=== PATIENT | female | born 1950 | race Caucasian/White ===

== ENCOUNTER → 2017-12-28 13:48 | Outpatient (REF) | payer MEDICARE, SELFPAY | LOC: LAB 13:48 | PROVIDERS: Visit Provider Family Medicine | DX: L97.921 Non-pressure chronic ulcer of unspecified part of left lower leg limited to breakdown of skin (principal); L97.911 Non-pressure chronic ulcer of unspecified part of right lower leg limited to breakdown of skin | CPT/HCPCS: 87070; 87077; 87186; 87205 ==

== ENCOUNTER 2018-04-19 13:00 | Outpatient (RCR) | payer MEDICARE, SELFPAY | END 2018-04-19 13:35 | disposition home or self-care (01) | LOC: PT 13:00 | PROVIDERS: Family Provider Family Medicine; Visit Provider Family Medicine | DX: L97.921 Non-pressure chronic ulcer of unspecified part of left lower leg limited to breakdown of skin (principal); L97.911 Non-pressure chronic ulcer of unspecified part of right lower leg limited to breakdown of skin | CPT/HCPCS: 29580; 97161; 97164; 97597 ==

== ENCOUNTER 2018-09-25 13:30 | Outpatient (RCR) | payer MEDICARE, SELFPAY | END 2018-09-25 13:35 | disposition home or self-care (01) | LOC: PT 13:30 | PROVIDERS: Referring Provider Family Medicine; Visit Provider Family Medicine | DX: L97.921 Non-pressure chronic ulcer of unspecified part of left lower leg limited to breakdown of skin (principal) | CPT/HCPCS: 29580; 97162; 97597 ==

== ENCOUNTER 2019-07-06 13:00 | Outpatient (RCR) | payer MEDICARE, MEDICAID, SELFPAY | END 2019-07-06 13:05 | disposition home or self-care (01) | LOC: PT 13:00 | PROVIDERS: Visit Provider Family Medicine | DX: L97.229 Non-pressure chronic ulcer of left calf with unspecified severity (principal); L97.219 Non-pressure chronic ulcer of right calf with unspecified severity | CPT/HCPCS: 29580; 97140; 97162; 97164; 97597; 97598; 97760 ==

== ENCOUNTER 2024-10-26 20:38 | Inpatient (IN) | payer MEDICARE, SELFPAY ==
[2024-10-26 20:44] VITALS: O2SAT 93
--- NOTE | 2024-10-26 20:48 | PC.NURSE ---
Patient arrived to floor @2044
[2024-10-26 21:06] VITALS: BP 120/77; PULSE 72; RESP 16; TEMP 36.7; O2SAT 96; BMI 35.2
--- NOTE | 2024-10-26 22:23 | EXP.HP ---
History of Present Illness *Admission Date: 10/26/24 *Reason for visit:: Weakness *History of present illness: This is a 74-year-old female that presents to [facility] in transition of care from [facility] for generalized weakness and abnormal ECG. The patient reports that she lives in [place] with her daughter and son and is typically wheelchair dependent secondary to a previous stroke with left-sided deficit. She normally uses adult diaper hygiene managed by her family members. She reports that she is able to transfer from the bed to the wheelchair but often needs assistance with diaper changes. She describes feeling weak over a couple days of the family brought her to the emergency room for evaluation. In the emergency room the ED provider identified an abnormal ECG and contacted the cardiology service at [facility] for transition of care. Her outside troponins were negative x 2 and her ECGs identified no acute ST-T changes. She received IV fluids in the ED with improvement noted. Currently she reports no fever, no chills, no nausea, no vomiting, no diarrhea, no abdominal pain, no flank pain, no dysuria, no gross hematuria, no retrosternal chest pain, no dyspnea, no palpitations, no diaphoresis, no pain with inspiration, no cough or syncopal episodes. After the patient had arrived at our facility I received a call from the outside ED physician reporting that the patient's urinalysis came back abnormal and concerning for urinary tract infection. Nursing staff have identified that she remains afebrile with blood pressure 120/77, heart rate 72 normal respiratory rate and saturating appropriately on room air. [facility] Medical History (Updated 10/26/24 @ 23:01 by Otto Laguerre MD) Stroke (HFpEF) heart failure with preserved ejection fraction Body mass index (BMI) 35 or more Chronic venous stasis Normal esophagogastroduodenoscopy (EGD) Sleep apnea Hypertension Hypercholesterolemia GERD (gastroesophageal reflux disease) Gout Lymphedema Diabetes mellitus Coronary arteriosclerosis Chronic renal failure Cellulitis Surgical History (Updated 10/26/24 @ 22:57 by Otto Laguerre MD) Hx of esophagogastroduodenoscopy Hx of colonoscopy History of cystoscopy Hx of appendectomy H/O tubal ligation Social History (Updated 10/26/24 @ 21:24 by Eileen Caputo RN) Smoking Status: Never smoker alcohol intake: never current occupational status: disabled Travel in the last 8 weeks?: None Have you lived/traveled outside US in past 30 days?: No Contact w/someone who lives/traveled outside US past 30 days?: No Exposure to someone with infectious disease in past 14 days?: No Do you have a fever (greater than 100.4 F or 38 C)?: No Have you tested positive for COVID-19?: No Exposed to someone with COVID-19 in past 14 days?: No Do you have a sore throat?: No Do you have a cough?: No Do you have any weakness?: No Are you experiencing any nausea/vomitting?: No Do you have any diarrhea?: No Are you experiencing any unusual bleeding?: No Do you have any muscle aches/pain?: No Do you have any abdominal pain?: No Are you experiencing loss of taste or smell?: No Other Medical History Have you received the Flu Vaccine for this season: No Have you received the Pneumonia Vaccine: No Review of Systems Review of Systems Review of systems:: pertinent systems reviewed and negative unless documented below Meds Home Medications and Allergies Home Medications ?Medication ?Instructions ?Recorded ?Confirmed ?Type allopurinol 100 mg tablet 100 mg PO DAILY 10/26/24 10/26/24 History atorvastatin 80 mg tablet 80 mg PO HS 10/26/24 10/26/24 History carvedilol 6.25 mg tablet 6.25 mg PO BID 10/26/24 10/26/24 History esomeprazole magnesium 20 mg 20 mg PO DAILY 10/26/24 10/26/24 History capsule,delayed release furosemide 20 mg tablet 20 mg PO DAILY 10/26/24 10/26/24 History insulin glargine 100 unit/mL (3 22 unit SQ 10/26/24 10/26/24 History mL) subcutaneous pen (Lantus Solostar U-100 Insulin) metformin 500 mg tablet,extended 500 mg PO DAILY 10/26/24 10/26/24 History release 24 hr potassium chloride 10 mEq 10 meq PO BID 10/26/24 10/26/24 History tablet,extended release New Prescriptions to Start Prescriptions: Allergies Allergy/AdvReac Type Severity Reaction Status Date / Time ciprofloxacin AdvReac Unknown Verified 10/26/24 21:00 allergy reaction Sulfa (Sulfonamide AdvReac Vomiting Verified 10/26/24 21:00 Antibiotics) sulfamethoxazole (From AdvReac Unknown Verified 10/26/24 21:00 Bactrim) allergy reaction trimethoprim (From Bactrim) AdvReac Unknown Verified 10/26/24 21:00 allergy reaction vancomycin AdvReac Rash Verified 10/26/24 21:00 Exam Data for Last 24 hours Vital signs and Labs for Last 24 Hours: Temp Pulse Resp BP Pulse Ox O2 Del Method 98.0 F 72 16 120/77 96 Room Air 10/26/24 21:06 10/26/24 21:06 10/26/24 21:06 10/26/24 21:06 10/26/24 21:06 10/26/24 21:06 I & O for Last 24 hours: Intake & Output 10/23/24 10/24/24 10/25/24 10/26/24 23:59 23:59 23:59 23:59 Output Total 100 / 100 Balance -100 / -100 Weight 93 kg *Routine HEENT Exam Head: Present normocephalic Eye: Present EOMI and PERRL ENT: Present mucous membranes moist *Routine Neck Exam Neck: Present supple and trachea midline; Absent JVD *Routine Respiratory Exam Respiratory: Present rales, rhonchi, normal respiratory effort and symmetric chest movement; Absent respiratory distress *Routine Cardiovascular Exam Cardiovascular: Present RRR, Normal S1 and Normal S2; Absent murmur or JVD *Routine Abdominal Exam Abdominal: Present soft and normoactive bowel sounds; Absent tenderness or distended *Routine Rectal Exam Rectal:: deferred *Routine Genitalia Exam Genitalia:: deferred *Routine Extremities Exam Extremities: Present edema and full ROM; Absent cyanosis *Routine Skin Exam Skin: Present intact and wounds; Absent rash *Routine Neurological Exam Neurological: Present alert, oriented X3, motor deficit (Left-sided weakness), moving all extremities, vision grossly intact, hearing grossly intact and normal speech; Absent sensory deficit Routine Psychiatric Exam Psychiatric: Present normal affect, normal thought process and cooperative Assessment and Plan *Assessment and plan (1) Urinary tract infection: Status: Acute Category: Medical Code(s): N39.0 - Urinary tract infection, site not specified (2) (HFpEF) heart failure with preserved ejection fraction: Status: Acute Category: Medical Code(s): I50.30 - Unspecified diastolic (congestive) heart failure (3) Diabetes mellitus: Status: Acute Category: Medical Code(s): E11.9 - Type 2 diabetes mellitus without complications (4) Chronic venous stasis: Status: Acute Category: Medical Code(s): I87.8 - Other specified disorders of veins Plan This is a 74-year-old female that presents with generalized weakness with ECG concerns in the ED and transferred to our facility for cardiology consultation. Her urinalysis was abnormal. 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 Problems addressed as follows: Urinary tract infection ED urinalysis abnormal Urine culture pending Trending labs and inflammatory markers IV antibiotic therapy Chronic HFpEF (stage C/NYHA II) Abnormal ECG Telemetry monitoring Cardiology consultation Troponin trend Echocardiogram pending Antiplatelet therapy Statin therapy Loop diuretic therapy (currently holding with low blood pressure) Beta-briana therapy (currently holding with low blood pressure) Avoiding SGLT2 inhibitor therapy with UTI Avoiding ARB therapy with low blood pressure Assessing blood pressures for MAR start Diabetes Routine blood sugar monitoring Hemoglobin A1c Pending Basal insulin therapy Sliding scale insulin therapy Consistent carbohydrate diet Chronic venous stasis Chronic lower extremity wounds Topical wound care Antibiotic therapy Outpatient follow-up concerning Unna boot therapy LANDON/OHS/BMI 35 Pulse oximetry monitoring Oxygen therapy to maintain appropriate oxygen saturations Assessing for home NIPPV therapy Nutrition education Calorie appropriate diet The length of stay for this patient will be 2 midnights or greater due to above diagnoses.
[2024-10-26 22:35] VITALS: PULSE 70
[2024-10-26 23:30] LABS: INR 1.07 (0.9-1.1); Prothrombin Time 11.8 seconds (10.1-12.5)
[2024-10-26 23:43] LABS: Bilirubin,Urine Negative (Negative); Color,Urine YELLOW (Yellow); Glucose,Urine (UA) Negative (Negative); Ketones,Urine TRACE (Negative); Leukocyte Esterase,Urine 2+ (Negative); Microscopic, Urine URINE MICROSCOPIC (MICROSCOPIC); PH,Urine 6.0 (5.0-8.5); Protein,Urine 2+ (Negative); Specific Gravity, Urine 1.020 (1.005-1.030); Urobilinogen,Urine 2.0 EU/dl (0.2)
[2024-10-26 23:52] LABS: Bacteria,Urine 1+ /lpf; Squamous Epithelial Cell,Urine Occasional #/hpf (0-5)
[2024-10-26 23:58] VITALS: PULSE 85
[2024-10-27] VITALS (8 sets, daily range): BP systolic 101–122; BP diastolic 52–66; PULSE 69–81; RESP 16–18; TEMP 36.4–37.6; O2SAT 96–99; BMI 34.9
[2024-10-27 00:03] LABS: POC Glucose,Bedside 96 (70-110)
[2024-10-27] MEDS: 0.9 % SODIUM CHLORIDE 1000ML 1,000 ML 125 ML IV ×2 (00:55→09:07)
[2024-10-27 03:49] LABS: Troponin I 0.02 ng/ml (0.00-0.034)
[2024-10-27 06:12] LABS: POC Glucose,Bedside 166 (70-110)
[2024-10-27] MEDS: humaLOG 100 UNITS/ML 10ML VIAL (SSI) SUBCUT ×4 (06:12→20:29)
[2024-10-27 07:49] LABS: Hematocrit 33.0 % (37.0-47.0); Hemoglobin 10.7 g/dL (12.2-16.2); Immature Granulocytes % 0.2 %; Mean Corpuscular HGB Conc 32.4 g/dL (31.8-35.4); Mean Corpuscular Hemoglobin 28.5 pg (27.0-31.2); Mean Corpuscular Volume 87.8 fl (81-99); Nucleated Red Blood Cells % 0 %; Platelet Count 114 K/mm3 (142-424); Red Blood Count 3.76 M/mm3 (4.20-5.40); Red Cell Distribution Width-SD 49.4 fL; White Blood Count 4.6 K/mm3 (4.8-10.8)
[2024-10-27 07:56] LABS: Albumin Level 3.1 g/dl (3.5-5.0); Chloride 109 mmol/L (98-107); Potassium 3.5 mmoL/L (3.5-5.1); Sodium 136 mmol/L (136-145)
[2024-10-27 07:59] LABS: Alanine Aminotransferase 27 U/L (12-78); Albumin/Globulin Ratio 1.0 (1.1-1.8); Alkaline Phosphatase 106 U/L (38-126); Anion Gap 11.5 mEq/L (5-15); Aspartate Amino Transferase 64 U/L (14-36); Bilirubin,Total 1.0 mg/dl (0.2-1.3); Blood Urea Nitrogen 17 mg/dl (7-17); Calcium 8.6 mg/dl (8.4-10.2); Carbon Dioxide 19 mmol/L (22.0-30.0); Creatinine Clearance Estimated 56 mL/min (50-200); Creatinine,Serum 1.30 mg/dl (0.52-1.04); Estimated Glomerular Filt Rate 40 ml/min (>60); GFR (African American) 48 ML/MIN (>60); Globulin 3.1 g/dL (1.3-3.2); Glucose 138 mg/dl (74-100); Total Protein,Serum 6.2 g/dl (6.3-8.2)
[2024-10-27 08:00] LABS: Magnesium 1.2 mg/dl (1.6-2.3)
[2024-10-27 08:09] LABS: Troponin I 0.02 ng/ml (0.00-0.034)
[2024-10-27 09:05] LABS: Hemoglobin A1C 5.7 % (4.0-6.0)
[2024-10-27] MEDS: ACETAMINOPHEN 500MG TAB 1000 MG PO (09:06)
[2024-10-27] MEDS: ASPIRIN EC 81MG TABLET 81 MG PO (09:07)
[2024-10-27] MEDS: HEPARIN SODIUM 5,000 UNIT/ML VIAL 5000 UNIT SUBCUT ×3 (09:07→20:28)
[2024-10-27] MEDS: DOCUSATE SODIUM 100 MG CAPSULE PO (09:07)
--- NOTE | 2024-10-27 09:18 | HMH.PHAINT1 ---
Pharmacy Intervention Comments: MEDICATION RECONCILIATION COMPLETE USING EXTERNAL PHARMACY FILL HISTORY.
[2024-10-27 11:02] LABS: POC Glucose,Bedside 191 (70-110)
--- NOTE | 2024-10-27 11:48 | ECG_ITS ---
APPROVED REPORT Exam: Resting ECG HR:72 bpm ECG Measurements Heart Rate 72 AXES NE 189 P 94 QRSd 99 QRS -9 QT 478 T 208 QTc 503 Conclusion SINUS RHYTHM LOW QRS VOLTAGE IN EXTREMITY LEADS [QRS DEFLECTION < 0.5 mV IN LIMB LEADS] ST DEVIATION AND MARKED T-WAVE ABNORMALITY, CONSIDER ANTEROLATERAL ISCHEMIA [-0.5+ mV T-WAVE IN I/aVL/V3-V6] ST DEVIATION AND MODERATE T-WAVE ABNORMALITY, CONSIDER INFERIOR ISCHEMIA [-0.1+ mV T-WAVE IN II/aVF] ABNORMAL ECG UNCONFIRMED REPORT Electronically signed by : Darryl Howe MD 10/28/2024 12:46:08
[2024-10-27] MEDS: METOPROLOL SUCCINATE XL 25MG TABLET 25 MG PO (14:29)
--- NOTE | 2024-10-27 15:34 | HMH.PTEV ---
Physical Therapy Evaluation Rehab PT IP Evaluation Start: 10/26/24 23:38 Freq: ONCE Status: Complete Protocol: Document 10/27/24 15:31 JEN (Rec: 10/27/24 15:33 JEN [id number]) Subjective/History History History 74-year-old female that [facility] care from [facility] for generalized weakness and abnormal ECG. The patient reports that she lives in [place] with her daughter and son and is typically wheelchair dependent secondary to a previous stroke with left- sided deficit. She normally uses adult diaper hygiene managed by her family members. She reports that she is able to transfer from the bed to the wheelchair but often needs assistance with diaper changes. She describes feeling weak over a couple days of the family brought her to the emergency room for evaluation. In the emergency room the ED provider identified an abnormal ECG and contacted the cardiology service at [facility] for transition of care. Her outside troponins were negative x 2 and her ECGs identified no acute ST-T changes. She received IV fluids in the ED with improvement noted. Currently she reports no fever, no chills, no nausea, no vomiting, no diarrhea, no abdominal pain, no flank pain, no dysuria, no gross hematuria, no retrosternal chest pain , no dyspnea, no palpitations, no diaphoresis, no pain with inspiration, no cough or syncopal episodes. After the patient had arrived at our facility I received a call from the outside ED physician reporting that the patient's urinalysis came back abnormal and concerning for urinary tract infection. Nursing staff have identified that she remains afebrile with blood pressure 120/77, heart rate 72 normal respiratory rate and saturating appropriately on room air. Subjective Subjective Pt reports she lives with her daughter who provides all care for her ADLs. She uses a lift to transfer to w/c for all mobility at baseline. [facility] How much help from another person do you currently need... Turning from your None back to your side while in a flat bed without using bedrails? Moving from lying on None back to sitting on the side of a flat bed without using bedrails? Moving to and from a Total bed to a chair ( including a wheelchair)? Standing up from a Total chair using your arms? (e.g., wheelchair, bedside chair) Walking in hospital Total room? Climbing 3-5 steps Total with a railing? Mobility Score 12 Mobility Level [facility] Mobility 4 Move to chair/commode Mobility Calculator Rehab PT IP Eval Objective Appearance Patient Behavior Appropriate Patient Orientation Person,Place,Time Difficulty following none instructions Speech Pattern Clear Ambulation Patient Able to No Ambulate Transfers Bed Transfer Ability Independent Chair Transfer Total/Dependent (100%) Ability Sit to Stand Bed Total/Dependent (100%) Transfer Ability Sit to Stand Chair Total/Dependent (100%) Transfer Ability Rehab PT IP prob,goals,plan Problems Date of Evaluation: 10/27/24 Discharge Plan PT Discharge Plan Pt is currently at baseline for all mobility and is appropriate to return home with use of lift for all transfers OOB. No current inpatient acute therapy needs at this time. Eval Complexity Eval Charge Codes 19681 - High Complexity PHYSICIAN CERTIFICATION: I certify the specified therapy services for Daja Steele are required, authorized, and reviewed every 30 days.
--- NOTE | 2024-10-27 15:42 | PC.NURSE ---
PT IS RESTING IN BED. ALERT AND ORIENTED X4. EATING AND DRINKING FAIR. PT HAS HAD SEVERAL LOOSE STOOLS THIS SHIFT. DIARRHEA PANEL COLLECTED AND SENT TO LAB. [facility]WICK REMOVED DUE TO PT BEING INCONTINENT OF BOWEL AND EXCORIATION NOTED TO ENEDINA AREA AND BUTTOCKS. SCATTERED ABRASIONS NOTED TO BLE. PT TOLERATED WORKING WITH PHYSICAL THERAPY THIS SHIFT. WILL CONTINUE TO MONITOR.
[2024-10-27 15:45] LABS: Adenovirus F 40/41, stool Not Detected (NotDetected); Clostridium Difficile A/B, PCR Not Detected (NotDetected); Cyclospora Cayetanesis Not Detected (NotDetected); Plesimonas Shigalloides, PCR Not Detected (NotDetected); Salmonella, PCR Not Detected (NotDetected); Shiga-like toxin E coli Not Detected (NotDetected); Shigella Enterovasive E coli Not Detected (NotDetected); Vibrio, PCR Not Detected (NotDetected); Yersinia Entercolitica, PCR Not Detected (NotDetected)
--- NOTE | 2024-10-27 15:55 | EXP.PN ---
Subjective *Date: 11/02/24 *Time: 12:17 Interval history: Intermittent chest pain, started Protonix. [facility] on Tuesday per Dr. Adair. Exam Data for Last 24 hours Vital signs and Labs for Last 24 Hours: Temp Pulse Resp BP Pulse Ox O2 Del Method O2 Flow Rate 98.0 F 77 18 122/66 96 Room Air 93 10/27/24 12:16 10/27/24 12:16 10/27/24 12:16 10/27/24 12:16 10/27/24 12:16 10/27/24 14:52 10/27/24 01:00 Laboratory Results - last 24 hr 10/26/24 22:30: Urine Color Yellow, Urine Appearance Clear, Urine pH 6.0, Ur Specific Lyman 1.020, Urine Protein 2+ A, Urine Glucose (UA) Negative, Urine Ketones Trace, Urine Blood 2+ A, Urine Nitrate Positive A, Urine Bilirubin Negative, Urine Urobilinogen 2.0, Ur Leukocyte Esterase 2+ A, Urine RBC 10-20, Urine WBC 5-10, Ur Squamous Epith Cells Occasional, Urine Bacteria 1+ 10/26/24 22:51: PT 11.8, INR 1.07 10/26/24 23:49: POC Glucose 96 10/27/24 03:10: Troponin I 0.02 10/27/24 06:05: POC Glucose 166 H 10/27/24 07:06: WBC 4.6 L, RBC 3.76 L, Hgb 10.7 L, Hct 33.0 L, MCV 87.8, MCH 28.5, MCHC 32.4, RDW 15.4, Plt Count 114 L, MPV 9.4, Neut % (Auto) 67.1, Lymph % (Auto) 19.7, Harnett % (Auto) 11.6 H, Eos % (Auto) 0.7, Baso % (Auto) 0.7, Neut # (Auto) 3.1, Lymph # (Auto) 0.9, Harnett # (Auto) 0.5, Eos # (Auto) 0.0, Baso # (Auto) 0.0, Sodium 136, Potassium 3.5, Chloride 109 H, Carbon Dioxide 19 L, Anion Gap 11.5, BUN 17, Creatinine 1.30 H, Estimated Creat Clear 56, Estimated GFR 40 L, Est GFR ( Amer) 48 L, Glucose 138 H, Hemoglobin A1c 5.7, Calcium 8.6, Magnesium 1.2 L, Total Bilirubin 1.0, AST 64 H, ALT 27, Alkaline Phosphatase 106, Troponin I 0.02, Total Protein 6.2 L, Albumin 3.1 L, Globulin 3.1, Albumin/Globulin Ratio 1.0 L 10/27/24 10:53: POC Glucose 191 H Temp Pulse Resp BP Pulse Ox O2 Del Method O2 Flow Rate 98.3 F 74 18 134/72 96 Room Air 93 10/29/24 08:00 10/29/24 08:00 10/29/24 08:00 10/29/24 08:00 10/29/24 08:00 10/29/24 11:00 10/27/24 01:00 Laboratory Results - last 24 hr 10/26/24 22:30: Urine Color Yellow, Urine Appearance Clear, Urine pH 6.0, Ur Specific Lyman 1.020, Urine Protein 2+ A, Urine Glucose (UA) Negative, Urine Ketones Trace, Urine Blood 2+ A, Urine Nitrate Positive A, Urine Bilirubin Negative, Urine Urobilinogen 2.0, Ur Leukocyte Esterase 2+ A, Urine RBC 10-20, Urine WBC 5-10, Ur Squamous Epith Cells Occasional, Urine Bacteria 1+ 10/28/24 16:26: POC Glucose 196 H 10/28/24 20:03: POC Glucose 200 H 10/29/24 05:47: POC Glucose 137 H 10/29/24 08:43: Sodium 134 L, Potassium 3.8, Chloride 108 H, Carbon Dioxide 19 L, Anion Gap 10.8, BUN 17, Creatinine 1.10 H, Estimated Creat Clear 65, Estimated GFR 49 L, Est GFR ( Amer) 59, Glucose 220 H D, Calcium 8.7 10/29/24 09:20: WBC 3.3 L, RBC 3.65 L, Hgb 10.3 L, Hct 31.7 L, MCV 86.8, MCH 28.2, MCHC 32.5, RDW 15.5, Plt Count 134 L, MPV 9.9, Neut % (Auto) 48.3, Lymph % (Auto) 35.8, Harnett % (Auto) 10.8 H, Eos % (Auto) 3.9, Baso % (Auto) 0.9, Neut # (Auto) 1.6 L, Lymph # (Auto) 1.2, Harnett # (Auto) 0.4, Eos # (Auto) 0.1, Baso # (Auto) 0.0 I & O for Last 24 hours: Intake & Output 10/24/24 10/25/24 10/26/24 10/27/24 23:59 23:59 23:59 23:59 Intake Total 570 / 570 Output Total 100 / 100 100 / 100 Balance -100 / 150 470 / 470 Weight 93 kg 93 kg Intake & Output 10/26/24 10/27/24 10/28/24 10/29/24 23:59 23:59 23:59 23:59 Intake Total 2164 / 2314 570 / 620 610 / 610 Output Total 100 / 100 100 / 100 1250 / 1650 1150 / 1150 Balance -100 / 150 2064 / 2214 -680 / -1030 -540 / -540 Weight 205 lb 0.478 oz 205 lb 0.478 oz 204 lb 4.8 oz 203 lb Microbiology Reports for the Last 24 Hours: Microbiology 10/26/24 22:30 Urine,Catheterized Urine Culture - Preliminary Gram Negative Rods Constitutional Constitutional: no acute distress and obese *Routine HEENT Exam Head: Present normocephalic and atraumatic ENT: Present mucous membranes moist *Routine Neck Exam Neck: Present supple, full ROM and normal carotid upstroke; Absent JVD, carotid bruit or lymphadenopathy *Routine Respiratory Exam Respiratory: Present CTA bilaterally, normal respiratory effort, able to speak in complete sentences and symmetric chest movement *Routine Cardiovascular Exam Cardiovascular: Present RRR, Normal S1 and Normal S2; Absent murmur or gallop *Routine Abdominal Exam Abdominal: Present soft and normoactive bowel sounds; Absent tenderness, distended or organomegaly *Routine Extremities Exam Extremities: Present edema, full ROM, pulses intact and normal capillary refill; Absent cyanosis or clubbing *Routine Skin Exam Skin: Present intact and warm; Absent erythema *Routine Neurological Exam Neurological: Present alert, oriented X3 and CN II-XII intact; Absent sensory deficit or motor deficit Routine Psychiatric Exam Psychiatric: Present normal affect Assessment and Plan *Assessment and plan (1) Urinary tract infection: Status: Acute Category: Medical Code(s): N39.0 - Urinary tract infection, site not specified (2) (HFpEF) heart failure with preserved ejection fraction: Status: Acute Qualifiers: Heart failure chronicity: chronic Qualified Code(s): I50.32 - Chronic diastolic (congestive) heart failure Category: Medical Code(s): I50.30 - Unspecified diastolic (congestive) heart failure (3) Diabetes mellitus: Status: Acute Qualifiers: Diabetes mellitus type: type 2 Diabetes mellitus intermediate manager insulin use: with intermediate manager use Diabetes mellitus complication status: with circulatory complication Category: Medical Code(s): E11.9 - Type 2 diabetes mellitus without complications (4) Chronic venous stasis: Status: Acute Category: Medical Code(s): I87.8 - Other specified disorders of veins Plan This is a 74-year-old female that presents with generalized weakness with ECG concerns in the ED and transferred to our facility for cardiology consultation. Her urinalysis was abnormal. 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 Problems addressed as follows: Urinary tract infection ED urinalysis abnormal Urine culture pending - No signs of sepsis, WBC 3.5. - Continue IV ceftriaxone 1g daily. Chronic HFpEF (stage C/NYHA II) Abnormal ECG Telemetry monitoring Cardiology consultation Troponin trend Echocardiogram pending Antiplatelet therapy Statin therapy Loop diuretic therapy (currently holding with low blood pressure) Beta-briana therapy (currently holding with low blood pressure) Avoiding SGLT2 inhibitor therapy with UTI Avoiding ARB therapy with low blood pressure Assessing blood pressures for MAR start - Patient is having intermittent chest pains, no ST elevations. Troponins normal. Discussed with Dr. Adair, recommeds [facility] on Tuesday. Patient is agreeable. Diabetes Routine blood sugar monitoring Hemoglobin A1c Pending Basal insulin therapy Sliding scale insulin therapy Consistent carbohydrate diet Chronic venous stasis Chronic lower extremity wounds Topical wound care Antibiotic therapy Outpatient follow-up concerning Unna boot therapy LANDON/OHS/BMI 35 Pulse oximetry monitoring Oxygen therapy to maintain appropriate oxygen saturations Assessing for home NIPPV therapy Nutrition education Calorie appropriate diet The length of stay for this patient will be 2 midnights or greater due to above diagnoses.
[2024-10-27 17:00] LABS: POC Glucose,Bedside 230 (70-110)
[2024-10-27] MEDS: ATORVASTATIN 40MG TABLET 80 MG PO (20:28)
[2024-10-27] MEDS: PANTOPRAZOLE 40MG TABLET 40 MG PO (20:29)
[2024-10-27] MEDS: INSULIN GLARGINE 100 UNITS/ML 3ML FLEXPEN 10 UNIT SUBCUT (20:29)
[2024-10-27 20:41] LABS: POC Glucose,Bedside 173 (70-110)
--- OUTSIDE RECORDS SUMMARY | 2024-10-27 23:12 | XMS_ITS | Encounter Summary ---
Author Organization [employer] ([place], [place], [place], [place]) Address [address] [place] [address] Care Team Providers Care Vrt Mechanic Name Role Phone Unavailable Primary Care Provider Unavailabl e Encounter Details Date Type Department Care Team (Late st Contact Info) Description 06/09/2021 Transcribed Document [facility] Family Medicine [address] [place] [id number] ProviderMohamud MD [address] [place] [id number] Social History Tobacco Use Types Packs/Day Years Used Date Smoking Tobacco: Never Assessed Comments Unknown Sex and Gender Information Value Date Recorded Sex Assigned at Female 09/08/2021 5:34 PM CDT Legal Sex Female 5:34 PM CDT Gender Identity Female 09/08/2021 5:34 PM CDT Sexual Orientation Not on file documented as of this encounter Miscellaneous Notes * Cerner Conversion Note - Historical ProviderMD - 06/09/2021 2:00 PM CDT On Going Discharge Planning Entered On: 06/09/2021 14:01 EDT Performed On: 06/09/2021 14:00 EDT by Jack White, [employer] WORK[employer] NON-EXEMPT Care Management Progress Note Discharge Arrangements : Patient Post-Acute Information Patient Name: DAJA RODAS Gender: Female : 50 Age: 70 Years No Post-Acute Placement(s) Listed No Post-Acute Service(s) Listed No [place] Referral(s) Listed Discharge Options Discussed with Patient : Discharge transportation, DME, Home Health Barriers to Discharge Identified : Clinical Condition of Patient Barriers to Discharge Unresolved : Clinical Condition of Patient Patient Discharge Goal : Home health care Patient Offered Choice/Affiliations Explained : Yes List/Info Provided Pt/Fam/Support Person : Home health [facility] Quality Web Info Shared w Pt/Fam : Yes Jack White [employer] WORKER NON-EXEMPT - 06/09/2021 14:00 EDT Narrative Progress Note Narrative Progress Note : Day 3 of 3 ELOS. Moderate readmission risk Pt still declining rehab Pt wants to resume family care & services [facility] has already been sent resumptive orders Ambulance transport on will call with hold date of 06/12/2021 @ 1200 CM will continue to follow Jack White SOCIAL WORKER NON-EXEMPT - 06/09/2021 14:17 EDT Historical Progress Note : Day 2 with no ELOS Moderate readmission risk Pt active with [facility] Pt & family refusing rehab as baseline is hospital bed bound with lift for transfers Family provides care at home CM contacted [facility] & confirmed they can take back at [place] Pt is expected to need ambulance transport at [place] DC unknown at this time CM will continue to follow Jack White [employer] WORKER NON-EXEMPT - 06/08/21 14:55:51 Jack White [employer] WORKER NON-EXEMPT - 06/09/2021 14:00 EDT documented in this encounter Plan of Treatment Not on file documented as of this encounter Visit Diagnoses Not on filedocumented in this encounter
--- OUTSIDE RECORDS SUMMARY | 2024-10-27 23:12 | XMS_ITS | Encounter Summary ---
Author Organization [employer] ([place], [place], [place], [place]) Address [address] [place] [address] Care Team Providers Care Metal Bonding Press Operator Name Role Phone Unavailable Primary Care Provider Unavailabl e Encounter Details Date Type Department Care Team (Late st Contact Info) Description 06/07/2021 Transcribed Document [facility] [place] Family Medicine [address] [place] [address] ProviderMohamud MD [address] [place] [address] [id number] Social History Tobacco Use Types Packs/Day Years Used Date Smoking Tobacco: Never Assessed Comments Unknown Sex and Gender Information Value Date Recorded Sex Assigned at Female 09/08/2021 5:34 PM CDT Legal Sex Female 5:34 PM CDT Gender Identity Female 09/08/2021 5:34 PM CDT Sexual Orientation Not on file documented as of this encounter Miscellaneous Notes * Cerner Conversion Note - Historical ProviderMD - 06/07/2021 12:30 AM CDT WOCN Inpatient Documentation Entered On: 06/08/2021 6:15 EDT Performed On: 06/08/2021 6:14 EDT by Elvi Álvarez, [place]-Enterostomal WOCN Admission Date : Admit Date 06/06/2021 19:[address] : Diagnosis (4) Abdominal pain Unspecified abdominal pain Urinary tract infection, site not specified Hypotension, unspecified Admitting Diagnosis ST : Reason for Admission pain abdomen,uti, hypotension, dehydration WOCN Assessment Summary : Documented stage 2 PI to coccyx and left leg POA with documented silicone border dressing in place, which is appropriate per guidelines. PIPP recommendations in place, patient with AVIS surface. Please notify wound care department of any alteration in skin integrity or change in wound bed presentation. Elvi Álvarez Rn-Enterostomal - 06/08/2021 6:14 EDT Electronically signed by Lizzeth, [facility] Conversion Almond Blancher Hand Cerner at 07/02/2022 10:47 AM CDT documented in this encounter Plan of Treatment Not on file documented as of this encounter Visit Diagnoses Not on filedocumented in this encounter
--- OUTSIDE RECORDS SUMMARY | 2024-10-27 23:12 | XMS_ITS | Encounter Summary ---
Author Organization [employer] ([place], [place], [place], [place]) Address [address] [place] [address] Care Team Providers Care Director Of Outside Sales Name Role Phone Unavailable Primary Care Provider Unavailabl e Encounter Details Date Type Department Care Team (Late st Contact Info) Description 06/10/2021 Transcribed Document [facility] [place] [address] ProviderMohamud MD [address] [place], [place] [phone] Social History Tobacco Use Types Packs/Day Years Used Date Smoking Tobacco: Never Assessed Comments Unknown Sex and Gender Information Value Date Recorded Sex Assigned at Female 09/08/2021 5:34 PM CDT Legal Sex Female 5:34 PM CDT Gender Identity Female 09/08/2021 5:34 PM CDT Sexual Orientation Not on file documented as of this encounter Miscellaneous Notes * Cerner Conversion Note - Historical ProviderMD - 06/10/2021 5:00 PM CDT Chart Check - Review Order Profile Entered On: 06/10/2021 16:16 EDT Performed On: 06/10/2021 17:00 EDT by Jennifer Murray LPN Chart Check All Active Orders Reviewed : Yes Jennifer Murray LPN - 06/10/2021 16:16 EDT documented in this encounter Plan of Treatment Not on file documented as of this encounter Visit Diagnoses Not on filedocumented in this encounter
--- OUTSIDE RECORDS SUMMARY | 2024-10-27 23:12 | XMS_ITS | Encounter Summary ---
Author Organization [employer] ([place], [place], [place], [place]) Address [address] [place] [address] Care Team Providers Care Baker Test Name Role Phone Unavailable Primary Care Provider Unavailabl e Encounter Details Date Type Department Care Team (Late st Contact Info) Description 06/09/2021 Transcribed Document [facility] [place] Family Medicine [address] [place] [address] ProviderMohamud MD [address] [place] [address] [id number] Social History Tobacco Use Types Packs/Day Years Used Date Smoking Tobacco: Never Assessed Comments Unknown Sex and Gender Information Value Date Recorded Sex Assigned at Female 09/08/2021 5:34 PM CDT Legal Sex Female 5:34 PM CDT Gender Identity Female 09/08/2021 5:34 PM CDT Sexual Orientation Not on file documented as of this encounter Miscellaneous Notes * Cerner Conversion Note - Mohamud ProviderMD - 06/09/2021 1:20 PM CDT Consult Phone Call Documentation Entered On: 06/09/2021 13:21 EDT Performed On: 06/09/2021 13:20 EDT by Rachell Simon Patient Daily Sales Audit Clerk Nirali Phone Call for Consults Consult Phone Call/Page Attempt : Other: spoke with brynn Consult Reason : antibiotic management Physician Requesting Consult : SANJEEV DANIELLE MD-INT Physician Requested for Consult : OMAR CHACON MD-INF Provider Service Notified Name : Infectious Disease Date and Time Call Returned : 06/09/2021 13:21 EDT Rachell Simon Patient Daily Sales Audit Clerk Nirali - 06/09/2021 13:20 EDT documented in this encounter Plan of Treatment Not on file documented as of this encounter Visit Diagnoses Not on filedocumented in this encounter
--- OUTSIDE RECORDS SUMMARY | 2024-10-27 23:12 | XMS_ITS | Encounter Summary ---
[facility] Organization [facility] Address [address] [place] [id number] Care Team Providers Care Lands Resource Manager Name Role Phone Ashlie Miramontes CROSSING GUARD Primary Care Provider [phone] Reason for Visit * Reason Comments Med Refill Encounter Details Date Type Department Care Team (Late st Contact Info) Description 09/04/[address] [facility]IMARY [facility]ARE [address] [place] [phone] Ashlie Miramontes CROSSING GUARD [address] [place], [place] [address] Chronic gout of multiple sites, unspecified cause; Edema, unspecified type Social History Tobacco Use Types Packs/Day Years Used Date Smoking Tobacco: Never Smokeless Tobacco: Never Alcohol Use Standard Drinks/Week Comments Never 0 (1 standard drink = 0.6 oz pur e alcohol) PHQ-2 Answer Date Recorded Retired PHQ-9: Brief Depression Severity Measure Score 0 08/18/2022 Abuse Screen Answer Date Recorded Unsafe at Home or Work/School Not on file Feels Threatened by Someone? Not on file 09/2022 Does Anyone Keep You from Co ntacting Others or Doint Things Outside the Home? Not on file 12/18/2022 Physical Sign of Abuse Present Not on file 1 Housing Stability Answer Date Recorded Current Living Arrangements Not on file 09/2022 Potentially Unsafe Housing Conditions Not on carlos e 12/18/2022 Family and Community Support Answer John e Recorded Help with Day-to-Day Activities Not on file 12/18/2022 Lonely or Isolated Not on file 12/18/2022 Employment Answer Date Recorded Do you want help finding or keeping work or a abby b? Not on file 12/18/2022 Disabilities Answer Date Recorded Concentrating, Remembering, or Making Decisions Difficulty Not on file 12/18/2022 Doing Errands Independently Difficulty Not on fi le 12/18/2022 Education Answer Date Recorded Help with school or training? Not on file Preferred Language Not on file 12/18/2022 PHQ-2 Answer Date Recorded Retired PHQ-9: Brief Depression Severity Measure Score 0 09/16/2023 Comments Unknown Sex and Gender Information Value Date Recorded Sex Assigned at Not on file Legal Sex Female 12:54 PM EDT Gender Identity Not on file Sexual Orientation Not on file documented as of this encounter Plan of Treatment Upcoming Encounters Date Type Department Care Team (Late st Contact Info) Description 11/14/2024 11:30 AM EDT Office Visit [facility] [address] [place] [phone] Ashlie Miramontes APRN [address] [place] [address] documented as of this encounter Visit Diagnoses Diagnosis Chronic gout of multiple sites, unspecified cause Edema, unspecified type documented in this encounter Care Teams Lands Resource Manager Relationship Specialty Start Date End Date Ashlie Miramontes APRN [address] [place] [address] PCP - General Family Medicine 02/10/22 documented as of this encounter
--- OUTSIDE RECORDS SUMMARY | 2024-10-27 23:12 | XMS_ITS | Encounter Summary ---
[facility] Address [address] [place] [phone] Care Team Providers Care Managing Consultant Clinical Professor Name Role Phone Ashlie Miramontes STERILISATION TECHNICIAN Primary Care Provider [phone] Reason for Visit * Reason Onset Date Comments Advice Only 10/22/2024 Encounter Details Date Type Department Care Team (Late st Contact Info) Description 10/22/2024 Telephone [facility] PRIMARY [facility] [address] [place] [phone] Ashlie Miramontes, STERILISATION TECHNICIAN [address] [place] [address] Advice Only Social History Tobacco Use Types Packs/Day Years [...] as of this encounter Miscellaneous Notes * Telephone Encounter - Lashon Powers MA - 10/22/2024 11:12 AM EDT Patient wants to know what we were going to call in instead of Ozempic * Telephone Encounter - Igor Rock RegSched Rep - 10/22/2024 11:01 AM EDT Caller: Daja Steele Relationship: Self Best call back number: [phone] What is the best time to reach you: ANY Who are you requesting to speak with (clinical staff, provider, specific staff member): CLINICAL Do you know the name of the person who called: SELF What was the call regarding: PATIENT WOULD LIKE TO DISCUSS ONE OF HER MEDICATIONS. Is it okay if the provider responds through MyChart: NO documented in this encounter Plan of Treatment Upcoming Encounters Date Type Department Care Team (Late st Contact Info) Description 11/14/2024 11:30 AM EDT Office Visit [facility] PRIMARY [facility] [address] [place] [address] [place] [phone] Ashlie Miramontes APRN [address] [place] [address] documented as of this encounter Visit Diagnoses Not on filedocumented in this encounter Care Teams Managing Consultant Clinical Professor Relationship Specialty Start Date End Date Ashlie Miramontes APRN [address] [place] [address] PCP - General Family Medicine 02/10/22 documented as of this encounter
--- OUTSIDE RECORDS SUMMARY | 2024-10-27 23:12 | XMS_ITS | Encounter Summary ---
[facility] Address [address] [place] [phone] Care Team Providers Care Cardiovascular Rn Name Role Phone Ashlie Miramontes SALES SERVICE TECHNICIAN Primary Care Provider [phone] Reason for Visit * Reason Comments Med Refill Encounter Details Date Type Department Care Team (Late st Contact Info) Description 09/26/2024 Refill [facility]IMARY [facility]ARE [address] [place] [phone] Ashlie Miramontes APRN [address] [place], [place] [phone] Edema, unspecified type Social History Tobacco Use [...] Telephone Encounter - Lashon Powers MA - 09/26/2024 11:40 AM EDT Patient coming in for an appointment documented in this encounter Plan of Treatment Upcoming Encounters Date Type Department Care Team (Late st Contact Info) Description 11/14/2024 11:30 AM EDT Office Visit [facility] [address] [place] [phone] Ashlie Miramontes APRN [address] [place] [address] documented as of this encounter Visit Diagnoses Diagnosis Edema, unspecified type documented in this encounter Care Teams Cardiovascular Rn Relationship Specialty Start Date End Date Ashlie Miramontes APRN [address] [place] [address] PCP - General Family Medicine 02/10/22 documented as of this encounter
--- OUTSIDE RECORDS SUMMARY | 2024-10-27 23:12 | XMS_ITS | Encounter Summary ---
[facility] Address [address] [place] [phone] Care Team Providers Care Airport Traffic Controller Name Role Phone Ashlie Miramontes RECOVERY MANAGER Primary Care Provider [phone] Reason for Visit * Reason Comments Med Refill Encounter Details Date Type Department Care Team (Late st Contact Info) Description 10/23/2024 Refill [facility] [address] [place] [phone] Ashlie Miramontes, RECOVERY MANAGER [address] [place], [place] [phone] Edema, unspecified type; Primary hypertension Social History Tobacco Use Types Packs/Day Years [...] Description 11/14/2024 11:30 AM EDT Office Visit [facility] [address] [place] [phone] Ashlie Miramontes, LOLIS [address] [place] [address] documented as of this encounter Visit Diagnoses Diagnosis Edema, unspecified type Primary hypertension Unspecified essential hypertension documented in this encounter Care Teams Airport Traffic Controller Relationship Specialty Start Date End Date Ashlie Miramontes, LOLIS [address] [place] [address] PCP - General Family Medicine 02/10/22 documented as of this encounter
--- OUTSIDE RECORDS SUMMARY | 2024-10-27 23:12 | XMS_ITS | Encounter Summary ---
Author Organization [employer] ([place], [place], [place], [place]) Address [address] [place] [address] Care Team Providers Care Package Sealer Machine Name Role Phone Unavailable Primary Care Provider Unavailabl e Encounter Details Date Type Department Care Team (Late st Contact Info) Description 06/07/2021 Transcribed Document [facility] [place] Family Medicine [address] [place] [address] ProviderMohamud MD [address] [place] [address] [phone] Social History Tobacco Use Types Packs/Day Years [...] Conversion Note - Historical ProviderMD - 06/07/2021 2:12 PM CDT Therapy Screen, OT Entered On: 06/07/2021 14:14 EDT Performed On: 06/07/2021 14:12 EDT by YULI العراقي OTR/L Therapy Screen, OT Medical Chart Reviewed : Yes Person Providing Information : Nurse Screen Completed : Yes Recommendations for Evaluation OT : Do not recommend Occupational Therapy evaluation Therapy Screen Findings, OT : Patient at functional baseline Recommendations Upon Discharge : None Additional Therapy Screen Comment : Pt living with daughter sleeping in hospital bed. T/f to w/c infrequently via mechanical lift. LENA Alcaraz notified and approved of therapy screening. YULI العراقي OTR/L - 06/07/2021 14:12 EDT Electronically signed by Lizzeth [facility] Conversion C 40A Crew Chief Cerner at 07/02/2022 11:01 AM CDT documented in this encounter Plan of Treatment Not on file documented as of this encounter Visit Diagnoses Not on filedocumented in this encounter
--- OUTSIDE RECORDS SUMMARY | 2024-10-27 23:12 | XMS_ITS | Encounter Summary ---
[facility] Address [address] [place] [phone] Care Team Providers Care Anatomy Professor Name Role Phone Ashlie Miramontes ENDOSCOPY TECH Primary Care Provider [phone] Reason for Visit * Reason Comments Med Refill Encounter Details Date Type Department Care Team (Late st Contact Info) Description 09/23/2024 Refill [facility] [address] [place] [phone] Ashlie Miramontes, ENDOSCOPY TECH [address] [place], [place] [phone] Primary hypertension; Edema, unspecified type Social History Tobacco Use [...] encounter Miscellaneous Notes * Telephone Encounter - Yisel Hagan - 09/24/2024 11:50 AM EDT I have filled for her today. She has a physical scheduled for 10/05/2024. TF documented in this encounter Plan of Treatment Upcoming Encounters Date Type Department Care Team (Late st Contact Info) Description 11/14/2024 11:30 AM EDT Office Visit [facility] [address] [place] [phone] Ashlie Miramontes APRN [address] [place] [address] documented as of this encounter Visit Diagnoses Diagnosis Primary hypertension Unspecified essential hypertension Edema, unspecified type documented in this encounter Care Teams Anatomy Professor Relationship Specialty Start Date End Date Ashlie Miramontes APRN [address] [place] [address] PCP - General Family Medicine 02/10/22 documented as of this encounter
--- OUTSIDE RECORDS SUMMARY | 2024-10-27 23:12 | XMS_ITS | Encounter Summary ---
Author Organization [facility] Address [address] [place] [phone] Care Team Providers Care Vp Customer Service Name Role Phone Ashlie Miramontes SEQUINS STRINGER Primary Care Provider [phone] Reason for Visit * Reason Comments Med Refill Encounter Details Date Type Department Care Team (Late st Contact Info) Description 09/11/2024 Refill [facility]IMARY [facility] [address] [place] [phone] Ashlie Miramontes APRN [address] [place], [place] [phone] Mixed hyperlipidemia Social History Tobacco Use Types Packs/Day Years [...] Description 11/14/2024 11:30 AM EDT Office Visit [facility] [address] [place] [phone] Ashlie Miramontes APRN [address] [place] [address] documented as of this encounter Visit Diagnoses Diagnosis Mixed hyperlipidemia documented in this encounter Care Teams Vp Customer Service Relationship Specialty Start Date End Date Ashlie Miramontes APRN [address] [place] [address] PCP - General Family Medicine 02/10/22 documented as of this encounter
--- OUTSIDE RECORDS SUMMARY | 2024-10-27 23:12 | XMS_ITS | Encounter Summary ---
Author Organization [employer] ([place], [place], [place], [place]) Address [address] [place] [address] Care Team Providers Care National Insurance Officer Name Role Phone Unavailable Primary Care Provider Unavailabl e Encounter Details Date Type Department Care Team (Late st Contact Info) Description 06/16/2021 Transcribed Document [facility] [place] Family Medicine [facility] [place] [address] ProviderMohamud MD [address] [place], [place] [phone] Social History Tobacco Use Types Packs/Day Years Used Date Smoking Tobacco: Never Assessed Comments Unknown Sex and Gender Information Value Date Recorded Sex Assigned at Female 09/08/2021 5:34 PM CDT Legal Sex Female 5:34 PM CDT Gender Identity Female 09/08/2021 5:34 PM CDT Sexual Orientation Not on file documented as of this encounter Miscellaneous Notes * Cerner Conversion Note - Mohamud ProviderMD - 06/16/2021 12:56 PM CDT UM Authorization Entered On: 06/16/2021 12:57 EDT Performed On: 06/16/2021 12:56 EDT by Iliana Miles, Corner Brace Block Machine Operator Primary Insurance Authorization Authorization and Policy Numbers : Insurance 1 Health Plan: [employer] MEDICARE REPL Policy Number: [id number] Authorization Number: Insurance Primary Name : [employer] MEDICARE REPL Policy Number: [id number] Authorization Status-Primary : Approved Auth/Referral Contact Name-Primary : [place] Reference Number-Primary : [id number] Authorization Number-Primary : [id number] Number of Days Authorized-Primary : 6 Day(s) Authorized Service Begin Date-Primary : 06/06/2021 EDT Authorized Service End Date-Primary : 06/12/2021 EDT Authorization Comments-Primary : Authorized per [employer] - Request approved x7 days. Historical Authorization Comments-Primary : Comment 1: Discharge summary faxed. (Iliana Miles, Corner Brace Block Machine Operator 06/15/2021 13:06) Comment 2: [facility] (KATIE PATINO, RN-UTILIZATION MANAGEMENT REVIEW NON-EXEMPT 06/11/2021 08:40) Comment 3: AUTH SUBMITTED ON [employer] W/ CLINICAL ATTACHED (Carla Mitchell, Rn-Utilization Review 06/07/2021 11:30) Iliana Miles, Corner Brace Block Machine Operator - 06/16/2021 12:56 EDT documented in this encounter Plan of Treatment Not on file documented as of this encounter Visit Diagnoses Not on filedocumented in this encounter
--- OUTSIDE RECORDS SUMMARY | 2024-10-27 23:12 | XMS_ITS | Encounter Summary ---
Author Organization [employer] ([place], [place], [place], [place]) Address [address] [place] [address] Care Team Providers Care Usps Letter Carrier Name Role Phone Unavailable Primary Care Provider Unavailabl e Encounter Details Date Type Department Care Team (Late st Contact Info) Description 06/10/2021 Transcribed Document [facility] [place] Family [place] [facility] [place] [address] ProviderMohamud MD [address] [place] [address] Social History Tobacco Use Types Packs/Day [...] Conversion Note - Historical ProviderMD - 06/10/2021 12:25 PM CDT [facility] Endo PACU Summary Primary Physician: Alvin Summers, Gastroenterolgy Finalized Date/Time: 06/10/21 13:07:01 Pt. Name: DAJA RODAS/Sex: 1950 Female Med Rec #: [id number] Physician: HARDY ABEBE MD Financial #: [id number] Pt. Type: I Room/Bed: [facility]/1 Admit/Disch: 06/06/21 19:46:00 - Institution: [facility] Endo PACU Case Times Entry 1 In PACU I 06/10/21 12:42:00 Ready for PACU 06/10/21 13:06:00 Discharge Discharge from PACU 06/10/21 13:11:00 I Last Modified By: Aline Springer RN-PATIENT CARE BEDSIDE NON-EXEMPT 06/10/21 13:06:59 [facility] Endo PACU Case Times Audit 06/10/21 13:06:59 Chemistry Associate: [id number] Modifier: [id number] <+> 1 Ready for PACU Discharge <+> 1 Discharge from PACU I Finalized By: Aline Springer RN-PATIENT CARE BEDSIDE NON-EXEMPT Document Signatures Signed By: Aline Springer RN-PATIENT CARE BEDSIDE NON-EXEMPT 06/10/21 13:07 documented in this encounter Plan of Treatment Not on file documented as of this encounter Visit Diagnoses Not on filedocumented in this encounter
--- OUTSIDE RECORDS SUMMARY | 2024-10-27 23:12 | XMS_ITS | Encounter Summary ---
Author Organization [employer] ([place], [place], [place], [place]) Address [address] [place] [address] Care Team Providers Care Supervisor Pumping Station Name Role Phone Unavailable Primary Care Provider Unavailabl e Encounter Details Date Type Department Care Team (Late st Contact Info) Description 06/07/2021 Transcribed Document [facility] [place] Family Medicine [facility] [place] [address] ProviderMohamud MD [address] [place], [place] [phone] Social History Tobacco Use Types Packs/Day Years [...] Conversion Note - Historical ProviderMD - 06/07/2021 2:00 AM CDT Plumber And Tinner Details Entered On: 06/07/2021 5:52 EDT Performed On: 06/07/2021 2:00 EDT by Trinidad Coreas LPN Order Details Order Detail : N/A IV Order Detail : 1 Oxygen Order Detail : 0 Central Line Order Detail : No Arterial Line : No Patient Needs Meds Crushed/Liquid : No Trinidad Coreas LPN - 06/07/2021 5:52 EDT documented in this encounter Plan of Treatment Not on file documented as of this encounter Visit Diagnoses Not on filedocumented in this encounter
--- OUTSIDE RECORDS SUMMARY | 2024-10-27 23:12 | XMS_ITS | Encounter Summary ---
Author Organization [employer] ([place], [place], [place], [place]) Address [address] [place] [address] Care Team Providers Care Mirror Maker Name Role Phone Unavailable Primary Care Provider Unavailabl e Encounter Details Date Type Department Care Team (Late st Contact Info) Description 06/07/2021 Transcribed Document [facility] Family [facility] [place] [address] ProviderMohamud MD [address], [place] [id number] Social History Tobacco Use Types Packs/Day Years Used Date Smoking Tobacco: Never Assessed Comments Unknown Sex and Gender Information Value Date Recorded Sex Assigned at Female 09/08/2021 5:34 PM CDT Legal Sex Female 5:34 PM CDT Gender Identity Female 09/08/2021 5:34 PM CDT Sexual Orientation Not on file documented as of this encounter Miscellaneous Notes * [employer]ner Conversion Note - Mohamud ProviderMD - 06/07/2021 10:30 AM CDT Rapid Response Team Documentation Entered On: 06/07/2021 10:34 EDT Performed On: 06/07/2021 10:30 EDT by Lisseth Diaz RN Rapid Response Event Rapid Response Team Arrival Time : 06/07/2021 9:18 EDT Rapid Response Team Event End Time : 06/07/2021 9:23 EDT Rapid Response Team Initiation Reason : Change in MEWS score Rapid Response Event Location Type : Other: 384 Rapid Response Admission Diagnosis : Abdominal pain Hypotension, unspecified Unspecified abdominal pain Urinary tract infection, site not specified Rapid Response Medical Background : History of obstructive sleep apnea (Medical) Rapid Response Allergies : Substance Category Reactions Severity ciprofloxacin Drug ciprofloxacin Drug vancomycin Drug vancomycin Drug Rapid Response Recent Vital Signs : 06/07/2021 09:25 Systolic Blood Pressure 126 06/07/2021 09:25 Diastolic Blood Pressure 67 06/07/2021 09:25 Heart Rate Monitored 73 06/07/2021 09:25 Respiratory Rate 20 06/07/2021 09:25 Temperature, Fahrenheit 98.3 06/07/2021 09:25 Oxygen Saturation 93 Rapid Response Recent Lab Results : 06/07/2021 06:14 Sodium Level 138 (136-146) 06/07/2021 06:14 Potassium Level 3.7 (3.5-5.1) 06/07/2021 06:14 Calcium Level LOW 8.2 (8.4-10.1) 06/07/2021 05:40 Glucose POC2 HI 167 (70-110) 06/07/2021 06:14 Chloride Level 107 (102-112) 06/07/2021 06:14 Carbon Dioxide Level 23 (21-32) 06/07/2021 06:14 Blood Urea Nitrogen 18 (7-22) 06/07/2021 06:14 Creatinine Level HI 1.60 (0.55-1.02) 06/06/2021 14:59 Hgb 13.2 (11.2-15.7) 06/06/2021 14:59 Hct 40.3 (34.1-44.9) 06/06/2021 14:59 RBC 4.48 (3.93-5.22) 06/06/2021 14:59 WBC HI 11.4 (4.5-10.5) 06/06/2021 14:59 Platelet Count 237 (163-369) 06/06/2021 14:59 Lactic Acid Level 1.6 (0.4-2.0) 06/06/2021 14:59 Lipase Level LOW 49 (73-393) Weight/BMI : Clinical Weight/BMI CLINICALWEIGHT: 106.36 kg (06/06/21 20:00:00) CLINICALWEIGHT: 106.36 kg (06/06/21 14:51:00) Body Mass Index: 40.2 kg/m2 Critical (06/06/21 20:00:00) Body Mass Index: 40.2 kg/m2 Critical (06/06/21 14:51:00) Rapid Response Team Recommendation/Response : MEWS score was 4 due to elevated temp. Pt vitals assessed and MEWS now a 1 Patient Condition at End of Event : No S/S of Acute Distress Patient Disposition Post Event : No change in location/level of care Rapid Response Mirror Maker #1 : NICK MEYER RN Rapid Response Mirror Maker #2 : Lisseth Diaz, RN Lisseth Diaz, RN - 06/07/2021 10:30 EDT Electronically signed by Lizzeth [facility] Conversion Clinical Pharmacy Specialist Cerner at 07/02/2022 10:58 AM CDT documented in this encounter Plan of Treatment Not on file documented as of this encounter Visit Diagnoses Not on filedocumented in this encounter
--- OUTSIDE RECORDS SUMMARY | 2024-10-27 23:12 | XMS_ITS | Encounter Summary ---
Author Organization [employer] ([place], [place], [place], [place]) Address [address] [place] [address] Care Team Providers Care Computer Analyst Name Role Phone Unavailable Primary Care Provider Unavailabl e Encounter Details Date Type Department Care Team (Late st Contact Info) Description 06/08/2021 Transcribed Document [facility] Family Medicine [facility] [place] [address] ProviderMohamud MD [address] [place], [place] [id number] Social History Tobacco Use Types Packs/Day Years Used Date Smoking Tobacco: Never Assessed Comments Unknown Sex and Gender Information Value Date Recorded Sex Assigned at Female 09/08/2021 5:34 PM CDT Legal Sex Female 5:34 PM CDT Gender Identity Female 09/08/2021 5:34 PM CDT Sexual Orientation Not on file documented as of this encounter Miscellaneous Notes * [employer]ner Conversion Note - Historical ProviderMD - 06/08/2021 10:45 AM CDT Pain Assessment Entered On: 06/09/2021 14:21 EDT Performed On: 06/09/2021 12:04 EDT by Trinidad Doe Rn Intervention Information: morphine Performed by Trinidad Doe Rn on 06/09/2021 11:34:00 EDT morphine,2mg IV Push,Right Antecubit [place],Pain (Severe 7-10) Pain Assessment Pain Assessment : Follow-up assessment Pain Scale Goal : 2 Pain Improved by Intervention : Yes Trinidad Doe Rn - 06/09/2021 14:21 EDT documented in this encounter Plan of Treatment Not on file documented as of this encounter Visit Diagnoses Not on filedocumented in this encounter
--- OUTSIDE RECORDS SUMMARY | 2024-10-27 23:12 | XMS_ITS | Encounter Summary ---
[facility] Organization [facility] Address [address] [place] [id number] Care Team Providers Care Service Plumber Name Role Phone Ashlie Miramontes [employer] SUPERVISOR Primary Care Provider [phone] Reason for Visit * Reason Comments Med Refill Encounter Details Date Type Department Care Team (Late st Contact Info) Description 09/30/2024 Refill [facility] [address] [place] [phone] Ashlie Miramontes [employer] P[employer]ATING SUPERVISOR [address] [place], [place] [phone] Chronic gout of multiple sites, unspecified cause; [...] Telephone Encounter - Lashon Powers MA - 10/01/2024 8:17 AM EDT Rx sent patient has a physical appointment made documented in this encounter Plan of Treatment Upcoming Encounters Date Type Department Care Team (Late st Contact Info) Description 11/14/2024 11:30 AM EDT Office Visit [facility] [address] [place] [phone] Ashlie Miramontes APRN [address] [place] [address] documented as of this encounter Visit Diagnoses Diagnosis Chronic gout of multiple sites, unspecified cause Edema, unspecified type documented in this encounter Care Teams Service Plumber Relationship Specialty Start Date End Date Ashlie Miramontes APRN [address] [place] [id number] PCP - General Family Medicine 02/10/22 documented as of this encounter
--- OUTSIDE RECORDS SUMMARY | 2024-10-27 23:12 | XMS_ITS | Encounter Summary ---
[facility] Address [address] [place] [id number] Care Team Providers Care Hospital Aide Name Role Phone Ashlie Miramontes CIRCUS TRAIN SUPERVISOR Primary Care Provider [phone] Reason for Visit * Reason Comments Med Refill Encounter Details Date Type Department Care Team (Late st Contact Info) Description 10/25/2024 Refill [facility] [address] [place] [phone] Ashlie Miramontes [employer]CUS TRAIN SUPERVISOR [address] [place], [place] [phone] Chronic gout of multiple sites, unspecified cause Social History Tobacco Use Types Packs/Day Years [...] Telephone Encounter - Lashon Powers MA - 10/25/2024 8:15 AM EDT Rx sent documented in this encounter Plan of Treatment Upcoming Encounters Date Type Department Care Team (Late st Contact Info) Description 11/14/2024 11:30 AM EDT Office Visit [facility] [address] [place] [phone] Ashlie Miramontes APRN [address] [place] [address] documented as of this encounter Visit Diagnoses Diagnosis Chronic gout of multiple sites, unspecified cause documented in this encounter Care Teams Hospital Aide Relationship Specialty Start Date End Date Ashlie Miramontes APRN [address] [place] [address] PCP - General Family Medicine 02/10/22 documented as of this encounter
--- OUTSIDE RECORDS SUMMARY | 2024-10-27 23:12 | XMS_ITS | Encounter Summary ---
Author Organization [employer] ([place], [place], [place], [place]) Address [address] [place] [address] Care Team Providers Care Postulant Name Role Phone Unavailable Primary Care Provider Unavailabl e Encounter Details Date Type Department Care Team (Late st Contact Info) Description 06/10/2021 Transcribed Document [facility] [place] [facility] [place] [address] ProviderMohamud MD [address] [place] [id number] Social History Tobacco Use Types Packs/Day [...] Conversion Note - Historical ProviderMD - 06/10/2021 11:30 AM CDT Patient: DAJA RODAS Age: 70 years Sex: Female : 1950 Associated Diagnoses: None Author: SANJEEV DANIELLE MD-INT DATE OF SERVICE [ DOS ]: 06/10/2021 Basic Information SUBJECTIVE: Patient is seen and evaluated less lower abdominal pain Review of Systems Constitutional: No fever, No chills. Eye: No recent visual problem, No icterus, No blurring, No visual disturbances. Ear/Nose/Mouth/Throat: No decreased hearing, No sore throat. Respiratory: No shortness of breath, No cough. Cardiovascular: No chest pain, No palpitations, No syncope. Gastrointestinal: No hematemesis. Genitourinary: No dysuria, No hematuria. Hematology/Lymphatics: No bleeding tendency, No swollen lymph glands. Endocrine: No cold intolerance, No heat intolerance. Musculoskeletal: No joint pain, No muscle pain. Integumentary: No rash, No pruritus, No breakdown. Neurologic: No confusion, No numbness. Psychiatric: No depression, Not delusional. Health Status Allergies: Allergic Reactions (Selected) Severity Not Documented Ciprofloxacin- Rash and rash. Vancomycin- Rash and rash., No qualifying data available Current medications: (Selected) Inpatient Medications Ordered Dulcolax Laxative: 5 mg, Oral, Daily, PRN: Constipation DuoNeb 0.5 mg-2.5 mg/3 mL inhalation solution: 3 mL, Nebulized Inhalation, RT_Q6H, PRN: Shortness of Breath Flagyl: 500 mg, 100 mL, 100 mL/Hr, IV Piggyback, Q8HInt Lactated Ringers Injection intravenous solution 1,000 mL: 20 mL/Hr, IntraVENous Lasix: 20 mg, Oral, Daily MiraLax: 17 Gram, Oral, Daily, PRN: Constipation Phenergan: 6.25 mg, IntraVENous, Q6H, PRN: Nausea Protonix: 40 mg, IV Push, BID Rocephin: 2 Gram, 100 mL/Hr, IV Piggyback, [id number] Tylenol: 650 mg, Oral, Q4H, PRN: Fever Tylenol: 650 mg, Oral, Q4H, PRN: Pain (Mild 1-3) Zofran: 4 mg, IV Push, Q4H, PRN: Nausea acetaminophen-HYDROcodone 325 mg-5 mg oral tablet: 1 Tab, Oral, Q6H, PRN: Pain (Moderate 4-6) carvedilol: 3.125 mg, Oral, BID gabapentin: 300 mg, Oral, At Bedtime insulin glargine: 5 Units, SubCutaneous, Daily insulin lispro greater than 101 kg: greater than 101 kg scale, SubCutaneous, AC and at Bedtime lidocaine 1% injectable solution: 0.5 mL, IntraDermal, 1-Time, PRN: Other (See Comment) loratadine: 10 mg, Oral, Daily, PRN: Allergies melatonin: 5 mg, Oral, At Bedtime, PRN: Insomnia morphine: 2 mg, IV Push, Q4H, PRN: Pain (Severe 7-10) potassium chloride 10 mEq oral tablet, extended release: 10 mEq, 1 Tab, Oral, TID Documented Medications Documented Lantus Solostar Pen 100 units/mL subcutaneous solution: 12 Units, SubCutaneous, At Bedtime, 10 mL, 0 Refill(s) NexIUM 24HR 20 mg oral delayed release capsule: 1 Cap, Oral, Daily, 0 Refill(s) Vitamin D3 1000 intl units oral capsule: 1 Cap, Oral, Daily, 100 Cap, 0 Refill(s) allopurinol 100 mg oral tablet: 1 Tab, Oral, Daily, 30 Tab, 0 Refill(s) amLODIPine 2.5 mg oral tablet: 1 Tab, Oral, Daily, 0 Refill(s) atorvastatin 40 mg oral tablet: 1 Tab, Oral, Daily, 0 Refill(s) carvedilol 6.25 mg oral tablet: 1 Tab, Oral, BID, 60 Tab, 0 Refill(s) furosemide 20 mg oral tablet: 1 Tab, Oral, Daily, 0 Refill(s) gabapentin 300 mg oral capsule: 1 Cap, Oral, At Bedtime, 60 Cap, 0 Refill(s) loratadine 10 mg oral tablet: 1 Tab, Oral, Daily, 0 Refill(s) losartan 50 mg oral tablet: 1 Tab, Oral, Daily, 0 Refill(s) potassium chloride 10 mEq oral capsule, extended release: 1 Cap, Oral, Daily, 30 Cap, 0 Refill(s), Medications (22) Active Scheduled: (9) carvedilol 3.125 mg tab 3.125 mg 1 Tab, Oral, BID cefTRIAXone 2 Gram, IV Piggyback, [id number] furosemide 20 mg tab 20 mg 1 Tab, Oral, Daily gabapentin 300 mg cap 300 mg 1 Cap, Oral, At Bedtime insulin glargine 1 unit/0.01 mL inj 5 Units 0.05 mL, SubCutaneous, Daily insulin lispro 1 unit/0.01 mL inj greater than 101 kg scale, SubCutaneous, AC and at Bedtime metroNIDAZOLE 500 mg 100 mL, IV Piggyback, Q8HInt pantoprazole 40 mg inj 40 mg, IV Push, BID potassium chloride CR 10 mEq tab 10 mEq 1 Tab, Oral, TID Continuous: (1) lactated ringers 1,000 mL 1,000 mL, IntraVENous, 20 mL/Hr PRN: (12) acetaminophen 325 mg tab 650 mg 2 Tab, Oral, Q4H acetaminophen 325 mg tab 650 mg 2 Tab, Oral, Q4H acetaminophen/HYDROcodone 325/5 mg tab 1 Tab, Oral, Q6H albuterol-ipratropium inh 3 mL 3 mL, Nebulized Inhalation, RT_Q6H bisacodyl EC 5 mg tab 5 mg 1 Tab, Oral, Daily lidocaine 1% *PF* inj 5 mL 0.5 mL, IntraDermal, 1-Time loratadine 10 mg tab 10 mg 1 Tab, Oral, Daily melatonin 5 mg tab 5 mg 1 Tab, Oral, At Bedtime morphine 2 mg/1 ml inj 2 mg 1 mL, IV Push, Q4H ondansetron 4 mg/2 mL inj 4 mg 2 mL, IV Push, Q4H polyethylene glycol 3350 pwd 17 g pkt 17 Gram 1 Packet, Oral, Daily promethazine 25 mg/1 mL inj 6.25 mg 0.25 mL, IntraVENous, Q6H Problem list: Medical History of obstructive sleep apnea / IMO [id number] / Confirmed, Active Problems (1) History of obstructive sleep apnea OBJECTIVE: Physical Examination General: Alert and oriented, No acute distress. Eye: Extraocular movements are intact, Normal conjunctiva. Sclera: Not icteric. HENT: Normocephalic, Normal hearing, Oral mucosa is moist. Neck: Supple, Non-tender, No jugular venous distention, No lymphadenopathy. Respiratory: Lungs are clear to auscultation, Respirations are non-labored, Breath sounds are equal, Symmetrical chest wall expansion. Cardiovascular: Normal rate, Regular rhythm, No murmur, No gallop, Good pulses equal in all extremities, No edema. Gastrointestinal: Soft, Non-tender, Non-distended, Normal bowel sounds, No organomegaly. Genitourinary: No costovertebral angle tenderness. Lymphatics: No lymphadenopathy neck, axilla, groin. Musculoskeletal: Normal range of motion, Normal strength, No tenderness, No swelling, No deformity. Integumentary: Warm, Dobson, Moist, No rash. Neurologic: Alert, Oriented. Psychiatric: Cooperative, Appropriate mood & affect, Normal judgment. Review / Management Results review: Labs (Last four charted values) WBC 7.1 (JUN 10) 5.7 (JUN 09) 8.1 (JUN 08) H 11.4 (JUN 06) HB 12.2 (JUN 10) 12.7 (JUN 10) 11.2 (JUN 09) 12.0 (JUN 08) HCT 37.2 (JUN 10) 35.9 (JUN 10) L 34.0 (JUN 09) 36.5 (JUN 08) Plt 197 (JUN 10) 218 (JUN 10) 163 (JUN 09) 170 (JUN 08) Na L 134 (JUN 10) 137 (JUN 09) 137 (JUN 08) 138 (JUN 07) K L 3.2 (JUN 10) L 3.0 (JUN 09) L 3.2 (JUN 08) 3.7 (JUN 07) Cl 106 (JUN 10) 106 (JUN 09) 107 (JUN 08) 107 (JUN 07) CO2 L 20 (JUN 10) 23 (JUN 09) 23 (JUN 08) 23 (JUN 07) BUN 18 (JUN 10) 17 (JUN 09) 20 (JUN 08) 18 (JUN 07) Cr H 1.40 (JUN 10) H 1.70 (JUN 09) H 2.00 (JUN 08) H 1.60 (JUN 07) Glu R H 162 (JUN 10) H 135 (JUN 09) H 142 (JUN 08) H 176 (JUN 07) Ca L 8.3 (JUN 10) L 8.3 (JUN 09) L 8.3 (JUN 08) L 8.2 (JUN 07) Lactic 1.6 (JUN 06) PT 10.3 (JUN 10) INR 1.0 (JUN 10) AST 28 (JUN 06) ALT 39 (JUN 06) ALK P 116 (JUN 06) T Bili 0.6 (JUN 06) PTN 6.5 (JUN 06) ALB L 2.5 (JUN 06) Lipase L 49 (JUN 06) , JUN 10 07:30 L 134 106 18 / H 162 L 3.2 L 20 H 1.40 \ JUN 10 07:30 \ 12.2 / 7.1 197 / 37.2 \, No Radiology Results Found. Impression and Plan Intractable abdominal pain with associated nausea, diarrhea; likely gastroenteritis; leukocytosis; questionable urinary tract infection Chest x-ray unremarkable CT abdomen pelvis without contrast shows no acute abnormalities; Unable to get CT abdomen pelvis with contrast 2/2 acute renal failure Urinalysis shows nitrate positive, however no culture was indicated Covid, influenza negative Stool Cultures ER initiated Zosyn Liver enzymes unremarkable, lipase unremarkable Pain control Antiemetics Acute renal failure 2/2 prerenal hypoperfusion via dehydration CV IV normal saline Avoid nephrotoxins Monitor renal function Monitor electrolytes Diabetes mellitus 2 Insulin, insulin sliding scale, Hypotension with History of Hypertension Home antihypertensive medications, as needed hydralazine Morbid obesity Diet/weight loss counseling GI prophylaxis: Placed on Pepcid DVT prophylaxis: Placed on Sequential compression device Code status: Full code evaluated by t ID For Colonoscopy today improving abdominal pain Start IV Flagyl Allergic to ciprofloxacin and vancomycin discontinue IV Zosyn evaluated by gastroenterology Disposition: Patient remains with intractable abdominal pain and GI symptoms. May need short-term rehab versus home with home health Anticipate date of discharge. To be determined Time spent: 22 minutes documented in this encounter Plan of Treatment Not on file documented as of this encounter Visit Diagnoses Not on filedocumented in this encounter
--- OUTSIDE RECORDS SUMMARY | 2024-10-27 23:12 | XMS_ITS | Encounter Summary ---
Author Organization [employer] ([place], [place], [place], [place]) Address [address] [place] [address] Care Team Providers Care District Engineer Name Role Phone Unavailable Primary Care Provider Unavailabl e Encounter Details Date Type Department Care Team (Late st Contact Info) Description 06/07/2021 Transcribed Document [facility] Family Medicine [facility] [place] [address] ProviderMohamud MD [address] [place] [id number] Social History Tobacco Use Types Packs/Day [...] Conversion Note - Historical ProviderMD - 06/07/2021 12:56 PM CDT Patient: DAJA RODAS Age: 70 years Sex: Female : 1950 Associated Diagnoses: None Author: SANJEEV DANIELLE MD-INT DATE OF SERVICE [ DOS ]: 06/07/2021 Basic Information SUBJECTIVE: Patient is seen and evaluated Review of Systems Constitutional: No fever, No chills. Eye: No recent visual problem, No icterus, No blurring, No visual disturbances. Ear/Nose/Mouth/Throat: No decreased hearing, No sore throat. Respiratory: No shortness of breath, No cough. Cardiovascular: No chest pain, No palpitations, No syncope. Gastrointestinal: No nausea, No vomiting, No hematemesis. Genitourinary: No dysuria, No hematuria. [...] Nebulized Inhalation, RT_Q6H, PRN: Shortness of Breath Lasix: 20 mg, Oral, BID MiraLax: 17 Gram, Oral, Daily, PRN: Constipation Norvasc: 2.5 mg, Oral, Daily Pepcid: 20 mg, IV Push, Daily Phenergan: 6.25 mg, IntraVENous, Q6H, PRN: Nausea Protonix: 40 mg, Oral, QAM Tylenol: 650 mg, Oral, Q4H, PRN: Fever Tylenol: 650 mg, Oral, Q4H, PRN: Pain (Mild 1-3) Zofran: 4 mg, IV Push, Q4H, PRN: Nausea Zosyn + Sodium Chloride 0.9% intravenous solution 50 mL: 2.25 Gram, 16.67 mL/Hr, IV Piggyback, Q6HInt acetaminophen-HYDROcodone 325 mg-5 mg oral tablet: 1 Tab, Oral, Q6H, PRN: Pain (Moderate 4-6) carvedilol: 6.25 mg, Oral, BID gabapentin: 300 mg, Oral, BID insulin lispro greater than 101 kg: greater than 101 kg scale, SubCutaneous, AC and at Bedtime loratadine: 10 mg, Oral, Daily melatonin: 5 mg, Oral, At Bedtime, PRN: Insomnia potassium chloride 10 mEq oral tablet, extended release: 10 mEq, 1 Tab, Oral, Daily Documented Medications Documented Lortab 5/325: See Instructions, Oral Q6H, PRN: as needed for pain, 0 Refill(s) Vitamin D3: 1 capsule, Oral, Daily, 0 Refill(s) allopurinol 100 mg oral tablet: 1 Tab, Oral, Daily, 30 Tab, 0 Refill(s) amLODIPine 2.5 mg oral tablet: Tab, Oral, Daily, 0 Refill(s) atorvastatin 40 mg oral tablet: Tab, Oral, Daily, 0 Refill(s) carvedilol 6.25 mg oral tablet: 1 Tab, Oral, BID, 60 Tab, 0 Refill(s) esomeprazole 20 mg oral delayed release tablet: Tab, Oral, QAM, 0 Refill(s) furosemide 20 mg oral tablet: Tab, Oral, BID, 0 Refill(s) gabapentin 300 mg oral capsule: 1 Cap, Oral, BID, 60 Cap, 0 Refill(s) loratadine 10 mg oral tablet: Tab, Oral, Daily, 0 Refill(s) losartan 50 mg oral tablet: Tab, Oral, Daily, 0 Refill(s) potassium chloride 10 mEq oral capsule, extended release: 1 Cap, Oral, Daily, 30 Cap, 0 Refill(s), Medications (19) Active Scheduled: (10) amLODIPine 2.5 mg tab 2.5 mg 1 Tab, Oral, Daily carvedilol 6.25 mg tab 6.25 mg 1 Tab, Oral, BID famotidine 20 mg/2 mL inj 20 mg 2 mL, IV Push, Daily furosemide 20 mg tab 20 mg 1 Tab, Oral, BID gabapentin 300 mg cap 300 mg 1 Cap, Oral, BID insulin lispro 1 unit/0.01 mL inj greater than 101 kg scale, SubCutaneous, AC and at Bedtime loratadine 10 mg tab 10 mg 1 Tab, Oral, Daily pantoprazole EC 40 mg tab 40 mg 1 Tab, Oral, QAM piperacillin-tazobactam + NaCl 0.9% 50 mL 2.25 Gram, IV Piggyback, Q6HInt potassium chloride CR 10 mEq tab 10 mEq 1 Tab, Oral, Daily Continuous: (0) PRN: (9) acetaminophen 325 mg tab 650 mg 2 Tab, Oral, Q4H acetaminophen 325 mg tab 650 mg 2 Tab, Oral, Q4H acetaminophen/HYDROcodone 325/5 mg tab 1 Tab, Oral, Q6H albuterol-ipratropium inh 3 mL 3 mL, Nebulized Inhalation, RT_Q6H bisacodyl EC 5 mg tab 5 mg 1 Tab, Oral, Daily melatonin 5 mg tab 5 mg 1 Tab, Oral, At Bedtime ondansetron 4 mg/2 mL inj 4 mg 2 mL, IV Push, Q4H polyethylene glycol 3350 pwd 17 g pkt 17 Gram 1 Packet, Oral, Daily promethazine 25 mg/1 mL inj 6.25 mg 0.25 mL, IntraVENous, Q6H Problem list: Medical History of obstructive sleep apnea / IMO [id number] / Confirmed, Active Problems (1) History of [...] tenderness, No swelling, No deformity. Integumentary: Warm, [place], Moist, No rash. Neurologic: Alert, Oriented. Psychiatric: Cooperative, Appropriate mood & affect, Normal judgment. Review / Management Results review: Labs (Last four charted values) WBC H 11.4 (JUN 06) HB 13.2 (JUN 06) HCT 40.3 (JUN 06) Plt 237 (JUN 06) Na 138 (JUN 07) L 135 (JUN 06) K 3.7 (JUN 07) 4.1 (JUN 06) Cl 107 (JUN 07) 102 (JUN 06) CO2 23 (JUN 07) 27 (JUN 06) BUN 18 (JUN 07) 20 (JUN 06) Cr H 1.60 (JUN 07) H 1.80 (JUN 06) Glu R H 176 (JUN 07) H 226 (JUN 06) Ca L 8.2 (JUN 07) 8.9 (JUN 06) Lactic 1.6 (JUN 06) AST 28 (JUN 06) ALT 39 (JUN 06) ALK P 116 (JUN 06) T Bili 0.6 (JUN 06) PTN 6.5 (JUN 06) ALB L 2.5 (JUN 06) Lipase L 49 (JUN 06) , No qualifying data available, Radiology Results (Last 48 hours) [id number] -- 06/06/2021 19:46 CR Chest 1 Vw Portable (06/06/2021 15:05) Result: PORTABLE CHESTHISTORY: Abdominal pain.COMPARISON: December 2010.FINDINGS: The cardiac silhouette is normal in size. The mediastinum isunremarkable. The lungs are clear. Calcified granuloma is seen at theleft upper lobe. There is no pneumothorax. The osseous structures areunremarkable.IMPRESSION: No acute cardiopulmonary process.Images reviewed, interpreted, and dictated by Berto Briggs MD CT Abdomen Pelvis WO (06/06/2021 17:09) Result: CT OF THE ABDOMEN AND PELVIS WITHOUT CONTRASTHISTORY: Abdominal pain.PROCEDURE: Routine axial images were obtained from the lung bases tothe pubic symphysis. No contrast was given. This study was performedwith techniques to keep radiation doses as low as reasonably achievable,(ALARA). Individualized dose reduction techniques using automatedexposure control or adjustment of mA and/or kV according to the patientsize were employed.COMPARISON: None.FINDINGS: Abdomen: The upper abdominal images are marred by artifact related tothe patient's hands lying along her side. No convincing abnormality ofthe gallbladder, solid abdominal organs and ureters is seen. Theappendix has been removed. The GI tract is otherwise unremarkable.Pelvis: The uterus, ovaries and urinary bladder are unremarkable. Thereis no pelvic or abdominal ascites, adenopathy, or acute osseousabnormality.IMPRESSION: No acute disease. . Impression and Plan Abdominal pain with associated nausea, diarrhea; likely gastroenteritis; [...] renal failure 2/2 prerenal hypoperfusion via dehydration IV normal saline Avoid nephrotoxins Monitor renal function Monitor electrolytes Elevated proBNP Diabetes mellitus 2 Insulin, insulin sliding scale, Hypotension with History of Hypertension Home antihypertensive medications, as needed hydralazine Morbid obesity Diet/weight loss counseling GI prophylaxis: Placed on Pepcid DVT prophylaxis: Placed on Sequential compression device Code status: Full code Normal saline at 100 ml / hour fro LYNDSAY Time spent: 35 minutes Electronically signed by Lizzeth [facility] Conversion Client Support Manager Cerner at 07/02/2022 10:51 AM CDT documented in this encounter Plan of Treatment Not on file documented as of this encounter Visit Diagnoses Not on filedocumented in this encounter
--- OUTSIDE RECORDS SUMMARY | 2024-10-27 23:12 | XMS_ITS | Encounter Summary ---
Author Organization [employer] ([place], [place], [place], [place]) Address [address] [place] [address] Care Team Providers Care Director Of Compensation Name Role Phone Unavailable Primary Care Provider Unavailabl e Encounter Details Date Type Department Care Team (Late st Contact Info) Description 06/07/2021 Transcribed Document [facility] Family [place] [address] ProviderMohamud MD [address] [place], [place] [id number] Social History Tobacco Use Types Packs/Day Years [...] Conversion Note - Historical ProviderMD - 06/07/2021 11:20 AM CDT UM Authorization Entered On: 06/07/2021 11:25 EDT Performed On: 06/07/2021 11:20 EDT by Carla Mitchell Rn-Utilization Review Primary Insurance Authorization Authorization and Policy Numbers : Insurance 1 Health Plan: [employer] Policy Number: [id number] Authorization Number: Insurance Primary Name : [employer] REPL Policy Number: [id number] Authorization Status-Primary : Awaiting callback Authorized Service Begin Date-Primary : 06/06/2021 EDT Historical Authorization Comments-Primary : No Authorization Comments Found Carla Mitchell Rn-Utilization Review - 06/07/2021 11:20 EDT documented in this encounter Plan of Treatment Not on file documented as of this encounter Visit Diagnoses Not on filedocumented in this encounter
--- OUTSIDE RECORDS SUMMARY | 2024-10-27 23:12 | XMS_ITS | Clinical Summary ---
Author Organization [facility] Address [address] [facility] [address] [place] [address] Phone Care Team Providers Care Retail Assistant Store Manager Name Role Phone Fredrick Echeverria MD [ ] Conditions or Problems Problem Name Problem Code Onset Date Status Entry Date Provider Comment Standard Description Annotate Salmonella enteritis 248803658 (SNOMED CT) Active 06/30 Emelyn Vaughn Salmonella infection Acute cystitis w/o hematuria 82618115 (SNOMED CT) Active 06/30 Emelyn Vaughn Urinary tract infectious disease Gram-negative infection B96.89 (ICD-10-CM) Active 06/30 Emelyn Vaughn Other specified bacterial agents as the cause of diseases classified elsewhere ARF secondary to dehydration 987207115 (SNOMED CT) Active 06/30 Emelyn Vaughn Acute renal failure due to ischemia DM Type II E11.9 (ICD-10-CM) Active 06/30 Emelyn Vaughn Type 2 diabetes mellitus without complications Benign Essential Hypertension 15916948 (SNOMED CT) Active 06/30 Emelyn Vaughn Benign hypertension Morbid obesity due to excess calories E66.01 (ICD-10-CM) Active 06/30 Emelyn Vaughn Morbid (severe) obesity due to excess calories Medications Medication Instructions Start Date Stop Date Generic Name ND Provider FAMOTIDINE 20 MG TABS 1 tab daily famotidine 80430229153 Krima Ralf [facility] ACETAMINOPHEN 325 MG CAPS 2 Tab, Oral, Q4H acetaminophen 06108379976 Krima Ralf HYDROCODONE-ACET AMINOPHEN 5-325 MG TABS 1 Tab, Oral, Q6H hydrocodone-acet aminophen [id number] Debra Ralf IPRATROPIUM-ALBU TEROL 0.5-2.5 (3) MG/3ML SOLN 3 mL, Nebulized Inhalation, RT_Q6H ipratropium-albu terol 58999278983 Krima Ralf bisacodyl 5 mg tablet 1 tab dialy bisacodyl Krima Ralf MELATONIN 5 MG TABS 1 tab bedtime melatonin 43208444494 Krima Salv i Miralax 17 gram powder in packet 1 packet daily polyethylene glycol 3350 [id number] Krima Ralf Medications Administered No information available. Allergies, Adverse Reactions, Alerts Allergy Name Reaction Description Start Date Severity Statu s Provider VANCOMYCIN HCL rash Moderate Active Krim a Ralf CIPRO rash Moderate Active Krima [place] vi Results No information available. Plan of Care No information available. Procedures No information available. Vital Signs No information available. Immunizations No information available. Advance Directives No information available.
--- OUTSIDE RECORDS SUMMARY | 2024-10-27 23:12 | XMS_ITS | Encounter Summary ---
Author Organization [email or web address] ([place], [place], [place], [place]) Address [address] [place] [address] Care Team Providers Care Insole Toe Snipping Machine Operator Name Role Phone Unavailable Primary Care Provider Unavailabl e Encounter Details Date Type Department Care Team (Late st Contact Info) Description 06/08/2021 Transcribed Document [facility] Family Medicine [facility] [place] [address] ProviderMohamud MD [address] [place] [id number] Social History Tobacco Use Types Packs/Day Years [...] Conversion Note - Historical ProviderMD - 06/08/2021 10:16 AM CDT Patient: DAJA RODAS Age: 70 years Sex: Female : 1950 Associated Diagnoses: None Author: SANJEEV DANIELLE MD-INT DATE OF SERVICE [ DOS ]: 06/08/2021 Basic Information SUBJECTIVE: Patient is seen and evaluated Still with diffuse pain. Nausea and vomiting Review of Systems Constitutional: No fever, No [...] 100 mL, 100 mL/Hr, IV Piggyback, Q8HInt Lasix: 20 mg, Oral, BID MiraLax: 17 Gram, Oral, Daily, PRN: Constipation Phenergan: 6.25 mg, IntraVENous, Q6H, PRN: Nausea Protonix: 40 mg, IV Push, BID Tylenol: 650 mg, Oral, Q4H, PRN: Fever [...] Cap, 0 Refill(s), Medications (19) Active Scheduled: (9) carvedilol 6.25 mg tab 6.25 mg 1 Tab, Oral, BID furosemide 20 mg tab 20 mg 1 Tab, Oral, BID gabapentin 300 mg cap 300 mg 1 Cap, Oral, BID insulin lispro 1 unit/0.01 mL inj greater than 101 kg scale, SubCutaneous, AC and at Bedtime loratadine 10 mg tab 10 mg 1 Tab, Oral, Daily metroNIDAZOLE 500 mg 100 mL, IV Piggyback, Q8HInt pantoprazole 40 mg inj 40 mg, IV Push, BID piperacillin-tazobactam + NaCl 0.9% 50 mL 2.25 Gram, IV Piggyback, Q6HInt potassium chloride CR 10 mEq tab 10 mEq 1 Tab, Oral, Daily Continuous: (0) PRN: (10) acetaminophen 325 mg tab 650 mg 2 [...] History of obstructive sleep apnea / IMO [id number] / Confirmed, Active Problems (1) History of obstructive sleep apnea OBJECTIVE: Physical Examination VS/Measurements Vitals Signs (last 24 hrs) Last Charted Minimum Maximum Temp 97.8 (JUN 08 06:35) 97.8 (JUN 08 06:35) H 102.6 (JUN 07 21:38) Apical HR 76 (JUN 08 08:33) 76 (JUN 08 08:33) 76 (JUN 08 08:33) Mon HR 67 (JUN 08 06:35) 67 (JUN 08 06:35) 80 (JUN 07 21:38) Resp Rate 18 (JUN 08 06:35) 16 (JUN 07 16:10) 19 (JUN 07 12:46) SBP 122 (JUN 08 06:35) 111 (JUN 07 21:38) H 151 (JUN 07 16:10) DBP L 53 (JUN 08 06:35) L 53 (JUN 08 06:35) 69 (JUN 07 16:10) MAP 76 (JUN 08 06:35) 73 (JUN 07 21:38) 131 (JUN 07 16:10) SpO2 L 86 (JUN 08 06:35) L 86 (JUN 08 06:35) 98 (JUN 07 12:46) General: Alert and oriented, No acute distress. [...] tenderness, No swelling, No deformity. Integumentary: Warm, [place], Moist, No rash. Neurologic: Alert, Oriented. Psychiatric: Cooperative, Appropriate mood & affect, Normal judgment. Review / Management Results review: Labs (Last four charted values) WBC 8.1 (JUN 08) H 11.4 (JUN 06) HB 12.0 (JUN 08) 13.2 (JUN 06) HCT 36.5 (JUN 08) 40.3 (JUN 06) Plt 170 (JUN 08) 237 (JUN 06) Na 137 (JUN 08) 138 (JUN 07) L 135 (JUN 06) K L 3.2 (JUN 08) 3.7 (JUN 07) 4.1 (JUN 06) Cl 107 (JUN 08) 107 (JUN 07) 102 (JUN 06) CO2 23 (JUN 08) 23 (JUN 07) 27 (JUN 06) BUN 20 (JUN 08) 18 (JUN 07) 20 (JUN 06) Cr H 2.00 (JUN 08) H 1.60 (JUN 07) H 1.80 (JUN 06) Glu R H 142 (JUN 08) H 176 (JUN 07) H 226 (JUN 06) Ca L 8.3 (JUN 08) L 8.2 (JUN 07) 8.9 (JUN 06) Lactic 1.6 (JUN 06) AST 28 (JUN 06) ALT 39 (JUN 06) ALK P 116 (JUN 06) T Bili 0.6 (JUN 06) PTN 6.5 (JUN 06) ALB L 2.5 (JUN 06) Lipase L 49 (JUN 06) , JUN 08 06:27 137 107 20 / H 142 L 3.2 23 H 2.00 \ JUN 08 06:27 \ 12.0 / 8.1 170 / 36.5 \, Radiology Results (Last 48 hours) [id number] -- 06/06/2021 19:46 CR Chest 1 Vw [...] No acute disease. . Impression and Plan Intractable abdominal pain with [...] Sequential compression device Code status: Full code ongoing abdominal pain Start IV Flagyl Allergic to ciprofloxacin and vancomycin Continue IV Zosyn consult to gastroenterology Consult to general surgery Normal saline at 100 ml / hour fro LYNDSAY Disposition: Patient remains with intractable abdominal pain and GI symptoms. May need short-term rehab versus home with home health Anticipate date of discharge. To be determined Time spent: 35 minutes documented in this encounter Plan of Treatment Not on file documented as of this encounter Visit Diagnoses Not on filedocumented in this encounter
--- OUTSIDE RECORDS SUMMARY | 2024-10-27 23:12 | XMS_ITS | Encounter Summary ---
Author Organization [employer] ([place], [place], [place], [place]) Address [address] [place] [address] Care Team Providers Care Oyster Bed Worker Name Role Phone Unavailable Primary Care Provider Unavailabl e Encounter Details Date Type Department Care Team (Late st Contact Info) Description 06/08/2021 Transcribed Document [facility] [place] [address] [place] [address] ProviderMohamud MD [address] [place] [phone] Social History Tobacco Use Types Packs/Day Years Used Date Smoking Tobacco: Never Assessed Comments Unknown Sex and Gender Information Value Date Recorded Sex Assigned at Female 09/08/2021 5:34 PM CDT Legal Sex Female 5:34 PM CDT Gender Identity Female 09/08/2021 5:34 PM CDT Sexual Orientation Not on file documented as of this encounter Miscellaneous Notes * [employer]ner Conversion Note - Mohamud ProviderMD - 06/08/2021 10:11 AM CDT Consult Phone Call Documentation Entered On: 06/08/2021 10:33 EDT Performed On: 06/08/2021 10:11 EDT by Rachell Simon Patient Fingerprint Clerk Nirali Phone Call for Consults Consult Phone Call/Page Attempt : Other: spoke with marbella Consult Reason : intractable abdominal pain Physician Requesting Consult : SANJEEV DANIELLE MD-INT Physician Requested for Consult : MARTÍN WARREN MD Provider Service Notified Name : Gastroenterology Date and Time Call Returned : 06/08/2021 10:33 EDT Rachell Simon Patient Fingerprint Clerk I - 06/08/2021 10:32 EDT documented in this encounter Plan of Treatment Not on file documented as of this encounter Visit Diagnoses Not on filedocumented in this encounter
--- OUTSIDE RECORDS SUMMARY | 2024-10-27 23:12 | XMS_ITS | Encounter Summary ---
Author Organization [facility] Address [address] [id number] Care Team Providers Care Tie Fastener Name Role Phone Ashlie Miramontes JACKER Primary Care Provider [phone] Reason for Visit * Reason Onset Date Comments New Med Request 09/24/2024 Encounter Details Date Type Department Care Team (Late st Contact Info) Description 09/24/2024 Telephone [facility] [address] [place] [phone] Ashlie Miramontes, JACKER [address] [place] [address] New Med Request Social History Tobacco Use Types Packs/Day Years [...] Telephone Encounter - Yisel Hagan - 09/24/2024 11:34 AM EDT I have spoke with Daja and have let her know that Ashlie is out of the office this week. Daja states that she has enough ozempic to do her this month but will need it changed before running out. I have also let her know that she is due for a physical. This has been scheduled for 10/05/2024. TF * Telephone Encounter - Angi Dee RegMichela Thompson - 09/24/2024 11:10 AM EDT Caller: Daja Steele Relationship: Self Best call back number: Telephone Information: What medication are you requesting: SOMETHING TO REPLACE Ozempic, 1 MG/DOSE, 4 MG/3ML solution pen-injector Have you had these symptoms before: [x] Yes [] No Have you been treated for these symptoms before: [x] Yes [] No If a prescription is needed, what is your preferred pharmacy and phone number: [facility] [address] [place] [address] [facility] [phone] FX Additional notes: PATIENTS INSURANCE NO LONGER COVERS Ozempic, 1 MG/DOSE, 4 MG/3ML solution pen-injector documented in this encounter Plan of Treatment Upcoming Encounters Date Type Department Care Team (Late st Contact Info) Description 11/14/2024 11:30 AM EDT Office Visit [facility] [address] [place] [phone] Ashlie Miramontes, JACKER [address] [place] [phone] documented as of this encounter Visit Diagnoses Not on filedocumented in this encounter Care Teams Tie Fastener Relationship Specialty Start Date End Date Ashlie Miramontes, JACKER [address] [place] [id number] PCP - General Family Medicine 02/10/22 documented as of this encounter
--- OUTSIDE RECORDS SUMMARY | 2024-10-27 23:12 | XMS_ITS | Referral Summary ---
Author Organization [employer] ([place], [place], [place], [place]) Address [address] [place] [address] Care Team Providers Care Loan Specialist Name Role Phone Unavailable Primary Care Provider Unavailabl e Social History Tobacco Use Types Packs/Day Years Used Date Smoking Tobacco: Never Assessed Comments Unknown Sex and Gender Information Value Date Recorded Sex Assigned at Female 09/08/2021 5:34 PM CDT Legal Sex Female 5:34 PM CDT Gender Identity Female 09/08/2021 5:34 PM CDT Sexual Orientation Not on file Plan of Treatment Not on file
--- OUTSIDE RECORDS SUMMARY | 2024-10-27 23:12 | XMS_ITS | Encounter Summary ---
Author Organization [employer] ([place], [place], [place], [place]) Address [address] [place] [address] Care Team Providers Care Saw Runner Name Role Phone Unavailable Primary Care Provider Unavailabl e Encounter Details Date Type Department Care Team (Late st Contact Info) Description 06/07/2021 Transcribed Document [facility] [place] [facility] [place] [address] ProviderMohamud MD [address] [place] [id number] Social History Tobacco Use Types Packs/Day [...] Conversion Note - Historical ProviderMD - 06/07/2021 3:48 PM CDT Initial Discharge Planning Entered On: 06/07/2021 15:51 EDT Performed On: 06/07/2021 15:48 EDT by DAVIDE MCCONNELL, Rn-Spring Production Supervisor Initial Assessment I Previously Documented Living Environment : No qualifying data available. Living Situation : Home Patient Lives With : Adult Child/Children Is the Patient a Caregiver at Home? : No Emergency Contact #1 : Rosy Lopez Emergency Contact #1 Emergency Contact #1 Relationship : daughter Emergency Contact #2 : . Emergency Contact #2 Phone Number : . Emergency Contact #2 Relationship : . Identified Medical Decision Maker : Daja Steele Identified Medical Decision Maker Number of People in Class : 1 Identified Medical Decision Maker Class : self 2nd Ident. Medical Decision Maker : Jack Frias, Jin Shaw, Yunier Steele 2nd Ident. Medical Decision Maker Secondary Number of People in Class : 4 2nd Ident. Medical Decision Maker Class : Adult Children Enter Doctors Name : Van Padron Does Patient have PCP Listed? : Yes Medical Durable Power of Drafter Castings Name : none Legal Guardian : No Is Guardianship Needed : No DAVIDE MCCONNELL Rn-Spring Production Supervisor - 06/07/2021 15:48 EDT Initial Assessment II Sensory and Motor Deficits : Weakness Current Home Treatments and Equipment : Hospital bed, Mechanical lift, Wheelchair DAVIDE MCCONNELL Rn-Spring Production Supervisor - 06/07/2021 15:48 EDT Discharge Needs I Anticipated Discharge Date : 06/09/2021 EDT Anticipated Discharge To, CM : Home with family care, Home with home health Current Home Treatment/Equipment : Current Home Treatment/Equipment No qualifying data available. Post Acute/Home Treatments : Hospital bed, Mechanical lift, Wheelchair Documentation Status Complete : Yes DAVIDE MCCONNELL Rn-Spring Production Supervisor - 06/07/2021 15:48 EDT Discharge Needs II Professional Skilled Services : Professional Skilled Services No qualifying data available. Needs Assistance with Transportation : Yes Discharge Options Discussed with Patient : Discharge transportation, DME, Home Health Patient Discharge Goal : Home health care DAVIDE MCCONNELL Rn-Spring Production Supervisor - 06/07/2021 15:48 EDT Narrative Note Narrative Note : HD#1 - Abdominal Pain Txfr by EMS from home Hx DM, Morbid Obesity, Bedbound on RA; IV Zosyn - unable to interview pt - sleeping Pt lives with dtr Rosy John [phone] - states pt is alert/oriented - has no AD/Living Will (4) adult children Jack Frias, Madiha Shaw, Yunier Steele Bedbound, dependent in care DME=hospital bed, mechanical lift, wheelchair PCP=Van Padron - has had telemedicine visits - Rosy thomas pt has not seen MD in over year Some homecare services one weekly - Rosy will provide information to bedside RN Tuesday DCP TBD - home w/dtr, resume home services; does not want STR or long-term placementt MCCONNELL, DAVIDE, Rn-Spring Production Supervisor - 06/07/2021 15:52 EDT documented in this encounter Plan of Treatment Not on file documented as of this encounter Visit Diagnoses Not on filedocumented in this encounter
--- OUTSIDE RECORDS SUMMARY | 2024-10-27 23:12 | XMS_ITS | Encounter Summary ---
[facility] Address [address] [id number] Care Team Providers Care Inventory Control Associate Name Role Phone Shaila Miramontes CENTRAL PROCESSING TECH Primary Care Provider [phone] Reason for Visit * Reason Onset Date Comments Medication Problem 10/02/2024 Encounter Details Date Type Department Care Team (Late st Contact Info) Description 10/02/2024 Telephone [facility] [address] [place] [phone] Shaila Miramontes, CENTRAL PROCESSING TECH [address] [place] [address] Medication Problem Social History Tobacco Use Types Packs/Day Years [...] Telephone Encounter - Lashon Powers MA - 10/03/2024 8:51 AM EDT Called and advised the patient's daughter (glenn) that once [facility], if the insurance denies it they will give us a list of what is preferred. I also advised her that she could call the insurance company before hand to see what is on there preferred list of medication. * Telephone Encounter - Yisel Hagan - 10/02/2024 3:49 PM EDT I have let her know that shaila isn't in the office today and we will give her the message in the morning. TF * Telephone Encounter - Mariluz Manjarrez RegSched Rep - 10/02/2024 2:59 PM EDT Caller: Daja Steele Relationship: Self Best call back number: [phone] Which medication are you concerned about: Ozempic, 1 MG/DOSE, 4 MG/3ML solution pen-injector Who prescribed you this medication: SHAILA MIRAMONTES APRN When did you start taking this medication: FOR ABOUT 1 YEAR What are your concerns: THE PATIENT REPORTS THAT SHE CURRENTLY DOES NOT HAVE ANY INSURANCE, BUT ADVISED THAT SHE WILL HAVE [employer] MEDICARE ADVANTAGE OF 10/12/2024. THE PATIENT STATED THAT SHE WAS ADVISED BY [facility] THAT THEY WILL NOT COVER THE OZEMPIC AND THAT THE PRACTICE WILL HAVE TO CONTACT [facility] TO FIND OUT WHAT ALTERNATE MEDICATION WILL BE COVERED UNDER HER NEW PLAN. PLEASE CALL THE PATIENT TO DISCUSS. How long have you had these concerns: RECENTLY documented in this encounter Plan of Treatment Upcoming Encounters Date Type Department Care Team (Late st Contact Info) Description 11/14/2024 11:30 AM EDT Office Visit [facility] [address] [place] [phone] Shaila Miramontes APRN [address] [place] [phone] documented as of this encounter Visit Diagnoses Not on filedocumented in this encounter Care Teams Inventory Control Associate Relationship Specialty Start Date End Date Shaila Miramontes APRN [address] [place] [id number] PCP - General Family Medicine 02/10/22 documented as of this encounter
--- OUTSIDE RECORDS SUMMARY | 2024-10-27 23:12 | XMS_ITS | Encounter Summary ---
Author Organization [employer] ([place], [place], [place], [place]) Address [address] [place] [address] Care Team Providers Care Mat Making Machine Tender Name Role Phone Unavailable Primary Care Provider Unavailabl e Encounter Details Date Type Department Care Team (Late st Contact Info) Description 06/07/2021 Transcribed Document [facility] [place] [address] [place] [address] ProviderMohamud MD [address], [place] [id number] Social History Tobacco Use Types Packs/Day Years [...] Conversion Note - Historical ProviderMD - 06/07/2021 11:[address] [facility] Entered On: 06/07/2021 11:20 EDT Performed On: 06/07/2021 11:05 EDT by HIMANSHU LEE, PT [facility] Physical Therapy Screen : 1 HIMANSHU LEE, PT - 06/07/2021 11:19 EDT documented in this encounter Plan of Treatment Not on file documented as of this encounter Visit Diagnoses Not on filedocumented in this encounter
--- OUTSIDE RECORDS SUMMARY | 2024-10-27 23:12 | XMS_ITS | Encounter Summary ---
Author Organization [employer] ([place], [place], [place], [place]) Address [address] [place] [address] Care Team Providers Care E Learning Designer Name Role Phone Unavailable Primary Care Provider Unavailabl e Encounter Details Date Type Department Care Team (Late st Contact Info) Description 06/12/2021 Transcribed Document [facility] [place] Family Medicine [facility] [place] [address] ProviderMohamud MD [address] [place] [address] Social History Tobacco Use Types [...] Cerner Conversion Note - Historical ProviderMD - 06/12/2021 3:08 PM CDT Patient Education Materials Follows: Clear Liquid Diet, Adult A clear liquid diet is a diet that includes only liquids and semi-liquids that you can see through. You do not eat any food on this diet. Most people need to follow this diet for only a short time. You may need to follow a clear liquid diet if: ??? You have a problem right before or after you have surgery. ??? You did not eat food for a long time. ??? You had any of these: ? Feeling like you may vomit (nausea). ? Vomiting. ? Passing watery poop (diarrhea). ??? You are going to have an exam to look at parts of your digestive system. ??? You are going to have bowel surgery. The goals of this diet are: ??? To rest the stomach. ??? To help you clear the digestive system before an exam. ??? To make sure that there is enough fluid in your body. ??? To make sure you get some energy. ??? To help you get back to eating like you used to. What are tips for following this plan? A clear liquid is a liquid or semi-liquid that you can see through when you hold it up to a light. An example of a semi-liquid is gelatin. ??? This diet does not give you all the nutrients that you need. Choose a variety of the liquids that your doctor says you can have on this diet. That way, you will get as many nutrients as possible. ??? If you are not sure whether you can have certain items, ask your doctor. ??? If you are unable to swallow a thin liquid, you will need to thicken it before taking it. This will stop you from breathing it in (aspirating). What foods should I eat? Water and flavored water. ??? Fruit juices that do not have pulp, such as cranberry juice and apple juice. ??? Tea and coffee without milk or cream. ??? Clear bouillon or broth. ??? Broth-based soups that have been strained. ??? Flavored gelatin. ??? Honey. ??? Sugar water. ??? Ice or frozen ice pops that do not have any milk, yogurt, fruit pieces, or fruit pulp in them. ??? Clear sodas. ??? Clear sports drinks. The items listed above may not be a complete list of what you can eat and drink. Contact a dietitian for more options. What foods should I avoid? Juices that have pulp. ??? Milk. ??? Cream or cream-based soups. ??? Yogurt. ??? Normal foods that are not clear liquids or semi-liquids. The items listed above may not be a complete list of what you should not eat and drink. Contact a dietitian for options. Questions to ask your health care provider ??? How long do I need to follow this diet? Are there any medicines that I should change while on this diet? Summary ??? A clear liquid diet is a diet that includes only liquids and semi-liquids that you can see through. ??? Some goals of this diet are to rest your stomach, make sure you get enough fluid, and give you some energy. ??? Avoid liquids with milk, cream, or pulp while you are on this diet. This information is not intended to replace advice given to you by your health care provider. Make sure you discuss any questions you have with your health care provider. Document Revised: 01/28/2020 Document Reviewed: 01/28/2020 [employer] Patient Education ? 2020 [employer]. Infectious Disease Salmonella Gastroenteritis, Adult Salmonella gastroenteritis is an infection of the intestines. It can cause nausea, vomiting, and other symptoms. Fever usually lasts for 2?3 days, and diarrhea lasts 4?10 days. Most people recover completely, but some people may develop lasting problems, such as arthritis, irritation of the eyes, or painful urination. What are the causes? This condition is caused by salmonella bacteria. These bacteria can spread through food that is not cooked properly, contact with animals that have the bacteria, or contact with a person's stool. You can get this infection by: ??? Eating food or drinking liquids that have the bacteria. ??? Drinking polluted standing water. ??? Coming into contact with an animal that is carrying the bacteria, such as a turtle, bird, snake, or iguana. What increases the risk? This condition is more likely to develop in: ??? Elderly adults. ??? People with a weakened disease-fighting system (immune system). ??? People with poor personal or kitchen hygiene. ??? People who have contact with animals that are known to carry the bacteria. What are the signs or symptoms? Symptoms of this condition include: ??? Diarrhea, which may be bloody. ??? Abdominal pain or cramps. ??? Fever. ??? Chills. ??? Nausea. ??? Vomiting. ??? Headache. How is this diagnosed? This condition may be diagnosed based on: ??? Your symptoms. ??? Your medical history. ??? A physical exam. ??? A blood test. ??? A stool test. How is this treated? This condition may be managed by: ??? Drinking plenty of fluids. This is important because this infection can make you lose a lot of fluid (dehydrated). ??? Taking antibiotic medicines. These may be given if your condition is severe. Medicines may help shorten your illness. Follow these instructions at home: Medicines ??? Take oirk-qql-xopszue and prescription medicines only as told by your health care provider. ??? Do not take medicines to help with diarrhea. These medicines can make the infection worse. ??? If you were prescribed an antibiotic medicine, take it as told by your health care provider. Do not stop taking the antibiotic even if you start to feel better. Eating and drinking ??? Drink enough fluid to keep your urine pale yellow. This helps prevent dehydration. ??? Drink only clear liquids until your diarrhea, nausea, or vomiting is under control. Clear liquids are liquids you can see through, such as water, broth, fruit juice with added water (diluted fruit juice), low-calorie sports drinks, or non-caffeinated tea. ??? Take an oral rehydration solution (ORS) as told by your health care provider. This drink is sold at pharmacies and retail stores. ??? If you are not hungry, do not force yourself to eat. ??? Eat bland, pzfw-ho-aauawj foods in small amounts as you are able. These foods include bananas, applesauce, rice, lean meats, toast and crackers. ??? Avoid: ? Fluids that contain a lot of sugar or caffeine, such as energy drinks, high-calorie sports drinks, and soda. ? Alcohol. ? Foods that are greasy or contain a lot of fat or sugar. ? Spicy foods. ??? Do not prepare food for others if you have diarrhea. Food safety ??? Use separate food preparation surfaces and storage spaces for raw meat and for fruits and vegetables. ??? Keep refrigerated foods colder than 40?F (5?C). ??? Serve hot foods immediately or keep them heated above 140?F (60?C). ??? Always cook meat, eggs, seafood, and poultry thoroughly. ??? Do not eat or drink unpasteurized dairy products. ??? Wash your hands thoroughly after handling or preparing meat, eggs, seafood, and poultry. ??? Wash your hands, food preparation surfaces, and utensils thoroughly before and after you handle raw foods. ??? Wash your hands thoroughly before eating. General instructions ??? Wash your hands often with soap and water. If soap and water are not available, use hand newspaper copy editor. This helps keep the bacteria from spreading to others. ??? Keep track of changes in your weight. Losing a lot of weight can be a sign of a serious problem. Ask your health care provider how much weight loss should concern you. ??? Stay home from work or school as told by your health care provider. ??? Keep all follow-up visits as told by your health care provider. This is important. Contact a health care provider if you: ??? Have a fever. ??? Have diarrhea that has blood or mucus in it. ??? Feel weak or dizzy. ??? Have a headache. ??? Have urinated only a small amount of very dark urine over 6-8 hours. ??? Have weight loss. ??? Have redness, irritation, or pain in your eyes. ??? Have pain when urinating. ??? Have swelling or a feeling of warmth in a joint. Get help right away if you: ??? Cannot keep fluids down. ??? Cannot stop vomiting or having diarrhea. ??? Have pain in the abdomen, and the pain gets worse. ??? Have any symptoms of severe dehydration. These include: ? Not urinating in 6-8 hours. ? Cold and clammy skin. ? Extreme thirst. ? Confusion. ? Rapid breathing. ? Difficulty waking from sleep. ??? Have changes in vision or loss of vision. Summary ??? Salmonella gastroenteritis is an infection of the intestines. It can cause nausea, vomiting, and other symptoms. It is caused by salmonella bacteria. ??? People can get this condition by eating foods or drinking liquids that have the bacteria, or by coming into contact with an animal that is carrying the bacteria. ??? People with the condition need to drink plenty of fluids to avoid dehydration. Treatment for a severe case may include antibiotic medicines. ??? Follow your health care provider's instructions for taking medicines, eating and drinking, handling food in a safe way, and calling for help. This information is not intended to replace advice given to you by your health care provider. Make sure you discuss any questions you have with your health care provider. Document Revised: 04/10/2019 Document Reviewed: 04/13/2018 [employer] Patient Education ? 2020 [employer]. Obstetrics and Gynecology Urinary Tract Infection, Adult A urinary tract infection (UTI) is an infection of any part of the urinary tract. The urinary tract includes: ??? The kidneys. ??? The ureters. ??? The bladder. ??? The urethra. These organs make, store, and get rid of pee (urine) in the body. What are the causes? This infection is caused by germs (bacteria) in your genital area. These germs grow and cause swelling (inflammation) of your urinary tract. What increases the risk? The following factors may make you more likely to develop this condition: ??? Using a small, thin tube (catheter) to drain pee. ??? Not being able to control when you pee or poop (incontinence). ??? Being female. If you are female, these things can increase the risk: ? Using these methods to prevent : ? A medicine that kills sperm (spermicide). ? A device that blocks sperm (diaphragm). ? Having low levels of a female hormone (estrogen). ? Being . You are more likely to develop this condition if: ??? You have genes that add to your risk. ??? You are sexually active. ??? You take antibiotic medicines. ??? You have trouble peeing because of: ? A prostate that is bigger than normal, if you are male. ? A blockage in the part of your body that drains pee from the bladder. ? A kidney stone. ? A nerve condition that affects your bladder. ? Not getting enough to drink. ? Not peeing often enough. ??? You have other conditions, such as: ? Diabetes. ? A weak disease-fighting system (immune system). ? Sickle cell disease. ? Gout. ? Injury of the spine. What are the signs or symptoms? Symptoms of this condition include: ??? Needing to pee right away. ??? Peeing small amounts often. ??? Pain or burning when peeing. ??? Blood in the pee. ??? Pee that smells bad or not like normal. ??? Trouble peeing. ??? Pee that is cloudy. ??? Fluid coming from the vagina, if you are female. ??? Pain in the belly or lower back. Other symptoms include: ??? Vomiting. ??? Not feeling hungry. ??? Feeling mixed up (confused). This may be the first symptom in older adults. ??? Being tired and grouchy (irritable). ??? A fever. ??? Watery poop (diarrhea). How is this treated? Taking antibiotic medicine. ??? Taking other medicines. ??? Drinking enough water. In some cases, you may need to see a specialist. Follow these instructions at home: Medicines ??? Take bezs-mma-pexizhg and prescription medicines only as told by your doctor. ??? If you were prescribed an antibiotic medicine, take it as told by your doctor. Do not stop taking it even if you start to feel better. General instructions ??? Make sure you: ? Pee until your bladder is empty. ? Do not hold pee for a long time. ? Empty your bladder after sex. ? Wipe from front to back after peeing or pooping if you are a female. Use each tissue one time when you wipe. ??? Drink enough fluid to keep your pee pale yellow. ??? Keep all follow-up visits. Contact a doctor if: ??? You do not get better after 1?2 days. ??? Your symptoms go away and then come back. Get help right away if: ??? You have very bad back pain. ??? You have very bad pain in your lower belly. ??? You have a fever. ??? You have chills. ??? You feeling like you will vomit or you vomit. Summary ??? A urinary tract infection (UTI) is an infection of any part of the urinary tract. ??? This condition is caused by germs in your genital area. ??? There are many risk factors for a UTI. ??? Treatment includes antibiotic medicines. ??? Drink enough fluid to keep your pee pale yellow. This information is not intended to replace advice given to you by your health care provider. Make sure you discuss any questions you have with your health care provider. Document Revised: 10/10/2020 Document Reviewed: 10/10/2020 [employer] Patient Education ? 2020 [employer]. Radiology Colonoscopy, Adult, Care After This sheet gives you information about how to care for yourself after your procedure. Your doctor may also give you more specific instructions. If you have problems or questions, call your doctor. What can I expect after the procedure? After the procedure, it is common to have: ??? A small amount of blood in your poop (stool) for 24 hours. ??? Some gas. ??? Mild cramping or bloating in your belly (abdomen). Follow these instructions at home: Eating and drinking ??? Drink enough fluid to keep your pee (urine) pale yellow. ??? Follow instructions from your doctor about what you cannot eat or drink. ??? Return to your normal diet as told by your doctor. Avoid heavy or fried foods that are hard to digest. Activity ??? Rest as told by your doctor. ??? Do not sit for a long time without moving. Get up to take short walks every 1?2 hours. This is important. Ask for help if you feel weak or unsteady. ??? Return to your normal activities as told by your doctor. Ask your doctor what activities are safe for you. To help cramping and bloating: ??? Try walking around. ??? Put heat on your belly as told by your doctor. Use the heat source that your doctor recommends, such as a moist heat pack or a heating pad. ? Put a towel between your skin and the heat source. ? Leave the heat on for 20?30 minutes. ? Remove the heat if your skin turns bright red. This is very important if you are unable to feel pain, heat, or cold. You may have a greater risk of getting burned. General instructions ??? If you were given a medicine to help you relax (sedative) during your procedure, it can affect you for many hours. Do not drive or use machinery until your doctor says that it is safe. ??? For the first 24 hours after the procedure: ? Do not sign important documents. ? Do not drink alcohol. ? Do your daily activities more slowly than normal. ? Eat foods that are soft and easy to digest. ??? Take kmjx-izg-olbruwy or prescription medicines only as told by your doctor. ??? Keep all follow-up visits as told by your doctor. This is important. Contact a doctor if: ??? You have blood in your poop 2?3 days after the procedure. Get help right away if: ??? You have more than a small amount of blood in your poop. ??? You see large clumps of tissue (blood clots) in your poop. ??? Your belly is swollen. ??? You feel like you may vomit (nauseous). ??? You vomit. ??? You have a fever. ??? You have belly pain that gets worse, and medicine does not help your pain. Summary ??? After the procedure, it is common to have a small amount of blood in your poop. You may also have mild cramping and bloating in your belly. ??? If you were given a medicine to help you relax (sedative) during your procedure, it can affect you for many hours. Do not drive or use machinery until your doctor says that it is safe. ??? Get help right away if you have a lot of blood in your poop, feel like you may vomit, have a fever, or have more belly pain. This information is not intended to replace advice given to you by your health care provider. Make sure you discuss any questions you have with your health care provider. Document Revised: 01/04/2020 Document Reviewed: 09/24/2019 [employer] Patient Education ? 2020 [employer] documented in this encounter Plan of Treatment Not on file documented as of this encounter Visit Diagnoses Not on filedocumented in this encounter
--- OUTSIDE RECORDS SUMMARY | 2024-10-27 23:12 | XMS_ITS | Encounter Summary ---
Author Organization [employer] ([place], [place], [place], [place]) Address [address] [place] [address] Care Team Providers Care Traffic Controller Cable Name Role Phone Unavailable Primary Care Provider Unavailabl e Encounter Details Date Type Department Care Team (Late st Contact Info) Description 06/09/2021 Transcribed Document [facility] [place] Family Medicine [facility] [place] [address] ProviderMohamud MD [address] [place] [id number] Social History Tobacco Use Types Packs/Day [...] Conversion Note - Historical ProviderMD - 06/09/2021 12:18 PM CDT Patient: DAJA RODAS Age: 70 years Sex: Female : 1950 Associated Diagnoses: None Author: SANJEEV DANIELLE MD-INT DATE OF SERVICE [ DOS ]: 06/09/2021 Basic Information SUBJECTIVE: Patient is seen and [...] 100 mL, 100 mL/Hr, IV Piggyback, Q8HInt GoLYTELY: 2,000 mL, Oral, 1-Time Lasix: 20 mg, Oral, Daily MiraLax: 17 Gram, Oral, Daily, PRN: Constipation Phenergan: 6.25 mg, IntraVENous, Q6H, PRN: Nausea Protonix: 40 mg, IV Push, BID Rocephin: 2 Gram, 100 mL/Hr, IV Piggyback, [id number] Tylenol: 650 mg, Oral, Q4H, PRN: Fever [...] and at Bedtime loratadine: 10 mg, Oral, Daily, PRN: Allergies [...] Oral, Daily, 30 Cap, 0 Refill(s), Medications (21) Active Scheduled: (10) carvedilol 3.125 mg tab 3.125 mg 1 Tab, Oral, BID cefTRIAXone 2 Gram, IV Piggyback, [id number] furosemide 20 mg tab 20 mg 1 [...] mg inj 40 mg, IV Push, BID polyethylene glycol/Lytes 4,000 mL liq 2,000 mL, Oral, 1-Time potassium chloride CR 10 mEq tab 10 mEq 1 Tab, Oral, TID Continuous: (0) PRN: (11) acetaminophen 325 mg tab 650 mg 2 Tab, Oral, Q4H acetaminophen 325 mg tab 650 mg 2 Tab, Oral, Q4H acetaminophen/HYDROcodone 325/5 mg tab 1 Tab, Oral, Q6H albuterol-ipratropium inh 3 mL 3 mL, Nebulized Inhalation, RT_Q6H bisacodyl EC 5 mg tab 5 mg 1 Tab, Oral, Daily loratadine 10 mg tab 10 mg 1 [...] History of obstructive sleep apnea / IMO [id number] / Confirmed, Active Problems (1) History of obstructive sleep apnea OBJECTIVE: Physical Examination VS/Measurements Vitals Signs (last 24 hrs) Last Charted Minimum Maximum Temp 97.7 (JUN 09 18:00) 97.7 (JUN 09 18:00) 97.4 (JUN 08:43) Mon HR 74 (JUN 09 18:00) 64 (JUN 09 05:00) 74 (JUN 09 18:00) Resp Rate 16 (JUN 09 18:00) 16 (JUN 08 22:43) 19 (JUN 09 02:00) SBP H 148 (JUN 09 18:00) 96 (JUN 09 05:00) H 181 (JUN 08:43) DBP 84 (JUN 09 18:00) L 50 (JUN 09 05:00) 84 (JUN 09 18:00) MAP 97 (JUN 09 18:00) 63 (JUN 09 05:00) 133 (JUN 08 22:43) SpO2 98 (JUN 09 18:00) 95 (JUN 09 11:26) 100 (JUN 09 05:00) General: Alert and oriented, No acute distress. [...] tenderness, No swelling, No deformity. Integumentary: Warm, [place], Moist, No rash. Neurologic: Alert, Oriented. Psychiatric: Cooperative, Appropriate mood & affect, Normal judgment. Review / Management Results review: Labs (Last four charted values) WBC 5.7 (JUN 09) 8.1 (JUN 08) H 11.4 (JUN 06) HB 11.2 (JUN 09) 12.0 (JUN 08) 13.2 (JUN 06) HCT L 34.0 (JUN 09) 36.5 (JUN 08) 40.3 (JUN 06) Plt 163 (JUN 09) 170 (JUN 08) 237 (JUN 06) Na 137 (JUN 09) 137 (JUN 08) 138 (JUN 07) L 135 (JUN 06) K L 3.0 (JUN 09) L 3.2 (JUN 08) 3.7 (JUN 07) 4.1 (JUN 06) Cl 106 (JUN 09) 107 (JUN 08) 107 (JUN 07) 102 (JUN 06) CO2 23 (JUN 09) 23 (JUN 08) 23 (JUN 07) 27 (JUN 06) BUN 17 (JUN 09) 20 (JUN 08) 18 (JUN 07) 20 (JUN 06) Cr H 1.70 (JUN 09) H 2.00 (JUN 08) H 1.60 (JUN 07) H 1.80 (JUN 06) Glu R H 135 (JUN 09) H 142 (JUN 08) H 176 (JUN 07) H 226 (JUN 06) Ca L 8.3 (JUN 09) L 8.3 (JUN 08) L 8.2 (JUN 07) 8.9 (JUN 06) Lactic 1.6 (JUN 06) AST 28 (JUN 06) ALT 39 (JUN 06) ALK P 116 (JUN 06) T Bili 0.6 (JUN 06) PTN 6.5 (JUN 06) ALB L 2.5 (JUN 06) Lipase L 49 (JUN 06) , JUN 09 05:37 137 106 17 / H 135 L 3.0 23 H 1.70 \ JUN 09 05:37 \ 11.2 / 5.7 163 / L 34.0 \, No Radiology Results Found. Impression and [...] Sequential compression device Code status: Full code Consult ID For Colonoscopy in am ongoing abdominal pain Start IV Flagyl Allergic to ciprofloxacin and vancomycin Continue IV Zosyn consult to gastroenterology I kanwal to Kvng Cardoso PA-c with general surgery, no need for Surgery consult at this time Normal saline at 100 ml / hour fro [id number] Disposition: Patient remains with intractable abdominal pain and GI symptoms. May need short-term rehab versus home with home health Anticipate date of discharge. To be determined Time spent: 32 minutes documented in this encounter Plan of Treatment Not on file documented as of this encounter Visit Diagnoses Not on filedocumented in this encounter
--- OUTSIDE RECORDS SUMMARY | 2024-10-27 23:12 | XMS_ITS | Encounter Summary ---
Author Organization [employer] ([place], [place], [place], [place]) Address [address] [place] [address] Care Team Providers Care Hr Analyst Name Role Phone Unavailable Primary Care Provider Unavailabl e Encounter Details Date Type Department Care Team (Late st Contact Info) Description 06/10/2021 Transcribed Document [facility] [place] Family Medicine [facility] [place] [address] ProviderMohamud MD [address] [place] [id number] Social History Tobacco Use Types Packs/Day [...] Conversion Note - Historical ProviderMD - 06/10/2021 12:46 PM CDT Patient: DAJA RODAS Age: 70 years Sex: Female : 1950 Associated Diagnoses: None Author: SHAJI GORE MD-INF History of Present Illness 06/09/21 - Initial hospital visit for this very pleasant 70 yr old with cc abdominal pain Otherwise well until 2 weeks ago co nausea and abdominal pain Bad at times had watery stools none today no dysuria no cough or SOA no rash Hx limited - chart reviewed and discussed with staff 06/10 - co abdominal pain no fever or chills co loose stools n o rash ROS -otherwise negative but limited Health Status Allergies: Allergic Reactions (Selected) Severity [...] Rocephin: 2 Gram, 100 mL/Hr, IV Piggyback, [id number] Tylenol: 650 mg, Oral, Q4H, PRN: Fever [...] Oral, BID cefTRIAXone 2 Gram, IV Piggyback, [id number] furosemide 20 mg tab 20 mg 1 [...] History of obstructive sleep apnea / IMO [id number] / Confirmed, Active Problems (1) History of obstructive sleep apnea Histories Past Medical History: No active or resolved past medical history items have been selected or recorded., obesity hypergyycemia disability Family History: No family history items have been selected or recorded., colon cancer Procedure history: No active procedure history items have been selected or recorded., colonoscopy this admission Social History Social & Psychosocial Habits Home/Environment 06/06/2021 Living situation: Home with assistance Tobacco Comment: nonsmoker - 06/06/2021 15:02 - ALINE RODRIGUEZ PA-C . Physical Examination VS/Measurements Vitals Signs (last 24 hrs) Last Charted Minimum Maximum Temp 97.0 (JUN 10 11:30) 97.0 (JUN 10:30) 97.7 (JUN 09 15:00) Mon HR 80 (JUN 10 12:45) 36 (JUN 10 06:00) 80 (JUN 10 12:45) Resp Rate 18 (JUN 10 12:45) 16 (JUN 09 15:00) 18 (JUN 09 23:00) SBP 110 (JUN 10 12:45) 110 (JUN 10 12:45) H 148 (JUN 09 18:00) DBP 68 (JUN 10 12:45) L 58 (JUN 10 02:09) 84 (JUN 09 18:00) MAP 80 (JUN 10 06:00) 80 (JUN 10 06:00) 112 (JUN 09 15:00) SpO2 96 (JUN 10 11:30) L 83 (JUN 10 06:00) 98 (JUN 09 18:00) General: Alert and oriented, No acute distress. Eye: Extraocular movements are intact, Normal conjunctiva. HENT: Normal hearing. Neck: Supple, Non-tender. Respiratory: Lungs are clear to auscultation, Respirations are non-labored. Cardiovascular: Normal rate, Regular rhythm, No murmur. Gastrointestinal: Soft, Non-distended, epigastric tenderness. Genitourinary: Exam deferred. Musculoskeletal: No tenderness. Integumentary: Warm. Neurologic: Alert. Cognition and Speech: Oriented. Psychiatric: Cooperative. Review / Management Results review: Labs (Last [...] (JUN 06) Lipase L 49 (JUN 06) . Impression and Plan Abdominal pain Urinary tract infection - gram negative cystitis Acute renal failure - prerenal hypoperfusion via dehydration Diabetes mellitus 2 Hypotension Hypertension Morbid obesity Salmonella gastroenteritis Will change to Rocephin Colonoscopy today C Diff negative Long discussion with patient Risks and benefits of antibiotics and IV access discussed At risk for secondary events and progression of this infection Medicines reviewed X-rays seen Prognosis fair PO Rx should be adequate soon documented in this encounter Plan of Treatment Not on file documented as of this encounter Visit Diagnoses Not on filedocumented in this encounter
--- OUTSIDE RECORDS SUMMARY | 2024-10-27 23:12 | XMS_ITS | Encounter Summary ---
Author Organization [employer] ([place], [place], [place], [place]) Address [address] [place] [address] Care Team Providers Care Home And Family Living Professor Name Role Phone Unavailable Primary Care Provider Unavailabl e Encounter Details Date Type Department Care Team (Late st Contact Info) Description 06/07/2021 Transcribed Document [facility] [place] [facility] [place] [address] ProviderMohamud MD [address], [place] [phone] Social History Tobacco Use Types Packs/Day Years [...] Conversion Note - Historical ProviderMD - 06/07/2021 11:30 AM CDT UM Authorization Entered On: 06/07/2021 11:33 EDT Performed On: 06/07/2021 11:30 EDT by Carla Mitchell Rn-Utilization Review Primary Insurance Authorization Authorization and Policy Numbers : Insurance 1 Health Plan: [facility] MEDICARE REPL Policy Number: [id number] Authorization Number: Insurance Primary Name : [employer] REPL Policy Number: [id number] Authorization Status-Primary : Awaiting callback Reference Number-Primary : [id number] Authorized Service Begin Date-Primary : 06/06/2021 EDT Authorization Comments-Primary : AUTH SUBMITTED ON AVAILITY W/ CLINICAL ATTACHED Historical Authorization Comments-Primary : No Authorization Comments Found Stephen, Carla L, Rn-Utilization Review - 06/07/2021 11:30 EDT Electronically signed by [facility] Conversion Predator [employer] Trapper [employer]ner at 07/02/2022 10:57 AM CDT documented in this encounter Plan of Treatment Not on file documented as of this encounter Visit Diagnoses Not on filedocumented in this encounter
--- OUTSIDE RECORDS SUMMARY | 2024-10-27 23:12 | XMS_ITS | Encounter Summary ---
Author Organization [employer] ([place], [place], [place], [place]) Address [address] [place] [address] Care Team Providers Care Clinical Project Coordinator Name Role Phone Unavailable Primary Care Provider Unavailabl e Encounter Details Date Type Department Care Team (Late st Contact Info) Description 06/10/2021 Transcribed Document [facility] [place] Family Medicine [facility] [address] ProviderMohamud MD [address] [place] [address] Social History Tobacco Use Types [...] Conversion Note - Historical ProviderMD - 06/10/2021 10:00 AM CDT [facility] Endo PreOp Summary Primary Physician: Alvin Summers, Gastroenterolgy Finalized Date/Time: 06/10/21 11:48:36 Pt. Name: DAJA RODAS/Sex: 1950 Female Med Rec #: [id number] Physician: HARDY ABEBE MD Financial #: [id number] Pt. Type: I Room/Bed: 384/1 Admit/Disch: 06/06/21 19:46:00 - Institution: [facility] Zak PreOp Case Times Entry 1 In Preop 06/10/21 11:15:00 Ready for Holding n/a Room Patient Ready for 06/10/21 11:35:00 Surgery Patient Out of Preop 06/10/21 11:35:00 Patient Out of n/a Holding Room Last Modified By: STORM SALGADO RN 06/10/21 11:48:33 Finalized By: STORM SALGADO RN Document Signatures Signed By: STORM SALGADO RN 06/10/21 11:48 Electronically signed by Lizzeth [facility] Conversion [employer]ner at 07/02/2022 10:58 AM CDT documented in this encounter Plan of Treatment Not on file documented as of this encounter Visit Diagnoses Not on filedocumented in this encounter
--- OUTSIDE RECORDS SUMMARY | 2024-10-27 23:12 | XMS_ITS | Encounter Summary ---
Author Organization [employer] ([place], [place], [place], [place]) Address [address] [place] [address] Care Team Providers Care Recreational Director Name Role Phone Unavailable Primary Care Provider Unavailabl e Encounter Details Date Type Department Care Team (Late st Contact Info) Description 06/07/2021 Transcribed Document [facility] [place] Family Medicine [facility] [place] [address] ProviderMohamud MD [address] [place], [place] [phone] Social History Tobacco Use Types Packs/Day Years [...] Conversion Note - Historical ProviderMD - 06/07/2021 10:[address] Christy Umana for orders for ACHS BGFS and sliding scale insulin orders for patient. Orders received. documented in this encounter Plan of Treatment Not on file documented as of this encounter Visit Diagnoses Not on filedocumented in this encounter
--- OUTSIDE RECORDS SUMMARY | 2024-10-27 23:12 | XMS_ITS | Encounter Summary ---
Author Organization [employer] ([place], [place], [place], [place]) Address [address] [place] [address] Care Team Providers Care Head Correction Officer Name Role Phone Unavailable Primary Care Provider Unavailabl e Encounter Details Date Type Department Care Team (Late st Contact Info) Description 06/08/2021 Transcribed Document [facility] [place] [address] [place] [address] ProviderMohamud MD [address] [place] [address] Social History Tobacco Use Types Packs/Day [...] Conversion Note - Historical ProviderMD - 06/08/2021 2:52 PM CDT On Going Discharge Planning Entered On: 06/08/2021 14:55 EDT Performed On: 06/08/2021 14:52 EDT by Jack White, CLINICAL BUSINESS MANAGER NON-EXEMPT Care Management Progress Note Discharge Arrangements [...] care Patient Offered Choice/Affiliations Explained : Yes Designation of Choice Signed : Yes List/Info Provided Pt/Fam/Support Person : Home health Were Referrals Sent to Post Acute Providers : Yes [facility] Quality Web Info Shared w Pt/Fam : Yes Does the Patient have a Floor to SNF Benefit? : Yes Is the Patient Meeting Medical Necessity : Yes Physician Agreeable to Move Forward with D/C Plan? : Yes Discharge Plan Comment : Home with HH Did you Attend Multidisciplinary Rounds? : Yes Jack White, CLINICAL BUSINESS MANAGER NON-EXEMPT - 06/08/2021 14:52 EDT Narrative Progress Note Narrative Progress Note : Day 2 with no ELOS Moderate readmission risk Pt active with [facility] Pt & family refusing rehab as baseline is hospital bed bound with lift for transfers Family provides care at home CM contacted [facility] & confirmed they can take back at [place] Pt is expected to need ambulance transport at DC DC unknown at this time CM will continue to follow Jack White CLINICAL BUSINESS MANAGER NON-EXEMPT - 06/08/2021 14:52 EDT documented in this encounter Plan of Treatment Not on file documented as of this encounter Visit Diagnoses Not on filedocumented in this encounter
--- OUTSIDE RECORDS SUMMARY | 2024-10-27 23:12 | XMS_ITS | Clinical Summary ---
Author Organization [facility] Address [address] [place] [address] Care Team Providers Care Camera Tuning Engineer Name Role Phone KulwinderAshlie Rosa DANIELLE Primary Care Provider [phone] Allergies Active Allergy Reactions Criticality Noted Date Comments Vancomycin Provider Review Needed 01/18/2022 Medications Blood Glucose Monitoring Suppl (LUMO Bodytech Lite) w/Device kitIndications:Co ntrolled type 2 diabetes mellitus with diabetic polyneuropathy, with long-term current use of insulin Check fasting glucose every morning before breakfas 1 each 023 Active terbinafine (lamISIL) 1 % creamIndications: Tinea pedis of both feet Apply 1 application topically to the appropriate area as directed 2 (Two) Times a Day. 15 g 1 023 Active cephalexin (Keflex) 500 MG capsule Take 1 capsule by mouth 2 (Two) Times a Day. 20 capsule 024 Active Continuous Glucose Sensor (Dexcom G6 Sensor)Indication s:Type 2 diabetes mellitus with hyperglycemia, with long-term current use of insulin Inject under the skin into the appropriate area as directed Every 10 (Ten) Days. 3 each 6 024 Active insulin detemir (Levemir FlexPen) 100 UNIT/ML injectionIndicati ons:Type 2 diabetes mellitus with hyperglycemia, with long-term current use of insulin Inject 22 Units under the skin into the appropriate area as directed Daily for 30 days. 7 mL 3 04/25/ 025 Active insulin glargine (Lantus) 100 UNIT/ML injection Inject 22 Units under the skin into the appropriate area as directed Every Night. 7 mL 3 025 Active gabapentin (NEURONTIN) 300 MG capsuleIndication s:Controlled type 2 diabetes mellitus with diabetic polyneuropathy, with long-term current use of insulin TAKE 1 CAPSULE BY MOUTH THREE TIMES DAILY 90 capsule 025 Active metFORMIN ER (GLUCOPHAGE-XR) 500 MG 24 hr tabletIndications :Type 2 diabetes mellitus with stage 3a chronic kidney disease, with long-term current use of insulin Take 1 tablet by mouth once daily with breakfast 90 tablet 025 Active Ozempic, 1 MG/DOSE, 4 MG/3ML solution pen-injectorIndic ations:Type 2 diabetes mellitus with hyperglycemia, with long-term current use of insulin INJECT 1MG UNDER THE SKIN ONCE A WEEK 3 mL 025 Active ezetimibe (ZETIA) 10 MG tabletIndications :Mixed hyperlipidemia Take 1 tablet by mouth once daily 30 tablet 1 025 Active esomeprazole (nexIUM) 20 MG capsuleIndication s:Chronic gout of multiple sites, unspecified cause TAKE 1 CAPSULE BY MOUTH ONCE DAILY IN THE MORNING BEFORE BREAKFAST 30 capsule 025 Active potassium chloride 10 MEQ CR tabletIndications :Edema, unspecified type Take 1 tablet by mouth twice daily 60 tablet 025 Active furosemide (LASIX) 20 MG tabletIndications :Edema, unspecified type Take 1 tablet by mouth once daily 30 tablet 025 Active carvedilol (COREG) 6.25 MG tabletIndications :Primary hypertension TAKE 1 TABLET BY MOUTH TWICE DAILY WITH MEALS 60 tablet 025 Active allopurinol (ZYLOPRIM) 100 MG tabletIndications :Chronic gout of multiple sites, unspecified cause Take 1 tablet by mouth once daily 90 tablet 025 Active atorvastatin (LIPITOR) 80 MG tablet Take 1 tablet by mouth once daily 90 tablet 025 Active allopurinol (ZYLOPRIM) 100 MG tabletIndications :Chronic gout of multiple sites, unspecified cause Take 1 tablet by mouth once daily 90 tablet 025 2024 Discontinued atorvastatin (LIPITOR) 80 MG tablet Take 1 tablet by mouth once daily 90 tablet 025 2024 Discontinued esomeprazole (nexIUM) 20 MG capsuleIndication s:Chronic gout of multiple sites, unspecified cause TAKE 1 CAPSULE BY MOUTH ONCE DAILY IN THE MORNING BEFORE BREAKFAST 30 capsule 025 2024 Discontinued potassium chloride 10 MEQ CR tabletIndications :Edema, unspecified type Take 1 tablet by mouth twice daily 60 tablet 025 2024 Discontinued carvedilol (COREG) 6.25 MG tabletIndications :Primary hypertension TAKE 1 TABLET BY MOUTH TWICE DAILY WITH MEALS 60 tablet 025 2024 Discontinued furosemide (LASIX) 20 MG tabletIndications :Edema, unspecified type Take 1 tablet by mouth once daily 30 tablet 025 2024 Discontinued Active Problems Problem Noted Date Diagnosed Date Dependent on wheelchair 08/01/2024 Encounter for subsequent [facility] wellness visit (AWV) in Medicare patient 09/16/2023 Assessment & Plan (09/19/2023 2:59 PM EDT): Here today for annual wellness visit. Patient's decreased mobility makes it difficult for her to attend preventive visits, they declined mammography today. I am placing order for Cologuard test for colon cancer screening. Tinea pedis of both feet 01/26/2023 Assessment & Plan (01/26/2023 3:05 PM EST): Patient reports her toes have been experiencing redness, burning and peeling for the last several weeks, all toes are effective, predominantly between toes and her great toe. She is bedbound most of the time but does wear how she has been up walking around. She is prone to fungal infections due to uncontrolled diabetes. Her daughter has been utilizing cocoa butter lotion without any benefit. She denies any decreased sensation or her feet being cold to the touch. She denies any darkened or discolored areas. Clinically seems to be tinea pedis. We will treat with topical terbinafine. Patient educated on the importance of tight glucose control as well as keeping feet dry URI (upper respiratory infection) 01/26/2023 Assessment & Plan (01/26/2023 3:08 PM EST): acute respiratory complaints as well as issues with her toes. Patient states she has had a dry and lingering cough for approximately 1 month, this has been accompanied by chronic mild sinus pressure and postnasal drip. Over the last 1 to 2 weeks her symptoms have progressively worsened, now with ear congestion and sinus type headache. He has not utilize any [id number] cold, cough or allergy medications for her symptoms. She denies any wheezing or increased shortness of breath from baseline. Patient's daughter was seen in the office earlier today with the same symptoms set and deemed to have an upper respiratory infection with sinusitis. No signs of respiratory distress noted over the phone. -Treat with 7-day course of Augmentin -We will prescribe Bromfed for cough and congestion -Patient advised if worsening symptoms or respiratory distress develops to seek further evaluation in the emergency department. She states she has a hard time getting out of her home, she is aware that number 1 can be called for transport to hospital at any time Lymphedema 08/18/2022 Assessment & Plan (09/19/2023 2:55 PM EDT): Longstanding issue. Would benefit from lymphatic massage and compression therapy. Daughter states that she is wearing compression stockings most of the time, though not utilizing in office today. Assessment & Plan (06/20/2023 9:57 AM EDT): Longstanding issue. Would benefit from lymphatic massage and compression therapy. Daughter states that she is wearing compression stockings most of the time, though not utilizing in office today. Assessment & Plan (08/18/2022 4:44 PM EDT): Longstanding issue. Would benefit from lymphatic massage and compression therapy. will include the suggestions in home health health referral Chronic venous insufficiency 08/18/2022 Pressure injury of left calf, stage 3 06/21/2022 Assessment & Plan (11/25/2022 1:12 PM EDT): Longstanding pattern due to bedbound status, morbid obesity, lymphedema and venous insufficiency. Patient is accompanied by her daughter who has been performing wound care on the calf wound. We have now referred her to outpatient wound care clinic at [facility] for further treatment, picture attached under PE Assessment & Plan (08/18/2022 4:37 PM EDT): Longstanding pattern due to bedbound status, morbid obesity, lymphedema and venous insufficiency. Patient is accompanied by her daughter who has been performing wound care on the calf wound. Wound noted to be stage III, measuring approximately 4 inches in length and 2 inches in width. No necrosis noted. No surrounding erythema or swelling. Calf is not warm to touch. Has been cleaning the site with warm soap and water, applying antibiotic ointment and wrapping with bandages. Did receive round of Keflex at the beginning of June. -I have discussed with Ms. Steele and her daughter that at this point she would benefit from transition to a halfway facility due to her decreased mobility and multiple comorbid conditions. They are agreeable to even consider transition at this time -We will refer to home health for wound care. Assessment & Plan (06/21/2022 12:54 PM EDT): Longstanding pattern due to bedbound status, morbid obesity and venous insufficiency. Today they report worsening left lower extremity ulcer. Her daughter reports greenish drainage coming out of the wounds, no associated fever or foul odor. They have been cleaning the site with warm soap and water and then wrapping with bandages. -We will treat with broad-spectrum antibiotic therapy, Keflex as ordered -Home health has been consulted to provide wound management. -Advised if no improvement with antibiotic or develops fever she is to call 911 for transportation to the emergency department immediately Type 2 diabetes mellitus wit h hyperglycemia, with long-term current use of insulin 03/22/2022 Assessment & Plan (09/19/2023 2:58 PM EDT): Patient has now been through diabetes education and able to utilize her continuous glucose monitoring system, Dexcom. In office her sugar is 245. States that she is regularly below 200. A1c is at 9.7%. Patient diabetic foot exam performed in office today, we discussed podiatry referral but patient declined. He is reminded to get updated diabetic eye exam. -Will increase semaglutide to 1 mg subcu weekly -Continue metformin 750 mg daily with breakfast -Continue Lantus 22 units subcu nightly -Follow-up in 3 months Assessment & Plan (06/20/2023 9:59 AM EDT): Checking glucose at home but not consistently. She has continuous glucose monitor but doesn't know how to use it. Need to see if home health [facility] had breastfeeding educator to go out and set up. A1c in office today is greatly improved at 8.1%. Will increase metformin to 750 mg daily and continue to monitor. Patient is in need of diabetic eye exam but declines at this time. Assessment & Plan (11/25/2022 1:11 PM EDT): Patient has not been monitoring glucose regularly. Was given prescription for new glucometer and supplies but has failed to utilize the monitor stating she always gets an error notification. During our last visit we attempted to get Dexcom, we received notification she has been approved but family has not obtained the Dexcom system yet. She has up-to-date diabetic foot exam, she is unable to report to eye doctor for updated eye exam. Since she will be leaving the home for outpatient wound care at [facility] we will also place referral to diabetic education, hopefully they can get her set up with a Dexcom system. Assessment & Plan (08/18/2022 5:01 PM EDT): Patient has not been monitoring glucose regularly. Was given prescription for new glucometer and supplies but has continued to monitor her glucose stating they are always getting an error notification. She is unable to get to eye doctor for diabetic eye exam. Diabetic foot exam completed today. Patient with fungus of great toe on left foot. No breakdown noted. Her daughter has been told she can bring the glucometer to our office for patient education. Patient would also benefit from podiatry referral but is unable to travel easily. We discussed importance of glucose monitoring compliance in order to properly treat. Pending A1c today Assessment & Plan (06/21/2022 12:51 PM EDT): She was provided with prescription for new glucose monitoring supplies during her last telehealth visit. She has failed to monitor her glucose despite being given the supplies. Home health will need to perform diabetic foot exam. She is unable to make the trip for diabetic eye exam Assessment & Plan (06/08/2022 3:24 PM EDT): She tells me she is unsure how her glucose is running. She attributes this to losing her home testing supplies. I emphasized the importance of glucose monitoring, particularly where she is unable to get into the office to see us in person. Also need to talk to home health service about performing diabetic foot exam. She is unable to have diabetic eye exam due to bedbound status Assessment & Plan (03/22/2022 5:03 PM EST): Poorly controlled. FSBS today fasting is 285. She has not been checking her glucose at home. Her glucometer says error when she attempts to check on her own. The nurse at bedside was able to get it to work today and showed Ms. Steele she wasn't securing the strip in the machine correctly She has been out of lantus -Refill Lantus 20 units nightly Primary hypertension 03/22/2022 Assessment & Plan (09/19/2023 2:56 PM EDT): Blood pressure 119/70 in office today. Currently utilizing carvedilol 6.25 mg twice daily Assessment & Plan (06/20/2023 10:04 AM EDT): Blood pressure 138/82 in office today. She has not been monitoring her blood pressure regularly at home. Continue carvedilol 6.25 mg once daily Assessment & Plan (11/25/2022 1:09 PM EDT): Blood pressure 136/78 in office today. She has not been monitoring blood pressure regularly at home. Patient is currently providing intermittent visits at home, during those visits her blood pressures been reported as 1 teens over 50s to 60s range. Currently utilizing carvedilol 6.25 mg once daily Assessment & Plan (08/18/2022 4:35 PM EDT): Blood pressure 138/86 in office today. She has not been monitoring her blood pressure at home. The insurance currently provides intermittent visits in the home, during those visits her blood pressure has been reported as 1 teens over 50-60 range. He did not bring her medication list for review but per her old records she is taking carvedilol 6.25 mg twice daily Assessment & Plan (06/21/2022 12:49 PM EDT): Reports blood pressure 116/52 while you are on the phone today. Currently utilizing carvedilol 6.25 mg twice daily Assessment & Plan (06/08/2022 3:22 PM EDT): She is receiving home health, but tells me her blood pressure cuff broke and she has no readings for us to review. We will be contacting home health service to review her plan of care as well as give comprehensive lab orders for review. Currently only utilizing carvedilol 6.25 mg twice daily Assessment & Plan (03/22/2022 4:58 PM EST): She has not been checking her BP regularly. At her home today is a nurse from her insurance, [employer]. She has checked BP today and given me a reading of 115/89, she has been out of he medication for monthly. -Refill carvedilol 6.25mg BID -will attempt to keep home BP log Stage 3a chronic kidney disease 03/22/2022 Assessment & Plan (09/19/2023 2:58 PM EDT): Last renal function panel showing creatinine of 1.09 and GFR of 54. Reminded to avoid nephrotoxic agents including NSAIDs Assessment & Plan (06/20/2023 9:58 AM EDT): Last renal function panel showing creatinine of 1.09 and GFR of 54. Reminded to avoid nephrotoxic agents including NSAIDs Assessment & Plan (11/25/2022 1:08 PM EDT): 3 months ago comprehensive labs obtained showing creatinine 1.09 GFR of 54. We discussed need to avoid nephrotoxic agents including NSAIDs in the form of ibuprofen, Motrin Aleve. Assessment & Plan (08/18/2022 4:34 PM EDT): Has not received comprehensive lab work in over a year due to homebound status. Last known GFR was 45-57 range. Denies any decreased urinary output or uremic symptoms including confusion, nausea, vomiting or decreased appetite. We are finally obtaining metabolic panel to reassess kidney function today Assessment & Plan (06/08/2022 3:11 PM EDT): Patient has not received comprehensive lab work in over a year due to homebound status. Last known GFR 45-57 range. Denies any decreased urinary output or uremic symptoms including confusion, nausea, vomiting or decreased appetite. We will attempt to get lab orders to her home health nurse to be obtained, reviewed and treat as indicated Assessment & Plan (03/22/2022 4:57 PM EST): Previously CKD IIIa, she has not had labs in quite some time due to her homebound status. Last known GFR 45-57 range. She denies any decreased UOP or uremic symptoms Morbid (severe) obesity due to excess calories 0 03/22/2022 Assessment & Plan (09/19/2023 2:56 PM EDT): Patient's (Body mass index is 40.17 kg/m .) indicates that they are morbidly/severely obese (BMI > 40 or > 35 with obesity - related health condition) with health conditions that include obstructive sleep apnea, hypertension, diabetes mellitus, and dyslipidemias . Weight is unchanged. BMI is above average; BMI management plan is completed. We discussed portion control and increasing exercise. Assessment & Plan (06/20/2023 9:58 AM EDT): Patient's (There is no height or weight on file to calculate BMI.) indicates that they are morbidly/severely obese (BMI > 40 or > 35 with obesity - related health condition) with health conditions that include hypertension, diabetes mellitus, dyslipidemias, and lower extremity venous stasis disease . Weight is unchanged. BMI is above average; BMI management plan is completed. We discussed portion control and increasing exercise. Assessment & Plan (11/25/2022 1:10 PM EDT): Patient has been bedbound for over 1 year now. This has prohibited her from coming to much-needed medical appointments for thorough and proper evaluation. Her daughter is providing the best care she can, however given her mother's complicated declining health status she seems she would benefit from transition to a halfway or assisted living where they can assist with wound care management, diabetes management and basic ADLs. They are agreeable at this time. Daughter is inquiring about shots to help her lose weight . Assessment & Plan (06/21/2022 12:50 PM EDT): Patient has been bedbound for almost 1 year now. This is prohibiting her from coming to much-needed medical appointments for thorough and proper evaluation. Her daughter is providing the best care she can, however given her mother's complicated and declining health status she seems she would benefit from transition to halfway or assisted living where they could assist with wound care management, diabetes management and basic ADLs. They are unagreeable at this time Assessment & Plan (06/08/2022 3:22 PM EDT): Patient's (There is no height or weight on file to calculate BMI.) indicates that they are morbidly/severely obese (BMI > 40 or > 35 with obesity - related health condition) with health conditions that include obstructive sleep apnea, hypertension and diabetes mellitus . Weight is unchanged. BMI is above average; BMI management plan is completed. We discussed portion control and increasing exercise. Assessment & Plan (03/22/2022 4:59 PM EST): Patient's (There is no height or weight on file to calculate BMI.) indicates that they are morbidly/severely obese (BMI > 40 or > 35 with obesity - related health condition) with health conditions that include obstructive sleep apnea, hypertension and diabetes mellitus . Weight is unchanged. BMI is is above average; BMI management plan is completed. We discussed portion control and increasing exercise. LANDON (obstructive sleep apnea) 03/22/2022 Assessment & Plan (09/19/2023 2:56 PM EDT): Patient was prescribed BiPAP or CPAP many years ago but was never able to tolerate Assessment & Plan (06/20/2023 9:58 AM EDT): Patient was prescribed BiPAP or CPAP many years ago but was never able to tolerate Assessment & Plan (11/25/2022 1:09 PM EDT): Patient was prescribed BiPAP or CPAP many years ago but was never able to tolerate Assessment & Plan (08/18/2022 4:38 PM EDT): It was prescribed BiPAP or CPAP many years ago but was never able to tolerate, reported she feels as though she was smothering when wearing the apparatus Assessment & Plan (06/08/2022 3:27 PM EDT): She was prescribed last several years ago, but was intolerant, felt like it was smothering her. Chronic gout of multiple sites 03/22/2022 Assessment & Plan (09/19/2023 2:54 PM EDT): No recent gout flares, well controlled with allopurinol 100 mg daily Assessment & Plan (08/18/2022 5:01 PM EDT): No recent gout flares, well controlled with allopurinol 100 mg daily Assessment & Plan (06/08/2022 3:24 PM EDT): Reports recent flares of gout in knees and feet. Symptoms include warmth redness and tenderness at joint sites. Previously utilized allopurinol 100 mg once daily but has been out of this medication for several months. Discussed low purine diet options. We will reinstitute allopurinol 100 mg once daily Mixed hyperlipidemia 03/22/2022 Assessment & Plan (09/19/2023 2:55 PM EDT): Currently utilizing daily atorvastatin 80 mg. Checking lipids today Assessment & Plan (06/20/2023 9:57 AM EDT): Currently utilizing daily atorvastatin 80 mg Assessment & Plan (11/25/2022 1:10 PM EDT): Currently utilizing atorvastatin 80 mg once daily with adequate benefit. Assessment & Plan (08/18/2022 4:41 PM EDT): Currently utilizing atorvastatin 40 mg once daily. We will have lipids rechecked today. Assessment & Plan (06/08/2022 3:23 PM EDT): Currently utilizing atorvastatin 40 mg once daily. He has not had her lipids checked in over 1 year due to being unable to leave the home. They are going to send lab orders to her home health services in hopes that they can obtain lab work for us Assessment & Plan (03/22/2022 5:00 PM EST): She has not had lipid levels checked in a while due to homebound status. She has been out of her lipitor -Refill lipitor 40mg daily -I am attempting to get her set up with [facility] who has the capability of obtained labs in her home Edema 03/22/2022 Assessment & Plan (03/22/2022 5:01 PM EST): Issues with lymphedema in the past. Nurse at [facility] today reports no edema She continues to take lasix 20mg daily Bedbound 03/22/2022 Assessment & Plan (08/18/2022 5:02 PM EDT): She has been bedbound for over a year due to chronic venous insufficiency, debilitating osteoarthritis, lymphedema and morbid obesity. As a result she has been unable to get adequate health care. Needs regular assistance with bathing and basically all ADLs. With pressure sores on her legs, advised he would benefit from being transitioned to complete prison for optimal health benefit but she as well as her family are and agreeable at this time. Refer to [facility] for available services. Assessment & Plan (06/21/2022 12:52 PM EDT): She has been bedbound for 1 year now due to chronic venous insufficiency, lymphedema and morbid obesity. As a result she has been unable to get adequate health care. She needs regular assistance with bathing and basically all ADLs. Now with pressure sores on her legs, unable to be evaluated via telehealth today due to lack of visual technology in the home. In my opinion she would benefit from being transitioned to complete prison for optimal health benefit Assessment & Plan (06/08/2022 3:26 PM EDT): She has been bedbound for almost 1 year now due to chronic venous insufficiency, lymphedema and morbid obesity. As a result she has been unable to get adequate health care. She has been referred to home health, they are actually going to set up this telehealth appointment for her today. However, she tells me home health has not been coming. Need to confirm home health is not doing performing visit. May address venous stasis ulcers. Assistance with regular bathing, obtaining labs as needed and diabetes education. Assessment & Plan (03/22/2022 5:05 PM EST): Ms. Steele has been bedbound for a while now due to chronic venous insufficiency, lymphedema and morbid obesity. As a result she has been unable to get adequate healthcare. I would like to place home Health referral for multiple reasons -Address venous stasis ulcers -Assist with regular bathing -obtain labs as needed -diabetes education. Encounters Date Type Department Care Team Description 10/25/2024 [facility] PRIMARY CARE [address] [place], [place] [address] [address] [place], [place] [address] Ashlie Miramontes, SALES CONTRACTOR Chronic gout of multiple sites, unspecified cause 10/23/2024 [facility] PRIMARY CARE [address] [place] [address] [place] [address] Ashlie Miramontes, SALES CONTRACTOR Edema, unspecified type; Primary hypertension 10/22/2024 Telephone [facility] [place] [address] Ashlie Miramontes, SALES CONTRACTOR Advice Only 10/02/2024 [facility] [place] [address] [address] Ashlie Miramontes, SALES CONTRACTOR Medication Problem 09/30/2024 [facility] [place] [address] Ashlie Miramontes, SALES CONTRACTOR Chronic gout of multiple sites, unspecified cause; Edema, unspecified type 09/26/2024 [facility] PRIMARY CARE [address] [place] [address] [place] [address] Ashlie Miramontes, SALES CONTRACTOR Edema, unspecified type 09/24/2024 [facility] PRIMARY CARE [address] [place] [address] [place] [address] Ashlie Miramontes, SALES CONTRACTOR New Med Request 09/23/2024 [facility] PRIMARY [address] [place] [address] Ashlie Miramontes, SALES CONTRACTOR Primary hypertension; Edema, unspecified type 09/11/2024 [facility] PRIMARY [address] [place] [address] Ashlie Miramontes, SALES CONTRACTOR Mixed hyperlipidemia 09/04/2024 [facility] PRIMARY [address] [place] [address] Ashlie Miramontes, SALES CONTRACTOR Chronic gout of multiple sites, unspecified cause; Edema, unspecified type 08/31/2024 [facility] PRIMARY [address] [place] [address] Ashlie Miramontes, SALES CONTRACTOR Controlled type 2 diabetes mellitus with diabetic polyneuropathy, with long-term current use of insulin; Type 2 diabetes mellitus with stage 3a chronic kidney disease, with long-term current use of insulin; Type 2 diabetes mellitus with hyperglycemia, with long-term current use of insulin 08/26/2024 [facility] PRIMARY [address] [place] [address] Ashlie Miramontes, SALES CONTRACTOR Edema, unspecified type 08/21/2024 [facility] PRIMARY [address] [place] [address] Ashlie Miramontes, SALES CONTRACTOR Controlled type 2 diabetes mellitus with diabetic polyneuropathy, with long-term current use of insulin; Type 2 diabetes mellitus with stage 3a chronic kidney disease, with long-term current use of insulin; Edema, unspecified type 08/14/2024 Refill [facility] PRIMARY CARE [address] [place] [address] Ashlie Miramontes, SALES CONTRACTOR Controlled type 2 diabetes mellitus with diabetic polyneuropathy, with long-term current use of insulin; Type 2 diabetes mellitus with stage 3a chronic kidney disease, with long-term current use of insulin 08/08/2024 Telephone [facility] PRIMARY [facility]ARE [address] [place] [address] Ashlie Miraomntes, SALES CONTRACTOR MEDICATION REQUEST 08/03/2024 Refill [facility] PRIMARY [facility]ARE [address] [place] [address] Ashlie Miramontes, SALES CONTRACTOR Primary hypertension 07/31/2024 Refill [facility]ARE [address] [place] [address] Ashlie Miramontes, SALES CONTRACTOR Mixed hyperlipidemia from Last 3 Months Immunizations Immunization Administration Dates Next Due Fluzone High-Dose 65+YRS 12/01/2018,12/13/2016 Influenza, Unspecified 12/01/2018 Pneumococcal Conjugate 13-Valent (PCV13) 018,12/13/2016 Pneumococcal Polysaccharide (PPSV23) 12/10/2013 Pneumococcal, Unspecified 12/10/2013 Tdap 12/10/2013 Family History Medical History Relation Name Comments Other Mother Lymphedema tard a (probable); onset in middle age of progressive bilateral lower extremity lymphedematous swelling, all occurring in sister and mother, onset in all 3 family members in late 30s to early 40s. Other Sister Lymphedema tard a (probable); onset in middle age of progressive bilateral lower extremity lymphedematous swelling, all occurring in sister and mother, onset in all 3 family members in late 30s to early 40s. Relation Name Status Comments Father Maternal Grandmother Alive Mother Sister Social History Tobacco Use Types Packs/Day Years Used Date Smoking Tobacco: Never Smokeless Tobacco: Never Tobacco Cessation:Counseling Given: Not Answered Alcohol Use Standard Drinks/Week Comments Never 0 [...] on file Sexual Orientation Not on file Last Filed Vital Signs Vital Sign Reading Time Taken Comments Blood Pressure 118/70 09/16/2023 11:11 AM EDT Pulse 72 09/16/2023 11:11 AM EDT Temperature 36.3 C (97.4 F) 09/16/2023 11:11 AM EDT Respiratory Rate 18 09/16/2023 11:1 1 AM EDT Oxygen Saturation 96% 09/16/2023 11: 11 AM EDT Inhaled Oxygen Concentration - - Weight 106 kg (234 lb) 09/16/2023 11:11 AM EDT Weight from hospital last visit Height 162.6 cm (5' 4 ) 09/16/2023 11:1 1 AM EDT Body Mass Index 40.17 09/16/2023 11:11 AM EDT Plan of Treatment Upcoming Encounters Date Type Department Care Team (Late st Contact Info) Description 11/14/2024 11:30 AM EDT Office Visit [facility] PRIMARY [facility]ARE [address] [place] [address] [place] [address] Ashlie Miramontes APRN [address] [place] [address] Health Maintenance Due Date Last Done Comments DIABETIC EYE EXAM 1960 URINE MICROALBUMIN-CREATININ E RATIO (uACR) 1960 MAMMOGRAM 1990 COLOGUARD 07/17/1995 COLON CANCER SCREENING 5 YEA R SIGMOIDOSCOPY 07/17/1995 CT COLONOGRAPHY 07/17/1995 FECAL OCCULT BLOOD TEST 07/17/1995 FIT Testing (1 year) 07/17/1995 ZOSTER VACCINE (1 of 2) 2000 Hepatitis B (1 of 3 - Risk 3 -dose series) 2010 Pneumococcal Vaccine 50+ (3 of 3 - PCV20 or PCV21) 12/12/2022 12/12/2017, 12/13/2016, 12/10/2013, Additional history exists PT PLAN OF CARE 03/17/2023 12/17/2022 ANNUAL PHYSICAL 08/19/2023 08/18/2022 TDAP/TD VACCINES (2 - Td or Tdap) 12/11/2023 014 HEMOGLOBIN A1C 03/18/2024 09/16/2023, 04/0 06/2023, 11/24/2022, Additional history exists DIABETIC FOOT EXAM 09/15/2024 09/16/2023, 0 09/16/2023, 09/16/2023, Additional history exists LIPID PANEL 09/15/2024 09/16/2023, 08/18/2022 INFLUENZA VACCINE 12/12/2024 12/01/2018, , 12/13/2016 COLONOSCOPY 04/18/2034 04/18/2024 COLORECTAL CANCER SCREENING 04/18/2034 HEPATITIS C SCREENING Completed 08/18/2022 COVID-19 Vaccine Discontinued DXA SCAN Discontinued Procedures Procedure Name Priority Date/Time Associated Diagnosis Comments SCANNED - COLONOSCOPY 04/18/2024 HEMOGLOBIN A1C Routine 09/16/2023 11:24 AM EDT Type 2 diabetes mellitus with hyperglycemia, with long-term current use of insulin LIPID PANEL Routine 09/16/2023 11:24 AM EDT Mixed hyperlipidemia HEPATITIS C ANTIBODY Routine 08/18/2022 1:05 PM EDT Annual physical exam from Last 3 Months or Most Recently Relevant to Health Maintenance Results * Colonoscopy, Scan (04/18/2024) Ashlie Miramontes APRN CHART REVIEW TABS Final Result * (ABNORMAL) Hemoglobin A1c (09/16/2023 11:24 AM EDT) Hemoglobin A1C 9.7(H) 4.8 - 5.6 % [facility] Comment: Prediabetes: 5.7 - 6.4 Diabetes: >6.4 Glycemic control for adults with diabetes: <7.0 Blood Structure of left upper limb / Unknown 09/16/2023 11:24 AM EDT 09/16/2023 Comment:Blood Release to pat i Narrative [facility] - 09/17/2023 6:07 AM EDT Performed at: - [address] [id number] Slab Installer: Rui Castro PhD, Phone: [phone] Ashlie Miramontes APRN LAB BLOOD ORDERABLES Final Result [facility] [address] [place] [address], [place] [phone] [facility] [address] [place] [address], [place] [phone] * (ABNORMAL) Lipid Panel (09/16/2023 11:24 AM EDT) Total Cholesterol 195 100 - 199 mg/dL [facility] Triglycerides 298(H) 0 - 149 mg/dL [facility] HDL Cholesterol 27(L) >39 mg/dL [facility] VLDL Cholesterol Mikey 52(H) 5 - 40 mg/dL [facility] LDL Chol Calc (NIH) 116(H) 0 - 99 mg/dL [facility] Blood Structure of left upper limb / Unknown 09/16/2023 11:24 AM EDT 09/16/2023 Comment:[facility] [place] [facility] - 09/17/2023 6:07 AM EDT Performed at: [facility] - [facility] [address] [place] [id number] Slab Installer: Rui Castro PhD, Phone: [phone] Ashlie Miramontes APRN LAB BLOOD ORDERABLES Final Result Performing Organization Address City/[facility]/ZIP Co de Phone Number [facility] [address] [place] [address], [place] [phone] [facility] [address] [place] [address], [place] [phone] * Hepatitis C Antibody (08/18/2022 1:05 PM EDT) [facility] Hep C Virus Ab Non Reactive Non Reactive [facility] Comment: HCV antibody alone does not differentiate between previously resolved infection and active infection. Equivocal and Reactive HCV antibody results should be followed up with an HCV RNA test to support the diagnosis of active HCV infection. Blood Structure of left upper limb / Unknown 08/18/2022 1:05 PM EDT 08/19/2022 Comment:Blood Release to [facility] ([facility] - 08/19/2022 10:07 AM EDT Performed at: 01 - [facility] [address] [place] [id number] Slab Installer: Rui Castro PhD, Phone: [phone] Ashliealejandra Miramontes SALES CONTRACTOR LAB BLOOD ORDERABLES Final Result Performing Organization Address City/[facility]/ZIP Co de Phone Number [facility] (AMBULATORY) [address] [place] [address], [place] [phone] [facility] [address] [place] [address], [place] [phone] from Last 3 Months or Most Recently Relevant to Health Maintenance Care Teams Camera Tuning Engineer Relationship Specialty Start Date End Date Ashlie Miramontes, SALES CONTRACTOR [address] [place] [phone] PCP - General Family Medicine 02/10/22
--- OUTSIDE RECORDS SUMMARY | 2024-10-27 23:12 | XMS_ITS | Encounter Summary ---
Author Organization [facility] Address [address] [place] [id number] Care Team Providers Care Ldr Rn Name Role Phone Ashlie Miramontes CAR MECHANIC HELPER Primary Care Provider [phone] Reason for Visit * Reason Comments Med Refill Encounter Details Date Type Department Care Team (Late st Contact Info) Description 08/31/2024 Refill [facility] PRIMARY CARE [address] [place] [address] Ashlie Miramontes APRN [address] [place], [place] [id number] Controlled type 2 diabetes mellitus with diabetic polyneuropathy, with long-term current use of insulin; Type 2 diabetes mellitus with stage 3a chronic kidney disease, with long-term current use of insulin; Type 2 diabetes mellitus with hyperglycemia, with long-term current use of insulin Social History Tobacco Use Types Packs/Day Years [...] Description 11/14/2024 11:30 AM EDT Office Visit [facility] PRIMARY CARE [address] [place] [phone] Ashlie Miramontes APRN [address] [place] [address] documented as of this encounter Visit Diagnoses Diagnosis Controlled type 2 diabetes mellitus with diabetic polyneuropathy, with long-term current use of insulin Type 2 diabetes mellitus with stage 3a chronic kidney disease, with long-term current use of insulin Type 2 diabetes mellitus with hyperglycemia, with long-term current use of insulin documented in this encounter Care Teams Ldr Rn Relationship Specialty Start Date End Date Ashlie Miramontes APRN [address] [place] [address] PCP - General Family Medicine 02/10/22 documented as of this encounter
--- OUTSIDE RECORDS SUMMARY | 2024-10-27 23:12 | XMS_ITS | Encounter Summary ---
Author Organization [employer] ([place], [place], [place], [place]) Address [address] [place] [address] Care Team Providers Care Gas Plant Repairer Name Role Phone Unavailable Primary Care Provider Unavailabl e Encounter Details Date Type Department Care Team (Late st Contact Info) Description 06/12/2021 Transcribed Document [facility] Family Medicine [facility] [place] [address] ProviderMohamud MD [address] [place] [id number] Social History Tobacco Use Types Packs/Day Years Used Date Smoking Tobacco: Never Assessed Comments Unknown Sex and Gender Information Value Date Recorded Sex Assigned at Female 09/08/2021 5:34 PM CDT Legal Sex Female 5:34 PM CDT Gender Identity Female 09/08/2021 5:34 PM CDT Sexual Orientation Not on file documented as of this encounter Miscellaneous Notes * Cerner Conversion Note - Mohamud ProviderMD - 06/12/2021 3:08 PM CDT Patient Resource Center Entered On: 06/12/2021 15:09 EDT Performed On: 06/12/2021 15:08 EDT by Deyanira Mart, Associate Project Manager Patient Resource Center Provider Status : EST Other Established Provider Name : [facility] [employer] Patient Phone Number : [phone] Patient Insurance Type : Medicare Source of Referral : Case management Location of Patient : Case management referral Primary Care Scheduled : Yes Primary Care Scheduled Type : Non CMG Primary Care Provider Name : HENRIQUE SRINIVASAN Primary Care Appointment Date/Time : 06/22/2021 11:00 EDT Specialty Care Scheduled : Yes Specialty Type Scheduled1 : Infectious Disease Infectious Disease Provider Name : SHAJI ECHEVERRIA Infectious Disease Appointment Date/Time : 06/13/2021 9:00 EDT Qualify for Diabetes and/or Nutrition Referral : No Wound Care Appointment Made : No Why Patient Visited ED- Specialty spent : Other How Patient Arrived at ED : Other Primary Language : [place]er Patient Resource Center Comment : Patient needs follow up appointments. Called offices and scheduled appointments with Dr. Echeverria and Dr. Henrique Srinivasan Follow Up Needed : No Deyanira Mart, Associate Project Manager - 06/12/2021 15:08 EDT documented in this encounter Plan of Treatment Not on file documented as of this encounter Visit Diagnoses Not on filedocumented in this encounter
--- OUTSIDE RECORDS SUMMARY | 2024-10-27 23:12 | XMS_ITS | Encounter Summary ---
Author Organization [employer] ([place], [place], [place]) Address [address] [place] [address] Care Team Providers Care Electrical Equipment Tester Name Role Phone Unavailable Primary Care Provider Unavailabl e Encounter Details Date Type Department Care Team (Late st Contact Info) Description 06/10/2021 Transcribed Document [facility] Family Medicine [facility] [place] [address] ProviderMohamud MD [address] [place], [place] [phone] Social History Tobacco Use Types Packs/Day Years [...] Conversion Note - Historical ProviderMD - 06/10/2021 2:00 AM CDT Game Designer/Creative Director Details Entered On: 06/10/2021 2:33 EDT Performed On: 06/10/2021 2:00 EDT by Don Méndez RN-PATIENT CARE BEDSIDE NON-EXEMPT Order Details Isolation Precautions Order Detail : Standard Precautions Order Detail : N/A Lift/Transfer : Maximal assist Central Line Order Detail : No Room Service : Needs Assistance Arterial Line : No Patient Needs Meds Crushed/Liquid : No Don Méndez RN-PATIENT CARE BEDSIDE NON-EXEMPT - 06/10/2021 2:33 EDT documented in this encounter Plan of Treatment Not on file documented as of this encounter Visit Diagnoses Not on filedocumented in this encounter
--- OUTSIDE RECORDS SUMMARY | 2024-10-27 23:12 | XMS_ITS | Encounter Summary ---
Author Organization [employer] ([place], [place], [place]) Address [address] [place] [address] Care Team Providers Care Liver Trimmer Name Role Phone Unavailable Primary Care Provider Unavailabl e Encounter Details Date Type Department Care Team (Late st Contact Info) Description 06/08/2021 Transcribed Document [facility] [place] [address] [place] [address] ProviderMohamud MD [address] [place] [phone] Social History Tobacco Use Types Packs/Day Years [...] Conversion Note - Historical ProviderMD - 06/08/2021 10:11 AM CDT Consult Phone Call Documentation Entered On: 06/08/2021 10:32 EDT Performed On: 06/08/2021 10:11 EDT by Rachell Simon Patient Clinical Laboratory Medical Director Nirali Phone Call for Consults Consult Phone Call/Page Attempt : First call Consult Reason : intractable abdominal pain Physician Requesting Consult : SANJEEV DANIELLE MD-INT Physician Requested for Consult : BAM BUCHANAN MD-ANANDA Date and Time Call Returned : 06/08/2021 10:32 EDT Rachell Simon Patient Clinical Laboratory Medical Director I - 06/08/2021 10:31 EDT documented in this encounter Plan of Treatment Not on file documented as of this encounter Visit Diagnoses Not on filedocumented in this encounter
--- OUTSIDE RECORDS SUMMARY | 2024-10-27 23:12 | XMS_ITS | Clinical Summary ---
Author Organization [employer] ([place], [place], [place], [place]) Address [address] [place] [address] Care Team Providers Care Product Development Ecologist Name Role Phone Unavailable Primary Care Provider [...]
--- OUTSIDE RECORDS SUMMARY | 2024-10-27 23:12 | XMS_ITS | Patient Health Record ---
Author Organization [employer] [facility] Address [address] [place] [address] Reason For Referral No Information Plan Of Treatment No Information Insurance Providers Payer Name Payer Address Payer Phone Subscriber Number Group Number Insured Name Patient Relationship to Insured Coverage Start Date Coverage End [place] [address] [address] [id number] Daja Steele Self - patient is the insured
--- OUTSIDE RECORDS SUMMARY | 2024-10-27 23:12 | XMS_ITS | Encounter Summary ---
Author Organization [employer] ([place], [place], [place], [place]) Address [address] [place] [address] Care Team Providers Care Court Transcriber Name Role Phone Unavailable Primary Care Provider Unavailabl e Encounter Details Date Type Department Care Team (Late st Contact Info) Description 06/10/2021 Transcribed Document [facility] [place] Family Medicine [facility] [place] [address] ProviderMohamud MD [address] [place] [address] Social History Tobacco Use Types [...] Historical ProviderMD - 06/10/2021 12:25 PM CDT [facility] Endo IntraOp Summary Primary Physician: Alvin Summers, Gastroenterolgy Finalized Date/Time: 06/10/21 12:52:10 Pt. Name: DAJA RODAS D.O.B./Sex: 1950 Female Med Rec #: [id number] Physician: HARDY ABEBE MD Financial #: [id number] Pt. Type: I Room/Bed: [facility]/1 Admit/Disch: 06/06/21 19:46:00 - Institution: [facility] Endo - Case Attendance Entry 1 Entry 2 Entry 3 Case Attendee Alvin Summers CORNEA, MIHAELA, MD-KHADIJAH BROOKS SHO K, Gastroenterolgy IMAGING CENTER MANAGER, PROGRAM COUNSELOR Role Performed Surgeon/Proceduralist, Anesthesiologist of PROGRAM COUNSELOR/Nurse Hand Woven Carpet And Rug Mender First Record Time In 06/10/21 12:17:00 06/10/21 12:17:00 06/10/21 12:17:00 Time Out 06/10/21 12:43:00 06/10/21 12:43:00 06/10/21 12:43:00 Procedure Colonoscopy Colonoscopy Colonoscopy Other Attendee Superficial Wound Closed By: Last Modified By: NORBERTO MILES RN, NORBERTO MILES RN, NORBERTO MILES RN, Registered Nurse Registered Nurse Registered Nurse 06/10/21 12:37:07 06/10/21 12:37:07 06/10/21 12:37:07 Entry 4 Entry 5 Case Attendee NORBERTO MILES RN, KARIS GIL, Registered Nurse Barrel Cleaner Role Performed Real Estate Financial Analyst, First Scrub, First Time In 06/10/21 12:17:00 06/10/21 12:17:00 Time Out 06/10/21 12:43:00 06/10/21 12:43:00 Procedure Colonoscopy Colonoscopy Other Attendee Superficial Wound Closed By: Last Modified By: NORBERTO MILES RN, NORBERTO MILES RN, Registered Nurse Registered Nurse 06/10/21 12:37:07 06/10/21 12:37:07 [facility] Endo - Case Attendance Audit 06/10/21 12:37:07 Supervisor Production Department: XIANG Modifier: COLINOLEMAN 1 <+> Time In 1 <+> Time Out 1 <*> Procedure Colonoscopy 2 <+> Time In 2 <+> Time Out 2 <*> Procedure Colonoscopy 3 <+> Time In 3 <+> Time Out 3 <*> Procedure Colonoscopy 4 <+> Time In 4 <+> Time Out 4 <*> Procedure Colonoscopy 5 <+> Time In 5 <+> Time Out 5 <*> Procedure Colonoscopy 06/10/21 12:33:31 Supervisor Production Department: XIANG Modifier: COLINOLEMAN <+> 2 Case Attendee <+> 2 Role Performed <+> 2 Procedure <+> 3 Case Attendee <+> 3 Role Performed <+> 3 Procedure <+> 4 Case Attendee <+> 4 Role Performed <+> 4 Procedure <+> 5 Case Attendee <+> 5 Role Performed <+> 5 Procedure [facility] Endo - Case times Entry 1 Patient In Room Time 06/10/21 12:17:00 Out Room Time 06/10/21 12:43:00 Anesthesia Start Time 06/10/21 12:17:00 Stop Time 06/10/21 12:43:00 Surgery / Procedure Times Start Time 06/10/21 12:25:00 Stop Time 06/10/21 12:33:00 Last Modified By: NORBERTO MILES RN, Registered Nurse 06/10/21 12:34:50 [facility] Endo - Delays Entry 1 Delay Reason Other Duration 0 Minute(s) Last Modified By: NORBERTO MILES RN, Registered Nurse 06/10/21 12:34:54 [facility] Endo - Departure from OR Entry 1 Integumentary Assessment Integumentary WDL Assessment WDL Transfer/Handoff Transfer to PACU Phase I Post-op Transport Stretcher/Gurney Via Patient Transport NORBERTO MILES RN, Accompanied by Registered NurseTODD SUZANNE K, APRN, PROGRAM COUNSELOR Last Modified By: NORBERTO MILES RN, Registered Nurse 06/10/21 12:34:59 [facility] Endo - Endoscopy Details Entry 1 Abdomen Procedure Soft, Non-Tender Assessment Procedure Abdomen 06/10/21 12:17:00 Assessment D/T Radio Frequency Ablation Abdominal Pressure Last Modified By: NORBERTO MILES RN, Registered Nurse 06/10/21 12:35:10 [facility] Endo - Fire Risk Assessment Entry 1 Fire Info Surgical Site or 0- No Incision Above the Xyphoid Open O2 Source 1- Yes (Mask or Cannula) Available Ignition 1- Yes (ESU, Laser, Light Source) Fire Risk 2 Assessment Score Fire Score Fire Risk Yes Assessment Complete Fire Risk NORBERTO MILES RN, Assessment Verified Registered Nurse By Fire Risk 06/10/21 12:17:00 Assessment Verified Date/Time Fire Risk High Risk Protocol Yes Implemented Standard Fire Yes Safety Precautions Followed Last Modified By: NORBERTO MILES RN, Registered Nurse 06/10/21 12:35:48 [facility] Endo - General Case Chief Ii Dispatcher 1 Case Information OR Endo 03 [facility] Case Level 1 Room Verified Yes Wound Class No Incision Specialty Gastroenterology Anesthesia Type MAC ASA Class 3 Case Information XTERNAL Comments Diagnosis Preop Diagnosis ABDOMINAL PAIN Postop Same As Preop No Postop Diagnosis POOR PREP-INCOMPLETE. EXTERNAL HEMORRHOIDS, ANAL SKIN TAG, INTERNAL HEMORRHOIDS ON RETROFLEXION Wound Class Definitions Last Modified By: NORBERTO MILES RN, Registered Nurse 06/10/21 12:52:08 [facility] Endo - General Case Data Audit 06/10/21 12:52:08 Supervisor Production Department: COLINOLEMGIUSEPPE Modifier: TIFPACOYCOLEMAN 1 <*> Postop Diagnosis POOR PREP-INCOMPLETE 1 <+> Case Information Comments 06/10/21 12:38:32 Supervisor Production Department: XIANG Modifier: TIFFANYCOLEMAN <+> 1 Room Verified [facility] Endo - Intraoperative Assessment Entry 1 Valid History / Yes Physical in Chart Preoperative Yes Checklist Reviewed/Evaluated Patient is Latex No Sensitive Level of WDL Consciousness (WDL = Alert, Oriented to Person, Place, and Time) Present Upon IVs Arrival to OR Last Modified By: NORBERTO MILES RN, Registered Nurse 06/10/21 12:36:35 [facility] Endo - Intraoperative Equipment Entry 1 Equipment Intraop Monitoring Electrocardiogram Three lead placement (ECG) Electrode Placement Blood Pressure Arm, left upper Location Pulse Oximeter Hand, right Probe Site Antiembolic Devices Scopes Flexible Endoscopes Colonoscope Used Photo/Video Documentation Photo Yes Video No Last Modified By: NORBERTO MILES RN, Registered Nurse 06/10/21 12:36:54 [facility] Endo - Patient Positioning Entry 1 Procedure Colonoscopy Body Position Lateral, right side up Left Arm Position Resting at side Right Arm Position Resting at side Left Leg Position Other Right Leg Position Other Position Comments Right leg over left leg, uncrossed Feet Uncrossed Yes Pressure Points Yes Checked Positioned By NORBERTO MILES RN, Registered Nurse, KARIS GIL, Barrel Cleaner, Alvin Summers, Gastroenterolgy Position Verified Positioning Yes Verified by Anesthesia Positioning Yes Verified by Surgeon Last Modified By: NORBERTO MILES RN, Registered Nurse 06/10/21 12:38:48 [facility] Endo - Sign In Entry 1 Patient, Site, Yes Procedure Identified Surgical Consent Yes Confirmed Surgical Site N/A Marked by person performing procedure Airway Hypothermia Risk No Warming Measures No Taken Last Modified By: NORBERTO MILES RN, Registered Nurse 06/10/21 12:37:04 [facility] Endo - Sign Out Entry 1 RN Confirmation Surgical Yes Procedure(s) Identified Instrument, Sponge N/A and Sharps Counts Correct/Documented Equipment Problems N/A Documented Specimen Labeled N/A Correctly Urinary Catheter N/A Documented in IView Wound Yes classification reviewed, verified and updated post case in both the General Case Data and Procedure segments Safety Checklist Yes Elements Complete? RN Sign Out NORBERTO MILES RN, Signature Registered Nurse RN Sign Out 06/10/21 12:34:00 Signature Date/Time Plan of Care Outcome - Fire Risk OUTCOME STATEMENT: Goal met Patient is free from injury related to surgical fire Plan of Care Outcome - Pt Positioning OUTCOME STATEMENT: Goal met Absence of signs and symptoms of positioning injury. Plan of Care Outcome - Skin Prep OUTCOME STATEMENT: Goal met Intraoperative care is consistent with measures to prevent infection Plan of Care Outcome - Xray/Images OUTCOME STATEMENT: N/A Absence of observable signs or symptoms of radiation injury Plan of Care Outcome - Counts OUTCOME STATEMENT: N/A Absence of signs and symptoms of injury related to extraneous objects Last Modified By: NORBERTO MILES RN, Registered Nurse 06/10/21 12:37:34 [facility] Endo - Surgical Procedures Entry 1 Procedure Colonoscopy Primary Procedure Yes Primary Surgeon Alvin Summers, Gastroenterolgy Start 06/10/21 12:25:00 Stop 06/10/21 12:33:00 Anesthesia Type MAC Specialty Gastroenterology Wound Class No Incision Last Modified By: NORBERTO MILES RN, Registered Nurse 06/10/21 12:37:46 [facility] Endo - Time Out Entry 1 Procedure to be Colonoscopy Performed Time Out Time Out Pause Time 06/10/21 12:25:00 All activity Yes suspended (unless life threatening emergency) Team Verbally Correct patient Confirms Information identity, Consent form is present and accurate, Agreement on the procedure to be done, Correct patient position, Performed in location of procedure after prepped/draped, Performed before each procedure if multiple procedures, Reconcile problems if responses among team members differ Antibiotic N/A Prophylaxis Administered Or In Progress Within the Last 60 Minutes Beta [place] N/A Administered Venous N/A Thromboembolism Prophylaxis Required Anticipated Critical Events Surgeon None expected Anesthesia Provider None expected Last Modified By: NORBERTO MILES RN, Registered Nurse 06/10/21 12:38:18 Case Comments <None> Finalized By: NORBERTO MILES RN, Registered Nurse Document Signatures Signed By: NORBERTO MILES RN, Registered Nurse 06/10/21 12:52 Electronically signed by Lizzeth [facility] Conversion Civil Engineer Land Development Cerner at 07/02/2022 10:52 AM CDT documented in this encounter Plan of Treatment Not on file documented as of this encounter Visit Diagnoses Not on filedocumented in this encounter
--- OUTSIDE RECORDS SUMMARY | 2024-10-27 23:12 | XMS_ITS | Encounter Summary ---
Author Organization [employer] ([place], [place], [place], [place]) Address [address] [place] [address] Care Team Providers Care Mine Deputy Name Role Phone Unavailable Primary Care Provider Unavailabl e Encounter Details Date Type Department Care Team (Late st Contact Info) Description 06/12/2021 Transcribed Document [facility] Family Medicine [address] [place] [id number] ProviderMohamud MD [address] [place] [id number] Social History Tobacco Use Types Packs/Day [...] Conversion Note - Mohamud ProviderMD - 06/12/2021 3:27 PM CDT [facility] [address] [place] [id number] DAJA RODAS :1950 Visit Time:06/06/2021 Your Visit Summary Your Care Team Admitting Physician - KAMLESH CORTES DO-INT Attending Physician - SANJEEV DANIELLE MD-INT Primary Care Physician - HENRIQUE SRINIVASAN (REF), -FAM Referring Physician - ODILIA, ROB Your Diagnosis Abdominal pain Hypotension Pain in the abdomen UTI (urinary tract infection) These Are Your Goals Patient Discharge Goal Patient Discharge Goal: Home health care Discharge Vitals Temperature 36.6 ??C Heart Rate (Monitored) 74 Blood Pressure 134/65 What to do next Instructions From Your Care Team Home Health Services: [facility] [phone] Transportation: Ambulance scheduled for 1600 06/12/2021 Please STOP taking the following medications: 1. Vitamin D 2. Losartan Activity as tolerated. Resume your usual diet as tolerated. Follow-Up Appointments Follow Up with SHAJI GORE MD-INF When 07/03/2021 09:00 AM EDT Comments I/D follow up Appointment has been made Bring discharge instructions with you. Be sure to call and cancel/reschedule your appointment if you cannot make it. Where: [address] [facility] [address] [place] [address]- Follow Up with HENRIQUE SRINIVASAN (REF), -FAM When 06/22/2021 11:00 AM EDT Comments PCP follow up Appointment has been made Bring discharge instructions with you The office asks that if you cannot make it to your appointment, that you call the office to cancel or reschedule your appointment. Where: [address] [place] [address]- Medications What How Much When Instructions Next Dose acetaminophen-hydrocodone (acetaminophen-HYDROcodone 325 mg-5 mg oral tablet) 1 Tablet(s) Oral Every 6 Hours as needed for Pain (Severe 7-10) Pickup at [facility] as needed azithromycin (Zithromax Z-Marcela 250 mg oral tablet) 1 Tablet(s) Oral Every Day TAKE 2 TABLETS FIRST DAY, THEN 1 TABLET DAILY Pickup at [facility] tomorrow famotidine (famotidine 20 mg oral tablet) 1 Tablet(s) Oral Two Times A Day Duration: 7 Day(s) Pickup at [facility] this evening lactobacillus acidophilus (lactobacillus acidophilus oral capsule) 1 Capsule(s) Oral Two Times A Day or any over the counter PROBIOTIC Pickup at [facility] this evening ondansetron (ondansetron 4 mg oral tablet, disintegrating) 1 Tablet(s) Oral Every 8 Hours as needed for Nausea/Vomiting Pickup at [facility] as needed amLODIPine (amLODIPine 2.5 mg oral tablet) 1 Tablet(s) Oral Every Day tomorrow atorvastatin (atorvastatin 40 mg oral tablet) 1 Tablet(s) Oral At Bedtime at bedtime furosemide (furosemide 20 mg oral tablet) 1 Tablet(s) Oral Every Day tomorrow gabapentin (gabapentin 300 mg oral capsule) 1 Capsule(s) Oral At Bedtime at bedtime loratadine (loratadine 10 mg oral tablet) 1 Tablet(s) Oral Every Day as needed for Allergies tomorrow allopurinol (allopurinol 100 mg oral tablet) 1 Tablet(s) Oral Every Day tomorrow carvedilol (carvedilol 6.25 mg oral tablet) 1 Tablet(s) Oral Two Times A Day this evening esomeprazole (NexIUM 24HR 20 mg oral delayed release capsule) 1 Capsule(s) Oral Every Day tomorrow insulin glargine (Lantus Solostar Pen 100 units/ mL subcutaneous solution) 12 Unit(s) SubCutaneous At Bedtime at bedtime potassium chloride (potassium chloride 10 mEq oral capsule, extended release) 1 Capsule(s) Oral Every Day tomorrow Pharmacy Information [facility] [place]: [address] [place] [address] [address] [place], [place] [id number] [phone] Take your medications faithfully. Do NOT skip medication. Do NOT stop taking medications without the direction of a physician. Carry a list of your medications with you at all times, and take this medication list with you to your first follow up visit. Report any side effects. Avoid herbal remedies unless discussed with your physician. As part of your treatment plan, your physician may have prescribed a limited course of a controlled substance. This medication may be given to help people with moderate or severe pain or for other medical conditions, but there are risks involved with treatment. Common side effects may include nausea, constipation, drowsiness, sweating, itching, dry mouth, and rash. More serious side effects may include cognitive and motor impairment, like problems with thinking, concentrating, alertness, and movement (e.g. slowed reflexes), and driving and operating heavy machinery can be dangerous. It is important for you to talk to your physician if you have these side effects or questions. These controlled substances can produce physical dependence and be habit-forming if taken for an extended period of time, which means that the body has gotten used to them and may experience withdrawal symptoms if they are abruptly stopped. Withdrawal symptoms can include runny nose, sweating, goose bumps, diarrhea, abdominal cramping, rapid heartbeat, difficulty sleeping, and nervousness. Please dispose of unused and medications per your retail pharmacy guidance. Allergies ciprofloxacin (rash, rash) vancomycin (rash, rash) Immunizations This Visit No Immunizations Found Education Materials Urinary Tract Infection, Adult A urinary tract [...] these instructions at home: Medicines ??? Take rhha-fwm-hcuwuiw and prescription medicines only as told by [...] ??? You do not get better after 1???2 days. ??? Your symptoms go away and [...] provider. Document Revised: 10/10/2020 Document Reviewed: 10/10/2020 [employer] Patient Education ?? 2020 [employer] Salmonella Gastroenteritis, Adult Salmonella gastroenteritis is an infection of the intestines. It can cause nausea, vomiting, and other symptoms. Fever usually lasts for 2???3 days, and diarrhea lasts 4???10 days. Most people recover completely, but some [...] these instructions at home: Medicines ??? Take gpzu-qdx-ftcbqsw and prescription medicines only as told by [...] force yourself to eat. ??? Eat bland, csoi-wd-kmhfuh foods in small amounts as you are [...] vegetables. ??? Keep refrigerated foods colder than 40??F (5??C). ??? Serve hot foods immediately or keep them heated above 140??F (60??C). ??? Always cook meat, eggs, seafood, and [...] and water are not available, use hand cost recorder. This helps keep the bacteria from spreading [...] provider. Document Revised: 04/10/2019 Document Reviewed: 04/13/2018 [employer] Patient Education ?? 2020 [employer] Colonoscopy, Adult, Care After This sheet gives [...] Get up to take short walks every 1???2 hours. This is important. Ask for help [...] source. ? Leave the heat on for 20???30 minutes. ? Remove the heat if your [...] soft and easy to digest. ??? Take prlh-pqf-tqyjgsq or prescription medicines only as told by your doctor. ??? Keep all follow-up visits as told by your doctor. This is important. Contact a doctor if: ??? You have blood in your poop 2???3 days after the procedure. Get help right [...] provider. Document Revised: 01/04/2020 Document Reviewed: 09/24/2019 [employer] Patient Education ?? 2020 [employer] Clear Liquid Diet, Adult A clear liquid [...] provider. Document Revised: 01/28/2020 Document Reviewed: 01/28/2020 [employer] Patient Education ?? 2020 [employer]. famotidine (oral/injection) (fam [place] britta cat) Heartburn Relief, Leader Acid Intelligence Specialist, Pepcid, Pepcid AC, Pepcid AC Maximum Strength, Zantac 360 What is the most important information I should know about famotidine? Follow all directions on the label and package. Use exactly as directed. What is famotidine? Famotidine is used to treat and prevent ulcers in the stomach and intestines. It also treats conditions in which the stomach produces too much acid, such as Ambar-Block syndrome. Famotidine also treats gastroesophageal reflux disease (GERD) and other conditions in which acid backs up from the stomach into the esophagus, causing heartburn. The Zantac 360 brand of this medicine does not contain ranitidine, a medicine that was withdrawn from market in the [place]. Famotidine may also be used for purposes not listed in this medication guide. What should I discuss with my healthcare provider before taking famotidine? Heartburn can feel like a heart attack. Get emergency medical help if you have chest pain that spreads to your jaw or shoulder. You should not use this medicine if you are allergic to famotidine or similar medicines such as ranitidine (Zantac), cimetidine (Tagamet), or nizatidine (Axid). Ask a doctor or pharmacist if this medicine is safe to use if you have: ?? kidney disease; ?? liver disease; ?? cancer stomach; or ?? long QT syndrome (in you or a family member). Ask a doctor before using this medicine if you are or . How should I take famotidine? Use exactly as directed on the label, or as prescribed by your doctor. Famotidine oral is taken by mouth. Famotidine injection is given in a vein if you are unable to take the medicine by mouth. You may take famotidine oral with or without food. Measure liquid medicine with the supplied syringe or a dose-measuring device (not a kitchen spoon). Most ulcers heal within 4 weeks of famotidine treatment, but it may take up to 8 weeks of using this medicine before your ulcer heals. Keep using the medication as directed. Call your doctor if the condition you are treating with famotidine does not improve, or if it gets worse while using famotidine. Your treatment may also include changes in diet or lifestyle habits. Follow all instructions of your doctor or dietitian. Store at room temperature away from moisture, heat, and light. Do not allow the liquid medicine to freeze. Throw away any unused famotidine liquid that is older than 30 days. What happens if I miss a dose? Take the medicine as soon as you can, but skip the missed dose if it is almost time for your next dose. Do not take two doses at one time. What happens if I overdose? Seek emergency medical attention or call the Poison Help line at . What should I avoid while taking famotidine? Drinking alcohol may increase the risk of damage to your stomach. Avoid taking other stomach acid reducers unless your doctor has told you to. However, you may take an antacid (such as Maalox, Mylanta, Gaviscon, Milk of Magnesia, Rolaids, or Tums) with famotidine. What are the possible side effects of famotidine? Get emergency medical help if you have signs of an allergic reaction: hives; difficult breathing; swelling of your face, lips, tongue, or throat. Stop using famotidine and call your doctor at once if you have: ?? confusion, hallucinations, agitation, lack of energy; ?? a seizure; ?? fast or pounding heartbeats, sudden dizziness (like you might pass out); or ?? unexplained muscle pain, tenderness, or weakness especially if you also have fever, unusual tiredness, and dark colored urine. Some side effects may be more likely in older adults and in people who have severe kidney disease. Common side effects may include: ?? headache; ?? dizziness; or ?? constipation or diarrhea. This is not a complete list of side effects and others may occur. Call your doctor for medical advice about side effects. You may report side effects to FDA at 4-117-DQQ-8149. What other drugs will affect famotidine? Famotidine oral can make it harder for your body to absorb other medicines you take by mouth. Tell your doctor if you are taking: ?? cefditoren; ?? dasatinib; ?? delavirdine; ?? fosamprenavir; or ?? tizanidine (if you are taking famotidine liquid). This list is not complete. Other drugs may affect famotidine, including prescription and nmau-dzr-lzrsdmg medicines, vitamins, and herbal products. Not all possible drug interactions are listed here. Where can I get more information? Your doctor or pharmacist can provide more information about famotidine. Remember, keep this and all other medicines out of the reach of children, never share your medicines with others, and use this medication only for the indication prescribed. Every effort has been made to ensure that the information provided by [employer]') is accurate, up-to-date, and complete, but no guarantee is made to that effect. Drug information contained herein may be time sensitive. [employer] information has been compiled for use by healthcare practitioners and consumers in the [place] and therefore [employer] does not warrant that uses outside of the [place] are appropriate, unless specifically indicated otherwise. [employer] drug information does not endorse drugs, diagnose patients or recommend therapy. [employer] drug information is an informational resource designed to assist licensed healthcare practitioners in caring for their patients and/or to serve consumers viewing this service as a supplement to, and not a substitute for, the expertise, skill, knowledge and judgment of healthcare practitioners. The absence of a warning for a given drug or drug combination in no way should be construed to indicate that the drug or drug combination is safe, effective or appropriate for any given patient. [employer] does not assume any responsibility for any aspect of healthcare administered with the aid of information [employer] provides. The information contained herein is not intended to cover all possible uses, directions, precautions, warnings, drug interactions, allergic reactions, or adverse effects. If you have questions about the drugs you are taking, check with your doctor, nurse or pharmacist. Copyright 3184-0466 [employer]. Version: 18.01. Revision Date: 08/21/2020. azithromycin (oral/injection) (a SUSANA domínguez MYE sin) Azithromycin 3 Day Dose Pack, Azithromycin 5 Day Dose Pack, Zithromax, Zithromax IV, Zithromax TRI-MARCELA, Zithromax Z-Marcela What is the most important information I should know about azithromycin? You should not use azithromycin if you have ever had an allergic reaction, jaundice, or liver problems while taking this medicine. You should not use azithromycin if you have ever had a severe allergic reaction to similar drugs such as clarithromycin, erythromycin, or telithromycin. What is azithromycin? Azithromycin is used to treat many different types of infections caused by bacteria, including infections of the lungs, sinus, throat, tonsils, skin, urinary tract, cervix, or genitals. Azithromycin may also be used for purposes not listed in this medication guide. What should I discuss with my healthcare provider before using azithromycin? You should not use azithromycin if you are allergic to it, or if you have ever had: ?? jaundice or liver problems caused by taking azithromycin; or ?? a severe allergic reaction to similar drugs such as clarithromycin, erythromycin, or telithromycin. Azithromycin oral should not be used to treat pneumonia in people who have: ?? cystic fibrosis; ?? an infection after being in a hospital; ?? an infection in the blood; ?? a weak immune system (caused by diseases such as HIV/AIDS or cancer); or ?? in older adults and those who are ill or debilitated. Tell your doctor if you have ever had: ?? pneumonia; ?? liver or kidney disease; ?? myasthenia gravis; ?? low levels of potassium in your blood; ?? a heart rhythm disorder; or ?? long QT syndrome (in you or a family member). It is not known whether this medicine is effective in treating genital ulcers in women. Tell your doctor if you are or . Taking azithromycin while may cause diarrhea, vomiting, or rash in the nursing baby. Azithromycin is not approved for use by anyone younger than 6 months old. Azithromycin should not be used to treat a throat or tonsil infection in a child younger than 2 years old. How should I take azithromycin? Follow all directions on your prescription label and read all medication guides or instruction sheets. Use the medicine exactly as directed. Azithromycin oral is taken by mouth. Azithromycin injection is given as an infusion into a vein, usually for 2 days before you switch to azithromycin oral. A healthcare provider will give you this injection. You may take azithromycin oral with or without food. Shake the oral suspension (liquid) before you measure a dose. Use the dosing syringe provided, or use a medicine dose-measuring device (not a kitchen spoon). Use this medicine for the full prescribed length of time, even if your symptoms quickly improve. Skipping doses can increase your risk of infection that is resistant to medication. Azithromycin will not treat a viral infection such as the flu or a common cold. Store at room temperature away from moisture and heat. Throw away any unused liquid medicine after 10 days. What happens if I miss a dose? Take the medicine as soon as you can, but skip the missed dose if it is almost time for your next dose. Do not take two doses at one time. What happens if I overdose? Seek emergency medical attention or call the Poison Help line at . What should I avoid while taking azithromycin? Antibiotic medicines can cause diarrhea, which may be a sign of a new infection. If you have diarrhea that is watery or bloody, call your doctor before using anti-diarrhea medicine. Azithromycin could make you sunburn more easily. Avoid sunlight or tanning beds. Wear protective clothing and use sunscreen (SPF 30 or higher) when you are outdoors. What are the possible side effects of azithromycin? Get emergency medical help if you have signs of an allergic reaction (hives, difficult breathing, swelling in your face or throat) or a severe skin reaction (fever, sore throat, burning in your eyes, skin pain, red or purple skin rash that spreads and causes blistering and peeling). Seek medical treatment if you have a serious drug reaction that can affect many parts of your body. Symptoms may include: skin rash, fever, swollen glands, muscle aches, severe weakness, unusual bruising, or yellowing of your skin or eyes. Call your doctor at once if you have: ?? severe stomach pain, diarrhea that is watery or bloody; ?? fast or pounding heartbeats, fluttering in your chest, shortness of breath, and sudden dizziness (like you might pass out); or ?? liver problems--nausea, vomiting, loss of appetite, stomach pain (upper right side), tiredness, itching, dark urine, henrietta-colored stools, jaundice (yellowing of the skin or eyes); Call your doctor right away if a baby taking azithromycin becomes irritable or vomits while eating or nursing. Older adults may be more likely to have side effects on heart rhythm, including a life-threatening fast heart rate. Common side effects may include: ?? nausea, vomiting; or ?? stomach pain. This is not a complete list of side effects and others may occur. Call your doctor for medical advice about side effects. You may report side effects to FDA at 4-813-ZXG-4648. What other drugs will affect azithromycin? Tell your doctor about all your other medicines, especially: ?? colchicine; ?? digoxin; ?? nelfinavir; ?? phenytoin; ?? an antacid that contains aluminum or magnesium--Acid Gone, Gaviscon, Gelusil, Maalox, Milk of Magnesia, Mylanta, Pepcid Complete, Rolaids, Rulox, and others; or ?? a blood thinner--warfarin, Coumadin, Jantoven. This list is not complete. Other drugs may affect azithromycin, including prescription and xxmq-cfk-rrvrpxr medicines, vitamins, and herbal products. Not all possible drug interactions are listed here. Where can I get more information? Your pharmacist can provide more information about azithromycin. Remember, keep this and all other medicines out of the reach of children, never share your medicines with others, and use this medication only for the indication prescribed. Every effort has been made to ensure that the information provided by [employer] ('[employer]') is accurate, up-to-date, and complete, but no guarantee is made to that effect. Drug information contained herein may be time sensitive. [employer] information has been compiled for use by healthcare practitioners and consumers in the [place] and therefore [employer] does not warrant that uses outside of the [place] are appropriate, unless specifically indicated otherwise. [employer]'s drug information does not endorse drugs, diagnose patients or recommend therapy. [employer] drug information is an informational resource designed to assist licensed healthcare practitioners in caring for their patients and/or to serve consumers viewing this service as a supplement to, and not a substitute for, the expertise, skill, knowledge and judgment of healthcare practitioners. The absence of a warning for a given drug or drug combination in no way should be construed to indicate that the drug or drug combination is safe, effective or appropriate for any given patient. [employer] does not assume any responsibility for any aspect of healthcare administered with the aid of information [employer] provides. The information contained herein is not intended to cover all possible uses, directions, precautions, warnings, drug interactions, allergic reactions, or adverse effects. If you have questions about the drugs you are taking, check with your doctor, nurse or pharmacist. Copyright 7323-2290 [employer]. Version: 18.01. Revision Date: 07/13/2018. lactobacillus acidophilus (LAK toe ba DELFINA us chrissy OFF il us) Acidophilus, Bacid (LAC), Florajen, [place]annah-Q, Lactinex, Rosana-Bid, RisaQuad, Superdophilus What is the most important information I should know about lactobacillus acidophilus? Follow all directions on the product label and package. Tell each of your healthcare providers about all your medical conditions, allergies, and all medicines you use. What is lactobacillus acidophilus? Lactobacillus acidophilus is a bacteria that exists naturally in the body, primarily in the intestines and the vagina. Lactobacillus acidophilus has been used as a probiotic, or 'friendly bacteria.' Lactobacillus acidophilus has been used in alternative medicine as a likely effective aid in treating diarrhea in children with rotavirus. Lactobacillus acidophilus has been used in alternative medicine as a possibly effective aid (in children or adults) in preventing diarrhea caused by antibiotics, travel, chemotherapy, or hospitalization. Lactobacillus acidophilus is also possibly effective in treating irritable bowel syndrome, bacterial vaginal infection, colic in babies, lung infections in children, skin problems in children who are allergic to milk, and other conditions. Lactobacillus acidophilus has also been used to treat lactose intolerance, Crohn's disease, overgrowth of bacteria in the intestines, or vaginal yeast infections caused by antibiotics. However, research has shown that lactobacillus acidophilus may not be effective in treating these conditions. Other uses not proven with research have included treating indigestion, urinary tract infections, intestinal problems in premature babies, high cholesterol, lyme disease, cold sores, acne, cancer, the common cold, and other conditions. It is not certain whether lactobacillus acidophilus is effective in treating any medical condition. Medicinal use of this product has not been approved by the FDA. Lactobacillus acidophilus should not be used in place of medication prescribed for you by your doctor. Lactobacillus acidophilus is often sold as an herbal supplement. There are no regulated manufacturing standards in place for many herbal compounds and some marketed supplements have been found to be contaminated with toxic metals or other drugs. Herbal/health supplements should be purchased from a reliable source to minimize the risk of contamination. Lactobacillus acidophilus may also be used for other purposes not listed in this product guide. What should I discuss with my healthcare provider before taking lactobacillus acidophilus? Ask a doctor, pharmacist, or other healthcare provider if it is safe for you to use this product if you have: ?? short bowel syndrome; or ?? a weak immune system (caused by disease or by using certain medicine). Ask a doctor before using this product if you are or breast-feeding. Do not give any herbal/health supplement to a child without medical advice. How should I take lactobacillus acidophilus? When considering the use of herbal supplements, seek the advice of your doctor. You may also consider consulting a practitioner who is trained in the use of herbal/health supplements. If you choose to use lactobacillus acidophilus, use it as directed on the package or as directed by your doctor, pharmacist, or other healthcare provider. Do not use more of this product than is recommended on the label. Lactobacillus acidophilus is available in capsule and tablet form, or as a vaginal suppository. Powder or liquid forms may also be available. Some dairy products, especially yogurt, also contain lactobacillus acidophilus. The chewable tablet must be chewed before you swallow it. Do not use different forms of lactobacillus acidophilus at the same time without medical advice. Using different formulations together increases the risk of an overdose. Call your doctor if the condition you are treating with lactobacillus acidophilus does not improve, or if it gets worse while using this product. Store lactobacillus acidophilus in a sealed container as directed on the product label, away from moisture, heat, and light. What happens if I miss a dose? Skip the missed dose if it is almost time for your next scheduled dose. Do not use extra lactobacillus acidophilus to make up the missed dose. What happens if I overdose? Seek emergency medical attention or call the Poison Help line at . What should I avoid while taking lactobacillus acidophilus? Avoid taking lactobacillus acidophilus within 2 hours after you take any type of antibiotic medicine. What are the possible side effects of lactobacillus acidophilus? Get emergency medical help if you have signs of an allergic reaction: hives; difficulty breathing; swelling of your face, lips, tongue, or throat. Although not all side effects are known, lactobacillus acidophilus is thought to be likely safe when taken for a short period of time. Common side effects may include: ?? bloating; or ?? gas. This is not a complete list of side effects and others may occur. Call your doctor for medical advice about side effects. You may report side effects to FDA at 7-686-ASF-0370. What other drugs will affect lactobacillus acidophilus? Do not take lactobacillus acidophilus without medical advice if you are using any medications that can weaken your immune system, such as: ?? medicine to prevent organ transplant rejection; or ?? steroid medicine (prednisone, dexamethasone, methylprednisolone, and others). This list is not complete. Other drugs may interact with lactobacillus acidophilus, including prescription and qwjq-cli-lecdnve medicines, vitamins, and herbal products. Not all possible interactions are listed in this product guide. Where can I get more information? Consult with a licensed healthcare professional before using any herbal/health supplement. Whether you are treated by a medical doctor or a practitioner trained in the use of natural medicines/supplements, make sure all your healthcare providers know about all of your medical conditions and treatments. Remember, keep this and all other medicines out of the reach of children, never share your medicines with others, and use this medication only for the indication prescribed. Every effort has been made to ensure that the information provided by [employer]') is accurate, up-to-date, and complete, but no guarantee is made to that effect. Drug information contained herein may be time sensitive. [employer] information has been compiled for use by healthcare practitioners and consumers in the [place] and therefore [employer] does not warrant that uses outside of the [place] are appropriate, unless specifically indicated otherwise. [employer]'s drug information does not endorse drugs, diagnose patients or recommend therapy. [facility] drug information is an informational resource designed to assist licensed healthcare practitioners in caring for their patients and/or to serve consumers viewing this service as a supplement to, and not a substitute for, the expertise, skill, knowledge and judgment of healthcare practitioners. The absence of a warning for a given drug or drug combination in no way should be construed to indicate that the drug or drug combination is safe, effective or appropriate for any given patient. [employer] does not assume any responsibility for any aspect of healthcare administered with the aid of information [employer] provides. The information contained herein is not intended to cover all possible uses, directions, precautions, warnings, drug interactions, allergic reactions, or adverse effects. If you have questions about the drugs you are taking, check with your doctor, nurse or pharmacist. Copyright 3297-1985 [employer] Version: 3.07. Revision Date: 08/20/2016. ondansetron (oral) (on YAKELIN se ryan) Jade Hansen Zuplenz What is the most important information I should know about ondansetron? You should not use ondansetron if you are also using apomorphine (Apokyn). What is ondansetron? Ondansetron blocks the actions of chemicals in the body that can trigger nausea and vomiting. Ondansetron is used to prevent nausea and vomiting that may be caused by surgery, cancer chemotherapy, or radiation treatment. Ondansetron may be used for purposes not listed in this medication guide. What should I discuss with my health care provider before taking ondansetron? You should not use ondansetron if: ?? you are also using apomorphine (Apokyn); or ?? you are allergic to ondansetron or similar medicines (dolasetron, granisetron, palonosetron). To make sure ondansetron is safe for you, tell your doctor if you have: ?? liver disease; ?? an electrolyte imbalance (such as low levels of potassium or magnesium in your blood); ?? congestive heart failure, slow heartbeats; ?? a personal or family history of long QT syndrome; or ?? a blockage in your digestive tract (stomach or intestines). Ondansetron is not expected to harm an unborn baby. Tell your doctor if you are . It is not known whether ondansetron passes into breast milk or if it could harm a nursing baby. Tell your doctor if you are breast-feeding a baby. Ondansetron is not approved for use by anyone younger than 4 years old. Ondansetron orally disintegrating tablets may contain phenylalanine. Tell your doctor if you have phenylketonuria (PKU). How should I take ondansetron? Follow all directions on your prescription label. Do not take this medicine in larger or smaller amounts or for longer than recommended. Ondansetron can be taken with or without food. The first dose of ondansetron is usually taken before the start of your surgery, chemotherapy, or radiation treatment. Follow your doctor's dosing instructions very carefully. Take the ondansetron regular tablet with a full glass of water. To take the orally disintegrating tablet (Zofran ODT): ?? Keep the tablet in its blister pack until you are ready to take it. Open the package and peel back the foil. Do not push a tablet through the foil or you may damage the tablet. ?? Use dry hands to remove the tablet and place it in your mouth. ?? Do not swallow the tablet whole. Allow it to dissolve in your mouth without chewing. ?? Swallow several times as the tablet dissolves. To use ondansetron oral soluble film (strip) (Zuplenz): ?? Keep the strip in the foil pouch until you are ready to use the medicine. ?? Using dry hands, remove the strip and place it on your tongue. It will begin to dissolve right away. ?? Do not swallow the strip whole. Allow it to dissolve in your mouth without chewing. ?? Swallow several times after the strip dissolves. If desired, you may drink liquid to help swallow the dissolved strip. ?? Wash your hands after using Zuplenz. Measure liquid medicine with the dosing syringe provided, or with a special dose-measuring spoon or medicine cup. If you do not have a dose-measuring device, ask your pharmacist for one. Store at room temperature away from moisture, heat, and light. Store liquid medicine in an upright position. What happens if I miss a dose? Take the missed dose as soon as you remember. Skip the missed dose if it is almost time for your next scheduled dose. Do not take extra medicine to make up the missed dose. What happens if I overdose? Seek emergency medical attention or call the Poison Help line at . Overdose symptoms may include sudden loss of vision, severe constipation, feeling light-headed, or fainting. What should I avoid while taking ondansetron? Ondansetron may impair your thinking or reactions. Be careful if you drive or do anything that requires you to be alert. What are the possible side effects of ondansetron? Get emergency medical help if you have signs of an allergic reaction: rash, hives; fever, chills, difficult breathing; swelling of your face, lips, tongue, or throat. Call your doctor at once if you have: ?? severe constipation, stomach pain, or bloating; ?? headache with chest pain and severe dizziness, fainting, fast or pounding heartbeats; ?? fast or pounding heartbeats; ?? jaundice (yellowing of the skin or eyes); ?? blurred vision or temporary vision loss (lasting from only a few minutes to several hours); ?? high levels of serotonin in the body--agitation, hallucinations, fever, fast heart rate, overactive reflexes, nausea, vomiting, diarrhea, loss of coordination, fainting. Common side effects may include: ?? diarrhea or constipation; ?? headache; ?? drowsiness; or ?? tired feeling. This is not a complete list of side effects and others may occur. Call your doctor for medical advice about side effects. You may report side effects to FDA at 8-323-KEH-5171. What other drugs will affect ondansetron? Ondansetron can cause a serious heart problem, especially if you use certain medicines at the same time, including antibiotics, antidepressants, heart rhythm medicine, antipsychotic medicines, and medicines to treat cancer, malaria, HIV or AIDS. Tell your doctor about all medicines you use, and those you start or stop using during your treatment with ondansetron. Taking ondansetron while you are using certain other medicines can cause high levels of serotonin to build up in your body, a condition called 'serotonin syndrome,' which can be fatal. Tell your doctor if you also use: ?? medicine to treat depression; ?? medicine to treat a psychiatric disorder; ?? a narcotic (opioid) medication; or ?? medicine to prevent nausea and vomiting. This list is not complete and many other drugs can interact with ondansetron. This includes prescription and [id number] medicines, vitamins, and herbal products. Give a list of all your medicines to any healthcare provider who treats you. Where can I get more information? Your pharmacist can provide more information about ondansetron. Remember, keep this and all other medicines out of the reach of children, never share your medicines with others, and use this medication only for the indication prescribed. Every effort has been made to ensure that the information provided by [employer] is accurate, up-to-date, and complete, but no guarantee is made to that effect. Drug information contained herein may be time sensitive. [employer] information has been compiled for use by healthcare practitioners and consumers in the [place] and therefore [employer] does not warrant that uses outside of the [place] are appropriate, unless specifically indicated otherwise. [employer] drug information does not endorse drugs, diagnose patients or recommend therapy. [employer] drug information is an informational resource designed to assist licensed healthcare practitioners in caring for their patients and/or to serve consumers viewing this service as a supplement to, and not a substitute for, the expertise, skill, knowledge and judgment of healthcare practitioners. The absence of a warning for a given drug or drug combination in no way should be construed to indicate that the drug or drug combination is safe, effective or appropriate for any given patient. [employer] does not assume any responsibility for any aspect of healthcare administered with the aid of information [employer] provides. The information contained herein is not intended to cover all possible uses, directions, precautions, warnings, drug interactions, allergic reactions, or adverse effects. If you have questions about the drugs you are taking, check with your doctor, nurse or pharmacist. Copyright [id number] [employer]. Version: 13.01. Revision Date: 01/02/2016. acetaminophen and hydrocodone (a SEET a MIN oh fen and maxi droe KOE done) Hycet, Lorcet, [place], Verdrocet, Vicodin, Xodol, Zamicet What is the most important information I should know about acetaminophen and hydrocodone? MISUSE OF OPIOID MEDICINE CAN CAUSE ADDICTION, OVERDOSE, OR . Keep the medication in a place where others cannot get to it. Taking opioid medicine during may cause life-threatening withdrawal symptoms in the . Fatal side effects can occur if you use opioid medicine with alcohol, or with other drugs that cause drowsiness or slow your breathing. Stop taking this medicine and call your doctor right away if you have skin redness or a rash that spreads and causes blistering and peeling. What is acetaminophen and hydrocodone? Acetaminophen and hydrocodone is a combination medicine used to relieve moderate to severe pain. Acetaminophen and hydrocodone contains an opioid medicine, and may be habit-forming. Acetaminophen and hydrocodone may also be used for purposes not listed in this medication guide. What should I discuss with my healthcare provider before taking acetaminophen and hydrocodone? You should not use this medicine if you are allergic to acetaminophen or hydrocodone, or if you have: ?? severe asthma or breathing problems; or ?? a blockage in your stomach or intestines. Tell your doctor if you have ever had: ?? breathing problems, sleep apnea (breathing stops during sleep); ?? liver disease; ?? a drug or alcohol addiction; ?? kidney disease; ?? a head injury or seizures; ?? urination problems; or ?? problems with your thyroid, pancreas, or gallbladder. If you use opioid medicine while you are , your baby could become dependent on the drug. This can cause life-threatening withdrawal symptoms in the baby after it is born. Babies born dependent on opioids may need medical treatment for several weeks. Ask a doctor before using opioid medicine if you are . Tell your doctor if you notice severe drowsiness or slow breathing in the nursing baby. How should I take acetaminophen and hydrocodone? Follow all directions on your prescription label. Never take this medicine in larger amounts, or for longer than prescribed. An overdose can damage your liver or cause . Tell your doctor if you feel an increased urge to use more of this medicine. Never share this medicine with another person, especially someone with a history of drug abuse or addiction. MISUSE CAN CAUSE ADDICTION, OVERDOSE, OR . Keep the medicine in a place where others cannot get to it. Selling or giving away this medicine is against the law. Measure liquid medicine carefully. Use the dosing syringe provided, or use a medicine dose-measuring device (not a kitchen spoon). If you need surgery or medical tests, tell the doctor ahead of time that you are using this medicine. You should not stop using this medicine suddenly. Follow your doctor's instructions about tapering your dose. Store at room temperature away from moisture and heat. Keep track of your medicine. You should be aware if anyone is using it improperly or without a prescription. Do not keep leftover opioid medication. Just one dose can cause in someone using this medicine accidentally or improperly. Ask your pharmacist where to locate a drug take-back disposal program. If there is no take-back program, flush the unused medicine down the toilet. What happens if I miss a dose? Since this medicine is used for pain, you are not likely to miss a dose. Skip any missed dose if it is almost time for your next dose. Do not use two doses at one time. What happens if I overdose? Seek emergency medical attention or call the Poison Help line at . An overdose of this medicine can be fatal, especially in a child or other person using the medicine without a prescription. Overdose symptoms may include nausea, vomiting, sweating, severe drowsiness, pinpoint pupils, slow breathing, or no breathing. Your doctor may recommend you get naloxone (a medicine to reverse an opioid overdose) and keep it with you at all times. A person caring for you can give the naloxone if you stop breathing or don't wake up. Your caregiver must still get emergency medical help and may need to perform CPR (cardiopulmonary resuscitation) on you while waiting for help to arrive. Anyone can buy naloxone from a pharmacy or local health department. Make sure any person caring for you knows where you keep naloxone and how to use it. What should I avoid while taking acetaminophen and hydrocodone? Avoid driving or operating machinery until you know how this medicine will affect you. Dizziness or drowsiness can cause falls, accidents, or severe injuries. Do not drink alcohol. Dangerous side effects or could occur. Ask a doctor or pharmacist before using any other medicine that may contain acetaminophen (sometimes abbreviated as APAP). Taking certain medications together can lead to a fatal overdose. What are the possible side effects of acetaminophen and hydrocodone? Get emergency medical help if you have signs of an allergic reaction: hives; difficulty breathing; swelling of your face, lips, tongue, or throat. Opioid medicine can slow or stop your breathing, and may occur. A person caring for you should give naloxone and/or seek emergency medical attention if you have slow breathing with long pauses, blue colored lips, or if you are hard to wake up. In rare cases, acetaminophen may cause a severe skin reaction that can be fatal. This could occur even if you have taken acetaminophen in the past and had no reaction. Stop taking this medicine and call your doctor right away if you have skin redness or a rash that spreads and causes blistering and peeling. Call your doctor at once if you have: ?? noisy breathing, sighing, shallow breathing, breathing that stops; ?? a light-headed feeling, like you might pass out; ?? liver problems--nausea, upper stomach pain, tiredness, loss of appetite, dark urine, henrietta-colored stools, jaundice (yellowing of the skin or eyes); ?? low cortisol levels-- nausea, vomiting, loss of appetite, dizziness, worsening tiredness or weakness; o ?? high levels of serotonin in the body--agitation, hallucinations, fever, sweating, shivering, fast heart rate, muscle stiffness, twitching, loss of coordination, nausea, vomiting, diarrhea. Serious breathing problems may be more likely in older adults and in those who are debilitated or have wasting syndrome or chronic breathing disorders. Common side effects include: ?? dizziness, drowsiness, feeling tired; ?? nausea, vomiting, stomach pain; ?? constipation; or ?? headache. This is not a complete list of side effects and others may occur. Call your doctor for medical advice about side effects. You may report side effects to FDA at 2-555-XLL-6954. What other drugs will affect acetaminophen and hydrocodone? documented in this encounter Plan of Treatment Not on file documented as of this encounter Visit Diagnoses Not on filedocumented in this encounter
--- OUTSIDE RECORDS SUMMARY | 2024-10-27 23:12 | XMS_ITS | Encounter Summary ---
Author Organization [facility] Address [address] [place] [address] Care Team Providers Care Environmental Scientists Name Role Phone Ashlie Miramontes EPIC CUPID ANALYST Primary Care Provider [phone] Reason for Visit * Reason Comments Med Refill Encounter Details Date Type Department Care Team (Late st Contact Info) Description 08/05/2022 Refill [facility] [address] [place] [address] [place] [phone] Ashlie Miramontes, LOLIS [address] [place] [address] Controlled type 2 diabetes mellitus with diabetic polyneuropathy, with long-term current use of insulin Social [...] Telephone Encounter - Lashon Powers MA - 08/05/2022 3:11 PM EDT Ashlie please advise she has cancelled her last two in person appointments documented in this encounter Plan of Treatment Upcoming Encounters Date Type Department Care Team (Late st Contact Info) Description 11/14/2024 11:30 AM EDT Office Visit [facility] [address] [place] [address] [place] [phone] Ashlie Miramontes APRN [address] [place] [address] documented as of this encounter Visit Diagnoses Diagnosis Controlled type 2 diabetes mellitus with diabetic polyneuropathy, with long-term current use of insulin documented in this encounter Care Teams Environmental Scientists Relationship Specialty Start Date End Date Ashlie Miramontes APRN [address] [place] [address] PCP - General Family Medicine 02/10/22 documented as of this encounter
--- OUTSIDE RECORDS SUMMARY | 2024-10-27 23:12 | XMS_ITS | Encounter Summary ---
Author Organization [employer] ([place], [place], [place], [place]) Address [address] [place] [address] Care Team Providers Care Title Manager Name Role Phone Unavailable Primary Care Provider Unavailabl e Encounter Details Date Type Department Care Team (Late st Contact Info) Description 06/10/2021 Transcribed Document [facility] [place] Family Medicine [address] [place] [address] ProviderMohamud MD [address] [place] [id number] Social History Tobacco Use Types Packs/Day [...] Cerner Conversion Note - Mohamud ProviderMD - 06/10/2021 11:03 AM CDT On Going Discharge Planning Entered On: 06/10/2021 11:04 EDT Performed On: 06/10/2021 11:03 EDT by Jack White, DECORATING 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 NON-EXEMPT Care Management Progress Note Discharge Arrangements [...] List/Info Provided Pt/Fam/Support Person : Home health [facility] Quality Web Info Shared w Pt/Fam : Yes Jack White SOCIAL WORKER NON-EXEMPT - 06/10/2021 11:03 EDT Narrative Progress Note Narrative Progress Note : Day 4 of 3 ELOS Moderate readmission risk DC plan is home with family + HH Amhelen has been notified to resume services [facility] ambulance scheduled for 06/12/2021 @ 1600 Expect DC at time of ambulance Pt declined rehab CM will continue to follow Historical Progress Note : Day 3 of 3 ELOS. Moderate readmission risk Pt still declining rehab Pt wants to resume family care & HH services [facility] has already been sent resumptive orders Ambulance transport CM will continue to follow Jack White SOCIAL WORKER NON-EXEMPT - 06/09/21 14:01:43 Day 3 of 3 ELOS. Moderate readmission risk Pt still declining rehab Pt wants to resume family care & HH services xiomara has already been sent resumptive orders Ambulance transport on will call with hold date of 06/12/2021 @ 1200 CM will continue to follow Jack White SOCIAL WORKER NON-EXEMPT - 06/09/21 14:17:39 Day 2 with no ELOS Moderate readmission risk Pt active with [facility] Pt & family refusing rehab as baseline is hospital bed bound with lift for transfers Family provides care at home CM contacted [facility] & confirmed they can take back at DC Pt is expected to need ambulance transport at DC DC unknown at this time CM will continue to follow Jack White SOCIAL WORKER NON-EXEMPT - 06/08/21 14:55:51 Jack White SOCIAL WORKER NON-EXEMPT - 06/10/2021 11:03 EDT documented in this encounter Plan of Treatment Not on file documented as of this encounter Visit Diagnoses Not on filedocumented in this encounter
--- OUTSIDE RECORDS SUMMARY | 2024-10-27 23:12 | XMS_ITS | Encounter Summary ---
Author Organization [employer] ([place], [place], [place], [place]) Address [address] [place] [address] Care Team Providers Care Director Clinical Pharmacology Name Role Phone Unavailable Primary Care Provider Unavailabl e Encounter Details Date Type Department Care Team (Late st Contact Info) Description 06/17/2021 Transcribed Document [facility] [place] Family [place] [address] ProviderMohamud MD [address] [place] [id number] Social History Tobacco Use Types Packs/Day Years Used Date Smoking Tobacco: Never Assessed Comments Unknown Sex and Gender Information Value Date Recorded Sex Assigned at Female 09/08/2021 5:34 PM CDT Legal Sex Female 5:34 PM CDT Gender Identity Female 09/08/2021 5:34 PM CDT Sexual Orientation Not on file documented as of this encounter Miscellaneous Notes * Cerner Conversion Note - Historical ProviderMD - 06/17/2021 1:42 PM CDT Patient: DAJA RODAS Age: 71 Years Sex: Female : 1950 Admit Date 06/06/2021 19:46 Discharge Date 06/12/2021 20:08 Primary Care Provider HENRIQUE SRINIVASAN (REF), -[facility] Discharge Diagnosis Urinary tract infection - gram negative cystitis Abdominal pain Acute renal failure - prerenal hypoperfusion via dehydration Procedures Colonoscopy on 06/11/2021 Reason for Hospitalization 70-year-old female with past medical history of diabetes mellitus 2, chronic generalized weakness/bedridden, morbid obesity, who presents for abdominal pain. Patient is a poor historian. Onset began 1 week ago. Abdominal pain is moderate, 8 out of 10, crampy, upper, bilateral, nonradiating. Associated nausea, nonbloody loose diarrhea. No exacerbating or relieving factors. Denies chest pain, palpitations, shortness of breath, cough, vomiting, fevers, chills, headache, loss of taste, loss of smell, focal neurological deficits, or any other symptoms. Hospital Course *Operation on 06/11/[address] Makenzie Whitney Colonoscopy Indication for Surgery Abdominal pain and diarrhea with positive salmonella on stool PCR. Patient has a family history of colon cancer in her brother. *Preoperative Diagnosis Abdominal pain Diarrhea *Postoperative Diagnosis External hemorrhoids Colon polyps Erythema within the entire colon *Surgeon(s) Primary Surgeon Makenzie Whitney MD *Findings External hemorrhoids 2.2cm sigmoid polyp, removed by EMR technique with lifting injection and hot snare cautery with soft coag around all edges and a clip applied. The site was 32cm from the anal verge and a tattoo was made 3cm distal to polypectomy site on anterior wall of colon. There was a second 1cm sessile polyp just distal to the larger polyp that was removed by hot snare. Five additional polyps found between 4-10mm, polypectomy performed. There was inflammation with erosions noted within the ileocecal valve. Multiple biopsies taken. Mild erythema noted within entire colon, multiple biopsies taken. Urinary tract infection - gram negative cystitis initially received ICV Zosyn in Ed then IV Rocephin last dose on 06/12/2021. No Abx at discharge Salmonella gastroenteritis Abdominal pain Resolved Acute kidney injury secondary to prerenal Azotemia [ Acute renal failure ] - prerenal hypoperfusion via dehydration resolved Volume depletion / Dehydration Recode IV Rocephin - last dose on 06/12/2021 Colonoscopy done C Diff negative Vital Signs Oxygen Settings (Last) Oxygen Therapy Mode: Room air (06/12/21 20:07:00) Oxygen Flow Rate: 3 Liter/Min (06/11/21 14:15:00) Physical Exam GENERAL: Awake, alert, and oriented to time, place, and person. HEENT: Head is atraumatic, normocephalic. Mucous membranes are dry. No pallor. No jaundice. No cyanosis NECK: Supple. No jugular vein distention. HEART: Regular rate and rhythm. No gallop, rub, or murmur. Normal first and second sounds. No third or fourth sounds. CHEST: Clear to auscultation bilaterally. No wheezes, rales, or crackles. ABDOMEN: Soft, active bowel sounds. No hepatosplenomegaly. No masses. No tenderness. No abdominal distention. Audible bowel sounds in all four abdominal quadrants. GENITOURINARY: No suprapubic tenderness. No suprapubic fullness. No CVA tenderness bilaterally. EXTREMITIES: No clubbing, no cyanosis, no edema. VASCULAR: 2+ pulses dorsalis pedis and posterior tibialis arteries bilaterally. PSYCHIATRIC: Not depressed or anxious. NEUROLOGIC EXAMINATION: Cranial nerves 2 through 12 grossly intact. There is no apparent motor focal weakness in the upper or lower extremities. No facial droop bilaterally. No neurological deficits in upper or lower or lower extremities. MUSCULOSKELETAL: No joint deformity in both knees or both ankles. SKIN: No hematomas. No purpura. No bruises. ENDOCRINE: No thyroid enlargement or nodules. Discharge Disposition Home Discharge Follow Up SHAJI ECHEVERRIA MD-INF - 09:00 AM HENRIQUE SRINIVASAN (REF), -FAM - 11:00 AM Discharge Medications (12) Active allopurinol 100 mg oral tablet 100 mg = 1 Tab, Oral, Daily amLODIPine 2.5 mg oral tablet 2.5 mg = 1 Tab, Oral, Daily atorvastatin 40 mg oral tablet 40 mg = 1 Tab, Oral, At Bedtime carvedilol 6.25 mg oral tablet 6.25 mg = 1 Tab, Oral, BID famotidine 20 mg oral tablet 20 mg = 1 Tab, Oral, BID furosemide 20 mg oral tablet 20 mg = 1 Tab, Oral, Daily gabapentin 300 mg oral capsule 300 mg = 1 Cap, Oral, At Bedtime lactobacillus acidophilus oral capsule 1 Cap, Oral, BID Lantus Solostar Pen 100 units/mL subcutaneous solution 12 Units, SubCutaneous, At Bedtime loratadine 10 mg oral tablet 10 mg = 1 Tab, PRN, Oral, Daily NexIUM 24HR 20 mg oral delayed release capsule 20 mg = 1 Cap, Oral, Daily potassium chloride 10 mEq oral capsule, extended release 10 mEq = 1 Cap, Oral, Daily Condition on Discharge stable Consulting Physicians ID Dr. Echeverria Follow Up Labs/Studies Labs (Last four charted values) WBC L 4.3 (JUN 12) 5.5 (JUN 11) 7.1 (JUN 10) 5.7 (JUN 09) HB L 10.2 (JUN 12) L 11.1 (JUN 11) 12.2 (JUN 10) 12.7 (JUN 10) HCT L 31.1 (JUN 12) L 34.0 (JUN 11) 37.2 (JUN 10) 35.9 (JUN 10) Plt 202 (JUN 12) 205 (JUN 11) 197 (JUN 10) 218 (JUN 10) Na 143 (JUN 12) 139 (JUN 11) L 134 (JUN 10) 137 (JUN 09) K L 3.1 (JUN 12) L 3.0 (JUN 11) L 3.2 (JUN 10) L 3.0 (JUN 09) Cl 112 (JUN 12) 107 (JUN 11) 106 (JUN 10) 106 (JUN 09) CO2 25 (JUN 12) 23 (JUN 11) L 20 (JUN 10) 23 (JUN 09) BUN 10 (JUN 12) 16 (JUN 11) 18 (JUN 10) 17 (JUN 09) Cr 1.00 (JUN 12) H 1.20 (JUN 11) H 1.40 (JUN 10) H 1.70 (JUN 09) Glu R H 132 (JUN 12) H 165 (JUN 11) H 162 (JUN 10) H 135 (JUN 09) Ca 8.4 (JUN 12) 8.4 (JUN 11) L 8.3 (JUN 10) L 8.3 (JUN 09) Lactic 1.6 (JUN 06) PT 10.3 (JUN 10) INR 1.0 (JUN 10) AST 28 (JUN 06) ALT 39 (JUN 06) ALK P 116 (JUN 06) T Bili 0.6 (JUN 06) PTN 6.5 (JUN 06) ALB L 2.5 (JUN 06) Lipase L 49 (JUN 06) Radiology results Radiology Results (Last 48 hours) [id number] -- 06/06/2021 14:51 CR Chest 1 Vw Portable (06/06/2021 15:05) [...] adenopathy, or acute osseousabnormality.IMPRESSION: No acute disease. Time Spent on Discharge 32 minutes documented in this encounter Plan of Treatment Not on file documented as of this encounter Visit Diagnoses Not on filedocumented in this encounter
--- OUTSIDE RECORDS SUMMARY | 2024-10-27 23:12 | XMS_ITS | Encounter Summary ---
Author Organization [employer] ([place], [place], [place], [place]) Address [address] [place] [address] Care Team Providers Care Real Estate Officer Name Role Phone Unavailable Primary Care Provider Unavailabl e Encounter Details Date Type Department Care Team (Late st Contact Info) Description 06/09/2021 Transcribed Document [facility] [place] [facility] [place] [address] ProviderMohamud MD [address] [place] [phone] Social History Tobacco Use Types Packs/Day Years [...] Note - Historical ProviderMD - 06/09/2021 2:00 AM CDT Industrial Gas Production Operator Details Entered On: 06/09/2021 2:54 EDT Performed On: 06/09/2021 2:00 EDT by Rebekah Renee RN Order Details Isolation Precautions Order Detail : Standard Precautions Order Detail : N/A IV Order Detail : 1 Oxygen Order Detail : 1 Nurse Collect Order Detail : 0 Lift/Transfer : Maximal assist Central Line Order Detail : No Room Service : Needs Assistance Arterial Line : No Patient Needs Meds Crushed/Liquid : No Rebekah Renee RN - 06/09/2021 2:54 EDT documented in this encounter Plan of Treatment Not on file documented as of this encounter Visit Diagnoses Not on filedocumented in this encounter
--- OUTSIDE RECORDS SUMMARY | 2024-10-27 23:12 | XMS_ITS | Encounter Summary ---
Author Organization [employer] ([place], [place], [place], [place]) Address [address] [place] [address] Care Team Providers Care Billing Collections Specialist Name Role Phone Unavailable Primary Care Provider Unavailabl e Encounter Details Date Type Department Care Team (Late st Contact Info) Description 06/09/2021 Transcribed Document [facility] [place] Family Medicine [facility] [place] [address] ProviderMohamud MD [address] [place] [id number] Social History Tobacco Use Types Packs/Day [...] Conversion Note - Historical ProviderMD - 06/09/2021 1:48 PM CDT Patient: DAJA RODAS Age: 70 [...] - chart reviewed and discussed with staff ROS -otherwise negative but limited Health Status [...] Piggyback, Q8HInt GoLYTELY: 2,000 mL, Oral, 1-Time GoLYTELY: 2,000 mL, Oral, 1-Time Lasix: 20 [...] Cap, 0 Refill(s), Medications (22) Active Scheduled: (11) carvedilol 3.125 mg tab 3.125 mg 1 Tab, Oral, BID furosemide 20 [...] 50 mL 2.25 Gram, IV Piggyback, Q6HInt polyethylene glycol/Lytes 4,000 mL liq 2,000 mL, Oral, 1-Time polyethylene glycol/Lytes 4,000 mL liq 2,000 mL, [...] History of obstructive sleep apnea / IMO [id number] / Confirmed, Active Problems (1) History of [...] 24 hrs) Last Charted Minimum Maximum Temp 97.4 (JUN 09 05:00) 97.4 (JUN 09 05:00) 98 (JUN 08 15:53) Mon HR 64 (JUN 09 05:00) 64 (JUN 09 05:00) 78 (JUN 08 18:00) Resp Rate 18 (JUN 09 05:00) 16 (JUN 08 22:43) 19 (JUN 09 02:00) SBP 96 (JUN 09 05:00) 96 (JUN 09 05:00) H 181 (JUN 08 22:43) DBP L 50 (JUN 09 05:00) L 50 (JUN 09 05:00) 82 (JUN 08 22:43) MAP 63 (JUN 09 05:00) 63 (JUN 09 05:00) 133 (JUN 08 22:43) SpO2 100 (JUN 09 09:00) 96 (JUN 08 15:53) 100 (JUN 09 05:00) General: Alert and oriented, Mild distress. Eye: Extraocular movements are intact, Normal conjunctiva. HENT: Normal hearing. Neck: Supple, Non-tender. Respiratory: Lungs are clear to auscultation, Respirations are non-labored. Cardiovascular: Normal rate, Regular rhythm, No murmur. Gastrointestinal: Soft, Non-distended, epigastric tenderness. Genitourinary: Exam deferred. Lymphatics: No lymphadenopathy neck, axilla, groin. Musculoskeletal: No tenderness. Integumentary: Warm. Neurologic: Alert. [...] Diabetes mellitus 2 Hypotension Hypertension Morbid obesity Will continue the flagyl and Zosyn for now Colonoscopy tomorrow C Diff ordered Long discussion with patient UM- discussed with staff Risks and benefits of antibiotics and IV access discussed At risk for secondary events and progression of this infection Medicines reviewed X-rays seen Prognosis guarded Thanks for this consultation, we will follow closely with you. Electronically signed by Lizzeth, [facility] Conversion Footwear Sales Associate Cerner at 07/02/2022 10:53 AM CDT documented in this encounter Plan of Treatment Not on file documented as of this encounter Visit Diagnoses Not on filedocumented in this encounter
--- OUTSIDE RECORDS SUMMARY | 2024-10-27 23:12 | XMS_ITS | Encounter Summary ---
Author Organization [employer] ([place], [place], [place], [place]) Address [address] [place] [address] Care Team Providers Care Car Designer Name Role Phone Unavailable Primary Care Provider Unavailabl e Encounter Details Date Type Department Care Team (Late st Contact Info) Description 06/10/2021 Transcribed Document [facility] [place] Family Medicine [address] [place] [address] ProviderMohamud MD [address] [place] [address] Social History Tobacco Use Types Packs/Day [...] Conversion Note - Historical ProviderMD - 06/10/2021 12:45 PM CDT Patient: DAJA STEELE Age: 70 Years Sex: Female : 1950 Procedure Name Colonoscopy. Incomplete due to poor bowel prep. Consent I discussed with the patient about colonoscopy, possible polypectomy, possible biopsy. The risks, benefits, and alternatives were discussed. The risks/complications discussed include but not limited bleeding, perforation, infection, aspiration, anesthesia complications which will be discussed further by the network services project manager,. The patient verbalized understanding. All the patient's questions were answered. The patient stated that she has no further questions. Indication Abdominal pain in left flank. Diarrhea. Family history of colon cancer in first-degree relative (patient's brother), the patient does not know at what age her brother had the colon cancer. Location The procedure was done in endoscopy room 3. Pre-Procedure Exam Patient alert and oriented x3. Morbidly obese female. Lungs clear to auscultation bilaterally. Heart regular rate and rhythm. Abdomen: Obese, soft, tenderness present in the left lower quadrant, no guarding or rebound, no mass palpable. Extremity: Chronic lymphedema in both lower extremities. Edema both upper extremities. Neuro: Patient alert and oriented x3, she moves all extremities. Procedural Sedation MAC by network services project manager. ASA: 3 Technique After informed consent was obtained for the procedure and the patient was sedated by the network services project manager. Rectal examination was done. The endoscope was inserted under direct visualization through the anus and advanced carefully under direct visualization to the sigmoid colon. There was poor inadequate bowel prep with large amount of stool in the colon, solid stool and brown liquid stool were found. Irrigation and suctioning was done as much as was possible. The stool did not completely clear out, The stool present prevented good visualization, therefore the procedure was aborted and the scope was carefully withdrawn. Retroflexion was done in the rectum. Post-Procedure Exam General: Patient alert and oriented x3. The patient denies any complaints. Findings: Anal skin tags. Nonbleeding external hemorrhoids. Poor inadequate bowel prep with large amount of stool in the colon, solid stool and brown liquid stool were found. Irrigation and suctioning was done as much as was possible. The stool did not completely clear out, the stool present prevented good visualization. Impression: Anal skin tags. Nonbleeding external hemorrhoids. Poor or inadequate bowel prep. Recommendations: Reschedule colonoscopy. I discussed with the patient the need for good bowel prep. She verbalized understanding. She agrees to reschedule colonoscopy with good bowel prep. I discussed the findings and recommendations with the patient. She verbalized understanding. All her questions were answered. She stated that she has no further questions. Complications None. Total Time See endoscopy note. documented in this encounter Plan of Treatment Not on file documented as of this encounter Visit Diagnoses Not on filedocumented in this encounter
--- OUTSIDE RECORDS SUMMARY | 2024-10-27 23:12 | XMS_ITS | Encounter Summary ---
Author Organization [employer] ([place], [place], [place], [place]) Address [address] [place] [address] Care Team Providers Care Business Manager College [employer] Name Role Phone Unavailable Primary Care Provider Unavailabl e Encounter Details Date Type Department Care Team (Late st Contact Info) Description 06/07/2021 Transcribed Document [facility] [place] Family Medicine [facility] [place] [address] ProviderMohamud MD [address] [place], [place] [phone] Social History Tobacco Use Types Packs/Day Years [...] Conversion Note - Historical ProviderMD - 06/07/2021 2:[address] [facility] OT Charges Entered On: 06/08/2021 7:39 EDT Performed On: 06/07/2021 14:13 EDT by EDWIN FERNANDO OTR/Gordon [facility] OT Charges Screen For Tooth Cutter Pinion : 1 EDWIN FERNANDO OTR/Gordon - 06/08/2021 7:39 EDT documented in this encounter Plan of Treatment Not on file documented as of this encounter Visit Diagnoses Not on filedocumented in this encounter
--- OUTSIDE RECORDS SUMMARY | 2024-10-27 23:12 | XMS_ITS | Encounter Summary ---
Author Organization [employer] ([place], [place], [place], [place]) Address [address] [place] [address] Care Team Providers Care Heel Splitter Name Role Phone Unavailable Primary Care Provider Unavailabl e Encounter Details Date Type Department Care Team (Late st Contact Info) Description 06/07/2021 Transcribed Document [facility] [place] Family Medicine [facility] [place] [address] ProviderMohamud MD [address] [place], [place] [phone] Social History Tobacco Use Types Packs/Day Years [...] Conversion Note - Historical ProviderMD - 06/07/2021 5:00 AM CDT Chart Check - Review Order Profile Entered On: 06/07/2021 5:52 EDT Performed On: 06/07/2021 5:00 EDT by Trinidad Coreas LPN Chart Check Power[employer] Initiated/Discontinued as Appropriate : Yes All Active Orders Reviewed : Yes Trinidad Coreas LPN - 06/07/2021 5:52 EDT documented in this encounter Plan of Treatment Not on file documented as of this encounter Visit Diagnoses Not on filedocumented in this encounter
--- OUTSIDE RECORDS SUMMARY | 2024-10-27 23:12 | XMS_ITS | Encounter Summary ---
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 abdominal pain, history of diabetes, bedridden. Reason for Consultation Intractable abdominal pain. History of Present Illness The patient is 70 years old female with medical history of morbid obesity, sleep apnea, hypertension, diabetes mellitus, heart disease. The patient is admitted to hospitalist service with the diagnosis of urinary tract infection, intractable abdominal pain associated with nausea and diarrhea, acute renal failure secondary to prerenal hypoperfusion and dehydration. GI consulted for evaluation of intractable abdominal pain. The patient reports she has had abdominal pain since 2 weeks, located in the lower abdomen and across the lower abdomen in the left lower quadrant, suprapubic and right lower quadrant. The pain is present all the time, severity is 8 out of 10, no relieving factor, she states that pain gets worse when she drinks or eats anything. She denies constipation. She reports where since 7 months. She says her bowel movement is 1-2 times a day, stool watery last bowel movement was this morning. She denies blood in the stool. She denies weight loss. She says she has never had a colonoscopy. She reports family history of colon cancer. She states her brother had colon cancer, she does not know at what age her brother had the colon cancer. Patient also reports nausea. She does not know how long she has had nausea. Today she had vomiting this morning. She reports she has history of diabetes mellitus, heart disease. she reports chills but no fever. She has been found to have urinary tract infection for which he is on treatment by hospitalist. States she does not take any blood thinners at home. CT scan abdomen/pelvis without contrast 06/07/2019 impression: No acute disease. Abdomen:The upper abdomen not marked by artifact related to the patient's line along her side. No convincing abnormality of the gallbladder, solid abdominal organs and ureteral stent is seen. The appendix has been removed. The GI tract is otherwise unremarkable. Pelvis: The uterus, ovaries urinary bladder are unremarkable. There is no pelvic or abdominal ascites, adenopathy, or acute osseous abnormality. Review of Systems Constitutional: [No fevers, (+) chills, sweats] Eye: [No recent visual problems, eye discharge, eye pain, redness] HEENT: [No ear pain, nasal congestion, sore throat, voice changes] Respiratory: [No shortness of breath, cough, pain on breathing, sputum production] Cardiovascular: [No Chest pain, palpitations, syncope, shortness of breath while laying flat] Gastrointestinal: [+nausea, + vomiting, + diarrhea, no constipation] Genitourinary: [+ hematuria, ] James/Lymph: [Negative for bruising tendency, swollen lymph glands, nosebleeds, history of anticoagulation] Endocrine: [Negative for excessive thirst, excessive hunger, excessive urination, heat or cold intolerance] Musculoskeletal: [No back pain, neck pain, joint pain, muscle pain, decreased range of motion] Integumentary: [No rash, pruritus, abrasions, lesions] Neurologic: [No weakness, numbness, frequent headaches, tremors, blackouts] Psychiatric: [No anxiety, depression, mood changes, hallucinations] Vital Signs T: 36.7 ??C TMIN: 36.6 ??C TMAX: 39.2 ??C HR: 70(Monitored) RR: 16 BP: 98/57 SpO2: 96% Oxygen Settings (Last) Oxygen Therapy Mode: Room air (06/08/21 11:00:00) Physical Exam General: [Alert and oriented, well nourished, morbidly obese, no acute distress]. Neurologic: [Awake, alert, and oriented X3, ]. Eye: [PERRL, EOMI, normal conjunctiva]. HENT: [Normocephalic, clear tympanic membranes, normal hearing, moist oral mucosa, no scleral icterus, no sinus tenderness]. Neck: [Supple, non-tender, no carotid bruits, no JVD, no lymphadenopathy]. Lungs: [Clear to auscultation and percussion, non-labored respiration]. Heart: [Normal rate, regular rhythm, no murmur, gallop or edema]. Abdomen: [Soft, + tenderness in LLQ, RLQ, suprapubic, left flank, periumbilical, obese, non-distended, normal bowel sounds, no masses palpable]. Musculoskeletal: [Normal range of motion and strength, no tenderness or swelling]. Skin: [Skin is warm, dry and pink, no rashes or lesions]. Psychiatric: [Cooperative, appropriate mood and affect]. Assessment/Plan Abdominal pain Has old female with abdominal pain across the lower abdomen in the right lower quadrant of the left lower quadrant suprapubically. Patient has associated diarrhea without blood in stool. She has never had a colonoscopy. CT scan of abdomen and pelvis shows no acute findings. Patient has family history of colon cancer in her brother although she does not know at what age her brother had colon cancer. Plan: Colonoscopy on 06/10/2021. I discussed with the patient the risks, benefits, and alternatives of colonoscopy with possible biopsy and possible polypectomy. The risks including but not limited to bleeding, perforation, aspiration, need for surgery if there is perforation, anesthesia possible risk which will be discussed in detail by the field nurse always discussed. The patient verbalized understanding. All the patient's questions were answered. The patient states she has no further questions. Patient has eaten today we will plan for patient to have clear liquid diet tomorrow 06/09/2021, and then colonoscopy on 06/10/2021. N.P.O. after midnight on 06/09/2021. Bowel prep tomorrow 06/10/2019 with GoLYTELY. Split prep. Hypotension Management as per hospitalist UTI (urinary tract infection) Management as per hospitalist. Diarrhea: Patient reports chronic diarrhea since 7 months. No blood in the stool. No weight loss. Plan: Stool Gastrointestinal panel panel PCR. Family history of colon cancer. The patient states that her brother had colon cancer but she does not know at what age her brother had colon cancer. Patient states that she has never had a colonoscopy. Plan: Colonoscopy on 06/10/2021 as discussed above. Bowel prep tomorrow 06/09/2021 as discussed above. I discussed with the patient the assessment and recommendations. The patient verbalized understanding. All her questions were answered. She stated that she has no further questions. I discussed the assessment and recommendations with the patient's nurse LENA Abdi. I discussed the assessment and recommendations with the hospitalist Dr. Jessee Danielle. Orders: Gastrointestinal Panel PCR NPO after Midnight VTE Prophylaxis - Medical Sequential Compression Device Start: 06/06/21 19:54:00 EDT, Bilateral, Length: Knee High, While patient is in bed, Continuous Order (KAMLESH CORTES) Provider Information Primary Care Physician - HENRIQUE SRINIVASAN (REF), -FAM Attending Physician - JESSEE DANIELLE MD-INT Admitting Physician - KAMLESH CORTES, DO-INT Consulting Physician - MARTÍN WARREN MD - Intractable abdominal pain Consulting Physician - Alvin Warren, Gastroenterolgy Referring Physician - ODILIA, UNKNOWN Problem List/Past Medical History Ongoing History of obstructive sleep apnea Historical No qualifying data Medications Inpatient acetaminophen-HYDROcodone 325 mg-5 mg oral tablet, 1 Tab, Oral, Q6H, PRN carvedilol, 6.25 mg= 1 Tab, Oral, BID Dulcolax Laxative, 5 mg= 1 Tab, Oral, Daily, PRN DuoNeb 0.5 mg-2.5 mg/3 mL inhalation solution, 3 mL, Nebulized Inhalation , RT_Q6H, PRN Flagyl, 500 mg= 100 mL, IV Piggyback, Q8HInt gabapentin, 300 mg= 1 Cap, Oral, BID insulin lispro greater than 101 kg, greater than 101 kg scale, SubCutaneous, AC and at Bedtime Lasix, 20 mg= 1 Tab, Oral, BID loratadine, 10 mg= 1 Tab, Oral, Daily melatonin, 5 mg= 1 Tab, Oral, At Bedtime, PRN MiraLax, 17 Gram= 1 Packet, Oral, Daily, PRN morphine, 2 mg= 1 mL, IV Push, Q4H, PRN Phenergan, 6.25 mg= 0.25 mL, IntraVENous, Q6H, PRN potassium chloride 10 mEq oral tablet, extended release, 10 mEq= 1 Tab, Oral, Daily Protonix, 40 mg, IV Push, BID Tylenol, 650 mg= 2 Tab, Oral, Q4H, PRN Tylenol, 650 mg= 2 Tab, Oral, Q4H, PRN Zofran, 4 mg= 2 mL, IV Push, Q4H, PRN Zosyn + Sodium Chloride 0.9% intravenous solution 50 mL Home allopurinol 100 mg oral tablet, 100 mg= 1 Tab, Oral, Daily amLODIPine 2.5 mg oral tablet, 2.5 mg= 1 Tab, Oral, Daily atorvastatin 40 mg oral tablet, 40 mg= 1 Tab, Oral, Daily carvedilol 6.25 mg oral tablet, 6.25 mg= 1 Tab, Oral, BID furosemide 20 mg oral tablet, 20 mg= 1 Tab, Oral, Daily gabapentin 300 mg oral capsule, 300 mg= 1 Cap, Oral, At Bedtime Lantus Solostar Pen 100 units/mL subcutaneous solution, 12 Units, SubCutaneous, At Bedtime loratadine 10 mg oral tablet, 10 mg= 1 Tab, Oral, Daily losartan 50 mg oral tablet, 50 mg= 1 Tab, Oral, Daily NexIUM 24HR 20 mg oral delayed release capsule, 20 mg= 1 Cap, Oral, Daily potassium chloride 10 mEq oral capsule, extended release, 10 mEq= 1 Cap, Oral, Daily Vitamin D3 1000 intl units oral capsule, 25 mcg= 1 Cap, Oral, Daily Allergies ciprofloxacin (rash, rash) vancomycin (rash, rash) Social History Home/Environment Living situation: Home with assistance. Tobacco Family History Colon Cancer. Patients brother had colon cancer. Patient does not remember at what age her brother had the colon cancer. Lab Results Test Name Test Result Date/Time Sodium Level 137 mmol/L 06/08/2021 06:27 EDT Potassium Level 3.2 mmol/L (Low) 06/08/2021 06:27 EDT Chloride Level 107 mmol/L 06/08/2021 06:27 EDT Carbon Dioxide Level 23 mmol/L 06/08/2021 06:27 EDT Anion Gap 10 06/08/2021 06:27 EDT Glucose Level 142 mg/dL (High) 06/08/2021 06:27 EDT Blood Urea Nitrogen 20 mg/dL 06/08/2021 06:27 EDT Creatinine Level 2.00 mg/dL (High) 06/08/2021 06:27 EDT eGFR 30 mL/min/1.73m2 (Low) 06/08/2021 06:27 EDT eGFR NonAfrican 25 mL/min/1.73m2 (Low) 06/08/2021 06:27 EDT Bun/Creatinine 10.0 06/08/2021 06:27 EDT Calcium Level 8.3 mg/dL (Low) 06/08/2021 06:27 EDT Device Comment 1 Notified Nurse RBV 06/08/2021 11:12 EDT Device Comment 1 Notified Nurse RBV 06/08/2021 06:11 EDT Device Comment 1 Notified Nurse RBV 06/07/2021 21:01 EDT Device Comment 1 No action Require 06/07/2021 16:08 EDT Glucose POC2 180 mg/dL (High) 06/08/2021 11:12 EDT Glucose POC2 145 mg/dL (High) 06/08/2021 06:11 EDT Glucose POC2 203 mg/dL (High) 06/07/2021 21:01 EDT Glucose POC2 119 mg/dL (High) 06/07/2021 16:08 EDT WBC 8.1 K/uL 06/08/2021 06:27 EDT RBC 4.03 Million/uL 06/08/2021 06:27 EDT Hgb 12.0 g/dL 06/08/2021 06:27 EDT Hct 36.5 % 06/08/2021 06:27 EDT MCV 90.6 fL 06/08/2021 06:27 EDT MCH 29.8 pg 06/08/2021 06:27 EDT MCHC 32.9 Gram/dL 06/08/2021 06:27 EDT Platelet Count 170 K/uL 06/08/2021 06:27 EDT MPV 9.3 fL (Low) 06/08/2021 06:27 EDT RDW 14.0 % 06/08/2021 06:27 EDT Slide Review No 06/08/2021 06:27 EDT Electronically signed by [facility], [facility] Conversion Complaints Coordinator Cerner at 07/02/2022 10:57 AM CDT documented in this encounter Plan of Treatment Not on file documented as of this encounter Visit Diagnoses Not on filedocumented in this encounter
--- OUTSIDE RECORDS SUMMARY | 2024-10-27 23:13 | XMS_ITS | Clinical Summary ---
Author Organization [facility] Address [address] [id number] Care Team Providers Care Shipping Weigher Name Role Phone Ashlie Miramontes APRN Primary Care Provider [phone] Allergies Active Allergy Reactions Criticality Noted Date Comments Ciprofloxacin Other - please docum ent in the comment field,Rash Medium 07/31/2018 Rofecoxib Other - please docum ent in the comment field Low 07/31/2018 Sulfacetamide Other - please docum ent in the comment field Low 07/31/2018 Sulfamethoxazole-Trimethoprim Other - pl ease document in the comment field Low 07/31/2018 Vancomycin Other - please docum ent in the comment field,Rash Medium 07/31/2018 Medications allopurinol (Zyloprim) 100 MG tablet Take 1 tablet (100 mg) by mouth 1 (one) time each day. Active atorvastatin (Lipitor) 40 MG tablet Take 1 tablet (40 mg) by mouth every night. Active carvedilol (Coreg) 6.25 MG tablet Take by mouth 2 (two) times a day with meals. Active esomeprazole (NexIUM) [address] capsule Take 1 capsule (20 mg) by mouth 1 (one) time each day before breakfast. Do not open capsule. Active furosemide (Lasix) 20 MG tablet Take 1 tablet (20 mg) by mouth 1 (one) time each day. Active gabapentin (Neurontin) 300 MG capsule Take 1 capsule (300 mg) by mouth every night. Active insulin glargine (Lantus) 100 UNIT/ML injection vial Inject 0.22 mL (22 Units) under the skin every night. Active potassium chloride CR (Klor-Con M20) 20 MEQ ER tablet Take 1 tablet (20 mEq) by mouth 1 (one) time each day. Do not crush or chew. Active cholecalciferol (Vitamin D3) 25 MCG (1000 UT) tablet Take 2 tablets (2,000 Units) by mouth 1 (one) time each day. Active diclofenac (Voltaren) 1 % topical gel Place 2-4 g on the skin 2 (two) times a day. 50 g 11 04/16/2024 Active Active Problems Problem Noted Date Diagnosed Date Acute respiratory failure due to COVID-19 2021 Immunizations Immunization Administration Dates Next Due Influenza, High-dose, Split Virus, Trivalent, Injectable, preservative free 12/01/2018,12/13/2016 Pneumococcal Conjugate PCV 13 12/12/2017, 017 Pneumococcal Polysaccharide PPV23 12/10/2013 Pneumococcal, Unspecified 12/10/2013 Tdap 12/10/2013 Family History Medical History Relation Name Comments Diabetes Brother Diabetes Mother Relation Name Status Comments Brother Mother Social History Tobacco Use Types Packs/Day Years Used Date Smoking Tobacco: Never Smokeless Tobacco: Never Tobacco Cessation:Counseling Given: Not Answered Alcohol Use Standard Drinks/Week Comments No 0 (1 standard drink = 0.6 oz pur e alcohol) PHQ-2 Answer Date Recorded Patient Health Questionnaire-2 Score 0 04/16/2024 PHQ-9 Answer Date Recorded Patient Health Questionnaire-9 Score 0 04/16/2024 Comments Unknown Sex and Gender Information Value Date Recorded Sex Assigned at Not on file Legal Sex Female 7:33 PM EDT Gender Identity Not on file Sexual Orientation Not on file Last Filed Vital Signs Vital Sign Reading Time Taken Comments Blood Pressure 107/73 04/16/2024 9:40 AM EST Pulse 74 04/16/2024 9:40 AM EST Temperature 36.4 C (97.5 F) 04/16/2024 9:40 AM EST Respiratory Rate 16 04/16/2024 9:40 AM EST Oxygen Saturation 94% 04/16/2024 9:40 AM EST Inhaled Oxygen Concentration - - Weight 112 kg (246 lb 14.6 oz) 10/08/2021 9:05 A M EDT Height 162.6 cm (5' 4 ) 04/16/2024 9:40 AM EST Body Mass Index 42.36 10/08/2021 9:05 AM EDT Plan of Treatment Upcoming Encounters Date Type Department Care Team (Late st Contact Info) Description 04/15/2025 10:30 AM EST Office Visit [facility] [address] [place] [address] Fredrick Cuevas, 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 [address] [place] [address] Health Maintenance Due Date Last Done Comments [facility]-Bone Density Scan 1950 [facility]-Depression Screening 1950 [facility]-/Child/Adol SDOH Screenings 1950 [facility]- SDOH Screenings 1968 [facility]-Adult SDOH Screenings 1968 CT Colonography 07/17/1995 Colonoscopy 07/17/1995 FIT-DNA 07/17/1995 FIT 07/17/1995 FOBT 07/17/1995 Sigmoidoscopy 07/17/1995 [facility]-Colorectal Cancer Screening 07/17/1995 [facility]-Zoster Vaccines (1 of 2) 2000 [facility]-Pneumococcal Vaccine: 50+ Years (3 of 3 - PCV20 or PCV21) 12/12/2022 12/12/2017, 12/13/2016, 12/10/2013, Additional history exists [id number] Vaccine ( - season) 2023 [facility]-DTaP,Tdap,and Td Vaccines (2 - Td or Tdap) 12/11/2023 12/10/2013 [facility]-Influenza Vaccine (#1) 2024 12/01/2018, [facility]-RSV Vaccine: 60+ Years or (1 - 1-dose 75+ series) 2025 [facility]-Diabetes: Hemoglobin A1C Discontinued 09/16/2023, 08/18/2022 HPV Vaccines Aged Out No longer eligi ble based on patient's age to complete this topic [facility]-HIB Vaccines Aged Out No longer e ligible based on patient's age to complete this topic [facility]-Hepatitis A Vaccines Aged Out No longer eligible based on patient's age to complete this topic [facility]-IPV Vaccines Aged Out No longer e ligible based on patient's age to complete this topic [facility]-Rotavirus Vaccines Aged Out No lo nger eligible based on patient's age to complete this topic Insurance Advance Directives * DNR/DNI (Latest Code Status on File) Date Activated Date Inactivated Comments 10/07/2021 1:25 AM 10/12/2021 11:21 PM Question Answer Comments DNR determined on/before admission date? Yes Patient has decision-making capacity? Yes Care Teams Shipping Weigher Relationship Specialty Start Date End Date Ashlie Miramontes APRN [address] [place] [address] PCP - General 04/16/24
--- OUTSIDE RECORDS SUMMARY | 2024-10-27 23:13 | XMS_ITS | Encounter Summary ---
Author Organization [email or web address] ([place], [place], [place], [place]) Address [address] [place] [address] Care Team Providers Care Tour Manager Name Role Phone Unavailable Primary Care Provider Unavailabl e Encounter Details Date Type Department Care Team (Late st Contact Info) Description 06/06/2021 Transcribed Document [facility] [place] [address] ProviderMohamud MD [address] [place] [id number] Social History Tobacco Use Types Packs/Day Years Used Date Smoking Tobacco: Never Assessed Comments Unknown Sex and Gender Information Value Date Recorded Sex Assigned at Female 09/08/2021 5:34 PM CDT Legal Sex Female 5:34 PM CDT Gender Identity Female 09/08/2021 5:34 PM CDT Sexual Orientation Not on file documented as of this encounter Miscellaneous Notes * [employer]ner Conversion Note - Historical ProviderMD - 06/06/2021 2:51 PM CDT ED Assessment Entered On: 06/06/2021 15:35 EDT Performed On: 06/06/2021 15:00 EDT by Adriel Garcia Rn ED Quick Look Assessment Level of Consciousness : Alert, Awake Affect/Behavior : Appropriate, Calm, Cooperative Orientation : Oriented x 4 Skin Temperature : Warm Skin Description : Normal for ethnicity Adriel Garcia Rn - 06/06/2021 15:30 EDT ED General-Functional Assess Information Obtained From : Patient Preferred Communication Mode : Verbal Communication Barrier : None Primary Language : Senegalese Any Spiritual/Cultural Needs or Requests : No Currently in Unsafe Situation : No Adriel Garcia Rn - 06/06/2021 15:30 EDT Social Habits Smoking Status : Never (less than 100 in lifetime; none in last 30 days) Smokeless Tobacco Status : Never Desires Tobacco Cessation Calc : 0 Adriel Garcia Rn - 06/06/2021 15:30 EDT Social History (As Of: 06/06/2021 15:35:12 EDT) Tobacco: Comments: 06/06/2021 15:02 - ALINE RODRIGUEZ PA-C: nonsmoker (Last Updated: 06/06/2021 15:02:39 EDT by ALINE RODRIGUEZ PA-C) Home/Environment: Living situation: Home with assistance. (Last Updated: 06/06/2021 15:02:33 EDT by ALINE RODRIGUEZ PA-C) Cardiovascular ASMT, ED Cardiovascular Assessment WDL : WDL Nail Bed Color : Lolo Chest Pain : No Adriel Garcia Rn - 06/06/2021 15:30 EDT Respiratory Respiratory Assessment WDL : WDL Cough : None Adriel Garcia Rn - 06/06/2021 15:30 EDT Breath Sounds Assessment Grid All Lobes Breath Sounds : Clear JEFFREY : Clear LLL : Clear RUL : Clear RML : Clear RLL : Clear Adriel Garcia Rn - 06/06/2021 15:30 EDT Gastrointestinal ED Gastrointestinal Assessment WDL : WDL with exceptions Gastrointestinal Symptoms : Abdominal pain, Nausea Adriel Garcia Rn - 06/06/2021 15:30 EDT Musculoskeletal Musculoskeletal Assessment WDL : WDL with exceptions Musculoskeletal Assessment Comment : Patient said that she is not ambulatory Adriel Garcia Rn - 06/06/2021 15:30 EDT Neurologic ASMT, ED Neurological Symptoms : None Level of Consciousness : Alert, Awake Affect/Behavior : Appropriate, Calm, Cooperative Speech : Clear Orientation : Oriented x 4 Adriel Garcia Rn - 06/06/2021 15:30 EDT Pain Assessment Pain Assessment : Initial assessment Pain Scale Used : 0-10 Scale Location : Abdominal Adriel Garcia Rn - 06/06/2021 15:30 EDT Pain Scale Intensity : 5 Adriel Garcia Rn - 06/06/2021 15:30 EDT Image 4 - Images currently included in the form version of this document have not been included in the text rendition version of the form. documented in this encounter Plan of Treatment Not on file documented as of this encounter Visit Diagnoses Not on filedocumented in this encounter
--- OUTSIDE RECORDS SUMMARY | 2024-10-27 23:13 | XMS_ITS | Encounter Summary ---
Author Organization [employer] ([place], [place], [place], [place]) Address [address] [place] [address] Care Team Providers Care Lead Web Application Developer Name Role Phone Unavailable Primary Care Provider Unavailabl e Encounter Details Date Type Department Care Team (Late st Contact Info) Description 06/11/2021 Transcribed Document [facility] [place] [facility] [place] [address] ProviderMohamud MD [address] [place], [place] [id number] Social History Tobacco Use Types Packs/Day Years Used Date Smoking Tobacco: Never Assessed Comments Unknown Sex and Gender Information Value Date Recorded Sex Assigned at Female 09/08/2021 5:34 PM CDT Legal Sex Female 5:34 PM CDT Gender Identity Female 09/08/2021 5:34 PM CDT Sexual Orientation Not on file documented as of this encounter Miscellaneous Notes * [employer] Conversion Note - Historical ProviderMD - 06/11/2021 5:00 AM CDT Chart Check - Review Order Profile Entered On: 06/11/2021 3:28 EDT Performed On: 06/11/2021 5:00 EDT by Teresa Quiñones Lpn Chart Check Powerplans Initiated/Discontinued as Appropriate : Yes All Active Orders Reviewed : Yes Teresa Quiñones Lpn - 06/11/2021 3:28 EDT documented in this encounter Plan of Treatment Not on file documented as of this encounter Visit Diagnoses Not on filedocumented in this encounter
--- OUTSIDE RECORDS SUMMARY | 2024-10-27 23:13 | XMS_ITS | Encounter Summary ---
Author Organization [facility] Address [address] [place] [address] Care Team Providers Care Infection Preventionist Name Role Phone Ashlie Miramontes APRN Primary Care Provider [phone] Encounter Details Date Type Department Care Team (Late st Contact Info) Description 12/22/2021 Telephone [facility] Medical [facility] Central Scheduling [address] [place] [address] Van Padron MD [address] [place] [address] [place] [address] Social History Tobacco Use Types Packs/Day Years [...] Description 11/14/2024 11:30 AM EDT Office Visit [facility] [address] [place] [address] [place] [address] Ashlie Miramontes APRN [address] [place] [id number] documented as of this encounter Visit Diagnoses Not on filedocumented in this encounter Additional Health Concerns Infection Onset Date Last Indicated Resolved Time COVID (confirmed) 10/06/2021 10/06/2021 03/22/2022 9:08 PM EST documented as of this encounter Care Teams Infection Preventionist Relationship Specialty Start Date End Date Ashlie Miramontes APRN [address] [id number] PCP - General Family Medicine 02/10/22 documented as of this encounter
--- OUTSIDE RECORDS SUMMARY | 2024-10-27 23:13 | XMS_ITS | Encounter Summary ---
Author Organization [employer] ([place], [place], [place], [place]) Address [address] [place] [address] Care Team Providers Care Personal Consultant Name Role Phone Unavailable Primary Care Provider Unavailabl e Encounter Details Date Type Department Care Team (Late st Contact Info) Description 06/11/2021 Transcribed Document [facility] [place] [facility] [place] [address] ProviderMohamud MD [address] [place] [id number] Social History Tobacco Use Types Packs/Day [...] Conversion Note - Historical ProviderMD - 06/11/2021 8:07 AM CDT Patient: DAJA RODAS Age: 70 years Sex: Female : 1950 Associated Diagnoses: None Author: SANJEEV DANIELLE MD-INT DATE OF SERVICE [ DOS ]: 06/11/2021 Basic Information SUBJECTIVE: Patient is seen and [...] Rocephin: 2 Gram, 100 mL/Hr, IV Piggyback, [id number] Tylenol: 650 mg, Oral, Q4H, PRN: Fever [...] Oral, BID cefTRIAXone 2 Gram, IV Piggyback, [id number] furosemide 20 mg tab 20 mg 1 [...] History of obstructive sleep apnea / IMO [id number] / Confirmed, Active Problems (1) History of [...] tenderness, No swelling, No deformity. Integumentary: Warm, [place], Moist, No rash. Neurologic: Alert, Oriented. Psychiatric: Cooperative, Appropriate mood & affect, Normal judgment. Review / Management Results review: Labs (Last four charted values) WBC 5.5 (JUN 11) 7.1 (JUN 10) 5.7 (JUN 09) 8.1 (JUN 08) HB L 11.1 (JUN 11) 12.2 (JUN 10) 12.7 (JUN 10) 11.2 (JUN 09) HCT L 34.0 (JUN 11) 37.2 (JUN 10) 35.9 (JUN 10) L 34.0 (JUN 09) Plt 205 (JUN 11) 197 (JUN 10) 218 (JUN 10) 163 (JUN 09) Na 139 (JUN 11) L 134 (JUN 10) 137 (JUN 09) 137 (JUN 08) K L 3.0 (JUN 11) L 3.2 (JUN 10) L 3.0 (JUN 09) L 3.2 (JUN 08) Cl 107 (JUN 11) 106 (JUN 10) 106 (JUN 09) 107 (JUN 08) CO2 23 (JUN 11) L 20 (JUN 10) 23 (JUN 09) 23 (JUN 08) BUN 16 (JUN 11) 18 (JUN 10) 17 (JUN 09) 20 (JUN 08) Cr H 1.20 (JUN 11) H 1.40 (JUN 10) H 1.70 (JUN 09) H 2.00 (JUN 08) Glu R H 165 (JUN 11) H 162 (JUN 10) H 135 (JUN 09) H 142 (JUN 08) Ca 8.4 (JUN 11) L 8.3 (JUN 10) L 8.3 (JUN 09) L 8.3 (JUN 08) Lactic 1.6 (JUN 06) PT 10.3 (JUN 10) INR 1.0 (JUN 10) AST 28 (JUN 06) ALT 39 (JUN 06) ALK P 116 (JUN 06) T Bili 0.6 (JUN 06) PTN 6.5 (JUN 06) ALB L 2.5 (JUN 06) Lipase L 49 (JUN 06) , JUN 11 06:10 139 107 16 / H 165 L 3.0 23 H 1.20 \ JUN 11 06:10 \ L 11.1 / 5.5 205 / L 34.0 \, No Radiology Results [...] Avoid nephrotoxins Monitor renal function Monitor electrolytes Bedbound status at home Diabetes mellitus 2 Insulin, insulin sliding scale, Hypotension with History of Hypertension Home antihypertensive medications, as needed hydralazine Morbid obesity Diet/weight loss counseling GI prophylaxis: Placed on Pepcid DVT prophylaxis: Placed on Sequential compression device Code status: Full code evaluated by t IAN For Colonoscopy today improving abdominal pain Treated with IV Flagyl Allergic to ciprofloxacin and vancomycin discontinue IV Zosyn evaluated by gastroenterology Disposition: Patient remains with intractable abdominal pain and GI symptoms. Patient and daughter declined short-term rehab placement Anticipate date of discharge. 06/12/2021 Time spent: 22 minutes documented in this encounter Plan of Treatment Not on file documented as of this encounter Visit Diagnoses Not on filedocumented in this encounter
--- OUTSIDE RECORDS SUMMARY | 2024-10-27 23:13 | XMS_ITS | Encounter Summary ---
Author Organization [employer] ([place], [place], [place], [place]) Address [address] [place] [address] Care Team Providers Care Digital Sales Assistant Name Role Phone Unavailable Primary Care Provider Unavailabl e Encounter Details Date Type Department Care Team (Late st Contact Info) Description 06/06/2021 Transcribed Document [facility] [place] [facility] [place] [address] ProviderMohamud MD [address] [place] [phone] Social History Tobacco Use Types Packs/Day Years [...] Conversion Note - Historical ProviderMD - 06/06/2021 4:47 PM CDT CR Chest 1 Vw Portable Ordered: 06/06/2021 Modified Reason for Exam: pain 06/06/2021 16:24 06/06/2021 16:47 (ALINE RODRIGUEZ PA-C) Reviewed by Provider, No further action required X1 documented in this encounter Plan of Treatment Not on file documented as of this encounter Visit Diagnoses Not on filedocumented in this encounter
--- OUTSIDE RECORDS SUMMARY | 2024-10-27 23:13 | XMS_ITS | Encounter Summary ---
Author Organization [employer] ([place], [place], [place], [place]) Address [address] [place] [address] Care Team Providers Care Fusion Juncture Grinder Name Role Phone Unavailable Primary Care Provider Unavailabl e Encounter Details Date Type Department Care Team (Late st Contact Info) Description 06/06/2021 Transcribed Document [facility] [place] [facility] [place] [address] ProviderMohamud MD [address] [place] [id number] Social History Tobacco Use Types Packs/Day [...] Conversion Note - Historical ProviderMD - 06/06/2021 11:07 PM CDT Nutrition Assessment Entered On: 06/08/2021 12:58 EDT Performed On: 06/08/2021 15:19 EDT by Saar Leach, Non Emp Student Nutrition Assessment Current Nutrition Regimen Comment : 06/08: Automatic consult r/t PU, BMI >40, MST=5 (eating poorly, unsure wt loss). Pt is a 70yoF admitted 06/06 for intractable abd pain x1 week with N/V and diarrhea. CT of abdomen showed no acute abnormalities. Attempted to visit pt x3, pt was sleeping, on the phone, and busy w/staff. Pt is on a clear diet with multiple stage II PU, will send stephen. Assess for PCM at f/up and monitor diet advancement. Dx: UTI ?, abdominal pain nausea and diarrhea, LYNDSAY PMH: T2DM, HTN, morbid obesity bedridden Meds: Lasix, lispro, abx, PPI, KCl, pain prn, Zofran prn Labs: K+ 3.2, GFR 25, Glu 142, Cr 2.0, FSBG 180/145/203 Skin: WOCN 06/08: stage II PU coccyx, L leg stage II PU GI: LBM 06/08 (liquid), +BS Diet: Clear liquid diet x1 day (previously 60gm CHO) Intakes: 27.5% x 4 meals Ht: 64 in Wt: Admit 234#/106.36 kg (06/06) EMR: no wt hx BMI: 40.2 IBW/IBW%: 54 kg/196% Estimated needs: 6756-8882 kcal (MSJ x 1-1.2), 125-160 g pro (1.2-1.5 g pro/kg) Esthela Leong Registered Dietitian - 06/08/2021 15:21 EDT Nutrition Assessment Reason : Automatic referral Sara Leach Non Emp Student - 06/08/2021 12:58 EDT Nutrition Diagnoses Oral or Nutr Support Intake Related To : n/v, abd pain Oral or Nutr Support Intake Evidenced by : intakes: 27.5% x 4 meals, CLD Nutrient Intake As Evidenced by : stage II PU coccyx, L leg stage II PU Sara Leach Non Emp Student - 06/08/2021 15:19 EDT Oral or Nutrition Support Intake : Inadequate oral intake Oral or Nutrition Support Intake Status : Active Nutrient Intake : Increased nutrient needs Nutrient Intake Related to : skin integrity Nutrient Intake Status : Active Increased Nutrient Needs Comment : protein Weight : Obese, Class III Weight Related to : lifestyle? Weight As Evidenced by : BMI: 40.2 Weight Status : Active Sara Leach Non Emp Student - 06/08/2021 14:48 EDT Nutrition Interventions Meals and Snacks : Clear liquid diet Nutrition Supplement Therapy : Commercial beverage Sara Leach Non Emp Student - 06/08/2021 14:48 EDT Monitoring/Evaluation Fluid/Beverage Intake : Oral fluids Esthela Leong Registered Dietitian - 06/08/2021 15:19 EDT Energy Intake : Total energy intake Protein Intake : Total protein Weight Status : Weight Maintanence Gastrointestinal Function : Bowel Function Integumentary : Pressure Ulcer Status Sara Leach Non Emp Student - 06/08/2021 14:48 EDT Nutrition Recommendations Dietitian Recommendations : 1. Continue clear diet, as medically able advance to GI soft, 60 gm diet. Will add stephen BID. Modify ONS prn. Goal: Intakes >50% 2. Monitor glucose. Consider adding SSI PRN. Goal: 70-180 mg/dL 3. Obtain wt 1-2x weekly Goal: no significant wt changes Nutritional risk: High Sara Leach Non Emp Student - 06/08/2021 15:19 EDT documented in this encounter Plan of Treatment Not on file documented as of this encounter Visit Diagnoses Not on filedocumented in this encounter
--- OUTSIDE RECORDS SUMMARY | 2024-10-27 23:13 | XMS_ITS | Encounter Summary ---
Author Organization [employer] ([place], [place], [place], [place]) Address [address] [place] [address] Care Team Providers Care Board Layer Name Role Phone Unavailable Primary Care Provider Unavailabl e Encounter Details Date Type Department Care Team (Late st Contact Info) Description 06/06/2021 Transcribed Document [facility] [place] [address] [place] [address] ProviderMohamud MD [address] [place], [place] [phone] Social History Tobacco Use Types Packs/Day Years [...] Historical ProviderMD - 06/06/2021 2:51 PM CDT Broset Violence Assessment Entered On: 06/06/2021 15:35 EDT Performed On: 06/06/2021 15:00 EDT by Adriel Garcia Rn Broset Violence Assessment Broset Violence Checklist of Symptoms : None Broset Violence Symptoms Subtotal : 0 Broset Violence Symptoms Indicator : Low risk (0) Adriel Garcia Rn - 06/06/2021 15:30 EDT Electronically signed by Cl Moreau [employer] Coordinator [employer] at 07/02/2022 11:02 AM CDT documented in this encounter Plan of Treatment Not on file documented as of this encounter Visit Diagnoses Not on filedocumented in this encounter
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
--- OUTSIDE RECORDS SUMMARY | 2024-10-27 23:13 | XMS_ITS | Encounter Summary ---
Author Organization [employer] ([place], [place], [place], [place]) Address [address] [place] [address] Care Team Providers Care Finishing Machine Operator Name Role Phone Unavailable Primary Care Provider Unavailabl e Encounter Details Date Type Department Care Team (Late st Contact Info) Description 06/11/2021 Transcribed Document [facility] [place] [facility] [place] [address] ProviderMohamud MD [address] [place] [address] Social History Tobacco Use Types Packs/Day [...] [employer] Conversion Note - Mohamud ProviderMD - 06/11/2021 3:02 PM CDT Patient: DAJA RODAS Age: 70 Years Sex: Female : 1950 *Operation Colonoscopy Anesthesia Type Propofol as per anesthesia Indication for Surgery Abdominal pain and diarrhea with positive salmonella on stool PCR. Patient has a family history of colon cancer in her brother. *Preoperative Diagnosis Abdominal pain Diarrhea *Postoperative Diagnosis External hemorrhoids Colon polyps Erythema within the entire colon *Surgeon(s) Makenzie Whitney MD *Estimated Blood Loss 0ml *Findings External hemorrhoids 2.2cm sigmoid polyp, removed [...] noted within entire colon, multiple biopsies taken. Please see chart for full op report. Plan: The noted erythema could be due to NSAID colitis or the identified salmonella. Follow up biopsy results, these will be mailed to patient in one week. Follow up colonoscopy in 3 years. *Specimen(s) biopsies taken and polypectomy Complications none Date of Service Date/Time of Service SN - Proc - Start Time: 06/11/21 13:24:00 (06/11/21 13:37:58) documented in this encounter Plan of Treatment Not on file documented as of this encounter Visit Diagnoses Not on filedocumented in this encounter
--- OUTSIDE RECORDS SUMMARY | 2024-10-27 23:13 | XMS_ITS | Encounter Summary ---
Author Organization [employer] ([place], [place], [place], [place]) Address [address] [place] [address] Care Team Providers Care Briquette Molder Name Role Phone Unavailable Primary Care Provider Unavailabl e Encounter Details Date Type Department Care Team (Late st Contact Info) Description 06/06/2021 Transcribed Document [facility] Family [facility] [place] [address] ProviderMohamud MD [address] [place], [place] [phone] Social History Tobacco Use Types Packs/Day Years [...] Historical ProviderMD - 06/06/2021 2:51 PM CDT [place] Suicide Severity Rating Scale (C-SSRS) Entered On: 06/06/2021 15:35 EDT Performed On: 06/06/2021 15:00 EDT by Adriel Garcia Rn [place] Suicide Severity Rating Scale (C-SSRS) CSSRS Past Month Wish to be : No CSSRS Past Month Suicidal Thoughts : No CSSRS Lifetime Suicide Behavior : No Suicide Severity Rating Score : 0 Suicide Severity Rating : No Additional Care Required at this time Adriel Garcia Rn - 06/06/2021 15:30 EDT documented in this encounter Plan of Treatment Not on file documented as of this encounter Visit Diagnoses Not on filedocumented in this encounter
--- OUTSIDE RECORDS SUMMARY | 2024-10-27 23:13 | XMS_ITS | Encounter Summary ---
Author Organization [employer] ([place], [place], [place], [place]) Address [address] [place] [address] Care Team Providers Care Atomic Process Engineer Name Role Phone Unavailable Primary Care Provider Unavailabl e Encounter Details Date Type Department Care Team (Late st Contact Info) Description 06/06/2021 Transcribed Document [facility] [place] [address] ProviderMohamud MD [address] [place] [phone] Social History Tobacco Use Types Packs/Day Years [...] Conversion Note - Historical ProviderMD - 06/06/2021 9:53 PM CDT ED Discharge Entered On: 06/06/2021 21:54 EDT Performed On: 06/06/2021 21:53 EDT by CRISTY ESPINOZA RN PATIENT CARE 1 Discharge Process Patient Disposition : Admit/Observe Personal Belongings With Patient : Yes Patient Education Completed : No Teaching Evaluation : Needs further teaching Link to Valuables and Belongings form : No IV Discontinued : No Nursing Documentation Completed : Yes CRISTY ESPINOZA RN PATIENT CARE 1 - 06/06/2021 21:53 EDT Admission, ED Nurse Report Accepted By : Trinidad Nurse Report Acceptance Time : 06/06/2021 21:53 EDT `Nurse Report (Hand Off) : Called Accompanied By, Discharge : Unaccompanied Mode Of Departure : Stretcher ESPINOZA, CRISTY M, RN PATIENT CARE 1 - 06/06/2021 21:53 EDT Electronically signed by Lizzeth, [facility] [employer] Chaser Cerner at 07/02/2022 11:05 AM CDT documented in this encounter Plan of Treatment Not on file documented as of this encounter Visit Diagnoses Not on filedocumented in this encounter
--- OUTSIDE RECORDS SUMMARY | 2024-10-27 23:13 | XMS_ITS | Encounter Summary ---
Author Organization [employer] ([place], [place], [place], [place]) Address [address] [place] [address] Care Team Providers Care Activities Assistant Name Role Phone Unavailable Primary Care Provider Unavailabl e Encounter Details Date Type Department Care Team (Late st Contact Info) Description 06/11/2021 Transcribed Document [facility] [place] [facility] [place] [address] ProviderMohamud MD [address] [place], [place] [phone] Social History Tobacco Use Types Packs/Day Years [...] Conversion Note - Mohamud ProviderMD - 06/11/2021 8:40 AM CDT UM Authorization Entered On: 06/11/2021 8:41 EDT Performed On: 06/11/2021 8:40 EDT by KATIE PATINO, LENA-UTILIZATION MANAGEMENT REVIEW NON-EXEMPT Primary Insurance Authorization Authorization and Policy Numbers : Insurance 1 Health Plan: [employer] MEDICARE REPL Policy Number: [id number] Authorization Number: Insurance Primary Name : [employer] MED[employer] REPL Policy Number: [id number] Authorization Status-Primary : Awaiting callback Reference Number-Primary : [id number] Authorized Service Begin Date-Primary : 06/06/2021 EDT Authorization Comments-Primary : clinicals submitted on availity for c/s auth Historical Authorization Comments-Primary : Comment 1: AUTH SUBMITTED ON AVAILITY W/ CLINICAL ATTACHED (Carla Mitchell, Rn-Utilization Review 06/07/2021 11:30) KTAIE PATINO RN-UTILIZATION MANAGEMENT REVIEW NON-EXEMPT - 06/11/2021 8:40 EDT Electronically signed by [facility] Conversion Hot Punch Press Operator Cerner at 07/02/2022 10:46 AM CDT documented in this encounter Plan of Treatment Not on file documented as of this encounter Visit Diagnoses Not on filedocumented in this encounter
--- OUTSIDE RECORDS SUMMARY | 2024-10-27 23:13 | XMS_ITS | Encounter Summary ---
Author Organization [employer] ([place], [place], [place], [place]) Address [address] [place] [address] Care Team Providers Care Youth Advocate Name Role Phone Unavailable Primary Care Provider Unavailabl e Encounter Details Date Type Department Care Team (Late st Contact Info) Description 06/06/2021 Transcribed Document [facility] [place] [address] [place] [address] ProviderMohamud MD [address] [place] [phone] Social History Tobacco Use Types Packs/Day Years [...] Conversion Note - Historical ProviderMD - 06/06/2021 10:35 PM CDT ED Discharge Entered On: 06/06/2021 22:35 EDT Performed On: 06/06/2021 22:35 EDT by EDWIN DE LA ROSA RN Discharge Process Patient Disposition : Admit/Observe Personal Belongings With Patient : Yes Patient Education Completed : No Teaching Evaluation : Needs further teaching Nursing Documentation Completed : Yes EDWIN DE LA ROSA RN - 06/06/2021 22:35 EDT Admission, ED `Nurse Report (Hand Off) : Called Mode Of Departure : EDWIN Carlin RN - 06/06/2021 22:35 EDT Electronically signed by Lizz[facility] Conversion Executive Talent Acquisition Consultant Cerner at 07/02/2022 10:43 AM CDT documented in this encounter Plan of Treatment Not on file documented as of this encounter Visit Diagnoses Not on filedocumented in this encounter
--- OUTSIDE RECORDS SUMMARY | 2024-10-27 23:13 | XMS_ITS | Encounter Summary ---
Author Organization [employer] ([place], [place], [place], [place]) Address [address] [place] [address] Care Team Providers Care Legal File Clerk Name Role Phone Unavailable Primary Care Provider Unavailabl e Encounter Details Date Type Department Care Team (Late st Contact Info) Description 06/11/[address] [facility] [place] [facility] [place] [address] ProviderMohamud MD [address] [place], [place] [phone] Social History Tobacco Use Types Packs/Day Years [...] Note - Historical ProviderMD - 06/11/2021 5:00 PM CDT Chart Check - Review Order Profile Entered On: 06/11/2021 16:51 EDT Performed On: 06/11/2021 17:00 EDT by Emelyn Mccray RN Chart Check Powerplans Initiated/Discontinued as Appropriate : Yes All Active Orders Reviewed : Yes Emelyn Mccray RN - 06/11/2021 16:50 EDT documented in this encounter Plan of Treatment Not on file documented as of this encounter Visit Diagnoses Not on filedocumented in this encounter
--- OUTSIDE RECORDS SUMMARY | 2024-10-27 23:13 | XMS_ITS | Encounter Summary ---
Author Organization [employer] ([place], [place], [place], [place]) Address [address] [place] [address] Care Team Providers Care Retail Loan Originator Assistant Name Role Phone Unavailable Primary Care Provider Unavailabl e Encounter Details Date Type Department Care Team (Late st Contact Info) Description 06/06/2021 Transcribed Document [facility] [place] [address] ProviderMohamud MD [address] [place] [phone] Social History Tobacco Use Types Packs/Day Years [...] Conversion Note - Historical ProviderMD - 06/06/2021 8:24 PM CDT Pain Assessment Entered On: 06/07/2021 22:46 EDT Performed On: 06/07/2021 22:49 EDT by Trinidad Coreas LPN Intervention Information: acetaminophen-HYDROcodone Performed by Trinidad Coreas LPN on 06/07/2021 21:49:00 EDT acetaminophen-HYDROcodone,1Tab Oral,Pain (Moderate 4-6) Pain Assessment Pain Assessment : Follow-up assessment Pain Scale Goal : 2 Pain Scale Used : 0-10 Scale Trinidad Coreas LPN - 06/07/2021 22:45 EDT Pain Scale Intensity : 2 Trinidad Coreas LPN - 06/07/2021 22:45 EDT Image 4 - Images currently included in the form version of this document have not been included in the text rendition version of the form. documented in this encounter Plan of Treatment Not on file documented as of this encounter Visit Diagnoses Not on filedocumented in this encounter
--- OUTSIDE RECORDS SUMMARY | 2024-10-27 23:13 | XMS_ITS | Encounter Summary ---
Author Organization [employer] ([place], [place], [place], [place]) Address [address] [place] [address] Care Team Providers Care Remote Sensing Analyst Name Role Phone Unavailable Primary Care Provider Unavailabl e Encounter Details Date Type Department Care Team (Late st Contact Info) Description 06/11/2021 Transcribed Document [facility] [place] [facility] [place] [address] ProviderMohamud MD [place] [address] Social History Tobacco Use Types [...] Conversion Note - Historical ProviderMD - 06/11/2021 3:23 PM CDT Patient: DAJA RODAS Age: 70 [...] chills co loose stools n o rash 06/11 - I feel better no fever ROS -otherwise negative but limited Health Status [...] intravenous solution 1,000 mL: 20 mL/Hr, IntraVENous Lactated Ringers bolus: 1,000 mL, 100 mL/Hr, IV Piggyback, 1-Time Lasix: 20 mg, Oral, Daily MiraLax: 17 Gram, Oral, Daily, PRN: Constipation Phenergan: 6.25 mg, IntraVENous, Q6H, PRN: Nausea Protonix: 40 mg, IV Push, BID Rocephin: 2 Gram, 100 mL/Hr, IV Piggyback, [id number] Tylenol: 650 mg, Oral, Q4H, PRN: Fever Tylenol: 650 mg, Oral, Q4H, PRN: Pain (Mild 1-3) Zofran: 4 mg, IV Push, Q4H, PRN: Nausea acetaminophen-HYDROcodone 325 mg-5 mg oral tablet: 1 Tab, Oral, Q6H, PRN: Pain (Moderate 4-6) carvedilol: 3.125 mg, Oral, BID gabapentin: 300 mg, Oral, At Bedtime insulin glargine: 5 Units, SubCutaneous, Daily insulin regular greater than 101 kg: greater than 101 kg scale, SubCutaneous, Q6H lidocaine 1% injectable solution: 0.5 mL, IntraDermal, [...] Oral, Daily, 30 Cap, 0 Refill(s), Medications (23) Active Scheduled: (10) carvedilol 3.125 mg tab 3.125 mg 1 Tab, Oral, BID cefTRIAXone 2 Gram, IV Piggyback, [id number] furosemide 20 mg tab 20 mg 1 Tab, Oral, Daily gabapentin 300 mg cap 300 mg 1 Cap, Oral, At Bedtime insulin glargine 1 unit/0.01 mL inj 5 Units 0.05 mL, SubCutaneous, Daily insulin regular 1 unit/0.01 mL inj 3mL greater than 101 kg scale, SubCutaneous, Q6H lactated ringers 1,000 mL, IV Piggyback, 1-Time metroNIDAZOLE 500 mg 100 mL, IV Piggyback, [...] History of obstructive sleep apnea / IMO [id number] / Confirmed, Active Problems (1) History of [...] 24 hrs) Last Charted Minimum Maximum Temp 97.3 (JUN 11 12:45) 97.3 (JUN 11 12:45) 97.6 (JUN 10 17:00) Mon HR 74 (JUN 11 14:45) 74 (JUN 11 14:45) 84 (JUN 10 22:35) Resp Rate 18 (JUN 11 14:45) 17 (JUN 10 17:00) 18 (JUN 10 22:35) SBP 124 (JUN 11 14:45) 116 (JUN 11 10:30) H 148 (JUN 10 17:00) DBP 63 (JUN 11 14:45) L 58 (JUN 11 14:30) 72 (JUN 10 22:35) MAP 73 (JUN 11 10:30) 73 (JUN 11 10:30) 119 (JUN 10 17:00) SpO2 99 (JUN 11 14:45) 95 (JUN 10 22:39) 100 (JUN 11 14:30) General: Alert and oriented, No acute distress. Eye: Normal conjunctiva. HENT: Normal hearing. Neck: Supple, Non-tender. Respiratory: Lungs are clear to auscultation, Respirations are non-labored. Cardiovascular: Normal rate, Regular rhythm, No murmur. Gastrointestinal: Soft, Non-distended, epigastric tenderness. Musculoskeletal: No tenderness. Integumentary: Warm. Neurologic: Alert. [...] Hypotension Hypertension Morbid obesity Salmonella gastroenteritis Will continue Rocephin Colonoscopy today - C Diff negative Long discussion with patient [...]
--- OUTSIDE RECORDS SUMMARY | 2024-10-27 23:13 | XMS_ITS | Encounter Summary ---
Author Organization [employer] ([place], [place], [place], [place]) Address [address] [place] [address] Care Team Providers Care Sales And Marketing Director Name Role Phone Unavailable Primary Care Provider Unavailabl e Encounter Details Date Type Department Care Team (Late st Contact Info) Description 06/12/2021 Transcribed Document [facility] [place] [facility] [place] [address] ProviderMohamud MD [address] [place] [phone] Social History Tobacco Use Types Packs/Day Years [...] Conversion Note - Historical ProviderMD - 06/12/2021 2:00 AM CDT Supervisor Insecticide Details Entered On: 06/12/2021 1:54 EDT Performed On: 06/12/2021 2:00 EDT by Teresa Quiñones Lpn Order Details Transport Mode Order Detail : Stretcher/Gurney Isolation Precautions Order Detail : Standard Precautions Order Detail : N/A IV Order Detail : 1 Oxygen Order Detail : 0 Nurse Collect Order Detail : 0 Lift/Transfer : Maximal assist Central Line Order Detail : No Room Service : Needs Assistance Arterial Line : No Patient Needs Meds Crushed/Liquid : No Teresa Quiñones Lpn - 06/12/2021 1:54 EDT documented in this encounter Plan of Treatment Not on file documented as of this encounter Visit Diagnoses Not on filedocumented in this encounter
--- OUTSIDE RECORDS SUMMARY | 2024-10-27 23:13 | XMS_ITS | Encounter Summary ---
Author Organization [employer] ([place], [place], [place], [place]) Address [address] [place] [address] Care Team Providers Care Diet Kitchen Cook Name Role Phone Unavailable Primary Care Provider Unavailabl e Encounter Details Date Type Department Care Team (Late st Contact Info) Description 06/11/2021 Transcribed Document [facility] [facility] [place] [address] ProviderMohamud MD [address] [place], [place] [phone] Social History Tobacco Use Types Packs/Day Years [...] Conversion Note - Historical ProviderMD - 06/11/2021 10:24 AM CDT Meds to Bed Enrollment Entered On: 06/11/2021 10:24 EDT Performed On: 06/11/2021 10:24 EDT by Tremaine Rodríguez Senior Net Programmer Cert Lead Meds to Bed Enrollment Patient Enrollment Decision: : Yes/enroll in meds to bed program Tremaine Rodríguez Senior Net Programmer Cert Lead - 06/11/2021 10:24 EDT documented in this encounter Plan of Treatment Not on file documented as of this encounter Visit Diagnoses Not on filedocumented in this encounter
--- OUTSIDE RECORDS SUMMARY | 2024-10-27 23:13 | XMS_ITS | Encounter Summary ---
Author Organization [employer] ([place], [place], [place], [place]) Address [address] [place] [address] Care Team Providers Care Supervisor Packing Room Name Role Phone Unavailable Primary Care Provider Unavailabl e Encounter Details Date Type Department Care Team (Late st Contact Info) Description 06/11/2021 Transcribed Document [facility] [place] [facility] [place] [address] ProviderMohamud MD [address] [place] [id number] Social History Tobacco Use Types Packs/Day [...] Conversion Note - Historical ProviderMD - 06/11/2021 1:24 PM CDT [facility] Endo IntraOp Summary Primary Physician: THANIA BLAKE MD-GAE Finalized Date/Time: 06/11/21 14:13:14 Pt. Name: DAJA RODAS/Sex: 1950 Female Med Rec #: [id number] Physician: KAMLESH CORTES DO-INT Financial #: [id number] Pt. Type: I Room/Bed: [facility]/1 Admit/Disch: 06/06/21 19:46:00 - Institution: [facility] Endo - Case Attendance Entry 1 Entry 2 Entry 3 Case Attendee THANIA BLAKE MD-GAE BURGESS, Marce Laguna, Rn Role Performed Surgeon/Proceduralist, Scrub, First Food Processing Chemist, First First Time In 06/11/21 13:11:00 06/11/21 13:11:00 06/11/21 13:11:00 Time Out 06/11/21 14:12:00 06/11/21 14:12:00 06/11/21 14:12:00 Procedure Colon Polypectomy, Colon Polypectomy, Colon Polypectomy, Colon Biopsy, Colon Biopsy, Colon Biopsy, Colonoscopy w Control Colonoscopy w Control Colonoscopy w Control Bleeding Bleeding Bleeding Other Attendee Superficial Wound Closed By: Last Modified By: Marce Leong, Rn Marec Leong, Rn Marce Leong, Lissett 06/11/21 14:12:53 06/11/21 14:12:53 06/11/21 14:12:53 Entry 4 Entry 5 Case Attendee Sara Alejandro, AUBREY HINDS MD-ANS Role Performed SHELL MAKER LOCKSTITCH/Nurse Wheel And Caster Repairer Anesthesiologist of Record Time In 06/11/21 13:11:00 06/11/21 13:11:00 Time Out 06/11/21 14:12:00 06/11/21 14:12:00 Procedure Colon Polypectomy, Colon Polypectomy, Colon Biopsy, Colon Biopsy, Colonoscopy w Control Colonoscopy w Control Bleeding Bleeding Other Attendee Superficial Wound Closed By: Last Modified By: Marce Leong, Marce Trujillo, Lissett 06/11/21 14:12:53 06/11/21 14:12:53 [facility] Endo - Case Attendance Audit 06/11/21 14:12:53 Seo Analyst: [id number] Modifier: [id number] 1 <+> Time Out 1 <*> Procedure Colon Polypectomy, Colon Biopsy, Colonoscopy w Control Bleeding 2 <+> Time Out 2 <*> Procedure Colon Polypectomy, Colon Biopsy, Colonoscopy w Control Bleeding 3 <+> Time Out 3 <*> Procedure Colon Polypectomy, Colon Biopsy, Colonoscopy w Control Bleeding 4 <+> Time Out 4 <*> Procedure Colon Polypectomy, Colon Biopsy, Colonoscopy w Control Bleeding 5 <+> Time Out 5 <*> Procedure Colon Polypectomy, Colon Biopsy, Colonoscopy w Control Bleeding 06/11/21 14:01:07 Seo Analyst: [id number] Modifier: [id number] 1 <*> Procedure Colon Polypectomy, Colon Biopsy 2 <*> Procedure Colon Polypectomy, Colon Biopsy 3 <*> Procedure Colon Polypectomy, Colon Biopsy 4 <*> Procedure Colon Polypectomy, Colon Biopsy 5 <*> Procedure Colon Polypectomy, Colon Biopsy 06/11/21 14:01:04 Seo Analyst: [id number] Modifier: [id number] 1 <*> Procedure Colonoscopy, Colon Polypectomy, Colon Biopsy 2 <*> Procedure Colonoscopy, Colon Polypectomy, Colon Biopsy 3 <*> Procedure Colonoscopy, Colon Polypectomy, Colon Biopsy 4 <*> Procedure Colonoscopy, Colon Polypectomy, Colon Biopsy 5 <*> Procedure Colonoscopy, Colon Polypectomy, Colon Biopsy 06/11/21 13:38:01 Seo Analyst: [id number] Modifier: [id number] 1 <*> Procedure Colonoscopy, Colon Polypectomy 2 <*> Procedure Colonoscopy, Colon Polypectomy 3 <*> Procedure Colonoscopy, Colon Polypectomy 4 <*> Procedure Colonoscopy, Colon Polypectomy 5 <*> Procedure Colonoscopy, Colon Polypectomy 06/11/21 13:37:16 Seo Analyst: [id number] Modifier: [id number] 1 <*> Procedure Colonoscopy 2 <*> Procedure Colonoscopy 3 <*> Procedure Colonoscopy 4 <*> Procedure Colonoscopy 5 <*> Procedure Colonoscopy 06/11/21 13:26:00 Seo Analyst: [id number] Modifier: [id number] 1 <+> Time In 1 <*> Procedure Colonoscopy <+> 2 Case Attendee <+> 2 Role Performed <+> 2 Time In <+> 2 Procedure <+> 3 Case Attendee <+> 3 Role Performed <+> 3 Time In <+> 3 Procedure <+> 4 Case Attendee <+> 4 Role Performed <+> 4 Time In <+> 4 Procedure <+> 5 Case Attendee <+> 5 Role Performed <+> 5 Time In <+> 5 Procedure [facility] Endo - Case times Entry 1 Patient In Room Time 06/11/21 13:11:00 Out Room Time 06/11/21 14:12:00 Anesthesia Start Time 06/11/21 13:11:00 Stop Time 06/11/21 14:12:00 Surgery / Procedure Times Start Time 06/11/21 13:24:00 Stop Time 06/11/21 14:06:00 Last Modified By: Marce Leong Rn 06/11/21 14:12:52 [facility] Endo - Case times Audit 06/11/21 14:12:52 Seo Analyst: [id number] Modifier: [id number] <+> 1 Out Room Time <+> 1 Stop Time 06/11/21 14:06:45 Seo Analyst: [id number] Modifier: [id number] <+> 1 Stop Time 06/11/21 13:26:12 Seo Analyst: [id number] Modifier: [id number] <+> 1 Start Time [facility] Endo - Cautery Entry 1 ESU Identification Cautery Type Monopolar ESU ID Number Room 1 ID Type Hospital Number Cautery Settings Cut Setting 2 Coag Setting 25 ESU Grounding Pad Ground Pad Type Adult Grounding Pad Site Left thigh Grounding Pad KHADIJAH CARIAS Applied By Grounding Pad Site Dry, Intact Skin Condition Before Cautery Grounding Pad Site Unchanged Skin Condition After Cautery Last Modified By: Marce Leong Rn 06/11/21 13:50:25 [facility] Endo - Cultures and Spec Summary Entry 1 Cultrures and Specimens Specimen Ordered: Yes Test(s) Routine/Path-Lab Requested/Final Disposition Last Modified By: Marce Lenog Rn 06/11/21 13:38:06 [facility] Endo - Delays Entry 1 Delay Reason Other Duration 0 Minute(s) Last Modified By: Marce Leong Rn 06/11/21 13:26:57 [facility] Endo - Departure from OR Entry 1 Integumentary Assessment Transfer/Handoff Transfer to Other Post-op Transport Stretcher/Gurney Via Patient Transport Sara Alejandro CRNA, Accompanied by Marce Leong, Rn Last Modified By: Marce Leong Rn 06/11/21 13:27:00 [facility] Endo - Endoscopy Details Entry 1 Abdomen Procedure Soft, Non-distended, Assessment Non-Tender Procedure Abdomen 06/11/21 13:24:00 Assessment D/T Radio Frequency Ablation Abdominal Pressure Last Modified By: Marce Leong Rn 06/11/21 13:27:11 [facility] Endo - Fire Risk Assessment Entry 1 Fire Info Surgical Site or 0- No Incision Above the Xyphoid Open O2 Source 1- Yes (Mask or Cannula) Available Ignition 1- Yes (ESU, Laser, Light Source) Fire Risk 2 Assessment Score Fire Score Fire Risk Yes Assessment Complete Fire Risk Marce Leong, Supervisor Steel Division Verified By Fire Risk 06/11/21 13:24:00 Assessment Verified Date/Time Fire Risk Last Modified By: Marce Leong Rn 06/11/21 13:27:34 [facility] Endo - Fire Risk Assessment Audit 06/11/21 13:27:34 Seo Analyst: [id number] Modifier: [id number] <+> 1 Fire Risk Assessment Verified Date/Time [facility] Endo - General Case Assurance Senior Manager Insurance 1 Case Information OR Endo 01 [facility] Case Level 1 Room Verified Yes Wound Class No Incision Specialty Gastroenterology Anesthesia Type MAC ASA Class 3 Diagnosis Preop Diagnosis diarrhea, abdominal pain Postop Same As Preop No Postop Diagnosis polyps Wound Class Definitions Last Modified By: Marce Leong Rn 06/11/21 13:48:06 [facility] Endo - General Case Data Audit 06/11/21 13:48:06 Seo Analyst: [id number] Modifier: [id number] <+> 1 Specialty <+> 1 ASA Class <+> 1 Wound Class <+> 1 Anesthesia Type <+> 1 Postop Same As Preop <+> 1 Preop Diagnosis <+> 1 Postop Diagnosis <+> 1 Room Verified [facility] Endo - Implant Log Entry 1 Implant Log Implant CLIP II RESOLUTION Identification [id number] Description Implant Quantity 1 Implant [id number] Identification Lot Number Implant Sebastian Sci:Interv Identification Cardiology Armored Cable Machine Operator Name: Implant [id number] Identification Catalog Number Implant Has an Yes Expiration Date Implant Expiration 12/12/23 Date Tissue Implant Last Modified By: Marce Leong Rn 06/11/21 14:09:01 [facility] Endo - Intraoperative Assessment Entry 1 Valid History / Yes Physical in Chart Preoperative Yes Checklist Reviewed/Evaluated Patient is Latex No Sensitive Last Modified By: Marce Leong Rn 06/11/21 13:27:39 [facility] Endo - Intraoperative Equipment Entry 1 Type Scope Equipment Intraop Monitoring Electrocardiogram Three lead placement (ECG) Electrode Placement Blood Pressure Non-Invasive BP Device Source Antiembolic Devices Scopes Flexible Endoscopes Colonoscope Used Scope Serial T Number/Identificatio n Number Photo/Video Documentation Last Modified By: Marce Leong Rn 06/11/21 13:27:58 [facility] Endo - Patient Positioning Entry 1 Procedure Colon Polypectomy, Colon Biopsy, Colonoscopy w Control Bleeding Body Position Lateral, right side up Left Arm Position Resting at side Right Arm Position Resting at side Left Leg Position Other Right Leg Position Other Position Comments Left leg straight, Right leg over left leg Positioned By Marce Leong, Rn Position Verified Last Modified By: Marce Leong Rn 06/11/21 14:01:08 [facility] Endo - Patient Positioning Audit 06/11/21 14:01:08 Seo Analyst: [id number] Modifier: [id number] 1 <*> Procedure Colon Polypectomy, Colon Biopsy 06/11/21 14:01:05 Seo Analyst: [id number] Modifier: [id number] 1 <*> Procedure Colonoscopy, Colon Polypectomy, Colon Biopsy 06/11/21 13:38:02 Seo Analyst: [id number] Modifier: [id number] 1 <*> Procedure Colonoscopy, Colon Polypectomy 06/11/21 13:37:16 Seo Analyst: [id number] Modifier: [id number] 1 <*> Procedure Colonoscopy [facility] Endo - Sign In Entry 1 Patient, Site, Yes Procedure Identified Surgical Consent Yes Confirmed Relevant Surgical Yes Documents Available Surgical Site N/A Marked by person performing procedure Airway Hypothermia Risk No Warming Measures No Taken Last Modified By: Marce Leong Rn 06/11/21 13:28:10 [facility] Endo - Sign Out Entry 1 RN Confirmation Surgical Yes Procedure(s) Identified Instrument, Sponge N/A and Sharps Counts Correct/Documented Equipment Problems N/A Documented Specimen Labeled Yes Correctly Urinary Catheter N/A Documented in IView Wound Yes classification reviewed, verified and updated post case in both the General Case Data and Procedure segments Safety Checklist Yes Elements Complete? RN Sign Out Marce Leong Rn Signature RN Sign Out 06/11/21 14:13:00 Signature Date/Time Plan of Care Outcome - [...] related to extraneous objects Last Modified By: Marce Leong Rn 06/11/21 14:13:03 [facility] Endo - Surgical Procedures Entry 1 Entry 2 Entry 3 Procedure Colonoscopy w Control Colon Polypectomy Colon Biopsy Bleeding Modifiers Additional Cecal polyp, hepatic random colon biopsy Procedure flexure polyp, Description ascending colon polyp, transverse colon polyp, descending colon polyp, sigmoid colon polyp Primary Procedure Yes No No Primary Surgeon THANIA BLAKE MD-GAE MARTIN, KATHLEEN, MD-GAE MARTIN, KATHLEEN, MD-GAE Start 06/11/21 13:24:00 06/11/21 13:24:00 06/11/21 13:24:00 Stop 06/11/21 14:06:00 06/11/21 14:06:00 06/11/21 14:06:00 Physician States 06/11/21 13:33:00 06/11/21 13:33:00 06/11/21 13:33:00 Cecum Reached Anesthesia Type MAC MAC MAC Specialty Gastroenterology Gastroenterology Gastroenterology Wound Class No Incision No Incision No Incision Last Modified By: Marce Leong, Rn Marce Leong, Rn Marce Leong Rn 06/11/21 14:13:09 06/11/21 14:13:09 06/11/21 14:13:09 [facility] Endo - Surgical Procedures Audit 06/11/21 14:13:09 Seo Analyst: [id number] Modifier: [id number] <+> 1 Stop <+> 2 Stop <+> 3 Stop 06/11/21 14:03:08 Seo Analyst: [id number] Modifier: [id number] 2 <*> Procedure Colon Polypectomy 2 <*> Additional Procedure Description Cecal polyp, hepatic flexure polyp, ascending colon polyp, transverse colon polyp, descending colon polyp 06/11/21 14:01:06 Seo Analyst: [id number] Modifier: [id number] 1 <*> Procedure Colonoscopy 06/11/21 13:49:16 Seo Analyst: [id number] Modifier: [id number] 2 <*> Procedure Colon Polypectomy 2 <*> Additional Procedure Description Cecal polyp, hepatic flexure polyp, ascending colon polyp, transverse colon polyp 06/11/21 13:45:06 Seo Analyst: [id number] Modifier: [id number] 2 <*> Procedure Colon Polypectomy 2 <*> Additional Procedure Description Cecal polyp, hepatic flexure polyp, ascending colon polyp 06/11/21 13:43:14 Seo Analyst: [id number] Modifier: [id number] 2 <*> Procedure Colon Polypectomy 2 <*> Additional Procedure Description Cecal polyp, hepatic flexure polyp 06/11/21 13:37:58 Seo Analyst: [id number] Modifier: [id number] <+> 3 Procedure <+> 3 Primary Procedure <+> 3 Primary Surgeon <+> 3 Specialty <+> 3 Start <+> 3 Wound Class <+> 3 Anesthesia Type <+> 3 Additional Procedure Description <+> 3 Physician States Cecum Reached 06/11/21 13:37:13 Seo Analyst: [id number] Modifier: [id number] 1 <*> Procedure Colonoscopy 1 <+> Physician States Cecum Reached <+> 2 Procedure <+> 2 Primary Procedure <+> 2 Primary Surgeon <+> 2 Specialty <+> 2 Start <+> 2 Wound Class <+> 2 Anesthesia Type <+> 2 Additional Procedure Description <+> 2 Physician States Cecum Reached 06/11/21 13:28:58 Seo Analyst: [id number] Modifier: [id number] 1 <*> Procedure Colonoscopy 1 <+> Specialty 1 <+> Wound Class [facility] Endo - Time Out Entry 1 Procedure to be Colon Polypectomy, Performed Colon Biopsy, Colonoscopy w Control Bleeding Time Out Time Out Pause Time 06/11/21 13:23:00 All activity Yes suspended (unless life threatening [...] Required Anticipated Critical Events Surgeon None expected Last Modified By: Marce Leong Rn 06/11/21 14:01:08 [facility] Endo - Time Out Audit 06/11/21 14:01:08 Seo Analyst: [id number] Modifier: [id number] 1 <*> Procedure to be Performed Colon Polypectomy, Colon Biopsy 06/11/21 14:01:05 Seo Analyst: [id number] Modifier: [id number] 1 <*> Procedure to be Performed Colonoscopy, Colon Polypectomy, Colon Biopsy 06/11/21 13:38:02 Seo Analyst: [id number] Modifier: [id number] 1 <*> Procedure to be Performed Colonoscopy, Colon Polypectomy 06/11/21 13:37:17 Seo Analyst: [id number] Modifier: [id number] 1 <*> Procedure to be Performed Colonoscopy Case Comments <None> Finalized By: Marce Leong, Rn Document Signatures Signed By: Marce Leong Rn 06/11/21 14:13 documented in this encounter Plan of Treatment Not on file documented as of this encounter Visit Diagnoses Not on filedocumented in this encounter
--- OUTSIDE RECORDS SUMMARY | 2024-10-27 23:13 | XMS_ITS | Encounter Summary ---
Author Organization [email or web address] ([place], [place], [place], [place]) Address [address] [place] [address] Care Team Providers Care Electrical Equipment Assembler Name Role Phone Unavailable Primary Care Provider Unavailabl e Encounter Details Date Type Department Care Team (Late st Contact Info) Description 06/11/[address] [facility] [place] [address] ProviderMohamud MD [address] [place] [address] Social History Tobacco Use Types Packs/Day [...] Conversion Note - Historical ProviderMD - 06/11/2021 3:00 AM CDT Nutrition Assessment Entered On: 06/11/2021 12:49 EDT Performed On: 06/11/2021 14:[address], LD Nutrition Assessment Current Nutrition Regimen Comment : 06/11: High f/u. Pt was gone for colonoscopy today at visit instead of yesterday, since didn't have enough bowel prep yesterday per RN. Pt is NPO/clear X [address] without contrast showed no acute abnormalties. Unable to assess for PCM today. 06/08: Automatic consult r/t PU, BMI >40, [...] monitor diet advancement. Dx: UTI ?, abdominal pain, N/V, and diarrhea, LYNDSAY PMH: T2DM, HTN, morbid obesity bedridden Meds: Lasix, lispro, abx, PPI, KCl, pain prn, Zofran prn Labs: K 3.0, Gluc 165, Crea 1.2 (06/06) Alb 2.5, FSB, 152, 157 Skin: WOCN 06/08: stage II PU coccyx, L leg stage II PU GI: LBM 06/11 (liquid), +BS Diet: NPO (NPO/Clear X 3 days) (previously 60gm CHO: Intakes: 27.5% x 4 meals Ht: 64 in Wt: Admit 234#/106.36 kg (06/06), no new wt (06/11) EMR: no wt hx BMI: 40.2 IBW/IBW%: 54 kg/196% Estimated needs: 3679-9985 kcal (MSJ x 1-1.2), 125-160 g pro (1.2-1.5 g pro/kg) ADRIA JIANG RD, [place] - 06/11/2021 14:28 EDT Nutrition Assessment Reason : Follow Up ADRIA JIANG RD, [place] - 06/11/2021 12:49 EDT Nutrition Diagnoses Oral or Nutrition Support Intake : Inadequate oral intake Oral or Nutr Support Intake Related To : n/v, abd pain Oral or Nutr Support Intake Evidenced by : NPO/Clear X 3 days; previous intakes: 27.5% x 4 meals Oral or Nutrition Support Intake Status : Active Nutrient Intake : Increased nutrient needs Nutrient Intake Related to : skin integrity Nutrient Intake As Evidenced by : stage II PU coccyx, L leg stage II PU Nutrient Intake Status : Active Increased Nutrient Needs Comment : protein Weight : Obese, Class III Weight Related to : lifestyle? Weight As Evidenced by : BMI: 40.2 Weight Status : Active ADRIA JIANG RD, [place] - 06/11/2021 14:28 EDT Nutrition Interventions Meals and Snacks : Clear liquid diet Nutrition Supplement Therapy : Commercial beverage ADRIA JIANG RD, LD - 06/11/2021 14:28 EDT Monitoring/Evaluation Energy Intake : Total energy intake Protein Intake : Total protein Weight Status : Weight Maintanence Gastrointestinal Function : Bowel Function Integumentary : Pressure Ulcer Status ADRIA JIANG RD, LD - 06/11/2021 14:28 EDT Nutrition Recommendations Dietitian Recommendations : 1. Resume diet per GI: consider clear liqs, advancing to GI soft, 60 gm diet. Once diet advanced resume stephen BID. Modify ONS prn. Goal: Intakes >50% 2. Monitor glucose. Consider adding SSI PRN. Goal: 70-180 mg/dL 3. Obtain wt 1-2x weekly Goal: no significant wt changes 4. Assess for PCM as able Goal: accurate assessment Nutritional risk: High ADRIA JIANG RD, LD - 06/11/2021 14:28 EDT documented in this encounter Plan of Treatment Not on file documented as of this encounter Visit Diagnoses Not on filedocumented in this encounter
--- OUTSIDE RECORDS SUMMARY | 2024-10-27 23:13 | XMS_ITS | Encounter Summary ---
Author Organization [employer] ([place], [place], [place], [place]) Address [address] [place] [address] Care Team Providers Care Cloth Feeder Name Role Phone Unavailable Primary Care Provider Unavailabl e Encounter Details Date Type Department Care Team (Late st Contact Info) Description 06/11/2021 Transcribed Document [facility] [place] [facility] [place] [address] ProviderMohamud MD [address] [place] [address] Social History Tobacco Use Types [...] Conversion Note - Mohamud ProviderMD - 06/11/2021 11:40 AM CDT Please Modify Before Signing CLINICAL DOCUMENTATION CLARIFICATION FORM: Dear : __Lyndsay Date: __06/11/21 Please exercise your independent, professional judgment in responding to the clarification form. Clinical indicators are provided on the bottom of this form for your review Please check appropriate box(es): 1. Pressure Ulcer stage 2 to Coccyx present on admission (POA): [ x ] Yes [ ] No [ ] Unable to determine 2. Pressure Ulcer stage 2 to left leg present on admission (POA): [ x ] Yes [ ] No [ ] Unable to determine [ ] No pressure ulcer diagnosis [ ] Other diagnosis [ ] Unable to determine For continuity of documentation, please document condition throughout progress notes and discharge summary. Thank You. To be completed by CDI/Coding staff for physician review: Present Clinical Indicators - Signs / Symptoms / Labs Results and Location in Medical Record [ X ] Abrasion, blister, partial thickness skin loss involving epidermis and/or dermis (Stage 2) 06/08 WOCN: Documented stage 2 PI to coccyx and left leg POA Present Risk Factors Results and Location in Medical Record [ X ] Immobility/ bedridden/ debility 06/06 H&P: chronic generalized weakness/bedridden, [ X ] Morbid obesity 06/06 H&P: Morbid obesity Present Treatments Results and Location in Medical Record [ X ] Wound care consult 06/06 order: Consult wound care [ X ] Specialty mattress 06/06 standard protocol: low air-loss mattress CDS/Assembler Hydraulic Backhoe Signature: Shahrzad Chaves RN-CDS Phone #: _[phone] PRESSURE ULCER STAGES Stage I: Erythema Stage II: Partial thickness Stage III: Full thickness Stage IV: Necrosis to muscle/bone This is a permanent part of the Medical Record Q50 2020 [facility] [place] [facility] Reviewed: 06/2020 documented in this encounter Plan of Treatment Not on file documented as of this encounter Visit Diagnoses Not on filedocumented in this encounter
--- OUTSIDE RECORDS SUMMARY | 2024-10-27 23:13 | XMS_ITS | Encounter Summary ---
Author Organization [employer] ([place], [place], [place], [place]) Address [address] [place] [address] Care Team Providers Care Electrical Helper Name Role Phone Unavailable Primary Care Provider Unavailabl e Encounter Details Date Type Department Care Team (Late st Contact Info) Description 06/06/2021 Transcribed Document [facility] [place] Family Medicine [facility] [place] [address] ProviderMohamud MD [address] [place] [address] Social History Tobacco Use Types Packs/Day [...] Conversion Note - Historical ProviderMD - 06/06/2021 7:55 PM CDT Patient: DAJA RODAS Age: 70 years Sex: Female : 1950 Associated Diagnoses: None Author: KAMLESH CORTES, DO-INT Basic Information Source of history: Self, Medical record. Chief Complaint 06/06/2021 14:51 EDT to ed from home via [facility] with c/o abdominal pain x 1 week, 10/10 pain. Hx of DM, bedridden History of Present Illness Patient is a 70-year-old female with past medical history of [...] focal neurological deficits, or any other symptoms. Review of Systems Constitutional: Negative. Eye: Negative. Ear/Nose/Mouth/Throat: Negative. Respiratory: Negative. Cardiovascular: Negative. Gastrointestinal: Nausea, Diarrhea. Abdominal pain: Bilateral, Upper quadrant. Genitourinary: Negative. Hematology/Lymphatics: Negative. Endocrine: Negative. Immunologic: Negative. Musculoskeletal: Negative. Integumentary: Negative. Neurologic: Negative. Psychiatric: Negative. All other systems are negative Health Status Allergies: Allergic Reactions (Selected) Severity Not Documented Ciprofloxacin- Rash and rash. Vancomycin- Rash and rash., No qualifying data available Current medications: (Selected) Inpatient Medications Ordered Dulcolax Laxative: 5 mg, Oral, Daily, PRN: Constipation DuoNeb 0.5 mg-2.5 mg/3 mL inhalation solution: 3 mL, Nebulized Inhalation, RT_Q6H, PRN: Shortness of Breath MiraLax: 17 Gram, Oral, Daily, PRN: Constipation Normal Saline 1,000 mL: 100 mL/Hr, IntraVENous Pepcid: 20 mg, Oral, Daily Phenergan: 6.25 mg, IntraVENous, Q6H, PRN: Nausea Tylenol: 650 mg, Oral, Q4H, PRN: Fever Tylenol: 650 mg, Oral, Q4H, PRN: Pain (Mild 1-3) Zofran: 4 mg, IV Push, Q4H, PRN: Nausea acetaminophen-HYDROcodone 325 mg-5 mg oral tablet: 1 Tab, Oral, Q6H, PRN: Pain (Moderate 4-6) melatonin: 5 mg, Oral, At Bedtime, PRN: Insomnia, Medications (11) Active Scheduled: (1) famotidine 20 mg tab 20 mg 1 Tab, Oral, Daily Continuous: (1) NaCl 0.9% 1,000 mL 1,000 mL, IntraVENous, 100 mL/Hr PRN: (9) acetaminophen 325 mg tab 650 [...] inj 6.25 mg 0.25 mL, IntraVENous, Q6H , No qualifying data available Problem list: No qualifying data available Histories Past Medical History: Past medical history reviewed., As listed above in HPI Family History: Family history reviewed., Negative, noncontributory, no history of GI malignancies Procedure history: No active procedure history items have been selected or recorded. Social History Social & Psychosocial Habits Home/Environment 06/06/2021 Living situation: Home with assistance Tobacco Comment: nonsmoker - 06/06/2021 15:02 - ALINE RODRIGUEZ PA-C . Physical Examination VS/Measurements Vitals Signs (last 24 hrs) Last Charted Minimum Maximum Temp 98.3 (JUN 06 14:51) 98.3 (JUN 06 14:51) 98.3 (JUN 06 14:51) Mon HR 76 (JUN 06 18:47) 64 (JUN 06 15:43) 84 (JUN 06 18:00) Periph HR 78 (JUN 06 14:51) 78 (JUN 06 14:51) 78 (JUN 06 14:51) Resp Rate H 23 (JUN 06 18:47) 18 (JUN 06 14:51) H 24 (JUN 06 18:00) SBP H 143 (JUN 06 18:47) L 61 (JUN 06 15:00) H 152 (JUN 06 17:41) DBP 89 (JUN 06 18:47) L 42 (JUN 06 15:00) 89 (JUN 06 18:47) MAP 106 (JUN 06 18:47) 84 (JUN 06 15:43) 106 (JUN 06 18:47) SpO2 96 (JUN 06 18:47) 95 (JUN 06 14:51) 97 (JUN 06 15:43) General: Alert and oriented, No acute distress. Eye: Extraocular movements are intact, Normal conjunctiva, Vision unchanged. HENT: Normocephalic, Normal hearing, Oral mucosa is moist. Neck: Supple, Non-tender, No lymphadenopathy. Respiratory: Lungs are clear to auscultation, Respirations are non-labored, Breath sounds are equal, Symmetrical chest wall expansion, No chest wall tenderness. Cardiovascular: Normal rate, Regular rhythm, No murmur, Good pulses equal in all extremities, No edema. Gastrointestinal: Soft, Non-distended, Normal bowel sounds, No organomegaly, Upper abdominal tenderness. Musculoskeletal: No tenderness, No swelling, No deformity. Integumentary: Warm, Dry, Intact. Neurologic: Alert, Oriented, No focal deficits. Psychiatric: Cooperative, Appropriate mood & affect. Review / Management Results review: Labs (Last four charted values) WBC H 11.4 (JUN 06) HB 13.2 (JUN 06) HCT 40.3 (JUN 06) Plt 237 (JUN 06) Na L 135 (JUN 06) K 4.1 (JUN 06) Cl 102 (JUN 06) CO2 27 (JUN 06) BUN 20 (JUN 06) Cr H 1.80 (JUN 06) Glu R H 226 (JUN 06) Ca 8.9 (JUN 06) Lactic 1.6 (JUN 06) AST 28 (JUN 06) ALT 39 (JUN 06) ALK P 116 (JUN 06) T Bili 0.6 (JUN 06) PTN 6.5 (JUN 06) ALB L 2.5 (JUN 06) Lipase L 49 (JUN 06) , JUN 06 14:59 L 135 102 20 / H 226 4.1 27 H 1.80 \ JUN 06 14:59 \ 13.2 / H 11.4 237 / 40.3 \. Radiology results Radiology Results (Last 48 hours) [id number] -- 06/06/2021 14:51 CR Chest 1 Vw [...] adenopathy, or acute osseousabnormality.IMPRESSION: No acute disease. Impression and Plan 06/06/2021 Chart reviewed, ER records reviewed, SCDs DVT prophylaxis, Pepcid GI prophylaxis, diabetic diet Full code Abdominal pain with associated nausea, diarrhea; likely gastroenteritis; leukocytosis; questionable urinary tract infection Chest x-ray unremarkable CT abdomen pelvis without contrast shows no acute abnormalities; Unable to get CT abdomen pelvis with contrast 2/2 acute renal failure Urinalysis shows nitrate positive, however no culture was indicated Covid, influenza negative Stool Cultures ER initiated Zosyn Liver enzymes unremarkable, lipase unremarkable Pain control Antiemetics Bladder Scan Acute renal failure 2/2 prerenal hypoperfusion via dehydration IV normal saline Avoid nephrotoxins Monitor renal function Monitor electrolytes Elevated proBNP Bladder Scan Diabetes mellitus 2 Insulin, insulin sliding scale, hold any home p.o. medications A1c Hypotension with History of Hypertension Home antihypertensive medications, as needed hydralazine Morbid obesity Diet/weight loss counseling documented in this encounter Plan of Treatment Not on file documented as of this encounter Visit Diagnoses Not on filedocumented in this encounter
--- OUTSIDE RECORDS SUMMARY | 2024-10-27 23:13 | XMS_ITS | Encounter Summary ---
Author Organization [email or web address] ([place], [place], [place], [place]) Address [address] [place] [address] Care Team Providers Care Cabinet Finisher Name Role Phone Unavailable Primary Care Provider Unavailabl e Encounter Details Date Type Department Care Team (Late st Contact Info) Description 06/12/2021 Transcribed Document [facility] [place] [address] [place] [address] ProviderMohamud MD [address], [place] [phone] Social History Tobacco Use Types Packs/Day Years [...] Conversion Note - Historical ProviderMD - 06/12/2021 4:20 PM CDT Nursing Discharge Summary Entered On: 06/12/2021 16:20 EDT Performed On: 06/12/2021 16:20 EDT by Cora Crews Virtual RN Discharge Documentation Discharge Instructions Reviewed With, Opportunity For Questions Given : Patient Patient Education Completed : Yes Teaching Method : Explanation, Printed materials Teaching Evaluation : Verbalizes understanding Education Comment : pt v/u POC, safety, meds Security and privacy of room verified, meds, follow ups, conditions, restrictions Cora Crews Virtual RN - 06/12/2021 16:20 EDT documented in this encounter Plan of Treatment Not on file documented as of this encounter Visit Diagnoses Not on filedocumented in this encounter
--- OUTSIDE RECORDS SUMMARY | 2024-10-27 23:13 | XMS_ITS | Encounter Summary ---
Author Organization [employer] ([place], [place], [place], [place]) Address [address] [place] [address] Care Team Providers Care Configuration Release Manager Name Role Phone Unavailable Primary Care Provider Unavailabl e Encounter Details Date Type Department Care Team (Late st Contact Info) Description 06/11/2021 Transcribed Document [facility] [place] Family Medicine [facility] [address] ProviderMohamud MD [address] [place] [address] Social History Tobacco Use Types [...] Historical ProviderMD - 06/11/2021 1:24 PM CDT [facility] Endo PACU Summary Primary Physician: THANIA BLAKE MD-[facility] Finalized Date/Time: 06/11/21 14:28:06 Pt. Name: DAJA RODAS/Sex: 1950 Female Med Rec #: [id number] Physician: KAMLESH CORTES DO-INT Financial #: [id number] Pt. Type: I Room/Bed: [facility]/1 Admit/Disch: 06/06/21 19:46:00 - Institution: [facility] PACU Case Times Entry 1 In PACU I 06/11/21 14:14:00 Ready for PACU 06/11/21 14:28:00 Discharge Discharge from PACU 06/11/21 14:28:00 I Last Modified By: Aline Springer RN-PATIENT CARE BEDSIDE NON-EXEMPT 06/11/21 14:28:05 [facility] Endo PACU Case Times Audit 06/11/21 14:28:05 Pv Design And Installation Technician: [id number] Modifier: [id number] <+> 1 Ready for PACU Discharge <+> 1 Discharge from PACU I Finalized By: Aline Springer RN-PATIENT CARE BEDSIDE NON-EXEMPT Document Signatures Signed By: Aline Springer RN-PATIENT CARE BEDSIDE NON-EXEMPT 06/11/21 14:28 documented in this encounter Plan of Treatment Not on file documented as of this encounter Visit Diagnoses Not on filedocumented in this encounter
--- OUTSIDE RECORDS SUMMARY | 2024-10-27 23:13 | XMS_ITS | Encounter Summary ---
Author Organization [employer] ([place], [place], [place], [place]) Address [address] [place] [address] Care Team Providers Care Director Non Profit Name Role Phone Unavailable Primary Care Provider Unavailabl e Encounter Details Date Type Department Care Team (Late st Contact Info) Description 06/06/2021 Transcribed Document [facility] [place] [address] [place] [address] ProviderMohamud MD [address] [place] [phone] Social History Tobacco Use Types Packs/Day Years [...] Conversion Note - Historical ProviderMD - 06/06/2021 3:02 PM CDT Patient: DAJA RODAS Age: 70 years Sex: Female : 1950 Associated Diagnoses: Pain in the abdomen; UTI (urinary tract infection); Hypotension Author: ALINE RODRIGUEZ PA-C Basic Information Time seen: Date & time 06/06/2021 14:50:00. History source: Patient. Arrival mode: Ambulance. History limitation: None. Additional information: Chief Complaint from Nursing Triage Note : Chief Complaint 06/06/2021 14:51 EDT Chief Complaint to ed from home via [facility] with c/o abdominal pain x 1 week, 10/10 pain. Hx of DM, bedridden . History of Present Illness The patient presents with abdominal pain. The onset was 1 weeks ago. The course/duration of symptoms is worsening. The character of symptoms is crampy. The degree at onset was moderate. The Location of pain at onset was bilateral and upper. The degree at present is moderate. The Location of pain at present is bilateral and abdominal. Radiating pain: none. The exacerbating factor is none. The relieving factor is none. Therapy today: none. Risk factors consist of diabetes mellitus, age and obesity. Associated symptoms: nausea, diarrhea, denies chest pain, denies vomiting, denies back pain, denies shortness of breath, denies fever, denies chills, denies headache and denies dizziness. Review of Systems Constitutional symptoms: Negative except as documented in HPI. ENMT symptoms: Negative except as documented in HPI. Respiratory symptoms: Cough. Cardiovascular symptoms: Negative except as documented in HPI. Gastrointestinal symptoms: Abdominal pain, nausea, diarrhea. Musculoskeletal symptoms: Negative except as documented in HPI. Neurologic symptoms: Negative except as documented in HPI. Psychiatric symptoms: Negative except as documented in HPI. Endocrine symptoms: Negative except as documented in HPI. Hematologic/Lymphatic symptoms: Negative except as documented in HPI. Allergy/immunologic symptoms: Negative except as documented in HPI. Additional review of systems information: All other systems reviewed and otherwise negative. Health Status Allergies: Allergic Reactions (Selected) Severity Not Documented Ciprofloxacin- Rash and rash. Vancomycin- Rash and rash.. Past Medical/ Family/ Social History Medical history Reviewed as documented in chart. Cardiovascular: hypertension. Endocrine: diabetes. morbid obesity/bed bound.. Surgical history: No active procedure history items have been selected or recorded.. Family history: No family history items have been selected or recorded.. Social history: Social & Psychosocial Habits Home/Environment 06/06/2021 Living situation: Home with assistance Tobacco Comment: nonsmoker - 06/06/2021 15:02 - ALINE RODRIGUEZ PA-C . Problem list: No qualifying data available . Physical Examination Vital Signs Vital Signs/Vital Measures 06/06/2021 14:51 EDT Systolic Blood Pressure 102 mmHg Diastolic Blood Pressure 64 mmHg Temperature Source Oral Temperature Mode Fahrenheit Temperature, Fahrenheit 98.3 Deg F Clinical Temperature, C 36.8 Deg C Peripheral Pulse Rate 78 bpm Respiratory Rate 18 Breaths/Min Oxygen Saturation 95 % Oxygen Therapy Mode Room air . Measurements 06/06/2021 14:51 EDT Height Source Stated Height Entry Format [place] Height/Length, FAROESE (ft) 5 ft Height/Length FAROESE 4 Inch CLINICALHEIGHT 162.56 cm [place] Body Weight 54.3 kg Weight Source, ED Critical estimated dosing weight Weight Entry Format [place] Weight Kazakh lb 234 lb CLINICALWEIGHT 106.36 kg Body Surface Area (BSA) 2.09 m2 Body Mass Index 40.2 kg/m2 >HHI . Oxygen Saturation 06/06/2021 14:51 EDT Oxygen Saturation 95 % . General: Alert, no acute distress. Skin: Warm, dry, pink. Head: Normocephalic. Neck: Supple. Eye: Normal conjunctiva. Ears, nose, mouth and throat: Oral mucosa moist. Cardiovascular: Regular rate and rhythm, No murmur. Respiratory: Respirations are non-labored, breath sounds are equal, Breath sounds: Diminished. Chest wall: No tenderness, No deformity. Musculoskeletal: Normal ROM. Gastrointestinal: Soft, Non distended, Obese, Tenderness: Mild, generalized, Guarding: Negative. Neurological: Alert and oriented to person, place, time, and situation, normal sensory observed, normal motor observed, normal speech observed. Psychiatric: Cooperative, appropriate mood & affect, normal judgment. Medical Decision Making Differential Diagnosis: Abdominal pain, pancreatitis, peptic ulcer disease, gastritis, diverticulitis. Rationale: Code Sepsis called on patient today related to hypotension, elevated wbc, and fever at home. She responded well with one liter IVF fluids and bp normalized therefore sepsis fluid bolus not ordered. . Documents reviewed: Emergency department nurses' notes. Orders Include Previous Orders (Selected) Inpatient Orders Ordered Cardiac Monitoring: Consult to Dietitian: ED Isolation: Isolation: NPO (immediate): Normal Saline 1,000 mL: 100 mL/Hr, IntraVENous Pulse Oximetry Continuous Monitoring: Saline Lock Insert: Sepsis Advisor: Sepsis IVF Modification Assertion: Straight Catheter Insertion: Ordered (In-Lab) Culture Blood: Culture Blood: Completed .Automated Differential: .Urinalysis Microscopic: Broset Violence Assessment: CBC w/ Auto Diff: CMP Comprehensive Metabolic Panel: COVID19/Influenza A,B Panel PCR: CR Chest 1 Vw Portable: CT Abdomen Pelvis WO: ED Adult Fall Risk Assessment: ED Adult Triage: ED C-SSRS: ED Clinical Reconciliation: ED life care planner: EKG: Lactic Acid Level with Reflex if Indicated: Lipase Level: Normal Saline Bolus: 1,000 mL, 1,000 mL/Hr, IV Piggyback, 1-Time ProBNP: Troponin I High Sensitivity: Urinalysis UA Rflx Microscopic Cult if Ind: Zofran: 4 mg, IV Push, 1-Time Zosyn + Sodium Chloride 0.9% intravenous solution 100 mL: 4.5 Gram, 200 mL/Hr, IV Piggyback, 1-Time Discontinued Muñiz Insertion: Normal Saline Bolus: 1,000 mL, 1,000 mL/Hr, IV Piggyback, 1-Time . Electrocardiogram: Time 06/06/2021 15:11:00, rate 64, normal sinus rhythm, no ectopy, normal OK & QRS intervals, EP Interp, T wave Inversion, No old ekg to compare. Results review: All Results 06/06/2021 18:15 EDT Urine Type. U CleanCatch Urine Color Yellow Urine Appearance Clear Urine Specific [place] 1.012 Urine pH Dipstick 6.0 Urine Leukocyte Esterase Negative Urine Nitrite Positive Urine Protein Dipstick Negative Urine Glucose Dipstick Negative Urine Ketones Dipstick Negative Urine Urobilinogen Dipstick 0.2 EU/dL Urine Bilirubin Dipstick Negative Urine Blood Dipstick Negative Ur WBC 0-2 /HPF Ur WBC Clumps Present Ur Bacteria Trace Urine Culture if Indicated Not Indicated 06/06/2021 15:30 EDT Influenza A Negative Influenza B Negative SARS-CoV-2 (COVID19 PCR) Negative 06/06/2021 14:59 EDT Sodium Level 135 mmol/L LOW Potassium Level 4.1 mmol/L Chloride Level 102 mmol/L Carbon Dioxide Level 27 mmol/L Anion Gap 10 Glucose Level 226 mg/dL HI Blood Urea Nitrogen 20 mg/dL Creatinine Level 1.80 mg/dL HI eGFR 34 mL/min/1.73m2 LOW eGFR NonAfrican 28 mL/min/1.73m2 LOW Bun/Creatinine 11.1 Calcium Level 8.9 mg/dL Protein Total 6.5 Gram/dL Albumin Level 2.5 Gram/dL LOW Globulin 4.0 Gram/dL A/G Ratio 0.6 LOW Bilirubin Total 0.6 mg/dL Alk Phos 116 Units/Liter AST 28 Units/Liter ALT 39 Units/Liter Lipase Level 49 Units/Liter LOW Lactic Acid Level 1.6 mmol/L Troponin I High Sensitivity 40.9 pg/mL ProBNP 2,704 pg/mL HI WBC 11.4 K/uL HI RBC 4.48 Million/uL Hgb 13.2 g/dL Hct 40.3 % MCV 90.0 fL MCH 29.5 pg MCHC 32.8 Gram/dL Platelet Count 237 K/uL MPV 9.7 fL RDW 13.5 % Neut % 77.9 % HI Neut # 8.84 K/uL HI Lymph % 16.0 % LOW Lymph # 1.82 x10(3)/uL Mcdonough % 4.7 % Mcdonough # 0.53 K/uL Eos % 0.1 % Eos # 0.01 x10(3)/uL Baso % 0.4 % Baso # 0.05 x10(3)/uL Slide Review No IG# 0.10 x10(3)/uL HI IG% 0.90 % HI . Radiology results: Radiology Results (Last 48 hours) [id number] -- 06/06/2021 14:51 CR Chest 1 Vw [...] or acute osseousabnormality.IMPRESSION: No acute disease. . Reexamination/ Reevaluation Time: 06/06/2021 19:43:00 . Course: well controlled. Impression and Plan Diagnosis Pain in the abdomen - Admitting, Emergency medicine, Medical UTI (urinary tract infection) - Admitting, Emergency medicine, Medical Hypotension - Admitting, Emergency medicine, Medical Plan Condition: Improved, Stable. Orders: Launch Orders Admit/Transfer/Discharge: Admit to Inpatient (Order): Start: 06/06/2021 19:46 EDT, Admit reason: pain abdomen,uti, hypotension, dehydration, Estimated length of stay 2 Midnights or LONGER, Level of Care: Med-Surg with telemetry, Admitting: KAMLESH CORTES DO-INT . Notes: I certify that the MLP/CHIEF CLERK SHELTER performed the services as delegated. . documented in this encounter Plan of Treatment Not on file documented as of this encounter Visit Diagnoses Not on filedocumented in this encounter
--- OUTSIDE RECORDS SUMMARY | 2024-10-27 23:13 | XMS_ITS | Encounter Summary ---
Author Organization [facility] Address [address] [id number] Care Team Providers Care Vacuum Plastic Forming Machine Operator Name Role Phone Ashlie Miramontes HOTEL BAGGAGE HANDLER Primary Care Provider [phone] Reason for Visit * Reason Onset Date Comments Med Refill 03/03/2022 Encounter Details Date Type Department Care Team (Late st Contact Info) Description 03/03/2022 Refill [facility] [address] [place] [phone] Ashlie Miramontes, HOTEL BAGGAGE HANDLER [address] [place] [address] Social History Tobacco Use Types Packs/Day Years Used Date Smoking Tobacco: Never Assessed Comments Unknown Sex and Gender Information Value Date Recorded Sex Assigned at Not on file Legal Sex Female 12:54 PM EDT Gender Identity Not on file Sexual Orientation Not on file documented as of this encounter Miscellaneous Notes * Telephone Encounter - Latoya العلي RegSched Rep - 03/03/2022 11:26 AM EST Caller: Daja Steele Relationship: Self Best call back number: [phone] Requested Prescriptions: Requested Prescriptions Pending Prescriptions Disp Refills ??? atorvastatin (Lipitor) 40 MG tablet 90 tablet 0 Sig: Take 1 tablet by mouth Daily. ??? carvedilol (Coreg) 6.25 MG tablet 60 tablet 1 Sig: Take 1 tablet by mouth 2 (Two) Times a Day With Meals. ??? esomeprazole (nexIUM) 20 MG capsule 30 capsule 1 Sig: Take 1 capsule by mouth Every Morning Before Breakfast. ??? furosemide (LASIX) 20 MG tablet 30 tablet 1 Sig: Take 1 tablet by mouth Daily. ??? gabapentin (NEURONTIN) 300 MG capsule ??? Lantus SoloStar 100 UNIT/ML injection pen 15 mL 0 Sig: Inject 20 units Pharmacy where request should be sent: [facility] [address] [place] [address] [facility] [phone] Additional details provided by patient: PATIENT WOULD NEED REFILLS ON ALL MEDICATIONS AND WOULD LIKE TO KNOW IF PROVIDER WOULD KNOW IF SHE HAS BEEN APPROVED FOR TRANSPORTATION PLEASE ADVISE Does the patient have less than a 3 day supply: [x] Yes [] No Would you like a call back once the refill request has been completed: [x] Yes [] No If the office needs to give you a call back, can they leave a voicemail: [x] Yes [] No Emmett Miles 03/03/22 11:27 EST documented in this encounter Plan of Treatment Upcoming Encounters Date Type Department Care Team (Late st Contact Info) Description 11/14/2024 11:30 AM EDT Office Visit [facility] [address] [place] [phone] Ashlie Miramontes APRN [address] [place] [phone] documented as of this encounter Visit Diagnoses Not on filedocumented in this encounter Additional Health Concerns Infection Onset Date Last Indicated Resolved Time COVID (confirmed) 10/06/2021 10/06/2021 03/22/2022 9:08 PM EST documented as of this encounter Care Teams Vacuum Plastic Forming Machine Operator Relationship Specialty Start Date End Date Ashlie Miramontes APRN [address] [place] [address] PCP - General Family Medicine 02/10/22 documented as of this encounter
--- OUTSIDE RECORDS SUMMARY | 2024-10-27 23:13 | XMS_ITS | Encounter Summary ---
Author Organization [employer] ([place], [place], [place], [place]) Address [address] [place] [address] Care Team Providers Care Distribution Center Supervisor Name Role Phone Unavailable Primary Care Provider Unavailabl e Encounter Details Date Type Department Care Team (Late st Contact Info) Description 06/11/2021 Transcribed Document [facility] [place] Family Medicine [facility] [place] [address] ProviderMohamud MD [address] [place] [phone] Social History Tobacco Use Types Packs/Day Years [...] Conversion Note - Historical ProviderMD - 06/11/2021 2:00 AM CDT Technology Architect Details Entered On: 06/11/2021 1:05 EDT Performed On: 06/11/2021 2:00 EDT by Teresa Quiñones Lpn Order Details Isolation Precautions Order Detail : Standard Precautions Order Detail : N/A IV Order Detail : 1 Oxygen Order Detail : 0 Nurse Collect Order Detail : 0 Lift/Transfer : Maximal assist Central Line Order Detail : No Room Service : Needs Assistance Arterial Line : No Patient Needs Meds Crushed/Liquid : No Teresa Quiñones Lpn - 06/11/2021 1:05 EDT documented in this encounter Plan of Treatment Not on file documented as of this encounter Visit Diagnoses Not on filedocumented in this encounter
--- OUTSIDE RECORDS SUMMARY | 2024-10-27 23:13 | XMS_ITS | Encounter Summary ---
Author Organization [employer] ([place], [place], [place], [place]) Address [address] [place] [address] Care Team Providers Care Paint Prep Technician Name Role Phone Unavailable Primary Care Provider Unavailabl e Encounter Details Date Type Department Care Team (Late st Contact Info) Description 06/06/2021 Transcribed Document [facility] Family Medicine [address] [place] [address] ProviderMohamud MD [address] [place] [address] [phone] Social History Tobacco Use Types Packs/Day Years [...] ProviderMD - 06/06/2021 2:51 PM CDT ED Triage Entered On: 06/06/2021 14:58 EDT Performed On: 06/06/2021 14:51 EDT by Lissette Ennis RN ED Triage Across the Room Chief Complaint : to ed from home via [facility] with c/o abdominal pain x 1 week, 10/10 pain. Hx of DM, bedridden Triage Date/Time : 06/06/2021 14:51 EDT Lissette Ennis RN - 06/06/2021 14:51 EDT DCP GENERIC CODE Tracking Acuity : 3 - Urgent Tracking Group : [facility] ED Lissette Ennis RN - 06/06/2021 14:51 EDT Mode of Arrival : Stretcher Transported to ED by : Private vehicle To Room Via : Stretcher Accompanied By : Unaccompanied ED Vital Signs : Document Height & Weight : Document ED Allergies : Document ED Reason for Visit : Document Disbursing Agent Needed : Lissette Vick RN - 06/06/2021 14:51 EDT Infectious Disease History Does patient have symptoms of COVID-19? : No Has the Patient Been Tested for COVID-19 in the last 14 days? : No, Patient stated Does the Patient state known exposure to a COVID-19 positive case in the last 14 days? : No Patient Vaccinated for COVID-19 : Not vaccinated Does Patient want a COVID-19 Vaccine? : No Lissette Ennis RN - 06/06/2021 14:51 EDT Infectious Disease Risk Screening Grid Cough < 2 wks of unknown origin : NO Cough > 2 weeks : NO Blood in Sputum : NO Fever or self-reported Fever : NO Rash of unknown origin : NO Headache : NO Stiff neck : NO Night Sweats : NO Unexplained Weight Loss : NO Diarrhea (3 episode per day) : NO Lissette Ennis RN - 06/06/2021 14:51 EDT Physical contact outside [place] in the last 30 days : No Hospitalized in Foreign Country : No Infectious Disease History : None INF Disease TB Screening Calc : 0 INF Disease Recent Travel Calc : 0 Lissette Ennis RN - 06/06/2021 14:51 EDT Vital Signs ED Temperature Source : Oral Temperature Mode : Fahrenheit Temperature, Fahrenheit : 98.3 Deg F Clinical Temperature, C : 36.8 Deg C Oxygen Therapy Mode : Room air Peripheral Pulse Rate : 78 bpm Respiratory Rate : 18 Breaths/Min Systolic Blood Pressure : 102 mmHg Diastolic Blood Pressure : 64 mmHg Oxygen Saturation : 95 % Lissette Ennis RN - 06/06/2021 14:51 EDT Allergy (As Of: 06/06/2021 14:58:37 EDT) Allergies (Active) ciprofloxacin Estimated Onset Date: Unspecified ; Reactions: rash, rash ; Created By: Contributor_system HIST_ANDRES; Reaction Status: Active ; Category: Drug ; Substance: ciprofloxacin ; Type: Allergy ; Updated By: Jaden_nicki HIST_ANDRES; Reviewed Date: 06/06/2021 14:52 EDT vancomycin Estimated Onset Date: Unspecified ; Reactions: rash, rash ; Created By: Jaden_system HIST_ANDRES; Reaction Status: Active ; Category: Drug ; Substance: vancomycin ; Type: Allergy ; Updated By: Contributor_systemTIA_ANDRES; Reviewed Date: 06/06/2021 14:52 EDT Diagnosis Control ED (As Of: 06/06/2021 14:58:37 EDT) Diagnoses(Active) Abdominal pain Date: 06/06/2021 ; Diagnosis Type: Reason For Visit ; Confirmation: Complaint of ; Clinical Dx: Abdominal pain ; Classification: Medical ; Clinical Service: Emergency medicine ; Code: PNED ; Probability: 0 ; Diagnosis Code: [id number] ED Height and Weight Height Source : Stated Height Entry Format : [place] Height, Feet : 5 ft(Converted to: 152 cm, 60 Inch) Height, Inches : 4 Inch(Converted to: 0 ft 4 Inch, 10.16 cm) Clinical Height : 162.56 cm Weight Source, ED : Critical estimated dosing weight Weight Entry Format : [place] Weight, Pounds : 234 lb Clinical Dosing Weight : 106.36 kg Body Surface Area (BSA) : 2.09 m2 Body Mass Index : 40.2 kg/m2 (>HHI) [place] Body Weight (IBW) : 54.3 kg Lissette Ennis RN - 06/06/2021 14:51 EDT documented in this encounter Plan of Treatment Not on file documented as of this encounter Visit Diagnoses Not on filedocumented in this encounter
--- OUTSIDE RECORDS SUMMARY | 2024-10-27 23:13 | XMS_ITS | Encounter Summary ---
Author Organization [employer] ([place], [place], [place], [place]) Address [address] [place] [address] Care Team Providers Care Machine Setter And Repairer Name Role Phone Unavailable Primary Care Provider Unavailabl e Encounter Details Date Type Department Care Team (Late st Contact Info) Description 06/11/[address] [facility] Family Medicine [facility] [place] [address] ProviderMohamud MD [address] [place] [address] Social History Tobacco Use Types [...] Conversion Note - Historical ProviderMD - 06/11/2021 10:30 AM CDT [facility] PreOp Summary Primary Physician: THANIA BLAKE MD-[facility] Finalized Date/Time: 06/11/21 12:57:47 Pt. Name: DAJA RODAS/Sex: 1950 Female Med Rec #: [id number] Physician: KAMLESH CORTES DO-INT Financial #: [id number] Pt. Type: I Room/Bed: 384/1 Admit/Disch: 06/06/21 19:46:00 - Institution: [facility] PreOp Case Times Entry 1 In Preop 06/11/21 12:45:00 Ready for Holding n/a Room Patient Ready for 06/11/21 12:56:00 Surgery Patient Out of Preop 06/11/21 12:56:00 Patient Out of n/a Holding Room Last Modified By: NORBERTO MILES RN, Registered Nurse 06/11/21 12:57:45 Finalized By: NORBERTO MILES RN, Registered Nurse Document Signatures Signed By: NORBERTO MILES RN, Registered Nurse 06/11/21 12:57 Electronically signed by [facility] Conversion Heating And Cooling Technician Cerner at 07/02/2022 10:56 AM CDT documented in this encounter Plan of Treatment Not on file documented as of this encounter Visit Diagnoses Not on filedocumented in this encounter
--- OUTSIDE RECORDS SUMMARY | 2024-10-27 23:13 | XMS_ITS | Encounter Summary ---
Author Organization [employer] ([place], [place], [place], [place]) Address [address] [place] [address] Care Team Providers Care Programming Instructor Name Role Phone Unavailable Primary Care Provider Unavailabl e Encounter Details Date Type Department Care Team (Late st Contact Info) Description 06/15/[address] [facility] Family Medicine [address] [place] [address] ProviderMohamud MD [address] [place] [address] [phone] Social History Tobacco Use Types Packs/Day Years Used Date Smoking Tobacco: Never Assessed Comments Unknown Sex and Gender Information Value Date Recorded Sex Assigned at Female 09/08/2021 5:34 PM CDT Legal Sex Female 5:34 PM CDT Gender Identity Female 09/08/2021 5:34 PM CDT Sexual Orientation Not on file documented as of this encounter Miscellaneous Notes * Cerner Conversion Note - Historical ProviderMD - 06/15/2021 1:06 PM CDT UM Authorization Entered On: 06/15/2021 13:06 EDT Performed On: 06/15/2021 13:06 EDT by Iliana Miles, Public Health Technologist Primary Insurance Authorization Authorization and Policy Numbers : Insurance 1 Health Plan: [facility] [employer] REPL Policy Number: [id number] Authorization Number: Insurance Primary Name : [employer] REPL Policy Number: [id number] Authorization Status-Primary : Awaiting callback Auth/Referral Contact Name-Primary : [place] Reference Number-Primary : [id number] Authorized Service Begin Date-Primary : 06/06/2021 EDT Authorization Comments-Primary : Discharge summary faxed. Historical Authorization Comments-Primary : Comment 1: clinicals submitted on [employer]ity for c/s auth (KATIE PATINO, RN-UTILIZATION MANAGEMENT REVIEW NON-EXEMPT 06/11/2021 08:40) Comment 2: AUTH SUBMITTED ON [employer] W/ CLINICAL ATTACHED (Carla Mitchell, Rn-Utilization Review 06/07/2021 11:30) Iliana Miles, Public Health Technologist - 06/15/2021 13:06 EDT Electronically signed by [facility] Conversion Physical Education Professor Cerner at 07/02/2022 10:45 AM CDT documented in this encounter Plan of Treatment Not on file documented as of this encounter Visit Diagnoses Not on filedocumented in this encounter
--- OUTSIDE RECORDS SUMMARY | 2024-10-27 23:13 | XMS_ITS | Encounter Summary ---
Author Organization [employer] ([place], [place], [place], [place]) Address [address] [place] [address] Care Team Providers Care Culinary Arts Instructor Name Role Phone Unavailable Primary Care Provider Unavailabl e Encounter Details Date Type Department Care Team (Late st Contact Info) Description 06/12/2021 Transcribed Document [facility] Family Medicine [facility] [place] [address] ProviderMohamud MD [address] [place] [address] Social History Tobacco Use Types [...] Conversion Note - Historical ProviderMD - 06/12/2021 1:44 PM CDT Patient: DAJA RODAS Age: 70 [...] 06/11 - I feel better no fever 06/12 - co weakness no fever or chills no rash I am leaving today no cough ROS -otherwise negative but limited Health Status [...] IV Piggyback, Q8HInt Lasix: 20 mg, Oral, Daily MiraLax: 17 Gram, Oral, Daily, PRN: Constipation Pepcid: 20 mg, IV Push, BID Phenergan: 6.25 mg, IntraVENous, Q6H, PRN: Nausea Rocephin: 2 Gram, 100 mL/Hr, IV Piggyback, [id number] Tylenol: 650 mg, Oral, Q4H, PRN: Fever [...] release: 10 mEq, 1 Tab, Oral, TID Prescriptions Prescribed Zithromax Z-Darryn 250 mg oral tablet: 1 Tab, Oral, Daily, TAKE 2 TABLETS FIRST DAY, THEN 1 TABLET DAILY, 6 Tab, 0 Refill(s) acetaminophen-HYDROcodone 325 mg-5 mg oral tablet: 1 Tab, Oral, Q6H, PRN: Pain (Severe 7-10), 9 Tab, 0 Refill(s) famotidine 20 mg oral tablet: 1 Tab, Oral, BID, for 7 Day(s), 14 Tab, 0 Refill(s) lactobacillus acidophilus oral capsule: 1 Cap, Oral, BID, or any over the counter PROBIOTIC, 30 Cap, 0 Refill(s) ondansetron 4 mg oral tablet, disintegratin Tab, Oral, Q8H, PRN: Nausea/Vomiting, 15 Tab, 0 Refill(s) Documented Medications Documented Lantus Solostar Pen 100 units/mL subcutaneous solution: 12 Units, SubCutaneous, At Bedtime, 10 mL, 0 Refill(s) NexIUM 24HR 20 mg oral delayed release capsule: 1 Cap, Oral, Daily, 0 Refill(s) allopurinol 100 mg oral tablet: 1 Tab, Oral, Daily, 30 Tab, 0 Refill(s) amLODIPine 2.5 mg oral tablet: 1 Tab, Oral, Daily, 0 Refill(s) atorvastatin 40 mg oral tablet: 1 Tab, Oral, At Bedtime, 0 Refill(s) carvedilol 6.25 mg oral tablet: 1 Tab, Oral, BID, 60 Tab, 0 Refill(s) furosemide 20 mg oral tablet: 1 Tab, Oral, Daily, 0 Refill(s) gabapentin 300 mg oral capsule: 1 Cap, Oral, At Bedtime, 60 Cap, 0 Refill(s) loratadine 10 mg oral tablet: 1 Tab, Oral, Daily, PRN: Allergies, 0 Refill(s) potassium chloride 10 mEq oral capsule, extended release: 1 Cap, Oral, Daily, 30 Cap, 0 Refill(s), Medications (21) Active Scheduled: (9) carvedilol 3.125 mg tab 3.125 mg 1 Tab, Oral, BID cefTRIAXone 2 Gram, IV Piggyback, [id number] famotidine 20 mg/2 mL inj 20 mg 2 mL, IV Push, BID furosemide 20 mg tab 20 mg 1 Tab, Oral, Daily gabapentin 300 mg cap 300 mg 1 Cap, Oral, At Bedtime insulin glargine 1 unit/0.01 mL inj 5 Units 0.05 mL, SubCutaneous, Daily insulin lispro 1 unit/0.01 mL inj greater than 101 kg scale, SubCutaneous, AC and at Bedtime metroNIDAZOLE 500 mg 100 mL, IV Piggyback, Q8HInt potassium chloride CR 10 mEq tab 10 mEq 1 Tab, Oral, TID Continuous: (0) PRN: (12) acetaminophen 325 mg tab 650 [...] History of obstructive sleep apnea / IMO [id number] / Confirmed, Active Problems (1) History of [...] 24 hrs) Last Charted Minimum Maximum Temp 97.9 (JUN 12 10:30) 97.9 (JUN 12 10:30) 97.7 (JUN 11 15:30) Mon HR 74 (JUN 12 10:30) 69 (JUN 12 06:23) 75 (JUN 11 14:15) Resp Rate 18 (JUN 12 06:23) 16 (JUN 12 00:23) 18 (JUN 11 14:15) SBP 134 (JUN 12 10:30) 101 (JUN 12 06:23) 134 (JUN 12 10:30) DBP 65 (JUN 12 10:30) L 52 (JUN 12 06:23) 79 (JUN 11 15:00) MAP 93 (JUN 12 10:30) 65 (JUN 12 06:23) 93 (JUN 12 10:30) SpO2 96 (JUN 12 10:30) L 93 (JUN 12 06:23) 100 (JUN 11 14:30) General: Alert and oriented, No acute distress. Eye: Normal conjunctiva. Neck: Supple, Non-tender. Respiratory: Lungs are clear to auscultation, Respirations are non-labored. Cardiovascular: Normal rate, Regular rhythm, No murmur. Gastrointestinal: Soft, Non-distended, epigastric tenderness. Musculoskeletal: No tenderness. Integumentary: Warm. Neurologic: Alert. Cognition and Speech: Oriented. Psychiatric: Cooperative. Review / Management Results review: Labs (Last four charted values) WBC L [...] Morbid obesity Salmonella gastroenteritis Will continue Rocephin - last dose today Colonoscopy done C Diff negative Long discussion with patient Risks and benefits of antibiotics and IV access discussed At risk for secondary events and progression of this infection Medicines reviewed X-rays seen Prognosis fair PO Rx should be adequate soon - Z-Pack Discussed with Attending documented in this encounter Plan of Treatment Not on file documented as of this encounter Visit Diagnoses Not on filedocumented in this encounter
--- OUTSIDE RECORDS SUMMARY | 2024-10-27 23:13 | XMS_ITS | Encounter Summary ---
Author Organization [employer] ([place], [place], [place], [place]) Address [address] [place] [address] Care Team Providers Care Ampoule Inspector Name Role Phone Unavailable Primary Care Provider Unavailabl e Encounter Details Date Type Department Care Team (Late st Contact Info) Description 06/11/2021 Transcribed Document [facility] [place] [address] [place] [address] ProviderMohamud MD [address] [place] [address] Social History Tobacco Use Types Packs/Day [...] Conversion Note - Historical ProviderMD - 06/11/2021 3:10 PM CDT On Going Discharge Planning Entered On: 06/11/2021 15:13 EDT Performed On: 06/11/2021 15:10 EDT by BETHANY KRISHNAMURTHY RN-Burnt Lime DrawerBody Straightener Progress Note Discharge Arrangements : Patient Post-Acute [...] : Yes List/Info Provided Pt/Fam/Support Person : [facility] Quality Web Info Shared w Pt/Fam : Yes Is the Patient Meeting Medical Necessity : Yes Did you Attend Multidisciplinary Rounds? : Yes BETHANY KRISHNAMURTHY, RN-Burnt Lime Drawer - 06/11/2021 15:10 EDT Narrative Progress Note Narrative Progress Note : Day 5 of 3 ELOS Moderate readmission risk MDR with Dr Christy Umana Pt scheduled to have a Colonoscopy today DC plan is home with family [facility] has been notified to resume services [facility] scheduled for 06/12/2021 @ 1600 CM will continue to follow Historical Progress Note : Day 4 of 3 ELOS Moderate readmission risk DC plan is home with family + HH [facility] has been notified to resume services [facility] scheduled for 06/12/2021 @ 1600 Expect DC at time of ambulance Pt declined rehab CM will continue to follow Jack White SAP ADMINISTRATOR NON-EXEMPT - 06/10/21 11:04:59 Day 3 of 3 ELOS. Moderate readmission risk Pt still declining rehab Pt wants to resume family care & HH services [facility] has already been sent resumptive orders Ambulance transport CM will continue to follow Jack White SAP ADMINISTRATOR NON-EXEMPT - 06/09/21 14:01:43 Day 3 of 3 ELOS. Moderate readmission risk Pt still declining rehab Pt wants to resume family care & HH services [facility] has already been sent resumptive orders Ambulance transport on will call with hold date of 06/12/2021 @ 1200 CM will continue to follow Jack White SAP ADMINISTRATOR NON-EXEMPT - 06/09/21 14:17:39 Day 2 with no ELOS Moderate readmission risk Pt active with [facility] HH Pt & family refusing rehab as baseline is hospital bed bound with lift for transfers Family provides care at home CM contacted [facility] & confirmed they can take back at DC Pt is expected to need ambulance transport at DC DC unknown at this time CM will continue to follow Jack White SOCIAL WORKER NON-EXEMPT - 06/08/21 14:55:51 BETHANY KRISHNAMURTHY RN-Burnt Lime Drawer - 06/11/2021 15:10 EDT documented in this encounter Plan of Treatment Not on file documented as of this encounter Visit Diagnoses Not on filedocumented in this encounter
--- OUTSIDE RECORDS SUMMARY | 2024-10-27 23:13 | XMS_ITS | Encounter Summary ---
Author Organization [employer] ([place], [place], [place], [place]) Address [address] [place] [address] Care Team Providers Care Health Inspector Food Name Role Phone Unavailable Primary Care Provider Unavailabl e Encounter Details Date Type Department Care Team (Late st Contact Info) Description 06/12/2021 Transcribed Document [facility] Family Medicine [address] [place] [address] ProviderMohamud MD [address] [place], [place] [phone] Social History Tobacco Use Types Packs/Day Years [...] Conversion Note - Historical ProviderMD - 06/12/2021 3:03 PM CDT Stroke/Warfarin Instructions Entered On: 06/12/2021 15:03 EDT Performed On: 06/12/2021 15:03 EDT by Cora Crews Virtual RN Stroke/Warfarin Instructions Stroke/TIA Discharge Ins : N/A Warfarin Discharge Ins : N/A Cora Crews Virtual RN - 06/12/2021 15:03 EDT documented in this encounter Plan of Treatment Not on file documented as of this encounter Visit Diagnoses Not on filedocumented in this encounter
--- OUTSIDE RECORDS SUMMARY | 2024-10-27 23:13 | XMS_ITS | Encounter Summary ---
Author Organization [facility] Address [address] [place] [id number] Care Team Providers Care Wound/Ostomy Nurse Name Role Phone Ashlie Miramontes RECORD RETRIEVAL SPECIALIST Primary Care Provider [phone] Reason for Visit * Reason Comments Med Refill Encounter Details Date Type Department Care Team (Late st Contact Info) Description 02/06/2024 Refill [facility] [address] [place] [phone] Ashlie Miramontes APRN [address] [place], [place] [phone] Type 2 diabetes mellitus with stage 3a chronic kidney disease, with long-term current use of insulin; Controlled type 2 diabetes mellitus with diabetic polyneuropathy, with long-term current use of insulin; Mixed hyperlipidemia Social History Tobacco Use Types [...] Description 11/14/2024 11:30 AM EDT Office Visit [facility] [address] [place] [phone] Ashlie Miramontes APRN [address] [place] [address] documented as of this encounter Visit Diagnoses Diagnosis Type 2 diabetes mellitus with stage 3a chronic kidney disease, with long-term current use of insulin Controlled type 2 diabetes mellitus with diabetic polyneuropathy, with long-term current use of insulin Mixed hyperlipidemia documented in this encounter Care Teams Wound/Ostomy Nurse Relationship Specialty Start Date End Date Ashlie Miramontes APRN [address] [place] [address] PCP - General Family Medicine 02/10/22 documented as of this encounter
--- OUTSIDE RECORDS SUMMARY | 2024-10-27 23:13 | XMS_ITS | Encounter Summary ---
Author Organization [employer] ([place], [place], [place], [place]) Address [address] [place] [address] Care Team Providers Care Blending Technician Name Role Phone Unavailable Primary Care Provider Unavailabl e Encounter Details Date Type Department Care Team (Late st Contact Info) Description 06/07/2021 Transcribed Document [facility] Family Medicine [address] [place] [address] ProviderMohamud MD [address] [place] [address] [phone] Social History Tobacco Use Types Packs/Day Years [...] Historical ProviderMD - 06/07/2021 11:05 AM CDT Therapy Screen, PT Entered On: 06/07/2021 11:20 EDT Performed On: 06/07/2021 11:05 EDT by HIMANSHU LEE, PT Therapy Screen, PT Medical Chart Reviewed : Yes Person Providing Information : Nurse, Patient Screen Completed : Yes Recommendation for Evaluation, PT : None Recommendations Upon Discharge : None Additional Therapy Screen Comment : Pt lives with her daughter and sleeps in a hospital bed and is transferred to a w/c, infrequently, via a mechanical lift. She states she only sits up for a few minutes. She declined PT eval for mobility and is not appropriate at this time. RN, sushil Mcgraw KAREN, PT - 06/07/2021 11:19 EDT documented in this encounter Plan of Treatment Not on file documented as of this encounter Visit Diagnoses Not on filedocumented in this encounter
--- OUTSIDE RECORDS SUMMARY | 2024-10-27 23:13 | XMS_ITS | Encounter Summary ---
Author Organization [employer] ([place], [place], [place], [place]) Address [address] [place] [address] Care Team Providers Care Truck Bracer Name Role Phone Unavailable Primary Care Provider Unavailabl e Encounter Details Date Type Department Care Team (Late st Contact Info) Description 06/12/2021 Transcribed Document [facility] Family Medicine [facility] [place] [address] ProviderMohamud MD [address] [place], [place] [phone] Social History Tobacco Use Types Packs/Day Years [...] Conversion Note - Historical ProviderMD - 06/12/2021 5:00 AM CDT Chart Check - Review Order Profile Entered On: 06/12/2021 4:39 EDT Performed On: 06/12/2021 5:00 EDT by Teresa Quiñones Lpn Chart Check Powerplans Initiated/Discontinued as Appropriate : Yes All Active Orders Reviewed : Yes Teresa Quiñones Lpn - 06/12/2021 4:39 EDT documented in this encounter Plan of Treatment Not on file documented as of this encounter Visit Diagnoses Not on filedocumented in this encounter
--- OUTSIDE RECORDS SUMMARY | 2024-10-27 23:13 | XMS_ITS | Encounter Summary ---
Author Organization [employer] ([place], [place], [place], [place]) Address [address] [place] [address] Care Team Providers Care Health Education Coordinator Name Role Phone Unavailable Primary Care Provider Unavailabl e Encounter Details Date Type Department Care Team (Late st Contact Info) Description 06/12/2021 Transcribed Document [facility] Family Medicine [address] [place] [address] ProviderMohamud MD [address] [place] [address] [phone] Social History Tobacco Use Types Packs/Day Years [...] Conversion Note - Mohamud ProviderMD - 06/12/2021 11:25 AM CDT Final Discharge Planning Entered On: 06/12/2021 11:27 EDT Performed On: 06/12/2021 11:25 EDT by Jack White, OFFICE SUPERVISOR NON-EXEMPT Final Discharge Planning Discharge Arrangements : Patient Post-Acute Information Patient Name: DAJA RODAS Gender: Female : 50 Age: 70 Years No Post-Acute Placement(s) Listed No Post-Acute Service(s) Listed No [place] Referral(s) Listed Patient Offered Choice/Affiliations Explained : Yes Designation of Choice Signed : Yes Important Medicare Message Reviewed With : Patient Important Medicare Message Reviewed D/T : 06/12/2021 11:25 EDT Transportation Needs : Ambulance Discharge Transportation Arrangement Cmt : [facility] at 1600 Follow Up Appointment Scheduled : Yes Is Patient High/Moderate Readmission Risk? : Yes Moderate Readmission Risk - Home with Home Health : Make post-discharge physician appointment within 5-7 days of discharge. Patient/Family Notified of Plan : Yes Support Person/Pt Rep Notified of Plan : Yes Patient/Family Notified : Yes Is Patient Ready for Discharge? : Yes Physician Notified Patient is Ready for Discharge? : Yes Discharge To Care Management : Home Health Services (Related/SOC within 3 days)-06 Jack White, OFFICE SUPERVISOR NON-EXEMPT - 06/12/2021 11:25 EDT documented in this encounter Plan of Treatment Not on file documented as of this encounter Visit Diagnoses Not on filedocumented in this encounter
--- OUTSIDE RECORDS SUMMARY | 2024-10-27 23:13 | XMS_ITS | Encounter Summary ---
Author Organization [facility] Address [address] [id number] Care Team Providers Care [employer] Safety Engineer Name Role Phone Ashlie Miramontes SHAFTING WORKER Primary Care Provider [phone] Reason for Visit * Reason Onset Date Comments MEDICATION RFILL 05/26/2022 Encounter Details Date Type Department Care Team (Late st Contact Info) Description 05/26/2022 Telephone [facility] [address] [place] [phone] Ashlie Miramontes APRN [address] [place] [address] MEDICATION RFILL Social History Tobacco Use Types Packs/Day Years Used Date Smoking Tobacco: Never Assessed Comments Unknown Sex and Gender Information Value Date Recorded Sex Assigned at Not on file Legal Sex Female 12:54 PM EDT Gender Identity Not on file Sexual Orientation Not on file documented as of this encounter Miscellaneous Notes * Telephone Encounter - Mariluz Ellis RegSched Rep - 05/26/2022 10:12 AM EDT Caller: [id number] Relationship: Self Best call back number: [phone] Requested Prescriptions: Requested Prescriptions Pending Prescriptions Disp Refills ??? atorvastatin (LIPITOR) 40 MG tablet 90 tablet 0 Sig: [...] Take 1 tablet by mouth Daily. ??? Lantus SoloStar 100 UNIT/ML injection pen 15 mL 0 Sig: Inject 20 units once every night ??? potassium chloride 10 MEQ CR tablet 60 tablet 3 Sig: Take 1 tablet by mouth 2 (Two) Times a Day. Pharmacy where request should be sent: [address] [phone] - [phone] Additional details provided by patient: NA Does the patient have less than a 3 day supply: [x] Yes [] No Would you like a call back once the refill request has been completed: [x] Yes [] No If the office needs to give you a call back, can they leave a voicemail: [x] Yes [] No Emmett Conley 05/26/22 10:16 EDT documented in this encounter Plan of Treatment Upcoming Encounters Date Type Department Care Team (Late st Contact Info) Description 11/14/2024 11:30 AM EDT Office Visit [facility] [address] [place] [phone] Ashlie Miramontes APRN [address] [place] [address] documented as of this encounter Visit Diagnoses Diagnosis Mixed hyperlipidemia Primary hypertension Unspecified essential hypertension Chronic gout of multiple sites, unspecified cause Edema, unspecified type Controlled type 2 diabetes mellitus with diabetic polyneuropathy, with long-term current use of insulin documented in this encounter Care Teams [employer] Safety Engineer Relationship Specialty Start Date End Date Ashlie Miramontes APRN [address] [place] [id number] PCP - General Family Medicine 02/10/22 documented as of this encounter
--- OUTSIDE RECORDS SUMMARY | 2024-10-27 23:13 | XMS_ITS | Encounter Summary ---
Author Organization [employer] ([place], [place], [place], [place]) Address [address] [place] [address] Care Team Providers Care Dental Equipment Mechanic Name Role Phone Unavailable Primary Care Provider Unavailabl e Encounter Details Date Type Department Care Team (Late st Contact Info) Description 06/06/2021 Transcribed Document [facility] [place] Family Medicine [address] [place] [id number] ProviderMohamud MD [address] [place] [address] [id number] Social History Tobacco Use Types Packs/Day Years [...] Conversion Note - Historical ProviderMD - 06/06/2021 3:45 PM CDT Rapid Response Team Documentation Entered On: 06/06/2021 15:46 EDT Performed On: 06/06/2021 15:45 EDT by GREY MACK RN Rapid Response Event Time Rapid Response Team Called : 06/06/2021 15:45 EDT Rapid Response Team Arrival Time : 06/06/2021 15:45 EDT Rapid Response Team Event End Time : 06/06/2021 15:45 EDT Rapid Response Event Intiated By : Other: ED orange 4 Rapid Response Team Initiation Reason : Positive SIRS screen Rapid Response Team Initiation Reason Details : protocol initiated Rapid Response Admission Diagnosis : Abdominal pain Rapid Response Medical Background : No qualifying problems Rapid Response Allergies : Substance Category Reactions Severity ciprofloxacin Drug ciprofloxacin Drug vancomycin Drug vancomycin Drug Rapid Response Recent Vital Signs : 06/06/2021 15:43 Systolic Blood Pressure 106 06/06/2021 15:43 Diastolic Blood Pressure 69 06/06/2021 15:43 Heart Rate Monitored 64 06/06/2021 15:43 Respiratory Rate 22 06/06/2021 14:51 Temperature, Fahrenheit 98.3 06/06/2021 15:43 Oxygen Saturation 97 Rapid Response Recent Lab Results : 06/06/2021 14:59 Hgb 13.2 (11.2-15.7) 06/06/2021 14:59 Hct 40.3 (34.1-44.9) 06/06/2021 14:59 RBC 4.48 (3.93-5.22) 06/06/2021 14:59 WBC HI 11.4 (4.5-10.5) 06/06/2021 14:59 Platelet Count 237 (163-369) Weight/BMI : Clinical Weight/BMI CLINICALWEIGHT: 106.36 kg (06/06/21 14:51:00) Body Mass Index: 40.2 kg/m2 Critical (06/06/21 14:51:00) Rapid Response Dental Equipment Mechanic #1 : GREY MACK, RN GREY MACK, RN - 06/06/2021 15:45 EDT documented in this encounter Plan of Treatment Not on file documented as of this encounter Visit Diagnoses Not on filedocumented in this encounter
[2024-10-28] VITALS: BP 120/62; PULSE 73; PULSE 80; RESP 17; TEMP 36.6; O2SAT 99
--- NOTE | 2024-10-28 00:06 | ECG_ITS ---
APPROVED REPORT Exam: Resting ECG HR:77 bpm ECG Measurements Heart Rate 77 AXES IL 189 P 13 QRSd 98 QRS -1 QT 534 T 192 QTc 565 Conclusion SINUS RHYTHM LOW QRS VOLTAGE IN EXTREMITY LEADS [QRS DEFLECTION < 0.5 mV IN LIMB LEADS] ST DEVIATION AND MARKED T-WAVE ABNORMALITY, CONSIDER ANTEROLATERAL ISCHEMIA [-0.5+ mV T-WAVE IN I/aVL/V3-V6] ST DEVIATION AND MODERATE T-WAVE ABNORMALITY, CONSIDER INFERIOR ISCHEMIA [-0.1+ mV T-WAVE IN II/aVF] PROLONGED QT INTERVAL CRITICAL TEST RESULT UNCONFIRMED REPORT Electronically signed by : Darryl Howe MD 10/28/2024 12:46:00
[2024-10-28] MEDS: NITROGLYCERIN 0.4MG SL TABLET 0.4 MG SL ×2 (00:28→00:35)
[2024-10-28 01:31] LABS: Troponin I < 0.01 ng/ml (0.00-0.034)
[2024-10-28 04:00] VITALS: BP 120/59; PULSE 78; PULSE 90; RESP 16; TEMP 36.4; O2SAT 99; BMI 34.9
--- NOTE | 2024-10-28 04:31 | PC.NURSE ---
Pt is A&OX4 and has tolerated room air. Lung sounds clear and bowel sounds active. She did complain of chest pain rating it 8/10. Ekg was taken as well as troponins. 2 nitro tablets given and pt no longer reports any pain. Purewick has remained in place. She is currently asleep with call light within reach.
[2024-10-28 06:31] VITALS: BMI 34.9
[2024-10-28 06:52] LABS: POC Glucose,Bedside 138 (70-110)
[2024-10-28 08:00] VITALS: BP 124/44; PULSE 70; PULSE 75; RESP 16; TEMP 36.9; O2SAT 94
[2024-10-28] MEDS: DOCUSATE SODIUM 100 MG CAPSULE PO (08:44)
[2024-10-28] MEDS: METOPROLOL SUCCINATE XL 25MG TABLET 25 MG PO (08:45)
[2024-10-28] MEDS: HEPARIN SODIUM 5,000 UNIT/ML VIAL 5000 UNIT SUBCUT (08:45)
[2024-10-28] MEDS: ALLOPURINOL 100MG TABLET 100 MG PO (08:45)
[2024-10-28] MEDS: ASPIRIN EC 81MG TABLET 81 MG PO (08:45)
[2024-10-28 09:07] LABS: Hematocrit 33.4 % (37.0-47.0); Hemoglobin 11.1 g/dL (12.2-16.2); Immature Granulocytes % 0.3 %; Mean Corpuscular HGB Conc 33.2 g/dL (31.8-35.4); Mean Corpuscular Hemoglobin 28.7 pg (27.0-31.2); Mean Corpuscular Volume 86.3 fl (81-99); Nucleated Red Blood Cells % 0 %; Platelet Count 120 K/mm3 (142-424); Red Blood Count 3.87 M/mm3 (4.20-5.40); Red Cell Distribution Width-SD 49.3 fL; White Blood Count 3.7 K/mm3 (4.8-10.8)
[2024-10-28 09:22] LABS: Chloride 112 mmol/L (98-107); Potassium 3.9 mmoL/L (3.5-5.1); Sodium 136 mmol/L (136-145)
[2024-10-28 09:25] LABS: Blood Urea Nitrogen 15 mg/dl (7-17); Creatinine Clearance Estimated 66 mL/min (50-200); Creatinine,Serum 1.10 mg/dl (0.52-1.04); Estimated Glomerular Filt Rate 49 ml/min (>60); GFR (African American) 59 ML/MIN (>60)
[2024-10-28 09:26] LABS: Anion Gap 8.9 mEq/L (5-15); Calcium 8.6 mg/dl (8.4-10.2); Carbon Dioxide 19 mmol/L (22.0-30.0); Glucose 164 mg/dl (74-100)
[2024-10-28] MEDS: humaLOG 100 UNITS/ML 10ML VIAL (SSI) SUBCUT ×3 (11:13→20:06)
[2024-10-28 12:00] VITALS: PULSE 84
[2024-10-28] MEDS: FUROSEMIDE 40 MG TABLET PO (14:52)
--- NOTE | 2024-10-28 15:30 | P.PN_ITS ---
Subjective *Date: 11/02/24 *Time: 12:06 Interval history: Patient doing well, intetmittently having chest pain. EKG, troponins reassuring. LHC on Tuesday, continue antibiotics. Exam Data for Last 24 hours Vital signs and Labs for Last 24 Hours: Temp Pulse Resp BP Pulse Ox O2 Del Method O2 Flow Rate 98.4 F 84 16 124/44 L 94 L Room Air 93 10/28/24 08:00 10/28/24 12:00 10/28/24 08:00 10/28/24 08:00 10/28/24 08:00 10/28/24 13:00 10/27/24 01:00 Laboratory Results - last 24 hr 10/27/24 14:50: Stl C. cayetanensis PCR Not detected, Stool Rotavirus (PCR) Not detected, Stl Adenov F 40/41 PCR Not detected, Stool Astrovirus (PCR) Not detected, Stool Campylobacter PCR Not detected, Stl C.difficile Tox PCR Not det ected, Stool Cryptosporidium PCR Not detected, Stl E.coli Shiga Tox PCR Not detected, Stool E coli O157 PCR Not detected, Stl Enterotoxigenic E PCR Not detected, Stool EPEC (PCR) Not detected, Stool EAEC (PCR) Not detected, Stl E. histolytica PCR Not detected, Stool Giardia Lamblia PCR Not detected, Stool Salmonella PCR Not detected, Stool Sapovirus (PCR) Not detected, Stl P. shigelloides PCR Not detected, Stl Shigella/EIEC PCR Not detected, St Y.enterocolitica PCR Not detected, Stool Vibrio (PCR) Not detected, Stl Vibrio cholerae PCR Not detected, Stl Norovirus GI/GII PCR Not detected 10/27/24 16:49: POC Glucose 230 H 10/27/24 20:27: POC Glucose 173 H 10/28/24 00:33: Troponin I < 0.01 10/28/24 06:45: POC Glucose 138 H 10/28/24 08:55: WBC 3.7 L, RBC 3.87 L, Hgb 11.1 L, Hct 33.4 L, MCV 86.3, MCH 28.7, MCHC 33.2, RDW 15.6, Plt Count 120 L, MPV 9.5, Neut % (Auto) 45.8, Lymph % (Auto) 35.8, [place] % (Auto) 14.4 H, Eos % (Auto) 3.2, Baso % (Auto) 0.5, Neut # (Auto) 1.7 L, Lymph # (Auto) 1.3, [place] # (Auto) 0.5, Eos # (Auto) 0.1, Baso # (Auto) 0.0, Sodium 136, Potassium 3.9, Chloride 112 H, Carbon Dioxide 19 L, Anion Gap 8.9, BUN 15, Creatinine 1.10 H, Estimated Creat Clear 66, Estimated GFR 49 L, Est GFR ( Amer) 59 D, Glucose 164 H, Calcium 8.6 Temp Pulse Resp BP Pulse Ox O2 Del Method O2 Flow Rate 98.3 F 74 18 134/72 96 Room Air 93 10/29/24 08:00 10/29/24 08:00 10/29/24 08:00 10/29/24 08:00 10/29/24 08:00 10/29/24 11:00 10/27/24 01:00 Laboratory Results - last 24 hr 10/26/24 22:30: Urine Color Yellow, Urine Appearance Clear, Urine pH 6.0, Ur Specific [place] 1.020, Urine Protein 2+ A, Urine Glucose (UA) Negative, Urine Ketones Trace, Urine Blood 2+ A, Urine Nitrate Positive A, Urine Bilirubin Negative, Urine Urobilinogen 2.0, Ur Leukocyte Esterase 2+ A, Urine RBC 10-20, Urine WBC 5-10, Ur Squamous Epith Cells Occasional, Urine Bacteria 1+ 10/28/24 16:26: POC Glucose 196 H 10/28/24 20:03: POC Glucose 200 H 10/29/24 05:47: POC Glucose 137 H 10/29/24 08:43: Sodium 134 L, Potassium 3.8, Chloride 108 H, Carbon Dioxide 19 L , Anion Gap 10.8, BUN 17, Creatinine 1.10 H, Estimated Creat Clear 65, Estimated GFR 49 L, Est GFR ( Amer) 59, Glucose 220 H D, Calcium 8.7 10/29/24 09:20: WBC 3.3 L, RBC 3.65 L, Hgb 10.3 L, Hct 31.7 L, MCV 86.8, MCH 28.2, MCHC 32.5, RDW 15.5, Plt Count 134 L, MPV 9.9, Neut % (Auto) 48.3, Lymph % (Auto) 35.8, [place] % (Auto) 10.8 H, Eos % (Auto) 3.9, Baso % (Auto) 0.9, Neut # (Auto) 1.6 L, Lymph # (Auto) 1.2, [place] # (Auto) 0.4, Eos # (Auto) 0.1, Baso # (Auto) 0.0 I & O for Last 24 hours: Intake & Output 10/25/24 10/26/24 10/27/24 10/28/24 23:59 23:59 23:59 23:59 Intake Total 2164 / 2314 570 / 570 Output Total 100 / 100 100 / 100 450 / 450 Balance -100 / 150 2063 / 2214 120 / 120 Weight 93 kg 93 kg 92.669 kg Intake & Output 10/26/24 10/27/24 10/28/24 10/29/24 23:59 23:59 23:59 23:59 Intake Total 2164 / 2314 570 / 620 610 / 610 Output Total 100 / 100 100 / 100 1250 / 1650 1150 / 1150 Balance -100 / 150 2063 / 2214 -680 / -1030 -540 / -540 Weight 205 lb 0.478 oz 205 lb 0.478 oz 204 lb 4.8 oz 203 lb Microbiology Reports for the Last 24 Hours: Microbiology 10/26/24 22:30 Urine,Catheterized Urine Culture - Preliminary Gram Negative Rods Constitutional Constitutional: no acute distress and obese *Routine HEENT Exam Head: Present normocephalic and atraumatic ENT: Present mucous membranes moist *Routine Neck Exam Neck: Present supple, full ROM and normal carotid upstroke; Absent JVD, carotid bruit or lymphadenopathy *Routine Respiratory Exam Respiratory: Present CTA bilaterally, normal respiratory effort, able to speak in complete sentences and symmetric chest movement *Routine Cardiovascular Exam Cardiovascular: Present RRR, Normal S1 and Normal S2; Absent murmur or gallop *Routine Abdominal Exam Abdominal: Present soft and normoactive bowel sounds; Absent tenderness, distended or organomegaly *Routine Extremities Exam Extremities: Present edema, full ROM, pulses intact and normal capillary refill; Absent cyanosis or clubbing *Routine Skin Exam Skin: Present intact and warm; Absent erythema *Routine Neurological Exam Neurological: Present alert, oriented X3 and CN II-XII intact; Absent sensory deficit or motor deficit Routine Psychiatric Exam Psychiatric: Present normal affect Assessment and Plan *Assessment and plan (1) Urinary tract infection: Status: Acute Category: Medical Code(s): N39.0 - Urinary tract infection, site not specified (2) (HFpEF) heart failure with preserved ejection fraction: Status: Acute Category: Medical Code(s): I50.30 - Unspecified diastolic (congestive) heart failure (3) Diabetes mellitus: Status: Acute Category: Medical Code(s): E11.9 - Type 2 diabetes mellitus without complications (4) Chronic venous stasis: Status: Acute Category: Medical Code(s): I87.8 - Other specified disorders of veins Plan This is a 74-year-old female that presents with generalized weakness with ECG concerns in the ED and transferred to our facility for cardiology consultation. Her urinalysis was abnormal. 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 Problems addressed as follows: Urinary tract infection ED urinalysis abnormal Urine culture pending - No signs of sepsis, WBC 3.6. - Continue IV ceftriaxone 1g daily. Chronic HFpEF (stage C/NYHA II) Abnormal ECG Telemetry monitoring Cardiology consultation Troponin trend Echocardiogram pending Antiplatelet therapy Statin therapy Loop diuretic therapy (currently holding with low blood pressure) Beta-briana therapy (currently holding with low blood pressure) Avoiding SGLT2 inhibitor therapy with UTI Avoiding ARB therapy with low blood pressure Assessing blood pressures for MAR start - Patient is having intermittent chest pains, no ST elevations. Troponins normal. Spoke with Dr. Adair, recommeds [facility] on Tuesday. Patient is agreeable. Diabetes Routine blood sugar monitoring Hemoglobin A1c Pending Basal insulin therapy Sliding scale insulin therapy Consistent carbohydrate diet Chronic venous stasis Chronic lower extremity wounds Topical wound care Antibiotic therapy Outpatient follow-up concerning Unna boot therapy L[place]ON/OHS/BMI 35 Pulse oximetry monitoring Oxygen therapy to maintain appropriate oxygen saturations Assessing for home NIPPV therapy Nutrition education Calorie appropriate diet The length of stay for this patient will be 2 midnights or greater due to above diagnoses.
[2024-10-28 16:00] VITALS: BP 109/79; PULSE 73; PULSE 87; RESP 18; TEMP 36.8; O2SAT 96
[2024-10-28 16:44] LABS: POC Glucose,Bedside 196 (70-110)
--- NOTE | 2024-10-28 17:09 | PC.NURSE ---
a &ox4. pt has had no complaints this shift. fsbs treated with SSI per may. multiple bowel movements this shift. purewick in place draining dark urine. no needs at this time. call light within reach.
[2024-10-28 20:00] VITALS: BP 114/58; PULSE 70; PULSE 75; RESP 17; TEMP 36.6; O2SAT 96
[2024-10-28] MEDS: INSULIN GLARGINE 100 UNITS/ML 3ML FLEXPEN 10 UNIT SUBCUT (20:04)
[2024-10-28] MEDS: PANTOPRAZOLE 40MG TABLET 40 MG PO (20:06)
[2024-10-28] MEDS: ATORVASTATIN 40MG TABLET 80 MG PO (20:06)
[2024-10-28 20:18] LABS: POC Glucose,Bedside 200 (70-110)
[2024-10-29] VITALS (17 sets, daily range): BP systolic 96–134; BP diastolic 57–72; PULSE 63–77; RESP 16–20; TEMP 36.1–36.8; O2SAT 91–97; BMI 34.6
--- NOTE | 2024-10-29 04:00 | PC.NURSE ---
Pt A&OX4 and has tolerated room air. She has received IV ABX. Purewick has remained in place. She has denied any chest pain or SOA this shift. No complaints at this time, call light within reach.
[2024-10-29 05:56] LABS: POC Glucose,Bedside 137 (70-110)
--- NOTE | 2024-10-29 06:00 | CA_ITS ---
APPROVED REPORT EXAM: Comprehensive 2D, Doppler, and color-flow Echocardiogram Pharmacy Buyer: Angi Morrissey RT(R) Ht: 5 ft 4 in Wt: 205lbs BSA: 1.98 BP: 120/77 mmHg Indications: HFpEF, weakness, acute renal failure, Hypertension, diabetes M-Mode Dimensions RVDd 2.55 cm (0.9-2.6) LA Diam 3.85 cm (1.9-4.0) LVDd 4.59 cm (3.5-5.7) LVDs 3.52 cm (3.5-5.7) IVSd 0.64 cm (0.6-1.1) PWd 0.74 cm (0.6-1.1) EF (Teich) 46.70% FS 23.30% EDV (Teich) 96.80 mL ESV (Teich) 51.60 mL LV Diastology E Decel Time 263 (160-240 msec) E/A Ratio 1.26 Mitral Valve MV A Velocity 72.0 (40-130 cm/s) E/A Ratio 1.26 Left Ventricle The left ventricle is normal size. Left ventricular systolic function is normal. The left ventricular ejection fraction is within the normal range. There is increased left ventricular wall thickness. There is normal LV segmental wall motion. The left ventricular diastolic function is indeterminate. LVEF is 55% Right Ventricle The right ventricle is mildly dilated. The right ventricular systolic function is normal. Atria The left atrium is mildly dilated. The right atrium is mildly dilated. There is no color Doppler evidence of interatrial shunt. Aortic Valve The aortic valve is mildly thickened. There is no hemodynamically significant aortic valvular stenosis. Trace aortic regurgitation is present. Mitral Valve The mitral valve is normal in structure. No evidence of mitral valve stenosis. Trace mitral regurgitation is present. Tricuspid Valve The tricuspid valve leaflets are thin and pliable. Mild tricuspid regurgitation. RVSP is 25-30 mmHg. Pulmonic Valve The pulmonary valve is grossly normal in structure. Mild pulmonic valve regurgitation is present. Great Vessels The aortic root is normal in size. IVC is normal in size and collapses >50% with inspiration. Pericardium There is no pericardial effusion. Other Information Study Quality: Technically Difficult Conclusion Technically difficult study. Normal biventricular systolic function. Mild RV dilation. Mild biatrial dilation. Mild TR, mild PI. Electronically signed by : Osiris Marrufo MD 10/30/2024 12:51:50
--- NOTE | 2024-10-29 07:48 | EXP.PHA.PN ---
Subjective *Date: 10/29/24 *Time: 07:48 Medical Exam Vital signs and Labs for Last 24 Hours: Vital Signs Temp Pulse Pulse Resp BP Pulse Ox O2 Del Method 10/29/24 06:42 Room Air 10/29/24 05:00 Room Air 10/29/24 04:00 97.5 F L 70 16 120/63 97 Room Air 10/29/24 04:00 65 10/29/24 03:00 Room Air 10/29/24 01:00 Room Air 10/29/24 00:00 75 10/29/24 00:00 98.2 F 74 16 120/59 L 96 Room Air 10/28/24 23:00 Room Air 10/28/24 21:00 Room Air 10/28/24 20:00 Room Air 10/28/24 20:00 70 10/28/24 20:00 97.8 F 75 17 114/58 L 96 Room Air 10/28/24 18:50 Room Air 10/28/24 17:00 Room Air 10/28/24 16:00 98.3 F 87 18 109/79 L 96 Room Air 10/28/24 16:00 73 10/28/24 15:00 Room Air 10/28/24 13:00 Room Air 10/28/24 12:00 84 10/28/24 11:00 Room Air 10/28/24 08:58 Room Air 10/28/24 08:00 70 10/28/24 08:00 Room Air 10/28/24 08:00 98.4 F 75 16 124/44 L 94 L Room Air Intake and Output 10/28/24 10/28/24 10/29/24 15:59 23:59 07:59 Intake Total 420 / 620 50 / 50 Output Total 300 / 1650 800 / 1650 1150 / 1150 Balance 120 / -1030 -800 / -1030 -1100 / -1100 Intake: Intake, Oral Amount 420 / 520 Intake, Total IV Amount 50 / 50 Ceftriaxone Sodium 1 gm In 0.9 50 / 50 % Sodium Chloride 50 ml @ 100 mls/hr IV Q24H [facility] Rx#:[id number] Output: Output, Urine Amount 300 / 1650 800 / 1650 1150 / 1150 Other: Number of Unmeasured Voids 0 0 0 Number of Bowel Movements 1 1 Weight 92.079 kg Patient Weight 10/29/24 23:59 Weight 92.079 kg Laboratory Results - last 24 hr 10/28/24 08:55: WBC 3.7 L, RBC 3.87 L, Hgb 11.1 L, Hct 33.4 L, MCV 86.3, MCH 28.7, MCHC 33.2, RDW 15.6, Plt Count 120 L, MPV 9.5, Neut % (Auto) 45.8, Lymph % (Auto) 35.8, [place] % (Auto) 14.4 H, Eos % (Auto) 3.2, Baso % (Auto) 0.5, Neut # (Auto) 1.7 L, Lymph # (Auto) 1.3, [place] # (Auto) 0.5, Eos # (Auto) 0.1, Baso # (Auto) 0.0, Sodium 136, Potassium 3.9, Chloride 112 H, Carbon Dioxide 19 L, Anion Gap 8.9, BUN 15, Creatinine 1.10 H, Estimated Creat Clear 66, Estimated GFR 49 L, Est GFR ( Amer) 59 D, Glucose 164 H, Calcium 8.6 10/28/24 16:26: POC Glucose 196 H 10/28/24 20:03: POC Glucose 200 H 10/29/24 05:47: POC Glucose 137 H I & O for Labs for Last 24 Hours: Intake & Output 10/26/24 10/27/24 10/28/24 10/29/24 23:59 23:59 23:59 23:59 Intake Total 2164 / 2314 570 / 620 50 / 50 Output Total 100 / 100 100 / 100 1250 / 1650 1150 / 1150 Balance -100 / 150 2064 / 2214 -680 / -1030 -1100 / -1100 Weight 93 kg 93 kg 92.669 kg 92.079 kg The patient's infection will respond to the chosen ABx?: Yes Is the patient receiving the right drug, dose, and route?: Yes Could a more targeted ABx be ordered?: No (URINE CX STILL PENDING.)
--- NOTE | 2024-10-29 08:58 | HMH.OTEV ---
OT Inpatient Evaluation Rehab OT IP Evaluation Start: 10/27/24 02:40 Freq: ONCE Status: Active Protocol: Document 10/29/24 08:52 SEVERO (Rec: 10/29/24 08:58 SEVERO [id number]) Rehab OT IP Assessment Subjective History PER HPI: *History of present illness: This is a 74-year-old female that presents to [facility] in transition of care from [facility] for generalized weakness and abnormal ECG. The patient reports that she lives in [place] with her daughter and son and is typically wheelchair dependent secondary to a previous stroke with left- sided deficit. She normally uses adult diaper hygiene managed by her family members. She reports that she is able to transfer from the bed to the wheelchair but often needs assistance with diaper changes. She describes feeling weak over a couple days of the family brought her to the emergency room for evaluation. In the emergency room the ED provider identified an abnormal ECG and contacted the cardiology service at [facility] for transition of care. Her outside troponins were negative x 2 and her ECGs identified no acute ST-T changes. She received IV fluids in the ED with improvement noted. Currently she reports no fever, no chills, no nausea, no vomiting, no diarrhea, no abdominal pain, no flank pain, no dysuria, no gross hematuria, no retrosternal chest pain , no dyspnea, no palpitations, no diaphoresis, no pain with inspiration, no cough or syncopal episodes. After the patient had arrived at our facility I received a call from the outside ED physician reporting that the patient's urinalysis came back abnormal and concerning for urinary tract infection. Nursing staff have identified that she remains afebrile with blood pressure 120/77, heart rate 72 normal respiratory rate and saturating appropriately on room air. Subjective I can do that. Pt supine in bed eating when therapy arrived this AM. Pt agreeable to session. Pt orient x3. pt reported they live with daughter in home with ramp. pt uses w/c for FM. pt does not have shower chair and does not have grab bars. pt does have bedside commode. Pt reports daughter is there 24/7 and assists with ADLs and IADLs and drives pt. pt reports she uses a lift for transfers . pt agreeable for bed mobility. pt was Max A x1 to roll from side to side in bed. Pt able to pull some with UB strength. Pt left supine in bed with call light and all other needs within reach. Objective Patient Orientation Person,Place,Birthday Right Upper WFL Extremity Gross ROM Left Upper Extremity WFL Gross ROM Bed Mobility bed mobility - rolling Assist Level Maximum x 1 (75% assist) Decrease in No Endurance Rehab OT IP prob,goals,plan Problems Date of Evaluation: 10/29/24 Rehab Potential Rehab Potential Innapropriate for Skilled Therapy Discharge Plan OT Discharge Plan At this time, pt is at baseline with occupational performance and would not benefit from skilled acute OT services and interventions while admitted at [facility]. Pt able to DC home with daughter pending progress made at [facility] in health. Pt could benefit from shower chair and grab bars for assistance with bathing and hygiene. Eval Complexity Eval Charge Codes 77704 - Moderate Complexity PHYSICIAN CERTIFICATION: I certify the specified therapy services for Daja Steele are required, authorized, and reviewed every 30 days.
[2024-10-29 09:23] LABS: Chloride 108 mmol/L (98-107); Sodium 134 mmol/L (136-145)
[2024-10-29 09:24] LABS: Potassium 3.8 mmoL/L (3.5-5.1)
[2024-10-29 09:26] LABS: Blood Urea Nitrogen 17 mg/dl (7-17); Creatinine Clearance Estimated 65 mL/min (50-200); Creatinine,Serum 1.10 mg/dl (0.52-1.04); Estimated Glomerular Filt Rate 49 ml/min (>60); GFR (African American) 59 ML/MIN (>60)
[2024-10-29 09:27] LABS: Anion Gap 10.8 mEq/L (5-15); Calcium 8.7 mg/dl (8.4-10.2); Carbon Dioxide 19 mmol/L (22.0-30.0); Glucose 220 mg/dl (74-100)
[2024-10-29 09:38] LABS: Hematocrit 31.7 % (37.0-47.0); Hemoglobin 10.3 g/dL (12.2-16.2); Immature Granulocytes % 0.3 %; Mean Corpuscular HGB Conc 32.5 g/dL (31.8-35.4); Mean Corpuscular Hemoglobin 28.2 pg (27.0-31.2); Mean Corpuscular Volume 86.8 fl (81-99); Nucleated Red Blood Cells % 0 %; Platelet Count 134 K/mm3 (142-424); Red Blood Count 3.65 M/mm3 (4.20-5.40); Red Cell Distribution Width-SD 49.6 fL; White Blood Count 3.3 K/mm3 (4.8-10.8)
[2024-10-29] MEDS: ALLOPURINOL 100MG TABLET 100 MG PO (09:38)
[2024-10-29] MEDS: ASPIRIN EC 81MG TABLET 81 MG PO (09:38)
[2024-10-29] MEDS: METOPROLOL SUCCINATE XL 25MG TABLET 25 MG PO (09:38)
[2024-10-29] MEDS: FUROSEMIDE 20MG TABLET 20 MG PO (09:39)
--- NOTE | 2024-10-29 09:42 | IR_ITS ---
APPROVED REPORT Patient Location: Inpatient PROCEDURES Left heart catheterization Left ventriculogram Selective coronary angiogram INDICATION High risk abnormal EKG, Suspected acute coronary syndrome Informed consent was obtained prior to the procedure. COMPLICATIONS none Estimated Blood Loss: less than 10ml TECHNIQUE One percent lidocaine used to anesthetize the right anterior aspect of the wrist. The right radial artery was accessed via the Seldinger technique. A 6 Khmer sheath was placed in the right radial artery. 2.5 mg of Verapamil, 800 mcg of nitroglycerin, 1mg Lidocaine and 5000 U Heparin were given through the arterial sheath. The JL3 catheter was also used to perform left heart catheterization, left ventriculogram and selective coronary angiogram. At the end of the procedure the sheath was removed good hemostasis was achieved using Traclet band, patient was transferred to the postop holding area in stable condition. ANGIOGRAPHIC RESULTS The left main artery Has an ostial 20% stenosis which appears to be more anatomical kinking than atherosclerotic The left anterior descending artery Is widely patent and accompanied by LANCE II flow. Diffuse 10% luminal regularities The circumflex artery Mild 10% luminal regularities companied by LANCE II flow The right coronary artery Dominant normal accompanied by LANCE II flow The HUSSEIN ventriculogram reveals Normal 60% The left ventricular end-diastolic pressure 25 mmHg IMPRESSION Slow flow down the coronary arteries consistent with endothelial dysfunction No angiographic evidence of macrovascular disease Normal ejection fraction Elevated LVEDP PLAN 1. Medical management 2. Treatment of endothelial dysfunction Electronically signed by : Kody Adair MD 10/29/2024 16:57:31
--- NOTE | 2024-10-29 12:18 | EXP.CARD.CON ---
History of Present Illness History of Present Illness Consult date: 10/29/24 Requesting physician: Fredrick Jordan Chief complaint: Weakness History of present illness: This is a 74-year-old white female who presented to [facility] due to generalized weakness and was transferred here to [facility] due to that weakness and highly abnormal EKG. The patient states that she had not been feeling well for few days prior to admission. She states that she was just too weak to do anything. She also reports feeling very short of breath for the last week or 2 prior to admission. She states that this was worse with exertion and did improve with rest. She denied any chest pain or pressure. She denied any fever, chills, nausea, vomiting or diarrhea. She does not think she has had any lower extremity edema. The patient reports that she lives with her family and does have left-sided deficits due to her previous stroke. Due to her highly abnormal EKG the patient was transferred here to [facility] for further evaluation [facility] Disclaimer: The information contained in this section may have been updated after the patient was seen, as this information can be updated by other users. Medical History (Updated 10/29/24 @ 12:21 by aRchell Rausch APRN) Shortness of Breath Abnormal electrocardiogram [ECG] [EKG] Atypical angina Stroke (HFpEF) heart failure with preserved ejection fraction Body mass index (BMI) 35 or more Chronic venous stasis Normal esophagogastroduodenoscopy (EGD) Sleep apnea Hypertension Hypercholesterolemia GERD (gastroesophageal reflux disease) Gout Lymphedema Diabetes mellitus Coronary arteriosclerosis Chronic renal failure Cellulitis Surgical History (Updated 10/26/24 @ 22:57 by Otto Laguerre MD) Hx of esophagogastroduodenoscopy Hx of colonoscopy History of cystoscopy Hx of appendectomy H/O tubal ligation Social History (Updated 10/26/24 @ 21:24 by Eileen Caputo RN) Smoking Status: Never smoker alcohol intake: never current occupational status: disabled Travel in the last 8 weeks?: None Review of Systems Review of Systems Review of systems:: pertinent systems reviewed and negative unless documented below Constitutional Constitutional: Reports system reviewed and no additional complaints, except as documented, Reports fatigue and Reports weakness Eyes Eyes: Reports system reviewed and no additional complaints, except as documented ENT Ears, Nose, Mouth, and Throat: Reports system reviewed and no additional complaints, except as documented *Cardiovascular Cardiovascular: Reports system reviewed and no additional complaints, except as documented, Denies chest pain, Reports dyspnea, Reports dyspnea on exertion and Reports orthopnea *Respiratory Respiratory: Reports system reviewed and no additional complaints, except as documented, Reports dyspnea and Reports dyspnea on exertion *Gastrointestinal Gastrointestinal: Reports system reviewed and no additional complaints, except as documented *Genitourinary Genitourinary: Reports system reviewed and no additional complaints, except as documented *Musculoskeletal Musculoskeletal: Reports system reviewed and no additional complaints, except as documented Integumentary/Breasts Skin/Breast: Reports system reviewed and no additional complaints, except as documented *Neurologic Neurologic: Reports system reviewed and no additional complaints, except as documented and Reports weakness Psychiatric Psychiatric: Reports system reviewed and no additional complaints, except as documented Endocrine Endocrine: Reports system reviewed and no additional complaints, except as documented and Reports fatigue Hematologic/Lymphatic Hematologic/Lymphatic: Reports system reviewed and no additional complaints, except as documented Allergic/Immunologic Allergic/Immunologic: Reports system reviewed and no additional complaints, except as documented Exam Data for Last 24 hours Vital signs and Labs for Last 24 Hours: Temp Pulse Resp BP Pulse Ox O2 Del Method O2 Flow Rate 98.3 F 74 18 134/72 96 Room Air 93 10/29/24 08:00 10/29/24 08:00 10/29/24 08:00 10/29/24 08:00 10/29/24 08:00 10/29/24 11:00 10/27/24 01:00 Laboratory Results - last 24 hr 10/26/24 22:30: Urine Color Yellow, Urine Appearance Clear, Urine pH 6.0, Ur Specific [place] 1.020, Urine Protein 2+ A, Urine Glucose (UA) Negative, Urine Ketones Trace, Urine Blood 2+ A, Urine Nitrate Positive A, Urine Bilirubin Negative, Urine Urobilinogen 2.0, Ur Leukocyte Esterase 2+ A, Urine RBC 10-20, Urine WBC 5-10, Ur Squamous Epith Cells Occasional, Urine Bacteria 1+ 10/28/24 16:26: POC Glucose 196 H 10/28/24 20:03: POC Glucose 200 H 10/29/24 05:47: POC Glucose 137 H 10/29/24 08:43: Sodium 134 L, Potassium 3.8, Chloride 108 H, Carbon Dioxide 19 L, Anion Gap 10.8, BUN 17, Creatinine 1.10 H, Estimated Creat Clear 65, Estimated GFR 49 L, Est GFR ( Amer) 59, Glucose 220 H D, Calcium 8.7 10/29/24 09:20: WBC 3.3 L, RBC 3.65 L, Hgb 10.3 L, Hct 31.7 L, MCV 86.8, MCH 28.2, MCHC 32.5, RDW 15.5, Plt Count 134 L, MPV 9.9, Neut % (Auto) 48.3, Lymph % (Auto) 35.8, [place] % (Auto) 10.8 H, Eos % (Auto) 3.9, Baso % (Auto) 0.9, Neut # (Auto) 1.6 L, Lymph # (Auto) 1.2, [place] # (Auto) 0.4, Eos # (Auto) 0.1, Baso # (Auto) 0.0 I & O for Last 24 hours: Intake & Output 10/26/24 10/27/24 10/28/24 10/29/24 23:59 23:59 23:59 23:59 Intake Total 2164 / 2314 570 / 620 610 / 610 Output Total 100 / 100 100 / 100 1250 / 1650 1150 / 1150 Balance -100 / 150 2064 / 2214 -680 / -1030 -540 / -540 Weight 205 lb 0.478 oz 205 lb 0.478 oz 204 lb 4.8 oz 203 lb Microbiology Reports for the Last 24 Hours: Microbiology 10/26/24 22:30 Urine,Catheterized Urine Culture - Preliminary Gram Negative Rods Constitutional Constitutional: no acute distress and obese *Routine HEENT Exam Head: Present normocephalic and atraumatic ENT: Present mucous membranes moist *Routine Neck Exam Neck: Present supple, full ROM and normal carotid upstroke; Absent JVD, carotid bruit or lymphadenopathy *Routine Respiratory Exam Respiratory: Present CTA bilaterally, normal respiratory effort, able to speak in complete sentences and symmetric chest movement *Routine Cardiovascular Exam Cardiovascular: Present RRR, Normal S1 and Normal S2; Absent murmur or gallop *Routine Abdominal Exam Abdominal: Present soft and normoactive bowel sounds; Absent tenderness, distended or organomegaly *Routine Extremities Exam Extremities: Present edema, full ROM, pulses intact and normal capillary refill; Absent cyanosis or clubbing *Routine Skin Exam Skin: Present intact and warm; Absent erythema *Routine Neurological Exam Neurological: Present alert, oriented X3 and CN II-XII intact; Absent sensory deficit or motor deficit Routine Psychiatric Exam Psychiatric: Present normal affect Meds Home Medications and Allergies Home Medications ?Medication ?Instructions ?Recorded ?Confirmed ?Type allopurinol 100 mg tablet 100 mg PO DAILY 10/26/24 10/27/24 History atorvastatin 80 mg tablet 80 mg PO HS 10/26/24 10/27/24 History carvedilol 6.25 mg tablet 6.25 mg PO BID 10/26/24 10/27/24 History esomeprazole magnesium 20 mg 20 mg PO DAILY 10/26/24 10/27/24 History capsule,delayed release furosemide 20 mg tablet 20 mg PO DAILY 10/26/24 10/27/24 History insulin glargine 100 unit/mL (3 22 unit SQ HS 10/26/24 10/27/24 History mL) subcutaneous pen (Lantus Solostar U-100 Insulin) metformin 500 mg tablet,extended 500 mg PO DAILY 10/26/24 10/27/24 History release 24 hr potassium chloride 10 mEq 10 meq PO BID 10/26/24 10/27/24 History tablet,extended release New Prescriptions to Start Prescriptions: Allergies Allergy/AdvReac Type Severity Reaction Status Date / Time ciprofloxacin AdvReac Unknown Verified 10/26/24 21:00 allergy reaction Sulfa (Sulfonamide AdvReac Vomiting Verified 10/26/24 21:00 Antibiotics) sulfamethoxazole (From AdvReac Unknown Verified 10/26/24 21:00 Bactrim) allergy reaction trimethoprim (From Bactrim) AdvReac Unknown Verified 10/26/24 21:00 allergy reaction vancomycin AdvReac Rash Verified 10/26/24 21:00 Assessment and Plan *Assessment and plan (1) Atypical angina: Status: Acute Category: Medical Code(s): I20.89 - Other forms of angina pectoris (2) Abnormal electrocardiogram [ECG] [EKG]: Status: Acute Category: Medical Code(s): R94.31 - Abnormal electrocardiogram [ECG] [EKG] (3) Shortness of Breath: Status: Acute Category: Medical Code(s): R06.02 - Shortness of breath (4) (HFpEF) heart failure with preserved ejection fraction: Status: Acute Qualifiers: Heart failure chronicity: chronic Qualified Code(s): I50.32 - Chronic diastolic (congestive) heart failure Category: Medical Code(s): I50.30 - Unspecified diastolic (congestive) heart failure (5) Diabetes mellitus: Status: Acute Qualifiers: Diabetes mellitus type: type 2 Diabetes mellitus terminal operations supervisor insulin use: with nursing home use Diabetes mellitus complication status: with circulatory complication Category: Medical Code(s): E11.9 - Type 2 diabetes mellitus without complications (6) Urinary tract infection: Status: Acute Category: Medical Code(s): N39.0 - Urinary tract infection, site not specified (7) Chronic venous stasis: Status: Acute Category: Medical Code(s): I87.8 - Other specified disorders of veins Plan Plan: 1. The patient was admitted to the hospital due to generalized weakness and highly abnormal EKG. The patient was also having shortness of breath which is most likely atypical angina. Due to her atypical angina and highly abnormal EKG will plan to proceed with left cardiac catheterization today to evaluate for coronary artery disease. 2. The patient has been educated the risk and benefits of proceeding with left cardiac catheterization. The patient verbalized understanding and is agreeable in proceeding with the procedure. 3. The patient will be n.p.o. in preparation for left cardiac catheterization. 4. Will obtain an echocardiogram to evaluate her LV function. 5. Her blood pressure is well-controlled. Continue metoprolol. 6. Her LDL goal is less than 55. Will get a liver and lipid panel in the morning. She is on a statin. 7. The patient does have a history of HFpEF. She has been diuresed with IV Lasix now on oral. 8. Further recommendations were made pending the patient's response to treatment the results of her left cardiac catheterization and echocardiogram today. Thank you for the opportunity to participate in the care of this patient. All recommendations and orders are per Dr. Marrufo.
[2024-10-29] MEDS: HEPARIN 1,000 UNITS/500ML NS (CATH LAB) 3000 UNIT IV (16:42)
[2024-10-29] MEDS: VERAPAMIL 2.5MG/ML 2ML VIAL 2.5 MG IV (16:43)
[2024-10-29] MEDS: 0.9 % SODIUM CHLORIDE 500 ML 25 ML IV (16:43)
[2024-10-29] MEDS: LIDOCAINE 1% 10ML MDV 10 ML IJ (16:43)
[2024-10-29] MEDS: HEPARIN 1,000 UNITS/ML 10ML VIAL (CATH LAB) 5000 UNIT IV (16:43)
[2024-10-29] MEDS: NITROGLYCERIN 800MCG/8ML SYR (CATH LAB) 800 MCG IA (16:43)
[2024-10-29] MEDS: MIDAZOLAM HCL 1MG/ML 5ML VIAL 1 MG IV (16:44)
[2024-10-29] MEDS: FENTANYL 100MCG/2ML VIAL 50 MCG IV (16:45)
--- NOTE | 2024-10-29 17:18 | P.DS_ITS ---
General Admission date:: 10/26/24 HPI HPI HPI: This is a 74-year-old female that presents to [facility] in transition of care from [facility] for generalized weakness and abnormal ECG. The patient reports that she lives in [place] with her daughter and son and is typically wheelchair dependent secondary to a previous stroke with left-sided deficit. She normally uses adult diaper hygiene managed by her family members. She reports that she is able to transfer from the bed to the wheelchair but often needs assistance with diaper changes. She describes feeling weak over a couple days of the family brought her to the emergency room for evaluation. In the emergency room the ED provider identified an abnormal ECG and contacted the cardiology service at [facility] for transition of care. Her outside troponins were negative x 2 and her ECGs identified no acute ST-T changes. She received IV fluids in the ED with improvement noted. Currently she reports no fever, no chills, no nausea, no vomiting, no diarrhea, no abdominal pain, no flank pain, no dysuria, no gross hematuria, no retrosternal chest pain, no dyspnea, no palpitations, no diaphoresis, no pain with inspiration, no cough or syncopal episodes. After the patient had arrived at our facility I received a call from the outside ED physician reporting that the patient's urinalysis came back abnormal and concerning for urinary tract infection. Nursing staff have identified that she remains afebrile with blood pressure 120/77, heart rate 72 normal respiratory rate and saturating appropriately on room air. Hospital Course Hospital Course Hospital Course: Daja Steele is a 74-year-old female who presented as a transfer from [facility] with generalized weakness in the setting of abnormal EKG and UTI and was admitted for the same. #Abnormal EKG #Shortness of breath, chest pain ? No ST elevations, does have nonspecific ST depressions with low voltage QRS. No concern for tamponade. ? Cardiology consulted, s/p PCI without occlusive CAD. Patient tolerated procedure well. ? Started Protonix 40 mg, aspirin 81 mg, metoprolol succinate 25 mg (discontinued Coreg due to soft pressuress. #UTI #Generalized weakness ? Clinically improved with IV ceftriaxone. Urine culture growing E. coli which is pansensitive. ? Discharged with levofloxacin 750 mg for 3 more days. #HFpEF ? Continue home Lasix 20 mg. #Gout ? Continue home allopurinol. #Type 2 diabetes ? Continue home metformin, Lantus 22 units nightly. Total time spent on discharge: 32 minutes on chart review, counseling, documentation, and direct care with patient. Exam Data for Last 24 hours Vital signs and Labs for Last 24 Hours: Temp Pulse Resp BP Pulse Ox O2 Del Method O2 Flow Rate 97.5 F L 71 16 111/62 92 L Room Air 93 10/29/24 12:00 10/29/24 17:15 10/29/24 17:15 10/29/24 17:15 10/29/24 17:15 10/29/24 17:15 10/27/24 01:00 Laboratory Results - last 24 hr 10/26/24 22:30: Urine Color Yellow, Urine Appearance Clear, Urine pH 6.0, Ur Specific [place] 1.020, Urine Protein 2+ A, Urine Glucose (UA) Negative, Urine Ketones Trace, Urine Blood 2+ A, Urine Nitrate Positive A, Urine Bilirubin Negative, Urine Urobilinogen 2.0, Ur Leukocyte Esterase 2+ A, Urine RBC 10-20, Urine WBC 5-10, Ur Squamous Epith Cells Occasional, Urine Bacteria 1+ 10/28/24 20:03: POC Glucose 200 H 10/29/24 05:47: POC Glucose 137 H 10/29/24 08:43: Sodium 134 L, Potassium 3.8, Chloride 108 H, Carbon Dioxide 19 L , Anion Gap 10.8, BUN 17, Creatinine 1.10 H, Estimated Creat Clear 65, Estimated GFR 49 L, Est GFR ( Amer) 59, Glucose 220 H D, Calcium 8.7 10/29/24 09:20: WBC 3.3 L, RBC 3.65 L, Hgb 10.3 L, Hct 31.7 L, MCV 86.8, MCH 28.2, MCHC 32.5, RDW 15.5, Plt Count 134 L, MPV 9.9, Neut % (Auto) 48.3, Lymph % (Auto) 35.8, [place] % (Auto) 10.8 H, Eos % (Auto) 3.9, Baso % (Auto) 0.9, Neut # (Auto) 1.6 L, Lymph # (Auto) 1.2, [place] # (Auto) 0.4, Eos # (Auto) 0.1, Baso # (Auto) 0.0 Temp Pulse Resp BP Pulse Ox O2 Del Method O2 Flow Rate 98.3 F 74 18 134/72 96 Room Air 93 10/29/24 08:00 10/29/24 08:00 10/29/24 08:00 10/29/24 08:00 10/29/24 08:00 10/29/24 11:00 10/27/24 01:00 Laboratory Results - last 24 hr 10/26/24 22:30: Urine Color Yellow, Urine Appearance Clear, Urine pH 6.0, Ur Specific [place] 1.020, Urine Protein 2+ A, Urine Glucose (UA) Negative, Urine Ketones Trace, Urine Blood 2+ A, Urine Nitrate Positive A, Urine Bilirubin Negative, Urine Urobilinogen 2.0, Ur Leukocyte Esterase 2+ A, Urine RBC 10-20, Urine WBC 5-10, Ur Squamous Epith Cells Occasional, Urine Bacteria 1+ 10/28/24 16:26: POC Glucose 196 H 10/28/24 20:03: POC Glucose 200 H 10/29/24 05:47: POC Glucose 137 H 10/29/24 08:43: Sodium 134 L, Potassium 3.8, Chloride 108 H, Carbon Dioxide 19 L , Anion Gap 10.8, BUN 17, Creatinine 1.10 H, Estimated Creat Clear 65, Estimated GFR 49 L, Est GFR ( Amer) 59, Glucose 220 H D, Calcium 8.7 10/29/24 09:20: WBC 3.3 L, RBC 3.65 L, Hgb 10.3 L, Hct 31.7 L, MCV 86.8, MCH 28.2, MCHC 32.5, RDW 15.5, Plt Count 134 L, MPV 9.9, Neut % (Auto) 48.3, Lymph % (Auto) 35.8, [place] % (Auto) 10.8 H, Eos % (Auto) 3.9, Baso % (Auto) 0.9, Neut # (Auto) 1.6 L, Lymph # (Auto) 1.2, [place] # (Auto) 0.4, Eos # (Auto) 0.1, Baso # (Auto) 0.0 I & O for Last 24 hours: Intake & Output 10/26/24 10/27/24 10/28/24 10/29/24 23:59 23:59 23:59 23:59 Intake Total 2164 / 2314 570 / 620 610 / 610 Output Total 100 / 100 100 / 100 1250 / 1650 1150 / 1150 Balance -100 / 150 4 / 2214 -680 / -1030 -540 / -540 Weight 93 kg 93 kg 92.669 kg 92.079 kg Intake & Output 10/26/24 10/27/24 10/28/24 10/29/24 23:59 23:59 23:59 23:59 Intake Total 2164 / 2314 570 / 620 610 / 610 Output Total 100 / 100 100 / 100 1250 / 1650 1150 / 1150 Balance -100 / 150 2063 / 2214 -680 / -1030 -540 / -540 Weight 205 lb 0.478 oz 205 lb 0.478 oz 204 lb 4.8 oz 203 lb Microbiology Reports for the Last 24 Hours: Microbiology 10/26/24 22:30 Urine,Catheterized Urine Culture - Preliminary Gram Negative Rods Microbiology 10/26/24 22:30 Urine,Catheterized Urine Culture - Preliminary Gram Negative Rods Constitutional Constitutional: no acute distress and obese *Routine HEENT Exam Head: Present normocephalic and atraumatic ENT: Present mucous membranes moist *Routine Neck Exam Neck: Present supple, full ROM and normal carotid upstroke; Absent JVD, carotid bruit or lymphadenopathy *Routine Respiratory Exam Respiratory: Present CTA bilaterally, normal respiratory effort, able to speak in complete sentences and symmetric chest movement *Routine Cardiovascular Exam Cardiovascular: Present RRR, Normal S1 and Normal S2; Absent murmur or gallop *Routine Abdominal Exam Abdominal: Present soft and normoactive bowel sounds; Absent tenderness, distended or organomegaly *Routine Extremities Exam Extremities: Present edema, full ROM, pulses intact and normal capillary refill; Absent cyanosis or clubbing *Routine Skin Exam Skin: Present intact and warm; Absent erythema *Routine Neurological Exam Neurological: Present alert, oriented X3 and CN II-XII intact; Absent sensory deficit or motor deficit Routine Psychiatric Exam Psychiatric: Present normal affect Results Data Completed and Pending Labs on day of discharge: Labs from last 24 hours 10/29/24 10/29/24 10/29/24 09:20 08:43 05:47 WBC 3.3 L RBC 3.65 L Hgb 10.3 L Hct 31.7 L MCV 86.8 MCH 28.2 MCHC 32.5 RDW 15.5 Plt Count 134 L MPV 9.9 Neut % (Auto) 48.3 Lymph % (Auto) 35.8 [place] % (Auto) 10.8 H Eos % (Auto) 3.9 Baso % (Auto) 0.9 Neut # (Auto) 1.6 L Lymph # (Auto) 1.2 [place] # (Auto) 0.4 Eos # (Auto) 0.1 Baso # (Auto) 0.0 Sodium 134 L Potassium 3.8 Chloride 108 H Carbon Dioxide 19 L Anion Gap 10.8 BUN 17 Creatinine 1.10 H Estimated Creat Clear 65 Estimated GFR 49 L Est GFR ( Amer) 59 Glucose 220 H D POC Glucose 137 H Calcium 8.7 Urine Color Urine Appearance Urine pH Ur Specific [place] Urine Protein Urine Glucose (UA) Urine Ketones Urine Blood Urine Nitrate Urine Bilirubin Urine Urobilinogen Ur Leukocyte Esterase Urine RBC Urine WBC Ur Squamous Epith Cells Urine Bacteria 10/28/24 10/26/24 20:03 22:30 WBC RBC Hgb Hct MCV MCH MCHC RDW Plt Count MPV Neut % (Auto) Lymph % (Auto) [place] % (Auto) Eos % (Auto) Baso % (Auto) Neut # (Auto) Lymph # (Auto) [place] # (Auto) Eos # (Auto) Baso # (Auto) Sodium Potassium Chloride Carbon Dioxide Anion Gap BUN Creatinine Estimated Creat Clear Estimated GFR Est GFR ( Amer) Glucose POC Glucose 200 H Calcium Urine Color Yellow Urine Appearance Clear Urine pH 6.0 Ur Specific [place] 1.020 Urine Protein 2+ A Urine Glucose (UA) Negative Urine Ketones Trace Urine Blood 2+ A Urine Nitrate Positive A Urine Bilirubin Negative Urine Urobilinogen 2.0 Ur Leukocyte Esterase 2+ A Urine RBC 10-20 Urine WBC 5-10 Ur Squamous Epith Cells Occasional Urine Bacteria 1+ Preliminary micro results at discharge 10/26/24 22:30 Urine Culture - Preliminary Urine,Catheterized Gram Negative Rods DS: Diagnosis Discharge Diagnosis (1) Atypical angina: Status: Acute Code(s): I20.89 - Other forms of angina pectoris (2) Abnormal electrocardiogram [ECG] [EKG]: Status: Acute Code(s): R94.31 - Abnormal electrocardiogram [ECG] [EKG] (3) Shortness of Breath: Status: Acute Code(s): R06.02 - Shortness of breath (4) (HFpEF) heart failure with preserved ejection fraction: Status: Acute Code(s): I50.30 - Unspecified diastolic (congestive) heart failure Qualifiers: Heart failure chronicity: chronic Qualified Code(s): I50.32 - Chronic diastolic (congestive) heart failure (5) Diabetes mellitus: Status: Acute Code(s): E11.9 - Type 2 diabetes mellitus without complications Qualifiers: Diabetes mellitus complication status: with circulatory complication Diabetes mellitus buttermaker continuous churn insulin use: with buttermaker continuous churn use Diabetes mellitus type: type 2 (6) Urinary tract infection: Status: Acute Code(s): N39.0 - Urinary tract infection, site not specified (7) Chronic venous stasis: Status: Acute Code(s): I87.8 - Other specified disorders of veins Meds Home Medications and Allergies Home Medications ?Medication ?Instructions ?Recorded ?Confirmed ?Type allopurinol 100 mg tablet 100 mg PO DAILY 10/26/24 History atorvastatin 80 mg tablet 80 mg PO HS 10/26/24 5 History esomeprazole magnesium 20 mg 20 mg PO DAILY 10/26/24 0 10/27/24 History capsule,delayed release furosemide 20 mg tablet 20 mg PO DAILY 10/26/2410/12 History insulin glargine 100 unit/mL (3 22 unit SQ HS 10/26/24 10/27/24 History mL) subcutaneous pen (Lantus Solostar U-100 Insulin) metformin 500 mg tablet,extended 500 mg PO DAILY 10/2610/27/24 History release 24 hr potassium chloride 10 mEq 10 meq PO BID 10/26/2410/27 History tablet,extended release aspirin 81 mg tablet,delayed 81 mg PO DAILY 30 days #3 0 tabs 10/29/24 Rx release levofloxacin 750 mg tablet 750 mg PO Q48H 3 days #2 ta bs 10/29/24 Rx metoprolol succinate 25 mg 25 mg PO DAILY 30 days #30 tabs 10/29/24 Rx tablet,extended release 24 hr pantoprazole 40 mg tablet,delayed 40 mg PO HS 30 days #30 tabs 10/29/24 Rx release New Prescriptions to Start Prescriptions: aspirin Fredrick Jordan levofloxacin Nikki,Fredrick metoprolol succinate Nikki,Fredrick Cabrera Allergies Allergy/AdvReac Type Severity Reaction Status Date / Time ciprofloxacin AdvReac Unknown Verified 10/26/24 21:00 allergy reaction Sulfa (Sulfonamide AdvReac Vomiting Verified 10/26/24 21:00 Antibiotics) sulfamethoxazole (From AdvReac Unknown Verified 10/26/24 21:00 Bactrim) allergy reaction trimethoprim (From Bactrim) AdvReac Unknown Verified 10/26/24 21:00 allergy reaction vancomycin AdvReac Rash Verified 10/26/24 21:00 Discharge Plan Disposition Patient Disposition: Home, Self-Care Condition: Fair Discharge Order Discharge Orders: Discharge Order (Routine); Ordered 10/29/24 Ordered By: Fredrick Jordan Follow up Plan Follow up with: Kody Adair MD [Staff Physician, Cardiology] Prescriptions/Medication Reconciliation: New aspirin 81 mg Tablet,Delayed Release (Dr/Ec) 81 mg PO DAILY 30 Days Qty: 30 0RF pantoprazole 40 mg Tablet,Delayed Release (Dr/Ec) 40 mg PO HS 30 Days Qty: 30 0RF metoprolol succinate 25 mg Tablet Extended Release 24 Hr 25 mg PO DAILY 30 Days Qty: 30 0RF levofloxacin 750 mg tablet 750 mg PO Q48H 3 Days Qty: 2 0RF Continued atorvastatin 80 mg tablet 80 mg PO HS potassium chloride 10 mEq tablet extended release 10 meq PO BID Patient Comments: TAKE 1 TABLET BY MOUTH TWICE DAILY allopurinol 100 mg tablet 100 mg PO DAILY furosemide 20 mg tablet 20 mg PO DAILY metformin 500 mg tablet extended release 24 hr 500 mg PO DAILY Patient Comments: TAKE 1 TABLET BY MOUTH ONCE DAILY WITH BREAKFAST esomeprazole magnesium 20 mg capsule,delayed release(DR/EC) 20 mg PO DAILY Patient Comments: TAKE 1 CAPSULE BY MOUTH ONCE DAILY IN THE MORNING BEFORE BREAKFAST insulin glargine [Lantus Solostar U-100 Insulin] 100 unit/mL (3 mL) insulin pen 22 unit SQ HS Patient Comments: INJECT 22 UNITS SUBCUTANEOUSLY ONCE DAILY AT NIGHT Discontinued carvedilol 6.25 mg tablet 6.25 mg PO BID Problem Reconciliation Problems Reviewed?: Yes Patient Discharge Instructions Patient Instructions: Heart Failure, DI for Cardiac Catheterization, DI for Urinary Tract Infection (UTI), DI for Diabetes Type 2, Moderate Sedation, Stop Light Heart Failure, Stop Light Infection Print Language: [place] Providers Primary Care Provider: Ashlie Miramontes Admit Provider: Fredrick Jordan Attending Provider: Fredrick Jordan
[2024-10-29] MEDS: IOPAMIDOL-370 (76%);100ML BOTTLE 50 ML IV (17:22)
[2024-10-30 08:51] LABS: POC Glucose,Bedside 181 (70-110)
--- NOTE | 2024-10-31 10:30 | SW/DCPLANNER ---
Spoke with patient on the phone. Patient stated that she is doing good. Patient stated that she has not called yet to schedule her follow up appointment with DR Adair. Patient stated that she was able to get her new medicine. Patient stated that she has no concerns or questions at this time. Colby Ceron
== END 2024-10-29 20:39 | disposition home or self-care (01) | DRG 287 ==
PROVIDERS: Family Medicine; Internal Medicine; Admitting Provider Student in an Organized Health Care Education/Training Program; PCP Nurse Practitioner; Visit Provider Student in an Organized Health Care Education/Training Program
PROC: 4A023N7 Measurement of Cardiac Sampling and Pressure, Left Heart, Percutaneous Approach (ICD-10-PCS; CPT 93452; principal; 2024-10-29 18:00)
DX: I25.118 Atherosclerotic heart disease of native coronary artery with other forms of angina pectoris (principal); N39.0 Urinary tract infection, site not specified; I69.354 Hemiplegia and hemiparesis following cerebral infarction affecting left non-dominant side; I50.32 Chronic diastolic (congestive) heart failure; E66.2 Morbid (severe) obesity with alveolar hypoventilation; M10.9 Gout, unspecified; E11.9 Type 2 diabetes mellitus without complications; I87.8 Other specified disorders of veins; S81.809A Unspecified open wound, unspecified lower leg, initial encounter; Z68.35 Body mass index [BMI] 35.0-35.9, adult; Z99.3 Dependence on wheelchair; Z79.84 Long term (current) use of oral hypoglycemic drugs; Z79.4 Long term (current) use of insulin; Z79.899 Other long term (current) drug therapy; Z88.1 Allergy status to other antibiotic agents; Z88.2 Allergy status to sulfonamides
CPT/HCPCS: 36415; 80048; 80053; 81001; 82962; 83036; 83735; 84484; 85025; 85610; 87086; 87088; 87186; 87506; 93005; 93306; 97163; 97166; 99152; C1725; C1760; C1769; J0696; J1200; J1644; J1650; J2003; J2250; J3010; J7030; J7040; Q9967